=== PATIENT | male | born 1945 | race African-American/Black ===

== ENCOUNTER 2024-01-19 20:53 | Inpatient (IN) | payer MEDICARE, MEDICAID, OTHER, SELFPAY ==
--- OUTSIDE RECORDS SUMMARY | 2024-01-19 20:59 | XMS_ITS | Continuity of Care Document ---
Author Name [facility] Address [address] [place] [address] Organization [facility] Address [address] [place] [address] Support Name Relationship Address Phone No Primary Care, Physician Primary Care Provider Unknown Unavailable Yusef [facility] [place] [phone] Allergies, Adverse Reactions, Alerts No known allergies. Medications Active Medications Medication Dose Units Route Sig Start Date Status Atorvastatin 80 MG Oral Daily October 06, 2019 A ctive Gabapentin 600 MG Oral Daily October 06, 2019 Act dorian Lisinopril 20 MG Oral Daily October 06, 2019 Act dorian Metformin 500 MG Oral Daily October 06, 2019 Acti ve Glipizide 5 MG Oral Daily October 06, 2019 Acti ve Insulin Glargine [Lantus Solostar U-100 Insulin] 8 UNIT Subcutaneous Twice A Day October 06, 2019 Active Problem List Active Problems Medical Problem Onset Date Status URI (upper respiratory infection) Active Procedures Procedure Date Status XR chest pa & lat October 06, 2019 completed Relevant Diagnostic Tests and/or Laboratory Data Laboratory Results Test Date/Time Result Interp. Ref. Range Result Co mment White Blood Count October 06, 2019 8:58am 3.1 10^3/uL Low 4.5-10.5 Red Blood Count October 06, 2019 8:58am 5.12 10^6uL 4.20-5.40 Hemoglobin October 06, 2019 8:58am 13.2 g/dL Low 13.3-16.3 Hematocrit October 06, 2019 8:58am 39.4 % Low 40.0-49.0 Mean Corpuscular Volume October 06, 2019 8:58am 77.0 fL Low 80.0-100.0 Mean Corpuscular Hemoglobin October 06, 2019 8:58am 25.9 pg 23.0-31.0 Mean Corpuscular Hemoglobin Concent October 06, 2019 8:58am 33.6 g/dL 32.0-36.0 Platelet Count October 06, 2019 8:58am 258 10^3/uL 150-400 RDW Coefficient of Variation October 06, 2019 8:58am 13.6 % 12.5-15.5 Mean Platelet Volume October 06, 2019 8:58am 6.7 fL Low 7.0-10.5 Neutrophils (%) (Auto) October 06, 2019 8:58am Not Reportable Lymphocytes (%) (Auto) October 06, 2019 8:58am Not Reportable Monocytes (%) (Auto) October 06, 2019 8:58am Not Reportable Eosinophils (%) (Auto) October 06, 2019 8:58am Not Reportable Basophils (%) (Auto) October 06, 2019 8:58am Not Reportable Absolute Neutrophils (auto) October 06, 2019 8:58am Not Reportable Absolute Lymphocytes (auto) October 06, 2019 8:58am Not Reportable Absolute Monocytes (auto) October 06, 2019 8:58am Not Reportable Absolute Eosinophils (auto) October 06, 2019 8:58am Not Reportable Absolute Basophils (auto) October 06, 2019 8:58am Not Reportable Differential Total Cells Counted October 06, 2019 8:58am 100 Neutrophils % (Manual) October 06, 2019 8:58am 18 % Low 44-74 Lymphocytes % (Manual) October 06, 2019 8:58am 67 % High 16-46 Atypical Lymphocytes % (Manual) October 06, 2019 8:58am 1 % Monocytes % (Manual) October 06, 2019 8:58am 11 % 5-12 Eosinophils % (Manual) October 06, 2019 8:58am 2 % 0-8 Basophils % (Manual) October 06, 2019 8:58am 1 % 0-2 Platelet Estimate October 06, 2019 8:58am Adequate Red Blood Cell Morphology October 06, 2019 8:58am Abnormal High Anisocytosis October 06, 2019 8:58am 1+ High [place]ardo Cells October 06, 2019 8:58am 1+ Sodium Level October 06, 2019 8:58am 135 mmol/L Low 136-145 Potassium Level October 06, 2019 8:58am 4.4 mmol/L 3.5-5.1 Chloride Level October 06, 2019 8:58am 99 mmol/L 98-107 Carbon Dioxide Level October 06, 2019 8:58am 26 mmol/L 22-29 Anion Gap October 06, 2019 8:58am 10 mmol/L 6-18 Blood Urea Nitrogen October 06, 2019 8:58am 5 mg/dL Low 6-20 Creatinine October 06, 2019 8:58am 0.9 mg/dL 0.7-1.2 Glomerular Filtration Rate Calc October 06, 2019 8:58am > 60.00 mL/min 60- Multiply x 1.212 if of descent normal kidney function >60 mL/min results normalized to 1.73 m sq body surface area. Glucose Level October 06, 2019 8:58am 109 mg/dL 74-109 Calcium Level October 06, 2019 8:58am 9.5 mg/dL 8.6-10.0 Influenza Virus Type A (PCR) October 06, 2019 8:44am Negative Influenza Virus Type B (PCR) October 06, 2019 8:44am Negative Respiratory Syncytial Virus (RT-PCR October 06, 2019 8:44am Negative Advance Directives Advance Directive Response Recorded Date/ Time Date Patient Queried 10/06/19September 8:26am Does the patient have a Healthcare Proxy? No October 06, 2019 8:26am Healthcare Proxy Status Informed Patient [facility] 2018 8:26am Chief Complaint and Reason for Visit Encounter Admit Date Chief Complaint Reason for V isit Departed Emergency October 06, 2019 8:11am Flu like s [facility] Discharge Instructions Additional Discharge Instructions Call y our doctor for a follow up appointment. Your flu swab and chest X ray were negative. Return if you feel worse for any reason. Instruction/Education Provided Upper Res piratory Infection (ED) Upper Respiratory Infection (DC) Viral Syndrome (ED) Hospital Discharge Medications Medication Dose Units Route Sig Qty Days Order Date Status Ins tructions Atorvastatin 80 MG Oral Daily Sep Active Gabapentin 600 MG Oral Daily Decem 2018 Active Lisinopril 20 MG Oral Daily Decem 2018 Active Metformin 500 MG Oral Daily [facility] er 2018 Active Glipizide 5 MG Oral Daily [facility] er 2018 Active Insulin Glargine 8 UNIT Subcutaneous Twice A Day October 06, 2019 Active Encounters Encounter Facility Location Admit/Visit Date Discharge/Departure Date Attending Provider Departed Emergency [facility] Emergency Department October 06, 2019 8:11am October 06, 2019 10:55am Functional Status No known functional status. Immunizations No known immunizations. Payers Payer Name Policy Type Covered Republican Covered Republican Id Relationship Subscriber Subscriber Id Medicare Medicare Primary [id number] Self Pay Personal Payment ([place] - No Insurance) [facility] HMO Replacement Medicare Primary [id number] Plan of Care Instructions Upper Respiratory Infection (ED) Upper Respiratory Infection (DC) Viral Syndrome (ED) Social History Query Response Date Recorded Comment Does the patient use drugs? No October 06, 2019 8:38am Is pt a current\former smoke r or user of tobacco products? Yes, former October 06, 2019 8:38am Query Response Start Date Stop Date Is pt a current\former smoke r or user of tobacco products? Yes, former Vital Signs Vital Reading Result Reference Range Collection Date/Time Height 5 ft 9 in October 06 8:29am Weight 69.6 kg October 06 8:29am Temperature 97.7 F 97.5 F-99.3 F October 06 019 10:29am Pulse 47 BPM 60-90 October 06 10:29am Respiration 16 RPM -20 October 06 10:29am Pulse Oximetry 100 % 95-100 October 06, 2019 10:29am Blood Pressure Systolic 116 100-160 Dece mb2018 10:29am Blood Pressure Diastolic 59 60-90 Dec emb2018 10:29am Body Mass Index n/a
--- OUTSIDE RECORDS SUMMARY | 2024-01-19 20:59 | XMS_ITS | Continuity of Care Document ---
Author Organization [facility] Address [address] [place], [place] Phone Support Name Relationship Address Phone MD Kenia Sheehan Primary Care Provider [address] [place] [address] MD Armando Rosenthal Emergency Provider Dept. [place] [address] MD Faustino Friedman Emergency Provider Dept[place] [address] MD Cj Afrin Admit Provider [address] [place] [address] MD Servando Cordon. Other Provider [address] [place] [address] [phone] MD Joyce Monteiro Attending Provider [address] [facility] [place] [address] MD Harjeet Leonardo Emergency Provider Dept. [place] [address] MD Ashutosh Moya Emergency Provider [address] [place] [address] Chief Complaint and Reason for Visit Chief Complaint face feels uncomfort able chest pain CHEST PAIN Left leg laceration SI Allergies, Adverse Reactions, Alerts No known allergies Social History Smoking Status Status Start Date End Date Date of Observa tion Unknown if ever smoked February 072021 10:59am Observation Status Observation Response Date of Response Is pt a current\former smoke r or user of tobacco products? Yes, former February 18, 2022 10:59am Does the patient use drugs? No February 17, 2022 4:31pm On average how many days per week do you drink alcohol? 0 February 18, 2022 10:59am Additional Data Assigned Sex Male Problems Active Problems Medical Problem Onset Date Status Dementia with behavioral disturbance Active Laceration of left thigh Active Inactive/Resolved Problems Medical Problem Onset Date Status Facial tingling sensation Resolv ed URI (upper respiratory infection) Resolved Atopic dermatitis Resolved Eczema Resolved Rash and nonspecific skin eruption Resolved Itching Resolved Restless legs Resolved Chest pain Resolved Medications Medication Status Dose Units Route Directions Qty Days St art Date End Date Instructions Triamcinolon e Acetonide Disconti nued 1 APPLIC TOPICAL Twice A Day 454 November 09, 2020 2:37am Februa ry 2020 1:08am Loratadine Active 10 MG PO Daily 2020 3:58pm Atorvastatin Active 80 MG PO Bedtime Sep 9:31am Gabapentin Active 600 MG PO Three Lucio es A Day r 2018 9:31am Lisinopril Active 20 MG PO Daily e 2018 9:31am Metformin Active 1000 MG PO Twice A Day [facility] [place] 9:31am Glipizide Active 5 MG PO Twice A Day [facility] 2018 9:31am Insulin Glargine (Lantus Solostar U-100 Insulin) 100 unit/mL (3 mL) insulin pen Disconti nued 8 UNIT SUB-Q Twice A Day r 2018 9:34am December 13, 2021 5:01pm Quetiapine (Seroquel) 50 mg tablet Active 50 MG PO Bedtime December 13, 2021 4:56pm Donepezil (Aricept) 5 mg tablet Active 5 MG PO Daily December 13, 2021 4:56pm Thiamine Hcl (Vitamin B1) (Vitamin B-1) 100 mg tablet Active 100 MG PO Daily December 13, 2021 4:58pm Folic Acid Active 1 MG PO Daily December 13, 2021 4:58pm Omeprazole Active 40 MG PO Daily December 13, 2021 4:59pm Aspirin Active 81 MG PO Daily December 13, 2021 5:45pm Procedures Procedure Date Performed Status XR chest 1V portable December 13, 2021 10:44am com pleted CA cardiac stress test January 15, 2022 8:00am co mpleted Relevant Diagnostic Tests and/or Laboratory Data Laboratory Results Test Date/Time Result Interpretation Reference Range Result Comment Performing Site White Blood Count September 10, 2021 2:25pm 3.8 10^3/uL 4.5-10.5 [facility] [address] [facility] [address] White Blood Count December 14, 2021 8:33am 4.3 10^3/uL 4.5-10.5 [facility] [address] [facility] [address] White Blood Count February 17, 2022 2:25pm 3.7 10^3/uL 4.5-10.5 [place] [address] [facility] [address] Red Blood Count September 10, 2021 2:25pm 4.90 10^6uL 4.20-5.40 [place] [address] [facility] [address] Red Blood Count December 14, 2021 8:33am 4.54 10^6uL 4.20-5.40 [place] [address] [facility] [address] Red Blood Count February 17, 2022 2:25pm 4.83 10^6uL 4.20-5.40 [facility] [address] [facility] [address] Hemoglobin September 10, 2021 2:25pm 13.0 g/dL 13.3-16.3 [place] [address] [facility] [address] Hemoglobin December 14, 2021 8:33am 12.0 g/dL 13.3-16.3 [facility] [address] [facility] [address] Hemoglobin February 17, 2022 2:25pm 12.2 g/dL 13.3-16.3 [place] [address] [facility] [address] Hematocrit September 10, 2021 2:25pm 38.9 % 40.0-49.0 [place] [address] [facility] [address] Hematocrit December 14, 2021 8:33am 35.5 % 40.0-49.0 [place] [address] [facility] [address] Hematocrit February 17, 2022 2:25pm 37.6 % 40.0-49.0 [facility] [address] [facility] [address] Mean Corpuscular Volume September 10, 2021 2:25pm 79.4 fL 80.0-100.0 [place] [address] [facility] [address] Mean Corpuscular Volume December 14, 2021 8:33am 78.3 fL 80.0-100.0 [place] [address] [facility] [address] Mean Corpuscular Volume February 17, 2022 2:25pm 77.8 fL 80.0-100.0 [place] [address] [facility] [address] Mean Corpuscular Hemoglobin September 10, 2021 2:25pm 26.5 pg 23.0-31.0 [place] [address] [facility] [address] Mean Corpuscular Hemoglobin December 14, 2021 8:33am 26.4 pg 23.0-31.0 [facility] [address] [facility] [address] Mean Corpuscular Hemoglobin February 17, 2022 2:25pm 25.2 pg 23.0-31.0 [place] [address] [facility] [address] Mean Corpuscular Hemoglobin Concent September 10, 2021 2:25pm 33.4 g/dL 32.0-36.0 [facility] [address] [facility] [address] Mean Corpuscular Hemoglobin Concent December 14, 2021 8:33am 33.7 g/dL 32.0-36.0 [facility] [address] [facility] [address] Mean Corpuscular Hemoglobin Concent February 17, 2022 2:25pm 32.4 g/dL 32.0-36.0 [place] [address] [facility] [address] Platelet Count September 10, 2021 2:25pm 213 10^3/uL 150-[address] [facility] [facility] [address] [facility] [address] Platelet Count December 14, 2021 8:33am 188 10^3/uL 150-[address] [facility] [place] [address] [facility] [address] Platelet Count February 17, 2022 2:25pm 250 10^3/uL 150-400 Delta: 188 on 12/14/21-[address] [facility] [place] [address] [facility] [address] RDW Coefficient of Variation September 10, 2021 2:25pm 13.5 % 12.5-15.[address] [facility] [place] [address] [facility] [address] RDW Coefficient of Variation December 14, 2021 8:33am 14.2 % 12.5-15.5 [facility] [place] [address] [facility] [address] RDW Coefficient of Variation February 17, 2022 2:25pm 13.8 % 12.5-15.5 [facility] [address] [facility] [address] Mean Platelet Volume September 10, 2021 2:25pm 6.9 fL 7.0-10.5 [facility] [address] [facility] [address] Mean Platelet Volume December 14, 2021 8:33am 7.7 fL 7.0-10.5 [facility] [address] [facility] [address] Mean Platelet Volume February 17, 2022 2:25pm 7.0 fL 7.0-10.5 [facility] [address] [facility] [address] Neutrophils (%) (Auto) September 10, 2021 2:25pm 46 % 44-[address] [facility] [address] [facility] [address] Neutrophils (%) (Auto) December 13, 2021 10:44am 54 % 44-74 Delta: 46 on 09/10/21-[address] [facility] [place] [address] [facility] [address] Neutrophils (%) (Auto) February 17, 2022 2:25pm 55 % 44-74 [facility] [place] [address] [place] [address] Lymphocytes (%) (Auto) September 10, 2021 2:25pm 42 % 16-46 [facility] [place] [address] [place] [address] Lymphocytes (%) (Auto) December 13, 2021 10:44am 35 % 16-46 [facility] [place] [address] [place] [address] Lymphocytes (%) (Auto) February 17, 2022 2:25pm 36 % 16-46 [facility] [place] [address] [place] [address] Monocytes (%) (Auto) September 10, 2021 2:25pm 9 % 5-12 [facility] [place] [address] [place] [address] Monocytes (%) (Auto) December 13, 2021 10:44am 9 % 5-12 [facility] [place] [address] [place] [address] Monocytes (%) (Auto) February 17, 2022 2:25pm 7 % 5-12 [facility] [place] [address] [place] [address] Eosinophils (%) (Auto) September 10, 2021 2:25pm 2 % 0-8 [facility] [place] [address] [place] [address] Eosinophils (%) (Auto) December 13, 2021 10:44am 2 % 0-8 [facility] [place] [address] [place] [address] Eosinophils (%) (Auto) February 17, 2022 2:25pm 2 % 0-8 [facility] [place] [address] [place] [address] Basophils (%) (Auto) September 10, 2021 2:25pm 1 % 0-2 [facility] [place] [address] [place] [address] Basophils (%) (Auto) December 13, 2021 10:44am 1 % 0-2 [facility] [address] [place] [address] Basophils (%) (Auto) February 17, 2022 2:25pm 1 % 0-[address] [facility] [address] Absolute Neutrophils (auto) September 10, 2021 2:25pm 1.8 10^3/uL 1.5-7.8 [address] [facility] [address] Absolute Neutrophils (auto) December 13, 2021 10:44am 2.1 10^3/uL 1.5-7.[address] [facility] [address] Absolute Neutrophils (auto) February 17, 2022 2:25pm 2.0 10^3/uL 1.5-7.[address] [facility] [address] Absolute Lymphocytes (auto) September 10, 2021 2:25pm 1.6 10^3/uL 0.85-4.[address] [facility] [address] Absolute Lymphocytes (auto) December 13, 2021 10:44am 1.3 10^3/uL 0.85-4.1 [address] [facility] [address] Absolute Lymphocytes (auto) February 17, 2022 2:25pm 1.3 10^3/uL 0.85-4.[address] [facility] [address] Absolute Monocytes (auto) September 10, 2021 2:25pm 0.3 10^3/uL 0.2-1.1 [address] [facility] [address] Absolute Monocytes (auto) December 13, 2021 10:44am 0.4 10^3/uL 0.2-1.[address] [address] Absolute Monocytes (auto) February 17, 2022 2:25pm 0.3 10^3/uL 0.2-1.1 [address] [facility] [address] Absolute Eosinophils (auto) September 10, 2021 2:25pm 0.1 10^3/uL 0.05-0.[address] [facility] [address] Absolute Eosinophils (auto) December 13, 2021 10:44am 0.1 10^3/uL 0.05-0.[address] [facility] [address] Absolute Eosinophils (auto) February 17, 2022 2:25pm 0.1 10^3/uL 0.05-0.[address] [facility] [address] Absolute Basophils (auto) September 10, 2021 2:25pm 0.0 10^3/uL 0-0.[address] [facility] [address] Absolute Basophils (auto) December 13, 2021 10:44am 0.0 10^3/uL 0-0.2 [address] [facility] [address] Absolute Basophils (auto) February 17, 2022 2:25pm 0.0 10^3/uL 0-0.[address] [facility] [address] Urine Color December 13, 2021 10:44am Yellow Yellow [address] [facility] [address] Urine Color February 17, 2022 4:42pm Yellow Yellow [address] [facility] [address] Urine Clarity December 13, 2021 10:44am Clear Clear [address] [facility] [address] Urine Clarity February 17, 2022 4:42pm Clear Clear [address] [facility] [address] Urine Specific [place] December 13, 2021 10:44am 1.009 1.005-1.03 [address] [facility] [address] Urine Specific [place] February 17, 2022 4:42pm 1.016 1.005-1.[address] [facility] [address] Urine Glucose (UA) December 13, 2021 10:44am Negative Negative Nella[address] [facility] [address] Urine Glucose (UA) February 17, 2022 4:42pm Negative Negative [address] [facility] [address] Urine Bilirubin December 13, 2021 10:44am Negative Negative [address] [facility] [address] Urine Bilirubin February 17, 2022 4:42pm Negative Negative [address] [facility] [address] Urine Ketones December 13, 2021 10:44am Negative Negative [address] [facility] [address] Urine Ketones February 17, 2022 4:42pm Negative Negative [address] [facility] [address] Urine Occult Blood December 13, 2021 10:44am Negative Negative [address] [facility] [address] Urine Occult Blood February 17, 2022 4:42pm Negative Negative [address] [facility] [address] Urine pH December 13, 2021 10:44am 8.5 5.0-7.[address] [facility] [address] Urine pH February 17, 2022 4:42pm 7.5 5.0-7.[address] [facility] [address] Urine Protein December 13, 2021 10:44am Negative mg/dL Negative [address] [facility] [address] Urine Protein February 17, 2022 4:42pm Negative mg/dL Negative [address] [facility] [address] Urine Urobilinogen December 13, 2021 10:44am 1.0 E.U./dL 0.2-1.[address] [facility] [address] Urine Urobilinogen February 17, 2022 4:42pm 1.0 E.U./dL 0.2-1.[address] [facility] [address] Urine Nitrite December 13, 2021 10:44am Negative Negative [facility] [address] [facility] [address] Urine Nitrite February 17, 2022 4:42pm Negative Negative N[facility] [address] [facility] [address] Urine Leukocyte Esterase December 13, 2021 10:44am Negative [facility] [address] [facility] [address] Urine Leukocyte Esterase February 17, 2022 4:42pm Negative Negative Nella [facility] [address] [facility] [address] Urine Amphetamine Screen February 17, 2022 4:42pm Negative Negative [address] [facility] [address] Urine Barbiturates Screen February 17, 2022 4:42pm Negative Negative [address] [facility] [address] Urine Benzodiazepines Screen February 17, 2022 4:42pm Negative Negative Nella[address] [facility] [address] Urine Buprenorphine Screen February 17, 2022 4:42pm Negative Negative [facility] [address] [facility] [address] Urine Cocaine Screen February 17, 2022 4:42pm Negative Negative [address] [facility] [address] Urine Methadone Screen February 17, 2022 4:42pm Negative Negative [address] [facility] [address] Urine Oxycodone Screen February 17, 2022 4:42pm Negative Negative [facility] [address] [facility] [address] Urine Opiates Screen February 17, 2022 4:42pm Negative Negative [facility] [address] [facility] [address] Urine Cannabinoids Screen February 17, 2022 4:42pm Negative Negative [facility] [address] [facility] [address] Urine Fentanyl Screen February 17, 2022 4:42pm Negative Negative [facility] [address] [facility] [address] Sodium Level September 10, 2021 2:25pm 140 mmol/L 136-145 [facility] [address] [facility] [address] Sodium Level December 14, 2021 8:33am 138 mmol/L 136-145 [facility] [address] [facility] [address] Sodium Level February 17, 2022 2:25pm 139 mmol/L 136-145 [facility] [address] [facility] [address] Potassium Level September 10, 2021 2:25pm 4.8 mmol/L 3.5-5.1 [facility] [address] [facility] [address] Potassium Level December 14, 2021 8:33am 4.1 mmol/L 3.5-5.[address] [facility] [address] Potassium Level February 17, 2022 2:25pm 4.5 mmol/L 3.5-5.1 [facility] [address] [facility] [address] Chloride Level September 10, 2021 2:25pm 101 mmol/L 98-107 [facility] [address] [facility] [address] Chloride Level December 14, 2021 8:33am 100.7 mmol/L 98-107 [facility] [address] [facility] [address] Chloride Level February 17, 2022 2:25pm 103 mmol/L 98-107 [facility] [address] [facility] [address] Carbon Dioxide Level September 10, 2021 2:25pm 28 mmol/L 22-29 [facility] [address] [facility] [address] Carbon Dioxide Level December 14, 2021 8:33am 25 mmol/L 22-29 [facility] [address] [facility] [address] Carbon Dioxide Level February 17, 2022 2:25pm 27 mmol/L 22-[address] [facility] [address] Anion Gap September 10, 2021 2:25pm 11 mmol/L 6- [facility] [address] [facility] [address] Anion Gap December 14, 2021 8:33am 12.3 mmol/L - [facility] [address] [facility] [address] Anion Gap February 17, 2022 2:25pm 9 mmol/L 03-27 [facility] [address] [facility] [address] Blood Urea Nitrogen September 10, 2021 2:25pm 5 mg/dL 03-29 [facility] [address] [facility] [address] Blood Urea Nitrogen December 14, 2021 8:33am 8 mg/dL 03-29 Delta: 4 on 12/13/21-943 [facility] [address] [facility] [address] Blood Urea Nitrogen February 17, 2022 2:25pm 11 mg/dL 03-29 [facility] [address] [facility] [address] Creatinine September 10, 2021 2:25pm 0.9 mg/dL 0.7-1.2 [facility] [address] [facility] [address] Creatinine December 14, 2021 8:33am 0.9 mg/dL 0.7-1.2 [facility] [address] [facility] [address] Creatinine February 17, 2022 2:25pm 1.0 mg/dL 0.7-1.2 [facility] [address] [facility] [address] Glomerular Filtration Rate Calc September 10, 2021 2:25pm > 60.00 mL/min >60 Multiply x 1.212 if of descent normal kidney function >60 mL/min results normalized to 1.73 m sq body surface area. [facility] [address] [facility] [address] Glomerular Filtration Rate Calc December 14, 2021 8:33am > 60.00 mL/min >60 Multiply x 1.212 if of descent normal kidney function >60 mL/min results normalized to 1.73 m sq body surface area. [facility] [address] [facility] [address] Glomerular Filtration Rate Calc February 17, 2022 2:25pm > 60.00 mL/min >60 Multiply x 1.212 if of descent normal kidney function >60 mL/min results normalized to 1.73 m sq body surface area. [place] [address] [facility] [address] Glucose Level September 10, 2021 2:25pm 134 mg/dL 74-109 [facility] [address] [facility] [address] Glucose Level December 14, 2021 8:33am 114 mg/dL 74-109 [place] [address] [facility] [address] Glucose Level February 17, 2022 2:25pm 245 mg/dL 74-109 [place] [address] [facility] [address] Calcium Level September 10, 2021 2:25pm 9.5 mg/dL 8.6-10.6 [place] [address] [facility] [address] Calcium Level December 14, 2021 8:33am 8.8 mg/dL 8.6-10.6 [place] [address] [facility] [address] Calcium Level February 17, 2022 2:25pm 9.1 mg/dL 8.6-10.6 [place] [address] [facility] [address] Phosphorus Level February 17, 2022 2:25pm 2.9 mg/dL 2.5-4.5 [facility] [address] [facility] [address] Total Bilirubin December 13, 2021 10:44am 0.4 mg/dL 0.4-1.2 [place] [address] [facility] [address] Total Bilirubin February 17, 2022 2:25pm 0.3 mg/dL 0.4-1.2 [place] [address] [facility] [address] Direct Bilirubin December 13, 2021 10:44am < 0.2 mg/dL 0.0-0.2 [place] [address] [facility] [address] Aspartate Amino Transf (AST/SGOT) December 13, 2021 10:44am 29 IU/L 10-50 [facility] [address] [facility] [address] Aspartate Amino Transf (AST/SGOT) February 17, 2022 2:25pm 26 IU/L 10-[address] [facility] [address] Alanine Aminotransferase (ALT/SGPT) December 13, 2021 10:44am 22 U/L 5-[address] [facility] [address] Alanine Aminotransferase (ALT/SGPT) February 17, 2022 2:25pm 31 U/L 5-[address] [facility] [address] Alkaline Phosphatase December 13, 2021 10:44am 76 IU/L 40-[address] [facility] [address] Alkaline Phosphatase February 17, 2022 2:25pm 88 IU/L 40-129 [address] [facility] [address] Total Protein December 13, 2021 10:44am 6.7 g/dL 6.6-8.7 [address] [facility] [address] Total Protein February 17, 2022 2:25pm 6.7 g/dL 6.6-8.[address] [facility] [address] Albumin December 13, 2021 10:44am 4.4 g/dL 3.5-5.[address] [facility] [address] Albumin February 17, 2022 2:25pm 3.9 g/dL 3.5-5.[address] [facility] [address] Magnesium Level February 17, 2022 2:25pm 1.4 mg/dL 1.6-2.[address] [facility] [address] Troponin T December 13, 2021 11:00pm < 0.01 ng/mL 0.0-0.01 [facility] [place] [address] Triglycerides Level December 14, 2021 8:33am 69 mg/dL Normal = <150 mg/dL [place] [address] [place] [address] Cholesterol Level December 14, 2021 8:33am 99 mg/dL Desirable = <200 mg/dL --- [place] [address] [place] [address] LDL Cholesterol, Calculated December 14, 2021 8:33am 60 mg/dL Optimal = <100 mg/dL Near Optimal = 100-129 mg/dL -------- [place] [address] [place] [address] HDL Cholesterol December 14, 2021 8:33am 25 mg/dL Low = <40 mg/dL Desirable = >59 mg/dL -- [place] [address] [place] [address] Cholesterol/HDL Ratio December 14, 2021 8:33am 4.0 [place] = <3.5 Good = >5.0 [facility] [place] [address] [place] [address] Cholesterol Ratio (LDL/HDL) December 14, 2021 8:33am 2.4 [place] = <2.0 Good = >5.0 Lipid Profile Reference Ranges based on NCEP Guidelines [facility] [address] Amylase Level December 13, 2021 10:44am 281 U/L 28-[address] [facility] [address] Lipase December 13, 2021 10:44am 35 U/L 13-[address] [facility] [address] Hemoglobin A1c December 14, 2021 8:33am 7.3 % 4.0-6.[address] [facility] [address] Estimated Average Glucose (eAG) December 14, 2021 8:33am 163 mg/dL [address] [facility] [address] Salicylates Level December 13, 2021 10:44am < 1.0 mg/dL 3.0-10.[address] [facility] [address] Salicylates Level February 17, 2022 2:25pm < 1.0 mg/dL 3.0-10.[address] [facility] [address] Acetaminophen Level December 13, 2021 10:44am < 5.0 ug/mL 10.0-30.[address] [facility] [address] Acetaminophen Level February 17, 2022 2:25pm < 5.0 ug/mL 10.0-30.[address] [facility] [address] Ethyl Alcohol Level December 13, 2021 10:44am < 10 mg/dL <[address] [facility] [address] Ethyl Alcohol Level February 17, 2022 2:25pm < 10 mg/dL <[address] [facility] [address] Influenza Virus Type A (PCR) December 13, 2021 11:10am Negative Negative [address] [facility] [address] Influenza Virus Type A (PCR) February 17, 2022 4:20pm Negative Negative [address] [facility] [address] Influenza Virus Type B (PCR) December 13, 2021 11:10am Negative Negative [address] [facility] [address] Influenza Virus Type B (PCR) February 17, 2022 4:20pm Negative Negative [address] [facility] [address] Respiratory Syncytial Virus (RT-PCR December 13, 2021 11:10am Negative Negative [address] [facility] [address] Respiratory Syncytial Virus (RT-PCR February 17, 2022 4:20pm Negative Negative [address] [facility] [address] SARS-CoV-2 (PCR) December 13, 2021 11:10am Negative Negative Test performed with [employer] GeneXpert SARS-CoV-2 PCR assay, which has received emergency use authorization (EUA) by the U.S.Food and Drug Administration . Negative results do not preclude SARS-CoV-2 infection and should not be used as the sole basis for treatment or other patient management decisions. [address] [facility] [address] SARS-CoV-2 (PCR) February 17, 2022 4:20pm Negative Negative Test performed with [employer] GeneXpert SARS-CoV-2 PCR assay, which has received emergency use authorization (EUA) by the U.S.Food and Drug Administration . Negative results do not preclude SARS-CoV-2 infection and should not be used as the sole basis for treatment or other patient management decisions. [address] [place] [id number] Bedside Glucose December 14, 2021 1:10pm 263 mg/dL 70-[address] [place] [id number] Diagnostic Imaging Reports Report Dictated Date/Time Dictated By Status Electrocardiogram September 12, 2021 10:00am [place] [address] Electrocardiogram Report Signed Patient: Maryana Rivera MR#: [id number] : 1945 Acct: [id number] Age/Sex: 76 / M ADM Date: 09/10/21 Loc: M.ER Attending Dr: Ordering Physician: Armando Rosenthal MD Pat CELL Date of Service: 09/10/21 Procedure(s): ECG Ekg Er Accession Number(s): [id number] CC: Lily Abernathy MD; Armando Rosenthal MD; Kenia Sheehan MD Date: 09/10/21 Time: 1442 Clinical Diagnosis: Referred By: Rhythm: Sinus bradycardia rate of 46 bpm Rate auricular: ventricular: P-R interval: [place]: Q-R-S interval: Q-T interval: P-Wave: Q-R-S complexes: T-Waves: Other findings: Interpretation: Sinus bradycardia, first degree AV conduction delay. OH interval 240 ms with Right bundle branch block. QRS prolonged at 127 ms. No prior EKG for comparison. Technologist: Dictated By: Lily Abernathy MD Transcribed By: JENNIFER Signed By: <Electronically signed by Lily Abernathy MD> Lily Abernathy MD Signed Date/Time: 09/16/21 1401 DD/ 1000 TD/TT: 09/15/21 1514 CC: Lily Abernathy MD; Armando Rosenthal MD; Kenia Sheehan MD Report Dictated Date/Time Dictated By Status Radiology Report December 13, 2021 11:23am Donald allison MD completed [address] [address] XRay Report Signed Patient: Maryana Rivera MR#: [id number] : 1945 Acct: [id number] Age/Sex: 76 / M ADM Date: 12/13/21 Loc: M.ER Attending Dr: ER Physician: Faustino Friedman MD Ordering Physician: YOGESH Man CELL Date of Service: 12/13/21 Procedure(s): XR chest 1V portable Accession Number(s): [id number] CC: Kenia Sheehan MD; Sanjay Nelson PA-C * XR chest 1V portable [id number] Interpretation Location: [place] [address] Date / Time: 12/13/2021 10:12 AM CLINICAL HISTORY: chest pain COMPARISON: X-ray dated October 06, 2019 TECHNIQUE: Frontal portable chest radiograph FINDINGS: No focal consolidation. No pneumothorax or pleural effusion. The cardiac silhouette is within normal limits. There are no acute osseous abnormalities. IMPRESSION: No radiographic evidence of an acute cardiopulmonary process. Electronically Signed by: Donald Sepulveda MD 12/13/2021 11:23 AM Technologist: Christopher Fontanez Dictated By: Donald Sepulveda MD Transcribed By: [email or web address] Signed By: <Electronically signed by Donald Sepulveda MD in OV> Donald Sepulveda MD Signed Date/Time: 12/13/211122 DD/ 22 TD/TT: 12/13/21 112 CC: Kenia Sheehan MD; Sanjay Nelson PA-C Report Dictated Date/Time Dictated By Status Electrocardiogram December 14, 2021 9:00am [place] [address] Electrocardiogram Report Signed Patient: Maryana Rivera MR#: [id number] : 1945 Acct: [id number] Age/Sex: 76 / M ADM Date: 12/13/21 Loc: M.2E [id number]: Joyce Monteiro MD ER Physician: Faustino Friedman MD Ordering Physician: YOGESH Man CELL Date of Service: 12/13/21 Procedure(s): EKG (ER) Accession Number(s): [id number] CC: Kenia Sheehan MD; Sanjay Nelson PA-C Date: 12/13/21 Time: 09:16 Clinical Diagnosis: Referred By: Rhythm: Sinus rhythm/50 bpm Rate auricular: ventricular: P-R interval: [place]: Q-R-S interval: Q-T interval: P-Wave: Q-R-S complexes: T-Waves: Other findings: Interpretation: Sinus rhythm/50 bpm, Right bundle branch block, QRS prolonged 125 milliseconds with first degree AV conduction delay. OH interval prolonged 227 milliseconds, unchanged compared to prior 09/10/21. Technologist: Dictated By: Lily Abernathy MD Transcribed By: KALLIE Signed By: <Electronically signed by Lily Abernathy MD> Lily Abernathy MD Signed Date/Time: 12/16/21 1400 DD/ 0900 TD/TT: 12/16/21 1211 CC: Kenia Sheehan MD; Sanjay Nelson PA-C Report Dictated Date/Time Dictated By Status Exercise Stress Test January 15, 2022 7:38am Lily engle MD completed [address] [address] Exercise Tolerance Test Signed Patient: Maryana Rivera MR#: [id number] : 1945 Acct: [id number] Age/Sex: 76 / M ADM Date: 01/15/22 Loc: [place] Attending Dr: Kenia Sheehan MD ER Physician: Ordering Physician: Kenia Sheehan MD Pat CELL Date of Service: 01/15/22 Procedure(s): CA cardiac stress test Accession Number(s): [id number] CC: Kenia Sheehan MD * DATE OF EXAM: 01/15/22 Maximum Predicted HR: 117bpm Target HR: 112bpm Referring MD: Kenia Sheehan Medications: Beta robert in last 24 hours: Unspecified Reason for Exercise Test: RESTING BP HR EKG FINDINGS SYMPTOMS SITTING: STANDIN/58 52 EXERCISE STAGE: MPH GR. BP HR EKG FINDINGS SYMPT OMS MOD 1.7 0% 0 1.7 5% 53 1 1.7 10% 99 2 2.5 12% 91 3 3.4 14% 96 4 4.2 16% 5 5.0 18% RECOVERY Immediate 0 115 Minute 1 150/80 84 Minute 3 Minute 6 Minute 9 % Predicted Max. HR Achieved: 81% Exercise Duration: Min: 5 Sec: ETT STOPPED DUE TO: Completion of protocol CONCLUSION: The patient was tested using the Dane protocol for a duration of 05:12 mm:ss and achieved 7.1 MET? s. A maximum heart rate of 117 bpm with a target predicted heart rate of 95% was obtained at 01:30. A maximum systolic blood pressure of 150/80 was obtained at 06:08 and a maximum diastolic blood pressure of 150/80 was obtained at 06:08. A maximum ST depression of -4.2 mm in V3 occurred at 03:50. A maximum ST elevation of +3.0 mm in V3 occurred at 03:00. The patient reached target heart rate with appropriate heart rate and blood p ressure response to exercise. No significant ST changes during exercise or recovery. No evidence of ischemia. Normal exercise stress test. Technologist: Dictated By: Lily Abernathy MD Transcribed By: KEN Signed By: <Electronically signed by Lily Abernathy MD> Lily Abernathy MD Signed Date/Time: 02/18/22818 DD/ 7 TD/TT: 02/16/22 1725 CC: Kenia Sheehan MD Vital Signs Vital Reading Result Reference Range Collection Date/Time Body Temperature 97.5 [degF] 97.5-99.3 September 3:22pm Heart Rate 52 /min 60-90 September 10, 2 021 3:22pm Respiratory rate 16 /min -September 3:22pm Oxygen saturation by Pulse oximetry 100 % 95-100 September 10, 2021 3 :22pm BP Systolic 197 mm[Hg] 100-160 September 10, 2 021 3:22pm BP Diastolic 68 mm[Hg] 60-90 September 10, 2 021 3:22pm Height 68 [in_i] December 13, 2021 2:14pm Weight 71.30 kg December 13, 2021 2:14pm Body Temperature 98.5 [degF] 97.5-99.3 December 14, 2021 8:00am Heart Rate 54 /min 60-December 14, 2021 12:00pm Respiratory rate 17 /min -December 14, 2021 8:00am Oxygen saturation by Pulse oximetry 98 % 95-100 December 14, 2021 8:00 am BP Systolic 125 mm[Hg] 100-160 December 14, 2021 8:18am BP Diastolic 58 mm[Hg] 60-90 December 14, 2021 8:18am Body Temperature 97.4 [degF] 97.5-99.3 January 31, 2022 12:34pm Heart Rate 59 /min 60-90 January 31 2:30pm Respiratory rate 16 /min -January 31, 2022 2:30pm Oxygen saturation by Pulse oximetry 100 % 95-100 January 31, 2022 2:3 0pm BP Systolic 160 mm[Hg] 100-160 January 31 2:30pm BP Diastolic 70 mm[Hg] 60-90 January 31 2:30pm Body Temperature 97.9 [degF] 97.5-99.3 February 18, 022 8:00am Heart Rate 89 /min 60-90 February 18, 2022 5:50pm Respiratory rate 18 /min -February 18, 022 5:50pm Oxygen saturation by Pulse oximetry 100 % 95-100 February 18, 2022 5:50p m BP Systolic 130 mm[Hg] 100-160 February 18, 2022 5:50pm BP Diastolic 66 mm[Hg] 60-90 February 18, 2022 5:50pm Advance Directives Advance Directive Response Recorded Date/ Time Does the patient have a Healthcare Proxy? Yes June 05, 2021 4:54pm Healthcare Proxy Agent Name Radha Mayen st 2020 4:54pm Healthcare Proxy Agent Phone # [phone] [facility] Date Patient Queried 02/17/22 February 17, 2 022 1:55pm Is the Healthcare Proxy on f ile at [facility]? Unknown June 05, 2021 4:54pm Insurance Providers Guarantor Maryana Ortiz Nicole Address [address] [place] [id number] Contact Info. Home Phone: CELL Payer Policy Id Coverage Id Subscriber's Name Subscriber Id Effective Date Expiration Date Medicare [id number] 30 [id number] Maryana Rivera [id number] Self Pay Self N/A [employer] H[employer] Replacement [id number] 01 [id number] [employer] Supplement [id number] 01 [id number] Maryana Ortiz Nicole [id number] Encounters Encounter Location(s) Arrival/Admit Date Discharge/Depart Date Provider(s) Departed Emergency [facility] Emergency Department September 10, 2021 11:10am September 10, 2021 4:23pm null Discharged Inpatient [facility] 2 December 13, 2021 3:02pm December 14, 2021 5:30pm Markos Phelps MD Departed Clinical [facility] Cardiology January 15, 2022 7:57am January 15, 2022 7:58am Kenia Sheehan MD Departed Emergency [facility] Emergency Department January 31, 2022 12:26pm January 31, 2022 2:31pm null Departed Emergency [facility] Emergency Department February 17, 2022 1:50pm February 18, 2022 5:50pm null Mental Status Observation Response Date Recorded Patient Orientation Oriented x3 September 1:43pm Patient Orientation Oriented x3 January 31, 2022 1:07pm Patient Orientation Oriented x3 February 17 4:31pm Patient Orientation Oriented x3 December 14, 2 022 4:05pm Plan of Treatment Future Tests Future scheduled test information is unavailable Pending Tests Pending diagnostic test information is unavailable Future Visits Future appointment information is unavailable Referrals to Other Providers Reason for Referral Referral Start Date Provider Provider Contact Information Provider Address Kenia Sheehan MD Email: [email or web address] Phone: [address] [facility] Kenia Sheehan MD Email: [email or web address] Phone: [address] [facility] [address] Kenia Sheehan MD Email: [email or web address] Phone: [address] [facility] [address] [facility] Referral Work Phone: Kenia Sheehan MD Email: [email or web address] Phone: [address] [facility] Future Procedures Future procedure information is unavailable Future Medications Future medication information is unavailable Patient Instructions Patient instructions are unavailable Hospital Discharge Instructions Additional Instructions Please follow up with your doctors as planned. Come back if anything changes or gets worse, we're open always.
--- OUTSIDE RECORDS SUMMARY | 2024-01-19 20:59 | XMS_ITS | Continuity of Care Document ---
Author Organization [facility] Address [address] [place], [place] Phone Support Name Relationship Address Phone MD Kenia Sheehan Primary Care Provider [address] [place], [place] MD Eric Apple Emergency Provider [address] [place], [place] MD Harjeet Leonardo Emergency Provider 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 Yes, former November 01, 2022 1:46pm Does the patient use drugs? No Jose christina 2022 12:34pm On average how many days per week do you drink alcohol? 0 November 01, 2022 12:34pm Additional Data Assigned Sex Male Problems Active Problems Medical Problem Onset Date Status Dementia with behavioral disturbance Active Inactive/Resolved Problems Medical Problem Onset Date Status Facial tingling sensation Resolv ed Dementia with behavioral disturbance Resolved Social discord Resolved URI (upper respiratory infection) Resolved Dementia Resolved Atopic dermatitis Resolved Eczema Resolved Rash and nonspecific skin eruption Resolved Atypical chest pain Resolved Itching Resolved Restless legs Resolved Chest pain Resolved Laceration of left thigh Resolve d Medications Medication Status Dose Units Route Directions Qty Days St art Date End Date Instructions Triamcinolon e Acetonide Disconti nued 1 APPLIC TOPICAL Twice A Day 454 November 09, 2020 12:00am Februa ry 2020 12:08a m Loratadine Disconti nued 10 MG PO Daily 14 [facility] r 2020 12:00am Januar y 2022 12:29p m Atorvastatin Active 80 MG PO Bedtime Sep [facility]2018 12:00am Gabapentin Active 1200 MG PO Every Morning [facility] 2018 12:00am Lisinopril Active 20 MG PO Every Morning [facility] 2018 12:00am Metformin Active 1000 MG PO Twice A Day [facility] r 2018 12:00am Glipizide Disconti nued 5 MG PO Twice A Day [facility] 2018 12:00am Octuar y 2022 12:29p m Insulin Glargine (Lantus Solostar U-100 Insulin) 100 unit/mL (3 mL) insulin pen Disconti nued 8 UNIT SUB-Q Twice A Day [facility] 2018 12:00am December 13, 2021 4:01pm Quetiapine (Seroquel) 50 mg tablet Disconti nued 50 MG PO Bedtime December 13, 2021 12:00am Januar y 2022 2:10pm Donepezil (Aricept) 5 mg tablet Active 10 MG PO Every Day At Bedtime December 13, 2021 12:00am Thiamine Hcl (Vitamin B1) (Vitamin B-1) 100 mg tablet Active 100 MG PO Daily December 13, 2021 12:00am Folic Acid Active 1 MG PO Daily December 13, 2021 12:00am Omeprazole Active 40 MG PO Daily December 13, 2021 12:00am Aspirin Active 81 MG PO Daily December 13, 2021 12:00am Gabapentin Active 600 MG PO Every Day At Bedtime November 01, 2022 12:00am Escitalopram Oxalate Disconti nued 5 MG PO Daily November 01, 2022 12:00am 2022 2:10pm Multivit-Min -Fa-Lycopen- Lutein (Centrum Silver) 0.4 mg-300 mcg- 250 mcg Tablet Active 1 TAB PO Daily November 01, 2022 12:00am Cholecalcife rol (Vitamin D3) Active 25 MCG PO Daily November 01, 2022 12:00am Carboxymethy lcellulose Sodium Active 1 DROP EYE-BOT H Daily November 01, 2022 12:00am Quetiapine Active 25 MG PO 1500 2022 12:00am Quetiapine Active 25 MG PO Bedtime 2022 12:00am Trazodone Active 25 MG PO Bedtime 2022 12:00am Procedures Procedure Date Performed Status CT head/brain wo con November 02, 2022 7:00am c ompleted Relevant Diagnostic Tests and/or Laboratory Data Laboratory Results Test Date/Time Result Interpretation Reference Range Result Comment Performing Site White Blood Count June 15, 2022 12:46pm 3.8 10^3/uL 3.9-10.8 [facility] [id number] [address] [facility] [address] White Blood Count August 10, 2022 9:20am 3.9 10^3/uL 3.9-10.8 [facility] [id number] 199 [facility] [address] White Blood Count November 01, 2022 12:40am 5.0 10^3/uL 3.9-10.8 [facility] [id number] [address] [facility] [address] Red Blood Count June 15, 2022 12:46pm 4.7 10^6/uL 4.2-5.6 [facility] [id number] 199 [facility]. [facility] [address] Red Blood Count August 10, 2022 9:20am 4.4 10^6/uL 4.2-5.6 [facility] [id number] [address] [facility] [address] Red Blood Count November 01, 2022 12:40am 4.6 10^6/uL 4.2-5.6 [facility] [id number] [address] [place] [address] Hemoglobin June 15, 2022 12:46pm 12.2 g/dL 14.0-17.3 [facility] [id number] [address] [place] [address] Hemoglobin August 10, 2022 9:20am 11.3 g/dL 14.0-17.3 [facility] [id number] [address] [place] [address] Hemoglobin November 01, 2022 12:40am 11.9 g/dL 14.0-17.3 [facility] [id number] [address] [place] [address] Hematocrit June 15, 2022 12:46pm 37.1 % 40.0-49.0 [facility] [id number] [address] [place] [address] Hematocrit August 10, 2022 9:20am 34.1 % 40.0-49.0 [facility] [id number] [address] [place] [address] Hematocrit November 01, 2022 12:40am 36.7 % 40.0-49.0 [facility] [id number] [address] [place] [address] Mean Corpuscular Volume June 15, 2022 12:46pm 78.8 fL 82.0-102.0 [facility] [id number] [address] [place] [address] Mean Corpuscular Volume August 10, 2022 9:20am 77.7 fL 82.0-102.0 [facility] [id number] [address] [place] [address] Mean Corpuscular Volume November 01, 2022 12:40am 80.0 fL 82.0-102.0 [facility] [id number] [address] [place] [address] Mean Corpuscular Hemoglobin June 15, 2022 12:46pm 25.9 pg 25.7-32.2 [facility] [id number] [address] [facility] [address] Mean Corpuscular Hemoglobin August 10, 2022 9:20am 25.7 pg 25.7-32.2 [facility] [id number] [address] [facility] [address] Mean Corpuscular Hemoglobin November 01, 2022 12:40am 25.9 pg 25.7-32.2 [facility] [id number] [address] [facility] [address] Mean Corpuscular Hemoglobin Concent June 15, 2022 12:46pm 32.9 g/dL 32.0-36.0 [facility] [id number] [address] [facility] [address] Mean Corpuscular Hemoglobin Concent August 10, 2022 9:20am 33.1 g/dL 32.0-36.0 [facility] [id number] [address] [facility] [address] Mean Corpuscular Hemoglobin Concent November 01, 2022 12:40am 32.4 g/dL 32.0-36.0 [facility] [id number] [address] [facility] [address] Platelet Count June 15, 2022 12:46pm 238 10^3uL 150-400 [facility] [id number] [address] [facility] [address] Platelet Count August 10, 2022 9:20am 207 10^3uL 150-400 [facility] [id number] [address] [facility] [address] Platelet Count November 01, 2022 12:40am 240 10^3uL 150-400 [facility] [id number] [address] [facility] [address] RDW Standard Deviation June 15, 2022 12:46pm 37.8 fL 32.9-69.6 [facility] [id number] [address] [facility] [address] RDW Standard Deviation August 10, 2022 9:20am 37.5 fL 32.9-69.6 [facility] [id number] [address] [place] [address] RDW Standard Deviation November 01, 2022 12:40am 36.8 fL 32.9-69.6 [facility] [id number] [address] [place] [address] RDW Coefficient of Variation June 15, 2022 12:46pm 13.2 % 12.0-15.0 [facility] [id number] [address] [place] [address] RDW Coefficient of Variation August 10, 2022 9:20am 13.1 % 12.0-15.0 [facility] [id number] [address] [place] [address] RDW Coefficient of Variation November 01, 2022 12:40am 12.9 % 12.0-15.0 [facility] [id number] [address] [place] [address] Mean Platelet Volume June 15, 2022 12:46pm 8.7 fL 7.0-11.0 [facility] [id number] [address] [place] [address] Mean Platelet Volume August 10, 2022 9:20am 9.1 fL 7.0-11.0 [facility] [id number] [address] [place] [address] Mean Platelet Volume November 01, 2022 12:40am 9.3 fL 7.0-11.0 [facility] [id number] [address] [place] [address] Neutrophils (%) (Auto) June 15, 2022 12:46pm 44.6 % 43.0-74.0 [facility] [id number] [address] [place] [address] Neutrophils (%) (Auto) August 10, 2022 9:20am 38.7 % 43.0-74.0 [facility] [id number] [address] [place] [address] Neutrophils (%) (Auto) November 01, 2022 12:40am 55.1 % 43.0-74.0 [facility] [id number] [address] [place] [address] Lymphocytes (%) (Auto) June 15, 2022 12:46pm 43.4 % 17.0-47.0 [facility] [id number] [address] [place] [address] Lymphocytes (%) (Auto) August 10, 2022 9:20am 49.0 % 17.0-47.0 [facility] [id number] [address] [place] [address] Lymphocytes (%) (Auto) November 01, 2022 12:40am 36.9 % 17.0-47.0 [facility] [id number] [address] [place] [address] Monocytes (%) (Auto) June 15, 2022 12:46pm 9.3 % 5.0-12.0 [facility] [id number] [address] [place] [address] Monocytes (%) (Auto) August 10, 2022 9:20am 9.7 % 5.0-12.0 [facility] [id number] [address] [place] [address] Monocytes (%) (Auto) November 01, 2022 12:40am 6.0 % 5.0-12.0 [facility] [id number] [address] [place] [address] Eosinophils (%) (Auto) June 15, 2022 12:46pm 1.9 % 0.1-6.0 [facility] [id number] [address] [place] [address] Eosinophils (%) (Auto) August 10, 2022 9:20am 2.1 % 0.1-6.0 [facility] [id number] [address] [place] [address] Eosinophils (%) (Auto) November 01, 2022 12:40am 1.0 % 0.1-6.0 [facility] [id number] [address] [facility] [address] Basophils (%) (Auto) June 15, 2022 12:46pm 0.8 % 0.0-2.0 [facility] [id number] [address] [place] [address] Basophils (%) (Auto) August 10, 2022 9:20am 0.5 % 0.0-2.0 [facility] [id number] [address] [facility] [address] Basophils (%) (Auto) November 01, 2022 12:40am 0.8 % 0.0-2.0 [facility] [id number] [address] [facility] [address] Immature/Total Granulocytes (auto) June 15, 2022 12:46pm 0 % 0.001-5.0 [facility] [id number] [address] [facility] [address] Immature/Total Granulocytes (auto) August 10, 2022 9:20am 0 % 0.001-5.0 [facility] [id number] [address] [facility] [address] Immature/Total Granulocytes (auto) November 01, 2022 12:40am 0.2 % 0.001-5.0 [facility] [id number] [address] [facility] [address] Nucleated Red Blood Cells % (auto) June 15, 2022 12:46pm 0.0 % 0.0-0.2 [facility] [id number] [address] [facility] [address] Nucleated Red Blood Cells % (auto) August 10, 2022 9:20am 0.0 % 0.0-0.2 [facility] [id number] [address] [facility] [address] Nucleated Red Blood Cells % (auto) November 01, 2022 12:40am 0.0 % 0.0-0.2 [facility] [id number] [address] [facility] [address] Absolute Neutrophils (auto) June 15, 2022 12:46pm 1.7 10^3/uL 1.5-8.1 [facility] [id number] [address] [facility] [address] Absolute Neutrophils (auto) August 10, 2022 9:20am 1.5 10^3/uL 1.5-8.1 [facility] [id number] [address] [facility] [address] Absolute Neutrophils (auto) November 01, 2022 12:40am 2.8 10^3/uL 1.5-8.1 [facility] [id number] [address] [facility] [address] Absolute Lymphocytes (auto) June 15, 2022 12:46pm 1.6 10^3/uL 0.95-4.2 [facility] [id number] [address] [facility] [address] Absolute Lymphocytes (auto) August 10, 2022 9:20am 1.9 10^3/uL 0.95-4.2 [facility] [id number] [address] [facility] [address] Absolute Lymphocytes (auto) November 01, 2022 12:40am 1.9 10^3/uL 0.95-4.2 [facility] [id number] [address] [facility] [address] Absolute Monocytes (auto) June 15, 2022 12:46pm 0.4 10^3/uL 0.2-1.2 [facility] [id number] [address] [facility] [address] Absolute Monocytes (auto) August 10, 2022 9:20am 0.4 10^3/uL 0.2-1.2 [facility] [id number] [address] [facility] [address] Absolute Monocytes (auto) November 01, 2022 12:40am 0.3 10^3/uL 0.2-1.2 [facility] [id number] [address] [facility] [address] Absolute Eosinophils (auto) June 15, 2022 12:46pm 0.1 10^3/uL 0.06-0.6 [facility] [id number] [address] [facility] [address] Absolute Eosinophils (auto) August 10, 2022 9:20am 0.1 10^3/uL 0.06-0.6 [facility] [id number] [address] [facility] [address] Absolute Eosinophils (auto) November 01, 2022 12:40am 0.1 10^3/uL 0.06-0.6 [place] [id number] [address] [facility] [address] Absolute Basophils (auto) June 15, 2022 12:46pm 0.0 10^3/uL 0.01-0.12 [facility] [id number] [address] [facility] [address] Absolute Basophils (auto) August 10, 2022 9:20am 0.0 10^3/uL 0.01-0.12 [facility] [id number] [address] [facility] [address] Absolute Basophils (auto) November 01, 2022 12:40am 0.0 10^3/uL 0.01-0.12 [place] [id number] [address] [facility] [address] Absolute Immature Granulocyte (auto June 15, 2022 12:46pm 0.00 K/uL 0.00-0.66 [facility] [id number] [address] [facility] [address] Absolute Immature Granulocyte (auto August 10, 2022 9:20am 0.00 K/uL 0.00-0.66 [facility] [id number] [address] [facility] [address] Absolute Immature Granulocyte (auto November 01, 2022 12:40am 0.01 K/uL 0.00-0.66 [place] [id number] [address] [facility] [address] Nucleated RBC Absolute Count (auto) June 15, 2022 12:46pm 0.0 K/uL 0.00-0.[id number] [facility] [address] [facility] [address] Nucleated RBC Absolute Count (auto) August 10, 2022 9:20am 0.0 K/uL 0.00-0.2 [facility] [id number] [address] [facility] [address] Nucleated RBC Absolute Count (auto) November 01, 2022 12:40am 0.0 K/uL 0.00-0.2 [facility] [id number] [address] [facility] [address] [facility] [address] Urine Color November 01, 2022 1:26am Yellow Yellow [facility] [id number] [address] [facility] [address] [facility] [address] Urine Clarity November 01, 2022 1:26am Clear Clear [facility] [id number] [address] [facility] [address] [facility] [address] Urine Specific Equality November 01, 2022 1:26am 1.012 1.005-1.03 0 [facility] [id number] [address] [facility] [address] [facility] [address] Urine Glucose (UA) November 01, 2022 1:26am Negative Negative [facility] [id number] [address] [facility] [address] [facility] [address] Urine Bilirubin November 01, 2022 1:26am Negative Negative [facility] [id number] [address] [place] [address]. [facility] [address] Urine Ketones November 01, 2022 1:26am Negative Negative [facility] [id number] [address] [facility] [address] [facility] [address] Urine Occult Blood November 01, 2022 1:26am Negative Negative [facility] [id number] [address] [facility] [address] [facility] [address] Urine pH November 01, 2022 1:26am 7.0 5.0-7.0 [facility] [id number] [address] [facility] [facility] [address] Urine Protein November 01, 2022 1:26am Trace mg/dL Negative [facility] [id number] [address] [facility] [address] Urine Urobilinogen November 01, 2022 1:26am 1.0 E.U./dL 0.2-1.0 [facility] [id number] [address] [facility] [address] Urine Nitrite November 01, 2022 1:26am Negative Negative [facility] [id number] [address] [facility] [address] Urine Leukocyte Esterase November 01, 2022 1:26am Negative Negative [facility] [id number] [address] [facility] [address] Urine Amphetamine Screen November 01, 2022 1:26am Negative Negative [facility] [id number] [address] [facility] [address] Urine Barbiturates Screen November 01, 2022 1:26am Negative Negative [facility] [id number] [address] [facility] [address] Urine Benzodiazepines Screen November 01, 2022 1:26am Negative Negative [facility] [id number] [address] [facility] [address] Urine Buprenorphine Screen November 01, 2022 1:26am Negative Negative [facility] [id number] [address] [facility] [address] Urine Cocaine Screen November 01, 2022 1:26am Negative Negative [facility] [id number] [address] [facility] [address] Urine Methadone Screen November 01, 2022 1:26am Negative Negative [facility] [id number] [address] [facility] [address] Urine Oxycodone Screen November 01, 2022 1:26am Negative Negative [facility] [id number] [address] [facility] [address] Urine Opiates Screen November 01, 2022 1:26am Negative Negative [facility] [id number] [address] [facility] [address] Urine Cannabinoids Screen November 01, 2022 1:26am Negative Negative [facility] [id number] [address] [facility] [address] Urine Fentanyl Screen November 01, 2022 1:26am Negative Negative [facility] [id number] [address] [place] [address] Sodium Level June 15, 2022 12:46pm 135 mmol/L 136-145 [facility] [id number] [address] [facility] [address] Sodium Level August 10, 2022 9:20am 138 mmol/L 136-145 [facility] [id number] [address] [facility] [address] Sodium Level November 03, 2022 6:02am 140 mmol/L 136-145 [facility] [id number] [address] [facility] [address] Potassium Level June 15, 2022 12:46pm 4.3 mmol/L 3.5-5.1 [facility] [id number] [address] [facility] [address] Potassium Level August 10, 2022 9:20am 4.4 mmol/L 3.5-5.1 [facility] [id number] [address] [facility] [address] Potassium Level November 03, 2022 6:02am 3.8 mmol/L 3.5-5.1 [facility] [id number] [address] [facility] [address] Chloride Level June 15, 2022 12:46pm 98 mmol/L 98-107 [facility] [id number] [address] [facility] [address] Chloride Level August 10, 2022 9:20am 102 mmol/L 98-107 [facility] [id number] [address] [facility] [address] Chloride Level November 03, 2022 6:02am 103 mmol/L 98-107 [facility] [id number] [address] [facility] [address] Carbon Dioxide Level June 15, 2022 12:46pm 28 mmol/L 22-29 [facility] [id number] [address] [facility] [facility] [address] Carbon Dioxide Level August 10, 2022 9:20am 26 mmol/L - [facility] [id number] [address] [place] [address] Carbon Dioxide Level November 03, 2022 6:02am 28 mmol/L - [facility] [id number] [address] [place] [address] Anion Gap June 15, 2022 12:46pm 9 mmol/L 6- [facility] [id number] [address] [place] [address] Anion Gap August 10, 2022 9:20am 10 mmol/L - [facility] [id number] [address] [place] [address] Anion Gap November 03, 2022 6:02am 9 mmol/L 6- [facility] [id number] [address] [place] [address] Blood Urea Nitrogen June 15, 2022 12:46pm 8 mg/dL 6- [facility] [id number] [address] [place] [address] Blood Urea Nitrogen August 10, 2022 9:20am 12 mg/dL 6-20 [facility] [id number] [address] [place] [address] Blood Urea Nitrogen November 03, 2022 6:02am 11 mg/dL 6- [facility] [id number] [address] [facility] [address] Creatinine June 15, 2022 12:46pm 1.0 mg/dL 0.7-1.2 [facility] [id number] [address] [facility] [address] Creatinine August 10, 2022 9:20am 0.9 mg/dL 0.7-1.2 [facility] [id number] [address] [facility] [address] Creatinine November 03, 2022 6:02am 1.0 mg/dL 0.7-1.2 [facility] [id number] [address] [facility] [address] Glomerular Filtration Rate Calc June 15, 2022 12:46pm > 60.00 mL/min >60 Multiply x 1.212 if of descentnormal kidney function >60 mL/minresults normalized to 1.73 m sq body surface area. [facility] [id number] [address] [place] [address] Glomerular Filtration Rate Calc August 10, 2022 9:20am > 60.00 mL/min >60 Multiply x 1.212 if of descentnormal kidney function >60 mL/minresults normalized to 1.73 m sq body surface area. [facility] [id number] [address] [place] [address] Glomerular Filtration Rate Calc November 03, 2022 6:02am 77.04 Estimated GFR (CKD-EPI Refit 2020) units: mL/min/1.73m?? [facility] [id number] [address] [place] [address] Glucose Level June 15, 2022 12:46pm 161 mg/dL 74-109 [facility] [id number] [address] [place] [address] Glucose Level August 10, 2022 9:20am 100 mg/dL 74-109 [facility] [id number] [address] [place] [address] Glucose Level November 03, 2022 6:02am 139 mg/dL 74-109 [facility] [id number] [address] [place] [address] Calcium Level June 15, 2022 12:46pm 9.2 mg/dL 8.6-10.6 [facility] [id number] [address] [place] [address] Calcium Level August 10, 2022 9:20am 9.2 mg/dL 8.6-10.6 [facility] [id number] [address] [place] [address] Calcium Level November 03, 2022 6:02am 8.8 mg/dL 8.6-10.6 [facility] [id number] [address] [place] [address] Phosphorus Level November 01, 2022 12:40am 2.7 mg/dL 2.5-4.5 [facility] [id number] [address] [facility] [address] Total Bilirubin June 15, 2022 12:46pm 0.5 mg/dL 0.4-1.2 [facility] [id number] [address] [facility] [address] Total Bilirubin November 01, 2022 12:40am 0.5 mg/dL 0.4-1.2 [facility] [id number] [address] [facility] [address] Aspartate Amino Transf (AST/SGOT) June 15, 2022 12:46pm 30 IU/L 10-50 [facility] [id number] [address] [facility] [address] Aspartate Amino Transf (AST/SGOT) November 01, 2022 12:40am 25 IU/L 10-50 [facility] [id number] [address] [facility] [address] Alanine Aminotransferase (ALT/SGPT) June 15, 2022 12:46pm 30 U/L 5-41 [facility] [id number] [address] [facility] [address] Alanine Aminotransferase (ALT/SGPT) November 01, 2022 12:40am 29 U/L 5-41 [facility] [id number] [address] [facility] [address] Alkaline Phosphatase June 15, 2022 12:46pm 82 IU/L 40-129 [facility] [id number] [address] [facility] [address] Alkaline Phosphatase November 01, 2022 12:40am 93 IU/L 40-129 [facility] [id number] [address] [facility] [address] Total Protein June 15, 2022 12:46pm 6.8 g/dL 6.6-8.7 [facility] [id number] [address] [facility] [address] Total Protein November 01, 2022 12:40am 7.5 g/dL 6.6-8.7 [facility] [id number] [address] [facility] [address] Albumin June 15, 2022 12:46pm 4.1 g/dL 3.5-5.2 [facility] [id number] [address] [facility] [address] Albumin November 01, 2022 12:40am 4.4 g/dL 3.5-5.2 [facility] [id number] [address] [facility] [address] Magnesium Level November 01, 2022 12:40am 1.2 mg/dL 1.6-2.6 [facility] [id number] [address] [facility] [address] Troponin T June 15, 2022 12:46pm < 0.01 ng/mL 0.0-0.01 [facility] [id number] [address] [facility] [address] Troponin T August 10, 2022 9:20am < 0.01 ng/mL 0.0-0.01 [facility] [id number] [address] [facility] [address] Salicylates Level November 01, 2022 12:40am < 1.0 mg/dL 3.0-10.0 [facility] [id number] [address] [facility] [address] Acetaminophen Level November 01, 2022 12:40am < 5.0 ug/mL 10.0-30.0 [facility] [id number] [address] [facility] [address] Ethyl Alcohol Level November 01, 2022 12:40am < 10 mg/dL <10 [facility] [id number] [address] [facility] [address] Influenza Virus Type A (PCR) June 15, 2022 12:46pm Negative Negative [facility] [id number] [address] [facility] [address] Influenza Virus Type A (PCR) November 01, 2022 6:14am Negative Negative [facility] [id number] [address] [facility] [address] Influenza Virus Type B (PCR) June 15, 2022 12:46pm Negative Negative [facility] [id number] 199 [facility] [address] Influenza Virus Type B (PCR) November 01, 2022 6:14am Negative Negative [facility] [id number] [address] [facility] [address] Respiratory Syncytial Virus (RT-PCR June 15, 2022 12:46pm Negative Negative [facility] [id number] [address] [facility] [address] Respiratory Syncytial Virus (RT-PCR November 01, 2022 6:14am Negative Negative [facility] [id number] [place] [address] SARS-CoV-2 (PCR) June 15, 2022 12:46pm Negative Negative Test performed with CepSazze GeneXpert SARS-CoV-2 PCR assay, which has received emergency use authorization (EUA) by the U.S.Food and Drug Administration . Negative results do not preclude SARS-CoV-2 infection and should not be used as the sole basis for treatment or other patient management decisions. [facility] [id number] [facility] [address] SARS-CoV-2 (PCR) November 01, 2022 6:14am Negative Negative Test performed with Cepheid GeneXpert SARS-CoV-2 PCR assay, which has received emergency use authorization (EUA) by the U.S.Food and Drug Administration . Negative results do not preclude SARS-CoV-2 infection and should not be used as the sole basis for treatment or other patient management decisions. [facility] [id number] 199 [facility] [address] Bedside Glucose November 09, 2022 4:17pm 228 mg/dL 70-115 [address] [place] [address] Diagnostic Imaging Reports Report Dictated Date/Time Dictated By Status Electrocardiogram August 11, 2022 9:00am [place] [address] Electrocardiogram Report Signed Patient: Maryana Rivera MR#: [id number] : 1945 Acct: [id number] Age/Sex: 77 / M ADM Date: 08/10/22 Loc: JAD Attending Dr: ER Physician: Harjeet Leonardo MD Ordering Physician: Harjeet Leonardo MD [facility] CELL Date of Service: 08/10/22 Procedure(s): EKG (ER) Accession Number(s): [id number] CC: Harjeet Leonardo MD; Kenia Sheehan MD Date: 08/10/22 Time: 09:57 Clinical Diagnosis: Referred By: Rhythm: Sinus rhythm/ 50 bpm Rate auricular: ventricular: P-R interval: [place]: Q-R-S interval: Q-T interval: P-Wave: Q-R-S complexes: T-Waves: Other findings: Interpretation: Sinus rhythm/50 bpm, normal axis, Right bundle branch block, QRS prolonged 128 milliseconds with normal [place] interval 85 milliseconds, unchanged compared to prior 02/17/22. ___ Technologist: Dictated By: Lily Abernathy MD Transcribed By: KALLIE Signed By: <Electronically signed by Lily Abernathy MD> Lily Abernathy MD Signed Date/Time: 08/13/22 1355 DD/ 09 TD/TT: 08/13/22 0954 CC: Harjeet Leonardo MD; Kenia Sheehan MD Report Dictated Date/Time Dictated By Status Cat Scan Report November 02, 2022 10:47am Darryn Horan MD completed [address] [address] CT Scan Report Signed Patient: Maryana Rivera MR#: [id number] : 1945 Acct: [id number] Age/Sex: 77 / M ADM Date: 11/01/22 Loc: [place] [id number]: Ervin Hicks MD ER Physician: Jordan Palumbo MD Ordering Physician: Darryn Mcbride MD [facility] CELL Date of Service: 11/02/22 Procedure(s): CT head/brain wo con Accession Number(s): [id number] CC: Darryn Mcbride MD; Kenia Sheehan MD * CT head/brain wo con Accession Number(s): [id number] Reason for Study: AMS Interpretation Location: [id number] -- Radiation Dose Report CTDIvol: 46.56 mGy DLP: 903.53 mGy.cm -- Date/Time: 2022-11-02 09:43:53 CT HEAD WITHOUT CONTRAST. TECHNIQUE: Contiguous 5-mm axial images through the head without contrast. Automated exposure control, dose reduction, and iterative reconstruction techniques were used. COMPARISON: CTA head of 10/26/2016. INDICATION: Altered mental status. FINDINGS: Mild hypodensities are present in the periventricular white matter of bilateral cerebral hemispheres. There is mild generalized volume loss. There is no acute intracranial hemorrhage, mass-effect, shift of midline structures, or hydrocephalus. The calvarium is intact, and the included paranasal sinuses and mastoid air cells are clear. IMPRESSION: 1. Mild chronic small vessel ischemic changes. 2. Mild volume loss. Electronically Signed by: Darryn Horan MD 11/02/2022 10:49 AM Technologist: Della Garcia Dictated By: Darryn Horan MD Transcribed By: [email or web address] Signed By: <Electronically signed by Darryn Horan MD in OV> Darryn Horan MD Signed Date/Time: 11/02/22 1049 DD/ 46 TD/TT: 11/02/22 104 CC: Darryn Mcbride MD; Kenia Sheehan MD Report Dictated Date/Time Dictated By Status Electrocardiogram November 01, 2022 8:00am Wing [place] [address] Electrocardiogram Report Signed Patient: Maryana Rivera MR#: [id number] : 1945 Acct: [id number] Age/Sex: 77 / M ADM Date: 11/01/22 Loc: [place] [id number]: Ervin Hicks MD ER Physician: Jordan Palumbo MD Ordering Physician: Jordan Palumbo MD Pat CELL Date of Service: 11/01/22 Procedure(s): EKG (ER) Accession Number(s): [id number] CC: Kenia Sheehan MD; Jordan Palumbo MD Date: 11/01/22 Time: 00:17 Clinical Diagnosis: Referred By: Rhythm: Sinus rhythm/68 bpm Rate auricular: ventricular: P-R interval: [place]: Q-R-S interval: Q-T interval: P-Wave: Q-R-S complexes: T-Waves: Other findings: Interpretation: Premature atrial complex, Right bundle branch block, left anterior fascicular block. ___ Technologist: Dictated By: Wing Jeyson Branch MD Transcribed By: KALLIE Signed By: <Electronically signed by Wing Jeyson Branch MD> Wing Jeyson Branch MD Signed Date/Time: 11/04/22 0910 DD/ 0800 TD/TT: 11/03/22 1011 CC: Kenia Sheehan MD; Jordan Palumbo MD Vital Signs Vital Reading Result Reference Range Collection Date/Time Body Temperature 98 [degF] 97.5-99.3 June 152021 11:55am Heart Rate 50 /min 60-90 June 15, 2022 11:55am Respiratory rate 16 /min 12-20 June 152021 11:55am Oxygen saturation by Pulse oximetry 100 % 95-100 June 15, 2022 11:55am BP Systolic 125 mm[Hg] 100-160 June 15, 2022 11:55am BP Diastolic 60 mm[Hg] 60-90 June 15, 2022 11:55am Body Temperature 97.6 [degF] 97.5-99.3 August 8:58am Heart Rate 52 /min 60-90 August 10, 2 022 10:40am Respiratory rate 16 /min 12-20 August 10:40am Oxygen saturation by Pulse oximetry 100 % 95-100 August 10, 2022 1 0:40am BP Systolic 127 mm[Hg] 100-160 August 10, 2 022 10:40am BP Diastolic 54 mm[Hg] 60-90 August 10, 2 022 10:40am Height 74 [in_i] November 01, 2 023 12:29pm Weight 68.80 kg November 01, 2 023 12:29pm Body Temperature 97.5 [degF] 97.5-99.3 October 8:30am Heart Rate 57 /min 60-90 November 09, 2 023 8:30am Respiratory rate 16 /min -October 8:30am Oxygen saturation by Pulse oximetry 100 % 95-100 November 09, 2022 8 :30am BP Systolic 124 mm[Hg] 100-160 November 09, 2 023 8:30am BP Diastolic 58 mm[Hg] 60-90 November 09, 2 023 8:30am Advance Directives Advance Directive Response Recorded Date/ Time Does the patient have a Healthcare Proxy? Yes June 05, 2021 3:54pm Healthcare Proxy Agent Name Radha Mayen st 2020 3:54pm Healthcare Proxy Agent Phone # [phone] A [facility] 2020 3:54pm Date Patient Queried 10/31/22October 11:58pm Is the Healthcare Proxy on f ile at [facility]? Unknown June 05, 2021 3:54pm Does pt. have a legal guardian? No June 15, 2022 4:11pm Insurance Providers Guarantor Maryana Rivera Address [address] [place] [address] Contact Info. Home Phone: CELL Payer Policy Id Coverage Id Subscriber's Name Subscriber Id Effective Date Expiration Date [employer] Secondary [id number] Maryana Rivera [id number] Medicare [id number] Maryana Rivera [id number] Self Pay Self N/A [facility] HMO Replacement [id number] [facility] Supplement [id number] Maryana Rivera [id number] Encounters Encounter Location(s) Arrival/Admit Date Discharge/Depart Date Provider(s) Departed Emergency [facility] Emergency Department June 15, 2022 11:34am June 15, 2022 3:41pm null Departed Emergency [facility] Emergency Department August 10, 2022 8:45am August 10, 2022 12:11pm null Discharged Inpatient [facility] 2 November 01, 2022 11:28am November 09, 2022 6:10pm Zion Wheatley MD Recent Diagnosis Onset Date Dementia with behavioral disturbance Mental Status Observation Response Date Recorded Patient Orientation Person June 12:46pm Patient Orientation Person August 9:01am Awake August 10 9:01am Alert August 10 9:01am Confused August 10 9:01am Patient at Baseline August 9:01am Patient Orientation Person October 9:00am Awake November 09 9:00am Alert November 09 9:00am Confused November 09 9:00am Forgetful November 09 9:00am Assessments Diagnosis Onset Date Resolution Status Dementia with behavioral disturbance acute Plan of Treatment Future Tests Future scheduled test information is unavailable Pending Tests Pending diagnostic test information is unavailable Future Visits Future appointment information is unavailable Referrals to Other Providers Reason for Referral Referral Start Date Provider Provider Contact Information Provider Address Kenia Sheehan MD Email: [email or web address] Work Phone: [address] [facility] [address] Kenia Sheehan MD Email: [email or web address] Work Phone: [address] [facility] [address] Kenia Sheehan MD Email: [email or web address] Work Phone: [address] [facility] [address] Future Procedures Procedure Name Ordered Date Scheduled Date Consult to Case Management June 15, 2022 1 :56pm June 15, 2022 1:56pm Consult to Social Work June 15, 2022 2:07p m June 15, 2022 2:07pm COVID-19 Leveling (ED/Inpatient) June 15, 2022 12:24pm June 15, 2022 12:24p m Admission Order November 01, 2022 1:22pm Januar y 2022 1:23pm Place in Observation Status (ED) November 01, 2022 5:23am November 01, 2022 5:23am Nutrition Services Special Request November 01, 2022 1:36pm November 01, 2022 1:36pm Consult to Social Work November 02, 2022 12:24p m November 02, 2022 12:24pm Code Status November 01, 2022 5:23am Januar y 2022 5:23am Provider Home Health Certificate November 09, 2022 2:05pm November 09, 2022 12:00am Patient Care Referral Page One November 09 2:05pm November 09, 2022 12:00am Discharge Order November 09, 2022 2:12pm Januar y 2022 2:12pm Bed Request November 01, 2022 10:50am Janua ry 2022 10:51am Discontinue from ED Observation November 01, 2022 10:50am November 01, 2022 10:50am Smoking Status November 01, 2022 1:22pm Januar y 2022 1:23pm Add On LAB Test November 02, 2022 12:34pm Janua ry 2022 12:34pm COVID-19 Leveling (ED/Inpatient) November 01, 2022 5:23am November 01, 2022 5:23am Consult to Physician November 01, 2022 10:54am November 01, 2022 10:54am VTE Prophylaxis/Medical November 01, 2022 1:22p m November 01, 2022 1:23pm Future Medications Future medication information is unavailable Patient Instructions Trazodone (By mouth) Quetiapine (By mouth) Goals Acute Goals Remain Free of Injury (Falls ) Pain Discharge Outcomes Exhibit optimal tissue integ rity * Exhibits granulation/healing at site * Exhibits decreased drainage at site * Exhibits no s/s of infection * Exhibits a decrease in lesion size * Maintains nutritional status * Maintains hydration status * Maintains optimal lab values Hospital Discharge Instructions Additional Instructions Dear Mr Rivera You were admitted at [facility]. You were seen by psychiatry team and your medications were adjusted. Please take medications as prescribed Please follow up with your outpatient psychiatrist in 2 weeks. Please follow up with your PCP in 1 week. [facility] medicine team
--- OUTSIDE RECORDS SUMMARY | 2024-01-19 20:59 | XMS_ITS | Continuity of Care Document ---
Author Organization [facility] Address [address] [place] [address] Phone Support Name Relationship Address Phone MD Kenia Sheehan Primary Care Provider [address] [place], [place] MD Ashutosh Moya Emergency Provider [address] [place], [place] MD Eric Apple Emergency Provider [address] [place], [place] MD Harjeet Leonardo Emergency Provider [facility] [place], [place] Chief Complaint and Reason for Visit Chief Complaint SI FLu like symptoms, abd pain, dementia chest pain Allergies, Adverse Reactions, Alerts No known allergies Social History Smoking Status Status Start Date End Date Date of Observa tion Unknown if ever smoked Novem 2021 10:03am Observation Status Observation Response Date of Response Is pt a current\former smoke r or user of tobacco products? Yes, former August 10, 2022 10:03am Does the patient use drugs? No Nove mila 2021 10:01am On average how many days per week do you drink alcohol? 0 August 10, 2022 10:03am Additional Data Assigned Sex Male Travel History Date of Travel Location Problems Active Problems Medical Problem Onset Date Status Social discord Active Dementia Active Atypical chest pain Active Inactive/Resolved Problems Medical Problem Onset Date Status Facial tingling sensation Resolv ed Dementia with behavioral disturbance Resolved URI (upper respiratory infection) Resolved Atopic dermatitis Resolved Eczema Resolved Rash and nonspecific skin eruption Resolved Itching Resolved Restless legs Resolved Chest pain Resolved Laceration of left thigh Resolve d Medications Medication Status Dose Units Route Directions Qty Days St art Date End Date Instructions Triamcinolon e Acetonide Disconti nued 1 APPLIC TOPICAL Twice A Day 454 November 09, 2020 1:00am Februa ry 2020 1:08am Loratadine Active 10 MG PO Daily e r 2020 1:00am Atorvastatin Active 80 MG PO Bedtime Sep r 2018 1:00am Gabapentin Active 600 MG PO Three Lucio es A Day e r 2018 1:00am Lisinopril Active 20 MG PO Daily e r 2018 1:00am Metformin Active 1000 MG PO Twice A Day De r 2018 1:00am Glipizide Active 5 MG PO Twice A Day [facility] [place] 2018 1:00am Insulin Glargine (Lantus Solostar U-100 Insulin) 100 unit/mL (3 mL) insulin pen Disconti nued 8 UNIT SUB-Q Twice A Day e r 2018 1:00am December 13, 2021 5:01pm Quetiapine (Seroquel) 50 mg tablet Active 50 MG PO Bedtime December 13, 2021 1:00am Donepezil (Aricept) 5 mg tablet Active 5 MG PO Daily December 13, 2021 1:00am Thiamine Hcl (Vitamin B1) (Vitamin B-1) 100 mg tablet Active 100 MG PO Daily December 13, 2021 1:00am Folic Acid Active 1 MG PO Daily December 13, 2021 1:00am Omeprazole Active 40 MG PO Daily December 13, 2021 1:00am Aspirin Active 81 MG PO Daily December 13, 2021 1:00am Relevant Diagnostic Tests and/or Laboratory Data Laboratory Results Test Date/Time Result Interpretation Reference Range Result Comment Performing Site White Blood Count February 17, 2022 2:25pm 3.7 10^3/uL 4.5-10.5 [employer] [address] [facility] [address] White Blood Count June 15, 2022 1:46pm 3.8 10^3/uL 3.9-10.8 [address] [facility] [address] White Blood Count August 10, 2022 10:20am 3.9 10^3/uL 3.9-10.8 [place] [address] [facility] [address] Red Blood Count February 17, 2022 2:25pm 4.83 10^6uL 4.20-5.40 [employer] [address] [facility] [address] Red Blood Count June 15, 2022 1:46pm 4.7 10^6/uL 4.2-5.6 [employer] [address] [facility] [address] Red Blood Count August 10, 2022 10:20am 4.4 10^6/uL 4.2-5.6 [employer] [address] [facility] [address] Hemoglobin February 17, 2022 2:25pm 12.2 g/dL 13.3-16.3 [place] [address] [facility] [address] Hemoglobin June 15, 2022 1:46pm 12.2 g/dL 14.0-17.3 [employer] [address] [facility] [address] Hemoglobin August 10, 2022 10:20am 11.3 g/dL 14.0-17.3 [employer] [address] [facility] [address] Hematocrit February 17, 2022 2:25pm 37.6 % 40.0-49.0 [place] [address] [facility] [address] Hematocrit June 15, 2022 1:46pm 37.1 % 40.0-49.0 [employer] [address] [facility] [address] Hematocrit August 10, 2022 10:20am 34.1 % 40.0-49.0 [employer] [address] [facility] [address] Mean Corpuscular Volume February 17, 2022 2:25pm 77.8 fL 80.0-100.0 [place] [address] [facility] [address] Mean Corpuscular Volume June 15, 2022 1:46pm 78.8 fL 82.0-102.0 [employer] [address] [facility] [address] Mean Corpuscular Volume August 10, 2022 10:20am 77.7 fL 82.0-102.0 [employer] [address] [facility] [address] Mean Corpuscular Hemoglobin February 17, 2022 2:25pm 25.2 pg 23.0-31.0 [place] [address] [facility] [address] Mean Corpuscular Hemoglobin June 15, 2022 1:46pm 25.9 pg 25.7-32.2 [place] [address] [facility] [address] Mean Corpuscular Hemoglobin August 10, 2022 10:20am 25.7 pg 25.7-32.2 [place] [address] [facility] [address] Mean Corpuscular Hemoglobin Concent February 17, 2022 2:25pm 32.4 g/dL 32.0-36.0 [place] [address] [facility] [address] Mean Corpuscular Hemoglobin Concent June 15, 2022 1:46pm 32.9 g/dL 32.0-36.0 [place] [address] [facility] [address] Mean Corpuscular Hemoglobin Concent August 10, 2022 10:20am 33.1 g/dL 32.0-36.0 [place] [address] [facility] [address] Platelet Count February 17, 2022 2:25pm 250 10^3/uL 150-400 Delta: 188 on 12/14/21-07 [place] [address] [facility] [address] Platelet Count June 15, 2022 1:46pm 238 10^3uL 150-400 [place] [address] [facility] [address] Platelet Count August 10, 2022 10:20am 207 10^3uL 150-400 [place] [address] [facility] [address] RDW Standard Deviation June 15, 2022 1:46pm 37.8 fL 32.9-69.6 [place] [address] [place] [address] RDW Standard Deviation August 10, 2022 10:20am 37.5 fL 32.9-69.6 [facility] [address] [place] [address] RDW Coefficient of Variation February 17, 2022 2:25pm 13.8 % 12.5-15.5 [facility] [address] [place] [address] RDW Coefficient of Variation June 15, 2022 1:46pm 13.2 % 12.0-15.0 [facility] [place] [address] [place] [address] RDW Coefficient of Variation August 10, 2022 10:20am 13.1 % 12.0-15.0 [facility] [place] [address] [facility] [address] Mean Platelet Volume February 17, 2022 2:25pm 7.0 fL 7.0-10.5 [employer] [address] [facility] [address] Mean Platelet Volume June 15, 2022 1:46pm 8.7 fL 7.0-11.0 [facility] [place] [address] [facility] [address] Mean Platelet Volume August 10, 2022 10:20am 9.1 fL 7.0-11.0 [employer] [address] [facility] [address] Neutrophils (%) (Auto) February 17, 2022 2:25pm 55 % 44-74 [facility] [address] [facility] [address] Neutrophils (%) (Auto) June 15, 2022 1:46pm 44.6 % 43.0-74.0 [facility] [address] [facility] [address] Neutrophils (%) (Auto) August 10, 2022 10:20am 38.7 % 43.0-74.0 [employer] [address] [facility] [address] Lymphocytes (%) (Auto) February 17, 2022 2:25pm 36 % 16-46 [facility] [address] [facility] [address] Lymphocytes (%) (Auto) June 15, 2022 1:46pm 43.4 % 17.0-47.0 [facility] [address] [place] [address] Lymphocytes (%) (Auto) August 10, 2022 10:20am 49.0 % 17.0-47.0 [facility] [address] [place] [address] Monocytes (%) (Auto) February 17, 2022 2:25pm 7 % 5-12 [facility] [place] [address] [place] [address] Monocytes (%) (Auto) June 15, 2022 1:46pm 9.3 % 5.0-12.0 [facility] - [address] [facility] [address] Monocytes (%) (Auto) August 10, 2022 10:20am 9.7 % 5.0-12.0 [facility] [place] [address] [facility] [address] Eosinophils (%) (Auto) February 17, 2022 2:25pm 2 % 0-8 [facility] [place] [address] [facility] [address] Eosinophils (%) (Auto) June 15, 2022 1:46pm 1.9 % 0.1-6.0 [facility] [place] [address] [facility] [address] Eosinophils (%) (Auto) August 10, 2022 10:20am 2.1 % 0.1-6.0 [facility] [address] [facility] [address] Basophils (%) (Auto) February 17, 2022 2:25pm 1 % 0-2 [facility] [place] [address] [facility] [address] Basophils (%) (Auto) June 15, 2022 1:46pm 0.8 % 0.0-2.0 [facility] [address] [facility] [address] Basophils (%) (Auto) August 10, 2022 10:20am 0.5 % 0.0-2.0 [facility] [address] [facility] [address] Immature/Total Granulocytes (auto) June 15, 2022 1:46pm 0 % 0.001-5.[address] [place] [facility] [address] Immature/Total Granulocytes (auto) August 10, 2022 10:20am 0 % 0.001-5.[address] [facility] [address] Nucleated Red Blood Cells % (auto) June 15, 2022 1:46pm 0.0 % 0.0-0.[address] [facility] [address] Nucleated Red Blood Cells % (auto) August 10, 2022 10:20am 0.0 % 0.0-0.[address] [address] Absolute Neutrophils (auto) February 17, 2022 2:25pm 2.0 10^3/uL 1.5-7.[address] [address] Absolute Neutrophils (auto) June 15, 2022 1:46pm 1.7 10^3/uL 1.5-8.[address] [facility] [address] Absolute Neutrophils (auto) August 10, 2022 10:20am 1.5 10^3/uL 1.5-8.[address] [facility] [address] Absolute Lymphocytes (auto) February 17, 2022 2:25pm 1.3 10^3/uL 0.85-4.[address] [address] Absolute Lymphocytes (auto) June 15, 2022 1:46pm 1.6 10^3/uL 0.95-4.[address] [address] Absolute Lymphocytes (auto) August 10, 2022 10:20am 1.9 10^3/uL 0.95-4.[address] [address] Absolute Monocytes (auto) February 17, 2022 2:25pm 0.3 10^3/uL 0.2-1.[address] [address] Absolute Monocytes (auto) June 15, 2022 1:46pm 0.4 10^3/uL 0.2-1.[address] [address] Absolute Monocytes (auto) August 10, 2022 10:20am 0.4 10^3/uL 0.2-1.[address] [address] Absolute Eosinophils (auto) February 17, 2022 2:25pm 0.1 10^3/uL 0.05-0.[address] [address] Absolute Eosinophils (auto) June 15, 2022 1:46pm 0.1 10^3/uL 0.06-0.[address] [address] Absolute Eosinophils (auto) August 10, 2022 10:20am 0.1 10^3/uL 0.06-0.[address] [address] Absolute Basophils (auto) February 17, 2022 2:25pm 0.0 10^3/uL 0-0.[address] [address] Absolute Basophils (auto) June 15, 2022 1:46pm 0.0 10^3/uL 0.01-0.[address] [address] Absolute Basophils (auto) August 10, 2022 10:20am 0.0 10^3/uL 0.01-0.[address] [address] Absolute Immature Granulocyte (auto June 15, 2022 1:46pm 0.00 K/uL 0.00-0.[address] [address] Absolute Immature Granulocyte (auto August 10, 2022 10:20am 0.00 K/uL 0.00-0.[address] [facility] [address] Nucleated RBC Absolute Count (auto) June 15, 2022 1:46pm 0.0 K/uL 0.00-0.[address] [facility] [address] Nucleated RBC Absolute Count (auto) August 10, 2022 10:20am 0.0 K/uL 0.00-0.[address] [facility] [address] Urine Color February 17, 2022 4:42pm Yellow Yellow [address] [facility] [address] Urine Clarity February 17, 2022 4:42pm Clear Clear [address] [facility] [address] Urine Specific Golden February 17, 2022 4:42pm 1.016 1.005-1.[address] [facility] [address] Urine Glucose (UA) February 17, 2022 4:42pm Negative Negative [address] [facility] [address] Urine Bilirubin February 17, 2022 4:42pm Negative Negative [address] [facility] [address] Urine Ketones February 17, 2022 4:42pm Negative Negative [address] [facility] [address] Urine Occult Blood February 17, 2022 4:42pm Negative Negative [address] [facility] [address] Urine pH February 17, 2022 4:42pm 7.5 5.0-7.[address] [facility] [address] Urine Protein February 17, 2022 4:42pm Negative mg/dL Negative [address] [facility] [address] Urine Urobilinogen February 17, 2022 4:42pm 1.0 E.U./dL 0.2-1.[address] [facility] [address] Urine Nitrite February 17, 2022 4:42pm Negative Negative [employer] [address] [facility] [address] Urine Leukocyte Esterase February 17, 2022 4:42pm Negative Negative [employer] [address] [facility] [address] Urine Amphetamine Screen February 17, 2022 4:42pm Negative Negative [address] [facility] [address] Urine Barbiturates Screen February 17, 2022 4:42pm Negative Negative [employer] [address] [facility] [address] Urine Benzodiazepines Screen February 17, 2022 4:42pm Negative Negative [address] [facility] [address] Urine Buprenorphine Screen February 17, 2022 4:42pm Negative Negative [address] [facility] [address] Urine Cocaine Screen February 17, 2022 4:42pm Negative Negative [address] [facility] [address] Urine Methadone Screen February 17, 2022 4:42pm Negative Negative [employer] [address] [facility] [address] Urine Oxycodone Screen February 17, 2022 4:42pm Negative Negative [employer] [address] [facility] [address] Urine Opiates Screen February 17, 2022 4:42pm Negative Negative [address] [facility] [address] Urine Cannabinoids Screen February 17, 2022 4:42pm Negative Negative [employer] [address] [facility] [address] Urine Fentanyl Screen February 17, 2022 4:42pm Negative Negative [employer] [address] [facility] [address] Sodium Level February 17, 2022 2:25pm 139 mmol/L 136-145 [employer] [address] [facility] [address] Sodium Level June 15, 2022 1:46pm 135 mmol/L 136-145 [employer] [address] [facility] [address] Sodium Level August 10, 2022 10:20am 138 mmol/L 136-145 [employer] [address] [facility] [address] Potassium Level February 17, 2022 2:25pm 4.5 mmol/L 3.5-5.1 [address] [facility] [address] Potassium Level June 15, 2022 1:46pm 4.3 mmol/L 3.5-5.1 [employer] [address] [facility] [address] Potassium Level August 10, 2022 10:20am 4.4 mmol/L 3.5-5.[address] [facility] [address] Chloride Level February 17, 2022 2:25pm 103 mmol/L 98-[address] [facility] [address] Chloride Level June 15, 2022 1:46pm 98 mmol/L 98-[address] [facility] [address] Chloride Level August 10, 2022 10:20am 102 mmol/L 98-[address] [facility] [address] Carbon Dioxide Level February 17, 2022 2:25pm 27 mmol/L 22-[address] [facility] [address] Carbon Dioxide Level June 15, 2022 1:46pm 28 mmol/L 22-29 [address] [facility] [address] Carbon Dioxide Level August 10, 2022 10:20am 26 mmol/L 22-29 [address] [facility] [address] Anion Gap February 17, 2022 2:25pm 9 mmol/L 6-[address] [facility] [address] Anion Gap June 15, 2022 1:46pm 9 mmol/L 6-[address] [facility] [address] Anion Gap August 10, 2022 10:20am 10 mmol/L 6- [employer] [address] [facility] [address] Blood Urea Nitrogen February 17, 2022 2:25pm 11 mg/dL - [employer] [address] [facility] [address] Blood Urea Nitrogen June 15, 2022 1:46pm 8 mg/dL 03-29 [employer] [address] [facility] [address] Blood Urea Nitrogen August 10, 2022 10:20am 12 mg/dL - [employer] [address] [facility] [address] Creatinine February 17, 2022 2:25pm 1.0 mg/dL 0.7-1.2 [employer] [address] [facility] [address] Creatinine June 15, 2022 1:46pm 1.0 mg/dL 0.7-1.2 [employer] [address] [facility] [address] Creatinine August 10, 2022 10:20am 0.9 mg/dL 0.7-1.2 [employer] [address] [facility] [address] Glomerular Filtration Rate Calc February 17, 2022 2:25pm > 60.00 mL/min >60 Multiply x 1.212 if of descentnormal kidney function >60 mL/minresults normalized to 1.73 m sq body surface area. [employer] [address] [facility] [address] Glomerular Filtration Rate Calc June 15, 2022 1:46pm > 60.00 mL/min >60 Multiply x 1.212 if of descentnormal kidney function >60 mL/minresults normalized to 1.73 m sq body surface area. [employer] [address] [facility] [address] Glomerular Filtration Rate Calc August 10, 2022 10:20am > 60.00 mL/min >60 Multiply x 1.212 if of descentnormal kidney function >60 mL/minresults normalized to 1.73 m sq body surface area. [employer] [address] [facility] [address] Glucose Level February 17, 2022 2:25pm 245 mg/dL 74-[address] [facility] [address] Glucose Level June 15, 2022 1:46pm 161 mg/dL 74-[address] [facility] [address] Glucose Level August 10, 2022 10:20am 100 mg/dL 74-[address] [facility] [address] Calcium Level February 17, 2022 2:25pm 9.1 mg/dL 8.6-10.[address] [facility] [address] Calcium Level June 15, 2022 1:46pm 9.2 mg/dL 8.6-10.[address] [facility] [address] Calcium Level August 10, 2022 10:20am 9.2 mg/dL 8.6-10.[address] [facility] [address] Phosphorus Level February 17, 2022 2:25pm 2.9 mg/dL 2.5-4.[address] [facility] [address] Total Bilirubin February 17, 2022 2:25pm 0.3 mg/dL 0.4-1.[address] [facility] [address] Total Bilirubin June 15, 2022 1:46pm 0.5 mg/dL 0.4-1.[address] [facility] [address] Aspartate Amino Transf (AST/SGOT) February 17, 2022 2:25pm 26 IU/L 10-[address] [facility] [address] Aspartate Amino Transf (AST/SGOT) June 15, 2022 1:46pm 30 IU/L 10-[address] [facility] [address] Alanine Aminotransferase (ALT/SGPT) February 17, 2022 2:25pm 31 U/L 5-[address] [facility] [address] [place]ine Aminotransferase (ALT/SGPT) June 15, 2022 1:46pm 30 U/L 5-[address] [facility] [address] Alkaline Phosphatase February 17, 2022 2:25pm 88 IU/L 40-[address] [facility] [address] Alkaline Phosphatase June 15, 2022 1:46pm 82 IU/L 40-[address] [facility] [address] Total Protein February 17, 2022 2:25pm 6.7 g/dL 6.6-8.[address] [facility] [address] Total Protein June 15, 2022 1:46pm 6.8 g/dL 6.6-8.[address] [facility] [address] Albumin February 17, 2022 2:25pm 3.9 g/dL 3.5-5.[address] [facility] [address] Albumin June 15, 2022 1:46pm 4.1 g/dL 3.5-5.[address] [facility] [address] Magnesium Level February 17, 2022 2:25pm 1.4 mg/dL 1.6-2.[address] [facility] [address] Troponin T June 15, 2022 1:46pm < 0.01 ng/mL 0.0-0.[address] [facility] [address] Troponin T August 10, 2022 10:20am < 0.01 ng/mL 0.0-0.[address] [facility] [address] Salicylates Level February 17, 2022 2:25pm < 1.0 mg/dL 3.0-10.[address] [facility] [address] Acetaminophen Level February 17, 2022 2:25pm < 5.0 ug/mL 10.0-30.[address] [facility] [address] Ethyl Alcohol Level February 17, 2022 2:25pm < 10 mg/dL <[address] [place] [address] Influenza Virus Type A (PCR) February 17, 2022 4:20pm Negative Negative [address] [facility] [address] Influenza Virus Type A (PCR) June 15, 2022 1:46pm Negative Negative [address] [facility] [address] Influenza Virus Type B (PCR) February 17, 2022 4:20pm Negative Negative [address] [facility] [address] Influenza Virus Type B (PCR) June 15, 2022 1:46pm Negative Negative [address] [facility] [address] Respiratory Syncytial Virus (RT-PCR February 17, 2022 4:20pm Negative Negative [address] [facility] [address] Respiratory Syncytial Virus (RT-PCR June 15, 2022 1:46pm Negative Negative [address] [facility] [address] SARS-CoV-2 (PCR) February 17, 2022 4:20pm Negative Negative Test performed with [employer] GeneXpert SARS-CoV-2 PCR assay, which has received emergency use authorization (EUA) by the U.S.Food and Drug Administration . Negative results do not preclude SARS-CoV-2 infection and should not be used as the sole basis for treatment or other patient management decisions. [place] [address] [facility] [address] SARS-CoV-2 (PCR) June 15, 2022 1:46pm Negative Negative Test performed with [employer] GeneXpert SARS-CoV-2 PCR assay, which has received emergency use authorization (EUA) by the U.S.Food and Drug Administration . Negative results do not preclude SARS-CoV-2 infection and should not be used as the sole basis for treatment or other patient management decisions. [place] [address] Diagnostic Imaging Reports Report Dictated Date/Time Dictated By Status Electrocardiogram February 18, 2022 7:00am Serv[place] [address] Electrocardiogram Report Signed Patient: Maryana Rivera MR#: [id number] : 1945 Acct: [id number] Age/Sex: 76 / M ADM Date: 02/17/22 Loc: [facility] Attending Dr: ER Physician: Ashutosh Moya MD Ordering Physician: Ashutosh Moya MD Pat CELL Date of Service: 02/17/22 Procedure(s): EKG () Accession Number(s): [id number] CC: Ashutosh Moya MD; Kenia Sheehan MD Date: 02/17/22 Time: 15:06 Clinical Diagnosis: Referred By: Rhythm: Sinus bradycardia/50 Rate auricular: ventricular: P-R interval: .24 Dupree: 15 Q-R-S interval: .13 Q-T interval: P-Wave: Q-R-S complexes: T-Waves: Other findings: Interpretation: Sinus bradycardia, first degree AV block, Right bundle branch block. ___ Technologist: Dictated By: Servando Cordon MD Transcribed By: KALLIE Signed By: <Electronically signed by Servando Cordon MD> Servando Cordon MD Signed Date/Time: 02/20/2239 DD/ 0700 TD/TT: 02/19/22 1138 CC: Ashutosh Moya MD; Kenia Sheehan MD Vital Signs Vital Reading Result Reference Range Collection Date/Time Body Temperature 97.9 [degF] 97.5-99.3 February 18, 2 022 8:00am Heart Rate 89 /min 60-90 February 18, 2022 5:50pm Respiratory rate 18 /min -February 18, 2 022 5:50pm Oxygen saturation by Pulse oximetry 100 % 95-100 February 18, 2022 5:50p m BP Systolic 130 mm[Hg] 100-160 February 18, 2022 5:50pm BP Diastolic 66 mm[Hg] 60-90 February 18, 2022 5:50pm Body Temperature 98 [degF] 97.5-99.3 June 152021 12:55pm Heart Rate 50 /min 60-90 June 15, 2022 12:55pm Respiratory rate 16 /min -June 152021 12:55pm Oxygen saturation by Pulse oximetry 100 % 95-100 June 15, 2022 12:55pm BP Systolic 125 mm[Hg] 100-160 June 15, 2022 12:55pm BP Diastolic 60 mm[Hg] 60-90 June 15, 2022 12:55pm Body Temperature 97.6 [degF] 97.5-99.3 August 9:58am Heart Rate 52 /min 60-90 August 10, 2 022 11:40am Respiratory rate 16 /min -August 11:40am Oxygen saturation by Pulse oximetry 100 % 95-100 August 10, 2022 1 1:40am BP Systolic 127 mm[Hg] 100-160 August 10, 2 022 11:40am BP Diastolic 54 mm[Hg] 60-90 August 10, 2 022 11:40am Advance Directives Advance Directive Response Recorded Date/ Time Does the patient have a Healthcare Proxy? Yes June 05, 2021 4:54pm Healthcare Proxy Agent Name Radha Mayen 2020 4:54pm Healthcare Proxy Agent Phone # [phone] [facility] 2020 4:54pm Date Patient Queried 08/10/22August 9:53am Is the Healthcare Proxy on f ile at [facility]? Unknown June 05, 2021 4:54pm Does pt. have a legal guardian? No June 15, 2022 5:11pm Insurance Providers Guarantor Maryana Rivera Address [address] [facility] [address] Contact Info. Home Phone: CELL Payer Policy Id Coverage Id Subscriber's Name Subscriber Id Effective Date Expiration Date Medicare [id number] 30 [id number] Maryana Rivera [id number] Self Pay Self N/A [facility] HMO Replacement [id number] 01 [id number] [facility] Supplement [id number] Maryana Rivera [id number] Encounters Encounter Location(s) Arrival/Admit Date Discharge/Depart Date Provider(s) Departed Emergency [facility] ED Observation February 17, 2022 1:50pm February 18, 2022 5:50pm null Departed Emergency [facility] Emergency Department June 15, 2022 12:34pm June 15, 2022 4:41pm null Departed Emergency [facility] Emergency Department August 10, 2022 9:45am August 10, 2022 1:11pm null Mental Status Observation Response Date Recorded Patient Orientation Oriented x3 February 17 4:31pm Patient Orientation Person June 1:46pm Patient Orientation Person August 10:01am Awake August 10 10:01am Alert August 10 10:01am Confused August 10 10:01am Patient at Baseline August 10:01am Plan of Treatment Future Tests Future scheduled test information is unavailable Pending Tests Pending diagnostic test information is unavailable Future Visits Future appointment information is unavailable Referrals to Other Providers Reason for Referral Referral Start Date Provider Provider Contact Information Provider Address Kenia Sheehan MD Email: [email or web address] Phone: [address] [facility] [address] Kenia Sheehan MD Email: [email or web address] Phone: [address] [facility] [address] Kenia Sheehan MD Email: [email or web address] Phone: [address] [facility] [address] Future Procedures Procedure Name Ordered Date Scheduled Date Consult to Case Management February 18, 2022 4:21pm May 12th, 2022 4:[address]pm Place in Observation Status (ED) February 17, 2022 3:19pm February 17, 2022 3:19pm COVID-19 Leveling (ED/Inpatient) February 17, 2022 3:19pm February 17, 2022 3:19pm Consult to Case Management June 15, 2022 2 :56pm June 15, 2022 2:56pm Consult to Social Work June 15, 2022 3:07p m June 15, 2022 3:07pm COVID-19 Leveling (ED/Inpatient) June 15, 2022 1:24pm June 15, 2022 1:24pm Future Medications Future medication information is unavailable Patient Instructions Patient instructions are unavailable Hospital Discharge Instructions Additional Instructions You were seen today for chest pain. While here you had a physical examination, and tests to look for problems with your heart. All of these tests were reassuring. Please followup with your regular doctor in the next 2-3 days about this visit. Go to the nearest emergency department if you have any new or worsening symptoms, difficulty breathing, worsening or changing chest pain or for any other concerns.
--- OUTSIDE RECORDS SUMMARY | 2024-01-19 20:59 | XMS_ITS | Continuity of Care Document ---
Author Organization [facility] Address [address] [place], [place] Phone Support Name Relationship Address Phone MD Kenia Sheehan Primary Care Provider [address] [place] [address] MD Armando Rosenthal Emergency Provider Dept. [place] [address] MD Faustino Friedman Emergency Provider Dept. [place] [address] MD Cj Afrin Admit Provider [address] [place] [address] MD Servando oCrdon. Other Provider [address] [place] [address] [phone] MD Joyce Monteiro Attending Provider [address] [facility] [place] [address] MD Harjeet Leonardo Emergency Provider Dept. [place] [address] MD Ashutosh Moya Emergency Provider [address] [place] [address] Chief Complaint and Reason for Visit Chief [...] Active 1000 MG PO Twice A Day [facility] 2018 9:31am Glipizide Active 5 MG PO Twice A Day [facility] 2018 9:31am Insulin Glargine (Lantus Solostar [...] September 10, 2021 2:25pm 3.8 10^3/uL 4.5-10.5 [facility] [address] [facility] [address] White Blood Count December 14, 2021 8:33am 4.3 10^3/uL 4.5-10.5 [facility] [address] [facility] [address] White Blood Count February 17, 2022 2:25pm 3.7 10^3/uL 4.5-10.5 [place] [address] [facility] [address] Red Blood Count September 10, 2021 2:25pm 4.90 10^6uL 4.20-5.40 [place] [address] [facility] [address] Red Blood Count December 14, 2021 8:33am 4.54 10^6uL 4.20-5.40 [place] [address] [facility] [address] Red Blood Count February 17, 2022 2:25pm 4.83 10^6uL 4.20-5.40 [facility] [address] [facility] [address] Hemoglobin September 10, 2021 2:25pm 13.0 g/dL 13.3-16.3 [place] [address] [facility] [address] Hemoglobin December 14, 2021 8:33am 12.0 g/dL 13.3-16.3 [facility] [address] [facility] [address] Hemoglobin February 17, 2022 2:25pm 12.2 g/dL 13.3-16.3 [place] [address] [facility] [address] Hematocrit September 10, 2021 2:25pm 38.9 % 40.0-49.0 [place] [address] [facility] [address] Hematocrit December 14, 2021 8:33am 35.5 % 40.0-49.0 [place] [address] [facility] [address] Hematocrit February 17, 2022 2:25pm 37.6 % 40.0-49.0 [facility] [address] [facility] [address] Mean Corpuscular Volume September 10, 2021 2:25pm 79.4 fL 80.0-100.0 [place] [address] [facility] [address] Mean Corpuscular Volume December 14, 2021 8:33am 78.3 fL 80.0-100.0 [place] [address] [facility] [address] Mean Corpuscular Volume February 17, 2022 2:25pm 77.8 fL 80.0-100.0 [place] [address] [facility] [address] Mean Corpuscular Hemoglobin September 10, 2021 2:25pm 26.5 pg 23.0-31.0 [place] [address] [facility] [address] Mean Corpuscular Hemoglobin December 14, 2021 8:33am 26.4 pg 23.0-31.0 [facility] [address] [facility] [address] Mean Corpuscular Hemoglobin February 17, 2022 2:25pm 25.2 pg 23.0-31.0 [place] [address] [facility] [address] Mean Corpuscular Hemoglobin Concent September 10, 2021 2:25pm 33.4 g/dL 32.0-36.0 [facility] [address] [facility] [address] Mean Corpuscular Hemoglobin Concent December 14, 2021 8:33am 33.7 g/dL 32.0-36.0 [facility] [address] [facility] [address] Mean Corpuscular Hemoglobin Concent February 17, 2022 2:25pm 32.4 g/dL 32.0-36.0 [place] [address] [facility] [address] Platelet Count September 10, 2021 2:25pm 213 10^3/uL 150-400 [facility] [address] [facility] [address] Platelet Count December 14, 2021 8:33am 188 10^3/uL 150-400 [facility] [address] [facility] [address] Platelet Count February 17, 2022 2:25pm 250 10^3/uL 150-400 Delta: 188 on 12/14/21-0733 [facility] [address] [facility] [address] RDW Coefficient of Variation September 10, 2021 2:25pm 13.5 % 12.5-15.5 [facility] [address] [facility] [address] RDW Coefficient of Variation December 14, 2021 8:33am 14.2 % 12.5-15.5 [facility] [place] [address] [facility] [address] RDW Coefficient of Variation February 17, 2022 2:25pm 13.8 % 12.5-15.5 [facility] [address] [facility] [address] Mean Platelet Volume September 10, 2021 2:25pm 6.9 fL 7.0-10.5 [facility] [address] [facility] [address] Mean Platelet Volume December 14, 2021 8:33am 7.7 fL 7.0-10.5 [facility] [address] [facility] [address] Mean Platelet Volume February 17, 2022 2:25pm 7.0 fL 7.0-10.5 [facility] [address] [facility] [address] Neutrophils (%) (Auto) September 10, 2021 2:25pm 46 % 44-74 [facility] [address] [facility] [address] Neutrophils (%) (Auto) December 13, 2021 10:44am 54 % 44-74 Delta: 46 on 09/10/21-1325 [facility] [address] [facility] [address] Neutrophils (%) (Auto) February 17, 2022 2:25pm 55 % 44-74 [facility] [place] [address] [place] [address] Lymphocytes (%) (Auto) September 10, 2021 2:25pm 42 % 16-46 [facility] [place] [address] [place] [address] Lymphocytes (%) (Auto) December 13, 2021 10:44am 35 % 16-46 [facility] [place] [address] [place] [address] Lymphocytes (%) (Auto) February 17, 2022 2:25pm 36 % 16-46 [facility] [place] [address] [place] [address] Monocytes (%) (Auto) September 10, 2021 2:25pm 9 % 5-12 [facility] [place] [address] [place] [address] Monocytes (%) (Auto) December 13, 2021 10:44am 9 % 5-12 [facility] [place] [address] [place] [address] Monocytes (%) (Auto) February 17, 2022 2:25pm 7 % 5-12 [facility] [place] [address] [place] [address] Eosinophils (%) (Auto) September 10, 2021 2:25pm 2 % 0-8 [facility] [place] [address] [place] [address] Eosinophils (%) (Auto) December 13, 2021 10:44am 2 % 0-8 [facility] [place] [address] [place] [address] Eosinophils (%) (Auto) February 17, 2022 2:25pm 2 % 0-8 [facility] [place] [address] [place] [address] Basophils (%) (Auto) September 10, 2021 2:25pm 1 % 0-2 [facility] [place] [address] [place] [address] Basophils (%) (Auto) December 13, 2021 10:44am 1 % 0-2 [facility] [address] [place] [address] Basophils (%) (Auto) February 17, 2022 2:25pm 1 % 0-[address] [facility] [address] Absolute Neutrophils (auto) September 10, 2021 2:25pm 1.8 10^3/uL 1.5-7.[address] [facility] [address] Absolute Neutrophils (auto) December 13, 2021 10:44am 2.1 10^3/uL 1.5-7.[address] [facility] [address] Absolute Neutrophils (auto) February 17, 2022 2:25pm 2.0 10^3/uL 1.5-7.[address] [facility] [address] Absolute Lymphocytes (auto) September 10, 2021 2:25pm 1.6 10^3/uL 0.85-4.[address] [facility] [address] Absolute Lymphocytes (auto) December 13, 2021 10:44am 1.3 10^3/uL 0.85-4.[address] [facility] [address] Absolute Lymphocytes (auto) February 17, 2022 2:25pm 1.3 10^3/uL 0.85-4.[address] [facility] [address] Absolute Monocytes (auto) September 10, 2021 2:25pm 0.3 10^3/uL 0.2-1.[address] [facility] [address] Absolute Monocytes (auto) December 13, 2021 10:44am 0.4 10^3/uL 0.2-1.[address] [address] Absolute Monocytes (auto) February 17, 2022 2:25pm 0.3 10^3/uL 0.2-1.[address] [facility] [address] Absolute Eosinophils (auto) September 10, 2021 2:25pm 0.1 10^3/uL 0.05-0.[address] [facility] [address] Absolute Eosinophils (auto) December 13, 2021 10:44am 0.1 10^3/uL 0.05-0.[address] [facility] [address] Absolute Eosinophils (auto) February 17, 2022 2:25pm 0.1 10^3/uL 0.05-0.[address] [facility] [address] Absolute Basophils (auto) September 10, 2021 2:25pm 0.0 10^3/uL 0-0.[address] [facility] [address] Absolute Basophils (auto) December 13, 2021 10:44am 0.0 10^3/uL 0-0.[address] [facility] [address] Absolute Basophils (auto) February 17, 2022 2:25pm 0.0 10^3/uL 0-0.[address] [facility] [address] Urine Color December 13, 2021 10:44am Yellow Yellow [address] [facility] [address] Urine Color February 17, 2022 4:42pm Yellow Yellow [address] [facility] [address] Urine Clarity December 13, 2021 10:44am Clear Clear [address] [facility] [address] Urine Clarity February 17, 2022 4:42pm Clear Clear [address] [facility] [address] Urine Specific [place] December 13, 2021 10:44am 1.009 1.005-1.03 [address] [facility] [address] Urine Specific [place] February 17, 2022 4:42pm 1.016 1.005-1.[address] [facility] [address] Urine Glucose (UA) December 13, 2021 10:44am Negative Negative [address]ella[address] [facility] [address] Urine Glucose (UA) February 17, 2022 4:42pm Negative Negative [address] [facility] [address] Urine Bilirubin December 13, 2021 10:44am Negative Negative [address] [facility] [address] Urine Bilirubin February 17, 2022 4:42pm Negative Negative [address] [facility] [address] Urine Ketones December 13, 2021 10:44am Negative Negative [address] [facility] [address] Urine Ketones February 17, 2022 4:42pm Negative Negative [address] [facility] [address] Urine Occult Blood December 13, 2021 10:44am Negative Negative [address] [facility] [address] Urine Occult Blood February 17, 2022 4:42pm Negative Negative [address] [facility] [address] Urine pH December 13, 2021 10:44am 8.5 5.0-7.[address] [facility] [address] Urine pH February 17, 2022 4:42pm 7.5 5.0-7.[address] [facility] [address] Urine Protein December 13, 2021 10:44am Negative mg/dL Negative [address] [facility] [address] Urine Protein February 17, 2022 4:42pm Negative mg/dL Negative [address] [facility] [address] Urine Urobilinogen December 13, 2021 10:44am 1.0 E.U./dL 0.2-1.[address] [facility] [address] Urine Urobilinogen February 17, 2022 4:42pm 1.0 E.U./dL 0.2-1.[address] [facility] [address] Urine Nitrite December 13, 2021 10:44am Negative Negative [facility] [address] [facility] [address] Urine Nitrite February 17, 2022 4:42pm Negative Negative N[facility] [address] [facility] [address] [facility] [address] Urine Leukocyte Esterase December 13, 2021 10:44am Negative Negative [facility] [address] [facility] [address] [facility] [address] Urine Leukocyte Esterase February 17, 2022 4:42pm Negative Negative Nella [facility] [address] [facility] [address] [facility] [address] Urine Amphetamine Screen February 17, 2022 4:42pm Negative Negative [address] [facility] [address] Urine Barbiturates Screen February 17, 2022 4:42pm Negative Negative [address] [facility] [address] Urine Benzodiazepines Screen February 17, 2022 4:42pm Negative Negative Nella[address] [facility] [address] Urine Buprenorphine Screen February 17, 2022 4:42pm Negative Negative [facility] [address] [facility] [address] [facility] [address] Urine Cocaine Screen February 17, 2022 4:42pm Negative Negative [address] [facility] [address] Urine Methadone Screen February 17, 2022 4:42pm Negative Negative [address] [facility] [address] Urine Oxycodone Screen February 17, 2022 4:42pm Negative Negative [facility] [address] [facility] [address] [facility] [address] Urine Opiates Screen February 17, 2022 4:42pm Negative Negative [facility] [address] [facility] [facility] [address] Urine Cannabinoids Screen February 17, 2022 4:42pm Negative Negative [facility] [address] [facility] [address] [facility] [address] Urine Fentanyl Screen February 17, 2022 4:42pm Negative Negative [facility] [address] [facility] [address] Sodium Level September 10, 2021 2:25pm 140 mmol/L 136-145 [facility] [address] [facility] [address] Sodium Level December 14, 2021 8:33am 138 mmol/L 136-145 [facility] [address] [facility] [address] Sodium Level February 17, 2022 2:25pm 139 mmol/L 136-145 [facility] [address] [facility] [address] Potassium Level September 10, 2021 2:25pm 4.8 mmol/L 3.5-5.1 [facility] [address] [facility] [address] Potassium Level December 14, 2021 8:33am 4.1 mmol/L 3.5-5.[address] [facility] [address] Potassium Level February 17, 2022 2:25pm 4.5 mmol/L 3.5-5.1 [facility] [address] [facility] [address] Chloride Level September 10, 2021 2:25pm 101 mmol/L 98-107 [facility] [address] [facility] [address] Chloride Level December 14, 2021 8:33am 100.7 mmol/L 98-107 [facility] [address] [facility] [address] Chloride Level February 17, 2022 2:25pm 103 mmol/L 98-107 [facility] [address] [facility] [address] Carbon Dioxide Level September 10, 2021 2:25pm 28 mmol/L 22-29 [facility] [address] [facility] [address] Carbon Dioxide Level December 14, 2021 8:33am 25 mmol/L 22-29 [facility] [address] [facility] [address] Carbon Dioxide Level February 17, 2022 2:25pm 27 mmol/L 22-[address] [facility] [address] Anion Gap September 10, 2021 2:25pm 11 mmol/L 6- [facility] [address] [facility] [address] Anion Gap December 14, 2021 8:33am 12.3 mmol/L - [facility] [address] [facility] [address] Anion Gap February 17, 2022 2:25pm 9 mmol/L 03-27 [facility] [address] [facility] [address] Blood Urea Nitrogen September 10, 2021 2:25pm 5 mg/dL 03-29 [facility] [address] [facility] [address] Blood Urea Nitrogen December 14, 2021 8:33am 8 mg/dL 03-29 Delta: 4 on 12/13/21-943 [facility] [address] [facility] [address] Blood Urea Nitrogen February 17, 2022 2:25pm 11 mg/dL 03-29 [facility] [address] [facility] [address] Creatinine September 10, 2021 2:25pm 0.9 mg/dL 0.7-1.2 [facility] [address] [facility] [address] Creatinine December 14, 2021 8:33am 0.9 mg/dL 0.7-1.2 [facility] [address] [facility] [address] Creatinine February 17, 2022 2:25pm 1.0 mg/dL 0.7-1.2 [facility] [address] [facility] [address] Glomerular Filtration Rate Calc September 10, 2021 2:25pm > 60.00 mL/min >60 Multiply x 1.212 if of descent normal kidney function >60 mL/min results normalized to 1.73 m sq body surface area. [facility] [address] [facility] [address] Glomerular Filtration Rate Calc December 14, 2021 8:33am > 60.00 mL/min >60 Multiply x 1.212 if of descent normal kidney function >60 mL/min results normalized to 1.73 m sq body surface area. [facility] [address] [facility] [address] Glomerular Filtration Rate Calc February 17, 2022 2:25pm > 60.00 mL/min >60 Multiply x 1.212 if of descent normal kidney function >60 mL/min results normalized to 1.73 m sq body surface area. [place] [address] [facility] [address] Glucose Level September 10, 2021 2:25pm 134 mg/dL 74-109 [facility] [address] [facility] [address] Glucose Level December 14, 2021 8:33am 114 mg/dL 74-109 [place] [address] [facility] [address] Glucose Level February 17, 2022 2:25pm 245 mg/dL 74-109 [place] [address] [facility] [address] Calcium Level September 10, 2021 2:25pm 9.5 mg/dL 8.6-10.6 [place] [address] [facility] [address] Calcium Level December 14, 2021 8:33am 8.8 mg/dL 8.6-10.6 [place] [address] [facility] [address] Calcium Level February 17, 2022 2:25pm 9.1 mg/dL 8.6-10.6 [place] [address] [facility] [address] Phosphorus Level February 17, 2022 2:25pm 2.9 mg/dL 2.5-4.5 [facility] [address] [facility] [address] Total Bilirubin December 13, 2021 10:44am 0.4 mg/dL 0.4-1.2 [place] [address] [facility] [address] Total Bilirubin February 17, 2022 2:25pm 0.3 mg/dL 0.4-1.2 [place] [address] [facility] [address] Direct Bilirubin December 13, 2021 10:44am < 0.2 mg/dL 0.0-0.2 [place] [address] [facility] [address] Aspartate Amino Transf (AST/SGOT) December 13, 2021 10:44am 29 IU/L 10-50 [facility] [address] [facility] [address] Aspartate Amino Transf (AST/SGOT) February 17, 2022 2:25pm 26 IU/L 10-[address] [facility] [address] Alanine Aminotransferase (ALT/SGPT) December 13, 2021 10:44am 22 U/L 5-[address] [facility] [address] Alanine Aminotransferase (ALT/SGPT) February 17, 2022 2:25pm 31 U/L 5-[address] [facility] [address] Alkaline Phosphatase December 13, 2021 10:44am 76 IU/L 40-[address] [facility] [address] Alkaline Phosphatase February 17, 2022 2:25pm 88 IU/L 40-[address] [facility] [address] Total Protein December 13, 2021 10:44am 6.7 g/dL 6.6-8.[address] [facility] [address] Total Protein February 17, 2022 2:25pm 6.7 g/dL 6.6-8.[address] [facility] [address] Albumin December 13, 2021 10:44am 4.4 g/dL 3.5-5.[address] [facility] [address] Albumin February 17, 2022 2:25pm 3.9 g/dL 3.5-5.[address] [facility] [address] Magnesium Level February 17, 2022 2:25pm 1.4 mg/dL 1.6-2.[address] [facility] [address] Troponin T December 13, 2021 11:00pm < 0.01 ng/mL 0.0-0.01 [facility] [place] [address] Triglycerides Level December 14, 2021 8:33am 69 mg/dL Normal = <150 mg/dL [place] [address] [address] [place] [address] Cholesterol Level December 14, 2021 8:33am 99 mg/dL Desirable = <200 mg/dL --- [place] [address] [place] [address] LDL Cholesterol, Calculated December 14, 2021 8:33am 60 mg/dL Optimal = <100 mg/dL Near Optimal = 100-129 mg/dL -------- [place] [address] [address] [place] [address] HDL Cholesterol December 14, 2021 8:33am 25 mg/dL Low = <40 mg/dL Desirable = >59 mg/dL -- [place] [address] [address] [place] [address] Cholesterol/HDL Ratio December 14, 2021 8:33am 4.0 [place] = <3.5 Good = >5.0 [facility] [place] [address] [address] [place] [address] Cholesterol Ratio (LDL/HDL) December 14, 2021 8:33am 2.4 [place] = <2.0 Good = >5.0 Lipid Profile Reference Ranges based on NCEP Guidelines [facility] [address] Amylase Level December 13, 2021 10:44am 281 U/L 28-[address] [facility] [address] Lipase December 13, 2021 10:44am 35 U/L 13-[address] [facility] [address] Hemoglobin A1c December 14, 2021 8:33am 7.3 % 4.0-6.[address] [facility] [address] Estimated Average Glucose (eAG) December 14, 2021 8:33am 163 mg/dL [address] [facility] [address] Salicylates Level December 13, 2021 10:44am < 1.0 mg/dL 3.0-10.[address] [facility] [address] Salicylates Level February 17, 2022 2:25pm < 1.0 mg/dL 3.0-10.[address] [facility] [address] Acetaminophen Level December 13, 2021 10:44am < 5.0 ug/mL 10.0-30.[address] [facility] [address] Acetaminophen Level February 17, 2022 2:25pm < 5.0 ug/mL 10.0-30.[address] [facility] [address] Ethyl Alcohol Level December 13, 2021 10:44am < 10 mg/dL <[address] [facility] [address] Ethyl Alcohol Level February 17, 2022 2:25pm < 10 mg/dL <[address] [facility] [address] Influenza Virus Type A (PCR) December 13, 2021 11:10am Negative Negative [address] [facility] [address] Influenza Virus Type A (PCR) February 17, 2022 4:20pm Negative Negative [address] [facility] [address] Influenza Virus Type B (PCR) December 13, 2021 11:10am Negative Negative [address] [facility] [address] Influenza Virus Type B (PCR) February 17, 2022 4:20pm Negative Negative [address] [facility] [address] Respiratory Syncytial Virus (RT-PCR December 13, 2021 11:10am Negative Negative [address] [facility] [address] Respiratory Syncytial Virus (RT-PCR February 17, 2022 4:20pm Negative Negative [address] [facility] [address] SARS-CoV-2 (PCR) December 13, 2021 11:10am Negative Negative Test performed with [employer] GeneXpert SARS-CoV-2 PCR assay, which has received emergency use authorization (EUA) by the U.S.Food and Drug Administration . Negative results do not preclude SARS-CoV-2 infection and should not be used as the sole basis for treatment or other patient management decisions. [address] [facility] [address] SARS-CoV-2 (PCR) February 17, 2022 4:20pm Negative Negative Test performed with [employer] GeneXpert SARS-CoV-2 PCR assay, which has received emergency use authorization (EUA) by the U.S.Food and Drug Administration . Negative results do not preclude SARS-CoV-2 infection and should not be used as the sole basis for treatment or other patient management decisions. [address] [place] [id number] Bedside Glucose December 14, 2021 1:10pm 263 mg/dL 70-[address] [place] [id number] Diagnostic Imaging Reports Report Dictated Date/Time Dictated By Status Electrocardiogram September 12, 2021 10:00am [place] [address] Electrocardiogram Report Signed Patient: Maryana Rivera MR#: [id number] : 1945 Acct: [id number] Age/Sex: 76 / M ADM Date: 09/10/21 Loc: M.ER Attending Dr: Ordering Physician: Armando Rosenthal MD Pat CELL Date of Service: 09/10/21 Procedure(s): ECG Ekg Er Accession Number(s): [id number] CC: Lily Abernathy MD; Armando Rosenthal MD; Kenia Sheehan MD Date: 09/10/21 Time: 1442 Clinical Diagnosis: Referred By: Rhythm: Sinus bradycardia rate of 46 bpm Rate auricular: ventricular: P-R interval: [place]: Q-R-S interval: Q-T interval: P-Wave: Q-R-S complexes: T-Waves: Other findings: Interpretation: Sinus bradycardia, first degree AV conduction delay. AR interval 240 ms with Right bundle branch [...] 13, 2021 11:23am Donald allison MD completed [address] [address] XRay Report Signed Patient: Maryana Rivera MR#: [id number] : 1945 Acct: [id number] Age/Sex: 76 / M ADM Date: 12/13/21 Loc: M.ER Attending Dr: ER Physician: Faustino Friedman MD Ordering Physician: YOGESH Man CELL Date of Service: 12/13/21 Procedure(s): XR chest 1V portable Accession Number(s): [id number] CC: Kenia Sheehan MD; Sanjay Nelson PA-C * XR chest 1V portable [id number] Interpretation Location: [place] [address] Date / Time: 12/13/2021 10:12 AM CLINICAL [...] 14, 2021 9:00am [place] [address] Electrocardiogram Report Signed Patient: Maryana Rivera MR#: [id number] : 1945 Acct: [id number] Age/Sex: 76 / M ADM Date: 12/13/21 Loc: M.2E [id number]: Joyce Monteiro MD ER Physician: Faustino Friedman MD Ordering Physician: YOGESH Man CELL Date of Service: 12/13/21 Procedure(s): EKG (ER) Accession Number(s): [id number] CC: Kenia Sheehan MD; Sanjay Nelson PA-C Date: 12/13/21 Time: 09:16 Clinical Diagnosis: Referred By: Rhythm: Sinus rhythm/50 bpm Rate auricular: ventricular: P-R interval: [place]: Q-R-S interval: Q-T interval: P-Wave: Q-R-S complexes: T-Waves: Other findings: Interpretation: Sinus rhythm/50 bpm, Right bundle branch block, QRS prolonged 125 milliseconds with first degree AV conduction delay. AR interval prolonged 227 milliseconds, unchanged compared to prior 09/10/21. Technologist: Dictated By: Lily Abernathy MD Transcribed By: KALLIE Signed By: <Electronically signed by Lily Abernathy MD> Lily Abernathy MD Signed Date/Time: 12/16/21 1400 DD/ 0900 TD/TT: 12/16/21 1211 CC: Kenia Sheehan MD; Sanjay Nelson PA-C Report Dictated Date/Time Dictated By Status Exercise Stress Test January 15, 2022 7:38am Lily engle MD completed [address] [address] Exercise Tolerance Test Signed Patient: Maryana Rivera MR#: [id number] : 1945 Acct: [id number] Age/Sex: 76 / M ADM Date: 01/15/22 Loc: [place] Attending Dr: Kenia Sheehan MD ER Physician: Ordering Physician: Kenia Sheehan MD Pat CELL Date of Service: 01/15/22 Procedure(s): CA cardiac stress test Accession Number(s): [id number] CC: Kenia Sheehan MD * DATE OF [...] Lily Abernathy MD Signed Date/Time: 02/18/22818 DD/ TD/TT: 02/16/22 1725 CC: Kenia Sheehan MD Report Dictated Date/Time Dictated By Status Electrocardiogram February 18, 2022 7:00am [place] [address] Electrocardiogram Report Signed Patient: Maryana Rivera MR#: [id number] : 1945 Acct: [id number] Age/Sex: 76 / M ADM Date: 02/17/22 Loc: [facility] Attending Dr: SKY Physician: Ashutosh Moya MD Ordering Physician: Ashutosh Moya MD [facility] CELL Date of Service: 02/17/22 Procedure(s): EKG (ER) Accession Number(s): [id number] CC: Ashutosh Moya MD; Kenia Sheehan MD Date: 02/17/22 Time: 15:06 Clinical Diagnosis: Referred By: Rhythm: Sinus bradycardia/50 Rate auricular: ventricular: P-R interval: .24 [place]: 15 Q-R-S interval: .13 Q-T interval: P-Wave: Q-R-S complexes: T-Waves: Other findings: Interpretation: Sinus bradycardia, first degree AV block, Right bundle branch block. ___ Technologist: Dictated By: Servando Cordon MD Transcribed By: KALLIE Signed By: <Electronically signed by Servando Cordon MD> Servando Cordon MD Signed Date/Time: 02/20/22738 DD/ 9 TD/TT: 02/19/22 1138 CC: Ashutosh Moya MD; Kenia Sheehan MD Vital Signs Vital Reading Result Reference Range Collection Date/Time Body Temperature 97.5 [degF] 97.5-99.3 September 3:22pm Heart Rate 52 /min 60-90 September 10 3:22pm Respiratory rate 16 /min 12-20 September 3:22pm Oxygen saturation by Pulse oximetry 100 % 95-100 September 10, 2021 3 :22pm BP Systolic 197 mm[Hg] 100-160 September 10, 2 021 3:22pm BP Diastolic 68 mm[Hg] 60-90 September 10, 2 021 3:22pm Height 68 [in_i] December 13, 2021 2:14pm Weight 71.30 kg December 13, 2021 2:14pm Body Temperature 98.5 [degF] 97.5-99.3 December 14, 2021 8:00am Heart Rate 54 /min 60-90 December 14, 2021 12:00pm Respiratory rate 17 /min [...] 2020 4:54pm Healthcare Proxy Agent Phone # [phone] [facility] 27th, 2021 4:54pm Date Patient Queried 02/17/22 February 17 1:55pm Is the Healthcare Proxy on f ile at [facility]? Unknown June 05, 2021 4:54pm Insurance Providers Guarantor Maryana Rivera Address [address] [facility] [address] Contact Info. Home Phone: CELL Payer Policy Id Coverage Id Subscriber's Name Subscriber Id Effective Date Expiration Date Medicare [id number] MalAngel Rivera [id number] Self Pay Self N/A [facility] HMO Replacement [id number] 01 [id number] [facility] Supplement [id number] MalAngel [employer] [id number] Encounters Encounter Location(s) Arrival/Admit Date Discharge/Depart Date Provider(s) Departed Emergency [facility] Emergency Department September 10, 2021 11:10am September 10, 2021 4:23pm null Discharged Inpatient [facility] 2 December 13, 2021 3:02pm December 14, 2021 5:30pm Markos Phelps MD Departed Clinical [facility] Cardiology January 15, 2022 7:57am January 15, 2022 7:58am Kenia Sheehan MD Departed Emergency [facility] Emergency Department January 31, 2022 12:26pm January 31, 2022 2:31pm null Departed Emergency [facility] ED Observation February 17, 2022 1:50pm February 18, 2022 5:50pm null Mental Status Observation Response Date Recorded Patient Orientation Oriented x3 September 1:43pm Patient Orientation Oriented x3 January 31, 2022 1:07pm Patient Orientation Oriented x3 February 17 4:31pm Patient Orientation Oriented x3 December 14 4:05pm Plan of Treatment Future Tests Future scheduled test information is unavailable Pending Tests Pending diagnostic test information is unavailable Future Visits Future appointment information is unavailable Referrals to Other Providers Reason for Referral Referral Start Date Provider Provider Contact Information Provider Address Kenia Sheehan MD Email: [email or web address] Work Phone: [address] [facility] [address] Kenia Sheehan MD Email: [email or web address] Work Phone: [address] [facility] [address] Kenia Sheehan MD Email: [email or web address] Work Phone: [address] [facility] [address] [facility] Referral Work Phone: Kenia Sheehan MD Email: [email or web address] Work Phone: [address] [facility] [address] Future Procedures Future procedure information is unavailable Future Medications Future medication information is unavailable Patient Instructions Patient instructions are unavailable Hospital Discharge Instructions Additional Instructions Please follow up with your doctors as planned. Come back if anything changes or gets worse, we're open always.
--- OUTSIDE RECORDS SUMMARY | 2024-01-19 20:59 | XMS_ITS | Continuity of Care Document ---
Author Organization [facility] Address [address] [place] [address] Phone Support Name Relationship Address Phone MD Kenia Sheehan Primary Care Provider [address] [place] [address] MD Harjeet Leonardo Emergency Provider [place] [address] MD Ashutosh Moya Emergency Provider [address] [facility] [address] [place], [place] MD Eric Apple Emergency Provider [address] [place] [address] Chief Complaint and Reason for Visit Chief Complaint CHEST PAIN Left leg laceration SI FLu like symptoms, abd pain, dementia Allergies, Adverse Reactions, Alerts No known allergies Social History Smoking Status Status Start Date End Date Date of Observa tion Unknown if ever smoked 2021 3:29pm Observation Status Observation Response Date of Response Is pt a current\former smoke r or user of tobacco products? Yes, former June 15, 2022 3:29pm Does the patient use drugs? No Jun 1:46pm On average how many days per week do you drink alcohol? 0 June 15, 2022 3:29pm Additional Data Assigned Sex Male Problems Active Problems Medical Problem Onset Date Status Social discord Active Inactive/Resolved Problems Medical Problem Onset Date [...] Active 5 MG PO Twice A Day r 2018 1:00am Insulin Glargine (Lantus Solostar U-100 Insulin) 100 unit/mL (3 mL) insulin pen Disconti nued 8 UNIT SUB-Q Twice A Day r 2018 1:00am December 13, 2021 5:01pm [...] MG PO Daily December 13, 2021 1:00am Procedures Procedure Date Performed Status CA cardiac stress test January 15, 2022 8:00am co mpleted Relevant Diagnostic Tests and/or Laboratory Data Laboratory Results Test Date/Time Result Interpretation Reference Range Result Comment Performing Site White Blood Count February 17, 2022 2:25pm 3.7 10^3/uL 4.5-10.5 [address] [place] [address] White Blood Count June 15, 2022 1:46pm 3.8 10^3/uL 3.9-10.[address] [place] [address] Red Blood Count February 17, 2022 2:25pm 4.83 10^6uL 4.20-5.40 [place] [address] [facility] [address] Red Blood Count June 15, 2022 1:46pm 4.7 10^6/uL 4.2-5.6 [facility] [address] [facility] [address] Hemoglobin February 17, 2022 2:25pm 12.2 g/dL 13.3-16.3 [place] [address] [facility] [address] Hemoglobin June 15, 2022 1:46pm 12.2 g/dL 14.0-17.3 [place] [address] [facility] [address] Hematocrit February 17, 2022 2:25pm 37.6 % 40.0-49.0 [place] [address] [facility] [address] Hematocrit June 15, 2022 1:46pm 37.1 % 40.0-49.0 [place] [address] [facility] [address] Mean Corpuscular Volume February 17, 2022 2:25pm 77.8 fL 80.0-100.0 [place] [address] [facility] [address] Mean Corpuscular Volume June 15, 2022 1:46pm 78.8 fL 82.0-102.0 [place] [address] [facility] [address] Mean Corpuscular Hemoglobin February 17, 2022 2:25pm 25.2 pg 23.0-31.0 [place] [address] [facility] [address] Mean Corpuscular Hemoglobin June 15, 2022 1:46pm 25.9 pg 25.7-32.2 [facility] [address] [facility] [address] Mean Corpuscular Hemoglobin Concent February 17, 2022 2:25pm 32.4 g/dL 32.0-36.0 [place] [address] [facility] [address] Mean Corpuscular Hemoglobin Concent June 15, 2022 1:46pm 32.9 g/dL 32.0-36.0 [facility] [address] [facility] [address] Platelet Count February 17, 2022 2:25pm 250 10^3/uL 150-400 Delta: 188 on 12/14/21-0733 [facility] [address] [facility] [address] Platelet Count June 15, 2022 1:46pm 238 10^3uL 150-400 [facility] [address] [facility] [address] RDW Standard Deviation June 15, 2022 1:46pm 37.8 fL 32.9-69.6 [facility] [address] [facility] [address] RDW Coefficient of Variation February 17, 2022 2:25pm 13.8 % 12.5-15.[address] [facility] [address] RDW Coefficient of Variation June 15, 2022 1:46pm 13.2 % 12.0-15.0 [place] [address] [facility] [address] Mean Platelet Volume February 17, 2022 2:25pm 7.0 fL 7.0-10.5 [place] [address] [facility] [address] Mean Platelet Volume June 15, 2022 1:46pm 8.7 fL 7.0-11.0 [place] [address] [facility] [address] Neutrophils (%) (Auto) February 17, 2022 2:25pm 55 % 44-74 [place] [address] [facility] [address] Neutrophils (%) (Auto) June 15, 2022 1:46pm 44.6 % 43.0-74.0 [facility] [address] [facility] [address] Lymphocytes (%) (Auto) February 17, 2022 2:25pm 36 % 16-46 [place] [address] [facility] [address] Lymphocytes (%) (Auto) June 15, 2022 1:46pm 43.4 % 17.0-47.0 [address] [facility] [address] Monocytes (%) (Auto) February 17, 2022 2:25pm 7 % 5-[address] [facility] [address] Monocytes (%) (Auto) June 15, 2022 1:46pm 9.3 % 5.0-12.0 [address] [facility] [address] Eosinophils (%) (Auto) February 17, 2022 2:25pm 2 % 0-8 [address] [facility] [address] Eosinophils (%) (Auto) June 15, 2022 1:46pm 1.9 % 0.1-6.0 [address] [facility] [address] Basophils (%) (Auto) February 17, 2022 2:25pm 1 % 0-[address] [facility] [address] Basophils (%) (Auto) June 15, 2022 1:46pm 0.8 % 0.0-2.[address] [facility] [address] Immature/Total Granulocytes (auto) June 15, 2022 1:46pm 0 % 0.001-5.[address] [facility] [address] Nucleated Red Blood Cells % (auto) June 15, 2022 1:46pm 0.0 % 0.0-0.[address] [facility] [address] Absolute Neutrophils (auto) February 17, 2022 2:25pm 2.0 10^3/uL 1.5-7.[address] [facility] [address] Absolute Neutrophils (auto) June 15, 2022 1:46pm 1.7 10^3/uL 1.5-8.[address] [facility] [address] Absolute Lymphocytes (auto) February 17, 2022 2:25pm 1.3 10^3/uL 0.85-4.[address] [address] Absolute Lymphocytes (auto) June 15, 2022 1:46pm 1.6 10^3/uL 0.95-4.[address] [address] Absolute Monocytes (auto) February 17, 2022 2:25pm 0.3 10^3/uL 0.2-1.[address] [address] Absolute Monocytes (auto) June 15, 2022 1:46pm 0.4 10^3/uL 0.2-1.[address] [address] Absolute Eosinophils (auto) February 17, 2022 2:25pm 0.1 10^3/uL 0.05-0.[address] [address] Absolute Eosinophils (auto) June 15, 2022 1:46pm 0.1 10^3/uL 0.06-0.[address] [address] Absolute Basophils (auto) February 17, 2022 2:25pm 0.0 10^3/uL 0-0.[address] [address] Absolute Basophils (auto) June 15, 2022 1:46pm 0.0 10^3/uL 0.01-0.[address] [address] Absolute Immature Granulocyte (auto June 15, 2022 1:46pm 0.00 K/uL 0.00-0.[address] [address] Nucleated RBC Absolute Count (auto) June 15, 2022 1:46pm 0.0 K/uL 0.00-0.[address] [address] Urine Color February 17, 2022 4:42pm Yellow Yellow [address] [place] [address] Urine Clarity February 17, 2022 4:42pm Clear Clear [address] [facility] [address] Urine Specific [place] February 17, 2022 4:42pm 1.016 1.005-1.[address] [facility] [address] Urine Glucose (UA) February 17, 2022 4:42pm Negative Negative [address] [facility] [address] Urine Bilirubin February 17, 2022 4:42pm Negative Negative [address] [facility] [address] Urine Ketones February 17, 2022 4:42pm Negative Negative [address] [facility] [address] Urine Occult Blood February 17, 2022 4:42pm Negative Negative [address] [facility] [address] Urine pH February 17, 2022 4:42pm 7.5 5.0-7.[address] [facility] [address] Urine Protein February 17, 2022 4:42pm Negative mg/dL Negative [address] [facility] [address] Urine Urobilinogen February 17, 2022 4:42pm 1.0 E.U./dL 0.2-1.[address] [facility] [address] Urine Nitrite February 17, 2022 4:42pm Negative Negative [address] [facility] [address] Urine Leukocyte Esterase February 17, 2022 4:42pm Negative Negative [address] [facility] [address] Urine Amphetamine Screen February 17, 2022 4:42pm Negative Negative [address] [facility] [address] Urine Barbiturates Screen February 17, 2022 4:42pm Negative Negative [address] [facility] [address] Urine Benzodiazepines Screen February 17, 2022 4:42pm Negative Negative [address] [facility] [address] Urine Buprenorphine Screen February 17, 2022 4:42pm Negative Negative [address] [facility] [address] Urine Cocaine Screen February 17, 2022 4:42pm Negative Negative [address] [facility] [address] Urine Methadone Screen February 17, 2022 4:42pm Negative Negative [address] [facility] [address] Urine Oxycodone Screen February 17, 2022 4:42pm Negative Negative [address] [facility] [address] Urine Opiates Screen February 17, 2022 4:42pm Negative Negative [address] [facility] [address] Urine Cannabinoids Screen February 17, 2022 4:42pm Negative Negative [address] [facility] [address] Urine Fentanyl Screen February 17, 2022 4:42pm Negative Negative [address] [facility] [address] Sodium Level February 17, 2022 2:25pm 139 mmol/L 136-[address] [facility] [address] Sodium Level June 15, 2022 1:46pm 135 mmol/L 136-[address] [facility] [address] Potassium Level February 17, 2022 2:25pm 4.5 mmol/L 3.5-5.[address] [facility] [address] Potassium Level June 15, 2022 1:46pm 4.3 mmol/L 3.5-5.[address] [facility] [address] Chloride Level February 17, 2022 2:25pm 103 mmol/L 98-[address] [facility] [address] Chloride Level June 15, 2022 1:46pm 98 mmol/L 98-107 [facility] [address] [facility] [address] Carbon Dioxide Level February 17, 2022 2:25pm 27 mmol/L 22-29 [facility] [address] [facility] [address] Carbon Dioxide Level June 15, 2022 1:46pm 28 mmol/L -29 [facility] [address] [facility] [address] Anion Gap February 17, 2022 2:25pm 9 mmol/L 6-18 [facility] [address] [facility] [address] Anion Gap June 15, 2022 1:46pm 9 mmol/L 6-18 [facility] [address] [facility] [address] Blood Urea Nitrogen February 17, 2022 2:25pm 11 mg/dL - [place] [address] [facility] [address] Blood Urea Nitrogen June 15, 2022 1:46pm 8 mg/dL - [facility] [address] [facility] [address] Creatinine February 17, 2022 2:25pm 1.0 mg/dL 0.7-1.2 [facility] [address] [facility] [address] Creatinine June 15, 2022 1:46pm 1.0 mg/dL 0.7-1.2 [facility] [address] [facility] [address] Glomerular Filtration Rate Calc February 17, 2022 2:25pm > 60.00 mL/min >60 Multiply x 1.212 if of descent normal kidney function >60 mL/min results normalized to 1.73 m sq body surface area. [facility] [address] [facility] [address] Glomerular Filtration Rate Calc June 15, 2022 1:46pm > 60.00 mL/min >60 Multiply x 1.212 if of descent normal kidney function >60 mL/min results normalized to 1.73 m sq body surface area. [facility] [address] [facility] [address] Glucose Level February 17, 2022 2:25pm 245 mg/dL 74-[address] [facility] [address] Glucose Level June 15, 2022 1:46pm 161 mg/dL 74-[address] [facility] [address] Calcium Level February 17, 2022 2:25pm 9.1 mg/dL 8.6-10.[address] [facility] [address] Calcium Level June 15, 2022 1:46pm 9.2 mg/dL 8.6-10.[address] [facility] [address] Phosphorus Level February 17, 2022 2:25pm 2.9 mg/dL 2.5-4.[address] [facility] [address] Total Bilirubin February 17, 2022 2:25pm 0.3 mg/dL 0.4-1.[address] [facility] [address] Total Bilirubin June 15, 2022 1:46pm 0.5 mg/dL 0.4-1.[address] [facility] [address] Aspartate Amino Transf (AST/SGOT) February 17, 2022 2:25pm 26 IU/L 10-[address] [facility] [address] Aspartate Amino Transf (AST/SGOT) June 15, 2022 1:46pm 30 IU/L 10-[address] [facility] [address] Alanine Aminotransferase (ALT/SGPT) February 17, 2022 2:25pm 31 U/L 5-[address] [facility] [address] Alanine Aminotransferase (ALT/SGPT) June 15, 2022 1:46pm 30 U/L 5-[address] [facility] [address] Alkaline Phosphatase February 17, 2022 2:25pm 88 IU/L 40-[address] [facility] [address] Alkaline Phosphatase June 15, 2022 1:46pm 82 IU/L 40-[address] [facility] [address] Total Protein February 17, 2022 2:25pm 6.7 g/dL 6.6-8.[address] [facility] [address] Total Protein June 15, 2022 1:46pm 6.8 g/dL 6.6-8.[address] [facility] [address] Albumin February 17, 2022 2:25pm 3.9 g/dL 3.5-5.[address] [facility] [address] Albumin June 15, 2022 1:46pm 4.1 g/dL 3.5-5.[address] [facility] [address] Magnesium Level February 17, 2022 2:25pm 1.4 mg/dL 1.6-2.[address] [facility] [address] Troponin T June 15, 2022 1:46pm < 0.01 ng/mL 0.0-0.[address] [facility] [address] Salicylates Level February 17, 2022 2:25pm < 1.0 mg/dL 3.0-10.[address] [facility] [address] Acetaminophen Level February 17, 2022 2:25pm < 5.0 ug/mL 10.0-30.[address] [facility] [address] Ethyl Alcohol Level February 17, 2022 2:25pm < 10 mg/dL <[address] [facility] [address] Influenza Virus Type A (PCR) February 17, 2022 4:20pm Negative Negative [address] [facility] [address] Influenza Virus Type A (PCR) June 15, 2022 1:46pm Negative Negative [address] [address] Influenza Virus Type B (PCR) February 17, 2022 4:20pm Negative Negative [address] [facility] [address] Influenza Virus Type B (PCR) June 15, 2022 1:46pm Negative Negative [address] [address] Respiratory Syncytial Virus (RT-PCR February 17, 2022 4:20pm Negative Negative [address] [address] Respiratory Syncytial Virus (RT-PCR June 15, 2022 1:46pm Negative Negative [address] [address] SARS-CoV-2 (PCR) February 17, 2022 4:20pm Negative Negative Test performed with [employer] Gene[employer]pert SARS-CoV-2 PCR assay, which has received emergency use authorization (EUA) by the U.S.Food and Drug Administration . Negative results do not preclude SARS-CoV-2 infection and should not be used as the sole basis for treatment or other patient management decisions. [address] [address] SARS-CoV-2 (PCR) June 15, 2022 1:46pm Negative Negative Test performed with [employer] GeneXpert SARS-CoV-2 PCR assay, which has received emergency use authorization (EUA) by the U.S.Food and Drug Administration . Negative results do not preclude SARS-CoV-2 infection and should not be used as the sole basis for treatment or other patient management decisions. [address] [address] Diagnostic Imaging Reports Report Dictated Date/Time Dictated By Status Exercise Stress Test January 15, 2022 7:38am Lily engle MD completed [address] [address] Exercise Tolerance Test Signed Patient: Maryana Rivera MR#: [id number] : 1945 Acct: [id number] Age/Sex: 76 / M ADM Date: 01/15/22 Loc: [place] Attending Dr: Kenia Sheehan MD ER Physician: Ordering Physician: Kenia Sheehan MD [facility] CELL Date of Service: 01/15/22 Procedure(s): CA cardiac stress test Accession Number(s): [id number] CC: Kenia Sheehan MD * DATE OF [...] Lily Abernathy MD Signed Date/Time: 02/18/22818 DD/ 0738 TD/TT: 02/16/22 1725 CC: Kenia Sheehan MD Report Dictated Date/Time Dictated By Status Electrocardiogram February 18, 2022 7:00am [place] [address] Electrocardiogram Report Signed Patient: Maryana Rivera MR#: [id number] : 1945 Acct: [id number] Age/Sex: 76 / M ADM Date: 02/17/22 Loc: [place] Attending Dr: ER Physician: Ashutosh Moya MD Ordering Physician: Ashutosh Moya MD [facility] CELL Date of Service: 02/17/22 Procedure(s): EKG (ER) Accession Number(s): [id number] CC: Ashutosh Moya MD; Kenia Sheehan MD Date: 02/17/22 Time: 15:06 Clinical Diagnosis: Referred By: Rhythm: Sinus bradycardia/50 Rate auricular: ventricular: P-R interval: .24 [place]: 15 Q-R-S interval: .13 Q-T interval: P-Wave: Q-R-S complexes: T-Waves: Other findings: Interpretation: Sinus bradycardia, first degree AV block, Right bundle branch block. ___ Technologist: Dictated By: Servando Cordon MD Transcribed By: KALLIE Signed By: <Electronically signed by Servanod Cordon MD> Servando Cordon MD Signed Date/Time: 02/20/2239 DD/ 0700 TD/TT: 02/19/22 1138 CC: Ashutosh Moya MD; Kenia Sheehan MD Vital Signs Vital Reading Result Reference Range Collection Date/Time Body Temperature 97.4 [degF] 97.5-99.3 January 31, [...] 60 mm[Hg] 60-90 June 15, 2022 12:55pm Advance Directives Advance Directive Response Recorded Date/ Time Does the patient have a Healthcare Proxy? Yes June 05, 2021 4:54pm Healthcare Proxy Agent Name Radha Mayen 2020 4:54pm Healthcare Proxy Agent Phone # [phone] [facility] 2020 4:54pm Date Patient Queried 06/15/22 June 152021 12:50pm Is the Healthcare Proxy on f ile at Critical access hospital? Unknown June 05, 2021 4:54pm Does pt. have a legal guardian? No June 15, 2022 5:11pm Insurance Providers Guarantor Maryana Rivera Address [address] [facility] [address] Contact Info. Home Phone: CELL Payer Policy Id Coverage Id Subscriber's Name Subscriber Id Effective Date Expiration Date Medicare [id number] 30 [id number] Maryana Rivera [id number] Self Pay Self N/A [employer] HMO Replacement [id number] [employer] Supplement [id number] Maryana Rivera [id number] Encounters Encounter Location(s) Arrival/Admit Date Discharge/Depart Date Provider(s) Departed Clinical [facility] Cardiology January 15, 2022 7:57am January 15, 2022 7:58am Kenia Sheehan MD Departed Emergency [facility] Emergency Department January 31, 2022 12:26pm January 31, 2022 2:31pm null Departed Emergency [facility] ED Observation February 17, 2022 1:50pm February 18, 2022 5:50pm null Departed Emergency [facility] Emergency Department June 15, 2022 12:34pm June 15, 2022 4:41pm null Mental Status Observation Response Date Recorded Patient Orientation Oriented x3 January 31, 2022 1:07pm Patient Orientation Oriented x3 February 17 4:31pm Patient Orientation Person June 1:46pm Plan of Treatment Future Tests Future scheduled test information is unavailable Pending Tests Pending diagnostic test information is unavailable Future Visits Future appointment information is unavailable Referrals to Other Providers Reason for Referral Referral Start Date Provider Provider Contact Information Provider Address Kenia Sheehan MD Email: [email or web address] Phone: [address] [facility] [address] Kenia Sheehan MD Email: [email or web address] Phone: [address] [facility] [address] Kneia Sheehan MD Email: [email or web address] Phone: [address] [facility] [address] Future Procedures Procedure Name Scheduled Date Consult to Case Management February 18 4:21pm Place in Observation Status (ED) February 3:19pm COVID-19 Leveling (ED/Inpatient) February 3:19pm Consult to Case Management June 2:56pm Consult to Social Work June 15 3:07pm COVID-19 Leveling (ED/Inpatient) [facility] 2021 1:24pm Future Medications Future medication information is unavailable Patient Instructions Patient instructions are unavailable
[2024-01-19 21:32] VITALS: BP 186/82; PULSE 69; RESP 18; TEMP 36.5; O2SAT 98
[2024-01-19 21:34] LABS: Glucose, Whole Blood 247 mg/dL (60-115)
[2024-01-19 21:59] VITALS: BP 186/82; PULSE 69; RESP 18; TEMP 36.5; O2SAT 98
--- NOTE | 2024-01-19 22:05 | PC.NURSE ---
Med rec completed by comparing medical record and pharmacy claim history. Medical record faxed to pharmacy and notified to review med rec.
[2024-01-19 22:53] VITALS: BMI 19.1
[2024-01-19] MEDS: Gabapentin 600 MG TABLET PO (22:55)
--- NOTE | 2024-01-20 02:49 | PC.NURSE ---
Admission Note Patient is 78 y/o male admitted at 21:20 on a 12b with diagnosis of F03.918-unspecified dementia, unspecified severity, with other behavioral disturbance. Patient arrived on the unit via stretcher, sedated d/t chemical restrain received at [facility] ED r/t agitation and combative behavior with EMS during transfer from [facility] to [facility]. Vitals stable on admission BP186/82 P69 R18 T97.7 O2 98% RA, POC 247. Patient was unable to participate in any admission assessment d/t sedation. Patient previously lived at home with /hcp Radha Rivera [phone] who currently recovering from recent surgery, was sent [facility] ED on 12/15/23 after found wandering outside. Medical history includes dementia, alcohol use d/o, depression, htn, dm2, and gerd; most recent labs unremarquable, no known allergies. scallop raker provider DR Harper and hospitalist Dr Almeida notified of admission. Patient placed on 1:1 monitoring upon admission safety/ hx of agitation.
[2024-01-20 08:00] VITALS: BP 151/72; PULSE 63; RESP 18; TEMP 36.8; O2SAT 99
[2024-01-20 08:59] LABS: Glucose, Whole Blood 264 mg/dL (60-115)
[2024-01-20 11:27] LABS: Glucose, Whole Blood 240 mg/dL (60-115)
--- NOTE | 2024-01-20 11:32 | PC.NURSE ---
Pt admitted last night, still sedated after chemical restrains prior arriving to our unit. VS: 151/72, P 63, T 98.2, O2sat 99% on RA. Breathing even and unlabored. Dr Li aware. AM meds held. Will continue to monitor.
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
--- NOTE | 2024-01-20 13:01 | PC.NURSE ---
F/u by Isatu Cruz NP, meds held at 12:00, pt asleep. Will continue to monitor.
[2024-01-20 14:23] VITALS: BMI 19.1
[2024-01-20 16:42] LABS: Glucose, Whole Blood 222 mg/dL (60-115)
--- NOTE | 2024-01-20 18:11 | PC.NURSE ---
Pt drowsy, not able to answer questions upon assessment. Provider aware.
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
[2024-01-20 19:30] VITALS: BP 152/68; PULSE 58; RESP 18; TEMP 36.2; O2SAT 99
[2024-01-20] MEDS: traZODone HCL 50 MG TABLET 150 MG PO (21:33)
[2024-01-20] MEDS: Donepezil HCl 10 MG TABLET PO (21:33)
[2024-01-20] MEDS: Gabapentin 600 MG TABLET PO (21:33)
[2024-01-20] MEDS: Magnesium Oxide 400 MG TABLET PO (21:33)
[2024-01-20] MEDS: metFORMIN HCl 1,000 MG TABLET 1000 MG PO (21:33)
[2024-01-20] MEDS: HaloperidoL 5 MG TABLET 15 MG PO (21:34)
[2024-01-20] MEDS: Atorvastatin Calcium 80 MG TABLET PO (21:34)
[2024-01-20] MEDS: Divalproex Sodium Sprinkles 125 MG CAP.DR.SPR 500 MG PO (21:34)
[2024-01-21 00:18] LABS: Glucose, Whole Blood 239 mg/dL (60-115)
[2024-01-21 06:19] LABS: Glucose, Whole Blood 207 mg/dL (60-115)
[2024-01-21 09:54] VITALS: BP 160/75; PULSE 57; RESP 16; TEMP 36.1; O2SAT 95
[2024-01-21] MEDS: Escitalopram Oxalate 10 MG TABLET PO (10:29)
[2024-01-21] MEDS: Gabapentin 600 MG TABLET 1200 MG PO (10:29)
[2024-01-21] MEDS: Thiamine HCL 100 MG TABLET PO (10:29)
[2024-01-21] MEDS: lisinopriL 20 MG TABLET PO (10:31)
[2024-01-21] MEDS: Folic Acid 1 MG TABLET PO (10:31)
[2024-01-21] MEDS: metFORMIN HCl 1,000 MG TABLET 1000 MG PO ×2 (10:31→20:40)
[2024-01-21] MEDS: SITagliptin Phosphate 100 MG TABLET PO (10:31)
[2024-01-21] MEDS: Magnesium Oxide 400 MG TABLET PO ×2 (10:31→20:40)
[2024-01-21 10:48] LABS: Alanine Aminotransferase 39 U/L (0-40); Albumin Level 3.7 g/dL (3.5-5.0); Alkaline Phosphatase 99 U/L (39-117); Anion Gap 17 (12-20); Aspartate Amino Transferase 39 U/L (5-37); Bilirubin Total 0.6 mg/dL (0.0-1.0); Blood Urea Nitrogen 15 mg/dL (9-16); Calcium 9.7 mg/dL (8.4-10.2); Carbon Dioxide 21 mmol/L (22-29); Chloride 98 mmol/L (96-108); Creatinine Clr Calc Pharmacy 63.2; Estimated Glomerular Filt Rate > 60; Glucose Fasting 199 mg/dL (60-99); Magnesium 1.6 mg/dL (1.6-2.6); Potassium 4.5 mmol/L (3.3-5.1); Sodium 131 mmol/L (135-145); Total Protein 7.1 g/dL (6.5-8.0)
[2024-01-21 11:06] LABS: TSH reflex Free T4 1.22 uIU/mL (0.32-4.0)
[2024-01-21 11:19] LABS: Folate 12.4 ng/mL (> or = 4.0); Vitamin B12 801 pg/mL (200-900)
[2024-01-21 11:33] LABS: Glucose, Whole Blood 174 mg/dL (60-115)
[2024-01-21] MEDS: HaloperidoL 5 MG TABLET PO (12:27)
[2024-01-21] MEDS: Divalproex Sodium Sprinkles 125 MG CAP.DR.SPR 500 MG PO ×2 (12:28→20:41)
[2024-01-21 16:25] LABS: Glucose, Whole Blood 140 mg/dL (60-115)
[2024-01-21 18:00] VITALS: BP 123/58; PULSE 57; RESP 17; TEMP 37.1; O2SAT 99
[2024-01-21 19:56] LABS: Cholesterol 130 mg/dL (<200); HDL Cholesterol 39 mg/dL (>40); LDL Cholesterol Calculated 81 mg/dL (<100); Triglycerides 54 mg/dL (<150)
[2024-01-21] MEDS: HaloperidoL 5 MG TABLET 15 MG PO (20:40)
[2024-01-21] MEDS: Gabapentin 600 MG TABLET PO (20:40)
[2024-01-21] MEDS: traZODone HCL 50 MG TABLET 150 MG PO (20:40)
[2024-01-21] MEDS: Atorvastatin Calcium 80 MG TABLET PO (20:41)
[2024-01-21] MEDS: Donepezil HCl 10 MG TABLET PO (20:41)
[2024-01-21 20:55] LABS: Glucose, Whole Blood 133 mg/dL (60-115)
--- NOTE | 2024-01-21 21:32 | P.PNPSI_ITS ---
Subjective Subjective Date of Service: 01/21/24 Reason For Visit: Unspecified dementia Interim History: Met with patient who was lying in bed, appears thin, bearded. Was seen getting POC checked by nurse and appeared cooperative. He continued to hold his finger afterward slightly wincing, once the nurse left. He did not open his eyes when I greeted him or at any point during our encounter. He slowly shook his head negatively when asked if his finger hurt. He did not respond to any further questions concerning his health, safety, mood or slee, although did appear to hear me. He remained lying on his back, legs bent to the side holding his finger, but otherwise comfortable. Mental Status Exam Mental Status Exam Narrative: Patient Appearance: Disheveled and Unkempt Level of Consciousness: Drowsy Patient Behavior: Sedated Affect Description: Flat Patient Cognition Impaired: Yes Ability to Follow Directions: Poor Speech Pattern: No Speech Judgement: Poor Diagnostics Vital Signs (24Hr): Vital Signs - 24 hr 01/21/24 09:54 01/21/24 18:00 Temperature 97.0 F 98.7 F Pulse Rate 57 57 Respiratory Rate 16 17 Blood Pressure 160/75 H 123/58 L Pulse Oximetry 95 99 Oxygen Delivery Method Room Air Room Air BMI result Body Mass Index 19.1 Labs 01/21/24 10:18 Labs: Laboratory Results - last 48 hr 01/19/24 01/20/24 01/20/24 21:30 08:54 11:24 Sodium Potassium Chloride Carbon Dioxide Anion Gap BUN Creatinine Estim Creat Clear Calc Estimated GFR POC Glucose 247 H 264 H 240 H Fasting Glucose Calcium Magnesium Total Bilirubin AST ALT Alkaline Phosphatase Total Protein Albumin Triglycerides Cholesterol LDL Cholesterol, Calc HDL Cholesterol Vitamin B12 Folate [facility] 01/20/24 01/21/24 01/21/24 16:38 00:13 06:05 Sodium Potassium Chloride Carbon Dioxide Anion Gap BUN Creatinine Estim Creat Clear Calc Estimated GFR POC Glucose 222 H 239 H 207 H Fasting Glucose Calcium Magnesium Total Bilirubin AST ALT Alkaline Phosphatase Total Protein Albumin Triglycerides Cholesterol LDL Cholesterol, Calc HDL Cholesterol Vitamin B12 Folate [facility] 01/21/24 01/21/24 01/21/24 10:18 11:30 16:21 Sodium 131 L Potassium 4.5 Chloride 98 Carbon Dioxide 21 L Anion Gap 17 BUN 15 Creatinine 0.80 Estim Creat Clear Calc 63.2 Estimated GFR > 60 POC Glucose 174 H 140 H Fasting Glucose 199 H Calcium 9.7 Magnesium 1.6 Total Bilirubin 0.6 AST 39 H ALT 39 Alkaline Phosphatase 99 Total Protein 7.1 Albumin 3.7 Triglycerides Cholesterol LDL Cholesterol, Calc HDL Cholesterol Vitamin B12 801 Folate 12.4 TSH 1.22 01/21/24 01/21/24 19:30 20:39 Sodium Potassium Chloride Carbon Dioxide Anion Gap BUN Creatinine Estim Creat Clear Calc Estimated GFR POC Glucose 133 H Fasting Glucose Calcium Magnesium Total Bilirubin AST ALT Alkaline Phosphatase Total Protein Albumin Triglycerides 54 Cholesterol 130 LDL Cholesterol, Calc 81 HDL Cholesterol 39 L Vitamin B12 Folate TSH Medications Medications Current Medications Acetaminophen (Acetaminophen 325 Mg Tablet) 650 mg PO Q6H PRN PRN Reason: Headache/Pain Mild Scale (1-3) Al Hydroxide/Mg Hydroxide (Magnesium Hydrox/Alum Hydrox 30 Ml Oral.Susp) 30 ml PO Q6H PRN PRN Reason: Heartburn/Nausea Atorvastatin Calcium (Atorvastatin Calcium 80 Mg Tablet) 80 mg PO BEDTIME [facility] Last Admin: 01/21/24 20:41 Dose: 80 mg Divalproex Sodium (Divalproex Sodium Sprinkles 125 Mg ) 500 mg PO BEDTIME [facility] Last Admin: 01/21/24 20:41 Dose: 500 mg Divalproex Sodium (Divalproex Sodium Sprinkles 125 Mg ) 500 mg PO DAILY@1200 [facility] Last Admin: 01/21/24 12:28 Dose: 500 mg Donepezil HCl (Donepezil Hcl 10 Mg Tablet) 10 mg PO BEDTIME [facility] Last Admin: 01/21/24 20:41 Dose: 10 mg Escitalopram Oxalate (Escitalopram Oxalate 10 Mg Tablet) 10 mg PO DAILY [facility] Last Admin: 01/21/24 10:29 Dose: 10 mg Folic Acid (Folic Acid 1 Mg Tablet) 1 mg PO DAILY [facility] Last Admin: 01/21/24 10:31 Dose: 1 mg Gabapentin (Gabapentin 600 Mg Tablet) 1,200 mg PO DAILY [facility] Last Admin: 01/21/24 10:29 Dose: 1,200 mg Gabapentin (Gabapentin 600 Mg Tablet) 600 mg PO BEDTIME [facility] Last Admin: 01/21/24 20:40 Dose: 600 mg Haloperidol (Haloperidol 5 Mg Tablet) 15 mg PO BEDTIME [facility] Last Admin: 01/21/24 20:40 Dose: 15 mg Haloperidol (Haloperidol 5 Mg Tablet) 5 mg PO DAILY@1200 [facility] Last Admin: 01/21/24 12:27 Dose: 5 mg Hydroxyzine HCl (Hydroxyzine Hcl 25 Mg Tablet) 25 mg PO Q6H PRN PRN Reason: Anxiety Lisinopril (Lisinopril 20 Mg Tablet) 20 mg PO DAILY [facility]; Protocol Last Admin: 01/21/24 10:31 Dose: 20 mg Magnesium Hydroxide (Milk Of Magnesia 30 Ml Oral.Susp) 30 ml PO DAILY PRN PRN Reason: Constipation Magnesium Oxide (Magnesium Oxide 400 Mg Tablet) 400 mg PO BID [facility] Last Admin: 01/21/24 20:40 Dose: 400 mg Metformin HCl (Metformin Hcl 1,000 Mg Tablet) 1,000 mg PO BID [facility] Last Admin: 01/21/24 20:40 Dose: 1,000 mg Omeprazole (Omeprazole 40 Mg Capsule.Dr) 40 mg PO DAILY@0630 [facility] Last Admin: 01/21/24 10:22 Dose: Not Given Sitagliptin Phosphate (Sitagliptin Phosphate 100 Mg Tablet) 100 mg PO DAILY [facility] Last Admin: 01/21/24 10:31 Dose: 100 mg Thiamine HCl (Thiamine Hcl 100 Mg Tablet) 100 mg PO DAILY [facility] Last Admin: 01/21/24 10:29 Dose: 100 mg Trazodone HCl (Trazodone Hcl 50 Mg Tablet) 50 mg PO BEDTIME MRX1 PRN PRN Reason: Insomnia Trazodone HCl (Trazodone Hcl 50 Mg Tablet) 150 mg PO BEDTIME [facility] Last Admin: 01/21/24 20:40 Dose: 150 mg Allergies Allergies Allergy/AdvReac Type Severity Reaction Status Date / Time No Known Allergies Allergy Verified 01/19/24 21:18 Assessment & Plan Assessment & Plan (1) Medical clearance for psychiatric admission: Status: Acute Code(s): Z00.8 - Encounter for other general examination Plan Pt is a 78-year-old male with a PMH significant for?HTN, HLD, [id number]-[id number] type 2 diabetes, unspecified dementia with behavioral disturbances, GERD, and alcohol use disorder who is admitted to [facility] for increased agitation and behavioral disturbances. Pt was apparently found wandering outside. Pt's reports he has been declining fof the past serveral weeks and she is currently recovering from surgery and not able to care for him at home. While at [facility], pt had apparently been aggressive/combative with security and nursing at times, and often refused medications and nursing care/assessment. Medical consult for admission H&P. Mood disorder Plan as per psychiatry Non-insulin dependent diabetes type 2 Continue metformin, Januvia Encourage diabetic diet and snacking HLD Continue statin HTN Patient's BP has been elevated since time of admission, as high as 186/82 However, patient has been known to refused and cheek his medications Continue lisinopril at 20 mg daily Hx of alcohol use disorder Continue folic acid, thiamine, magnesium Thank you for allowing us to participate in the care of this patient. Signing off at this time. Please re-consult if any acute complaints or issues arise. Reason for continued inpatient stay Substantial Risk for: inability to function, rapid decompensation and med/psych decompensation Time Spent With Patient Time: Total time managing care of this patient today ____ minutes.
[2024-01-22] MEDS: Omeprazole 40 MG CAPSULE.DR PO (05:34)
[2024-01-22 06:21] LABS: Glucose, Whole Blood 120 mg/dL (60-115)
[2024-01-22 11:15] VITALS: BP 123/60; PULSE 63; RESP 18; TEMP 35.8; O2SAT 97
[2024-01-22 11:27] LABS: Glucose, Whole Blood 91 mg/dL (60-115)
[2024-01-22 16:25] LABS: Glucose, Whole Blood 139 mg/dL (60-115)
[2024-01-22 18:00] VITALS: BP 142/74; PULSE 62; RESP 18; TEMP 36.2; O2SAT 96
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
[2024-01-22] MEDS: HaloperidoL 5 MG TABLET 15 MG PO (20:04)
[2024-01-22] MEDS: traZODone HCL 50 MG TABLET 150 MG PO (20:05)
[2024-01-22] MEDS: Divalproex Sodium Sprinkles 125 MG CAP.DR.SPR 500 MG PO (20:05)
[2024-01-22 20:06] LABS: Glucose, Whole Blood 177 mg/dL (60-115)
[2024-01-22] MEDS: Donepezil HCl 10 MG TABLET PO (20:06)
[2024-01-22] MEDS: Gabapentin 600 MG TABLET PO (20:06)
[2024-01-22] MEDS: Atorvastatin Calcium 80 MG TABLET PO (20:06)
[2024-01-22] MEDS: metFORMIN HCl 1,000 MG TABLET 1000 MG PO (20:06)
[2024-01-22] MEDS: Magnesium Oxide 400 MG TABLET PO (20:06)
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
[2024-01-23] MEDS: Omeprazole 40 MG CAPSULE.DR PO (05:55)
[2024-01-23 07:30] LABS: Glucose, Whole Blood 148 mg/dL (60-115)
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
[2024-01-23 09:35] VITALS: BP 152/67; PULSE 78; RESP 18; TEMP 36.5; O2SAT 96
[2024-01-23 11:20] LABS: Glucose, Whole Blood 173 mg/dL (60-115)
--- NOTE | 2024-01-23 14:46 | MHC.CLN ---
F/U DIET=REGULAR. INTAKE AT MEALS USUALLY BITES TO 25%. ADDING ENSURE BID TO PROMOTE NUTRITIONAL INTAKE. SUPPLEMENT PROVIDES 700 KCALS, 40 G PROTEIN. CONTINUE TO FOLLOW FOR INTAKE AND WEIGHT. ENCOURAGE PO INTAKE ABLE.
[2024-01-23 16:50] LABS: Glucose, Whole Blood 159 mg/dL (60-115)
[2024-01-23 18:00] VITALS: BP 119/64; PULSE 81; RESP 18; TEMP 36.3; O2SAT 96
[2024-01-23] MEDS: Magnesium Oxide 400 MG TABLET PO (20:49)
[2024-01-23] MEDS: metFORMIN HCl 1,000 MG TABLET 1000 MG PO (20:49)
[2024-01-23] MEDS: Divalproex Sodium Sprinkles 125 MG CAP.DR.SPR 500 MG PO (20:49)
[2024-01-23] MEDS: HaloperidoL 5 MG TABLET 15 MG PO (20:49)
[2024-01-23] MEDS: Atorvastatin Calcium 80 MG TABLET PO (20:50)
[2024-01-23] MEDS: Donepezil HCl 10 MG TABLET PO (20:50)
[2024-01-23] MEDS: traZODone HCL 50 MG TABLET 150 MG PO (20:50)
[2024-01-23] MEDS: Gabapentin 600 MG TABLET PO (20:50)
[2024-01-23 23:32] LABS: Glucose, Whole Blood 176 mg/dL (60-115)
[2024-01-24] MEDS: Omeprazole 40 MG CAPSULE.DR PO (05:57)
[2024-01-24 06:34] LABS: Glucose, Whole Blood 138 mg/dL (60-115)
[2024-01-24 08:58] VITALS: BP 114/55; PULSE 76; RESP 17
[2024-01-24] MEDS: Escitalopram Oxalate 10 MG TABLET PO (09:00)
[2024-01-24] MEDS: lisinopriL 20 MG TABLET PO (09:00)
[2024-01-24] MEDS: SITagliptin Phosphate 100 MG TABLET PO (09:00)
[2024-01-24] MEDS: Folic Acid 1 MG TABLET PO (09:01)
[2024-01-24] MEDS: Gabapentin 600 MG TABLET 1200 MG PO (09:26)
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
[2024-01-24 11:39] LABS: Glucose, Whole Blood 130 mg/dL (60-115)
[2024-01-24 18:00] VITALS: BP 141/76; PULSE 82; RESP 18; TEMP 36.2; O2SAT 92
[2024-01-24 20:08] LABS: Glucose, Whole Blood 196 mg/dL (60-115)
[2024-01-24] MEDS: Atorvastatin Calcium 80 MG TABLET PO (20:15)
[2024-01-24] MEDS: metFORMIN HCl 1,000 MG TABLET 1000 MG PO (20:16)
[2024-01-24] MEDS: Donepezil HCl 10 MG TABLET PO (20:16)
[2024-01-24] MEDS: Gabapentin 600 MG TABLET PO (20:16)
[2024-01-24] MEDS: Divalproex Sodium Sprinkles 125 MG CAP.DR.SPR 500 MG PO (20:16)
[2024-01-24] MEDS: Magnesium Oxide 400 MG TABLET PO (20:17)
[2024-01-24] MEDS: traZODone HCL 50 MG TABLET 150 MG PO (20:17)
[2024-01-24] MEDS: HaloperidoL 5 MG TABLET 15 MG PO (20:17)
[2024-01-25] MEDS: Omeprazole 40 MG CAPSULE.DR PO (06:01)
[2024-01-25 06:11] LABS: Glucose, Whole Blood 162 mg/dL (60-115)
[2024-01-25 08:00] VITALS: BP 153/87; PULSE 80; RESP 18; TEMP 36.3; O2SAT 95
--- NOTE | 2024-01-25 09:46 | PC.NURSE ---
Patient refusing his AM meds, spitting them out, multiple attempts. Pt in a milieu, no signs of distress. Breathing even and unlabored. VS: 153/87, P 80, R 18, T 97.4. Dr Harper notified. Will continue to monitor.
--- NOTE | 2024-01-25 11:37 | HO.PSYCHPN ---
Subjective Subjective Date of Service: 01/25/24 Reason For Visit: Unspecified dementia Subjective Notes: Conditional Voluntary (Healthcare proxy invoked) Healthcare Proxy: Yes Interim History: The nursing staff the patient sometimes takes his medications, today in the morning he took most of them but last night he spit. He has poor p.o. intake. Overnight he took some of the medications and he slept 7 hours. The executive secretary social welfare will try to contact his today. On interview the patient is nearly nonverbal extremely confused, unable to verbalize his needs.. Mental Status Exam Mental Status Exam Patient Appearance: Unkempt Patient Orientation: Person Level of Consciousness: Awake and Disoriented Patient Behavior: Guarded and Passive Mood Description: Withdrawn Affect Description: Blunted Patient Cognition Impaired: Yes Ability to Follow Directions: Poor Speech Pattern: No Speech Hallucinations: None Delusions: Not Present Thought Process: Distracted and Slowed Thinking Thought Content: positive for [place], positive for Poverty of Content and positive for Thought Blocking Judgement: Poor Diagnostics Vital Signs (24Hr): Vital Signs - 24 hr 01/24/24 18:00 01/25/24 08:00 Temperature 97.1 F 97.4 F Pulse Rate 82 80 Respiratory Rate 18 18 Blood Pressure 141/76 H 153/87 H Pulse Oximetry 92 95 Oxygen Delivery Method Room Air Room Air BMI result Body Mass Index 19.1 Labs 01/21/24 10:18 Labs: Laboratory Results - last 48 hr 01/23/24 01/23/24 01/24/24 16:46 19:41 06:02 POC Glucose 159 H 176 H 138 H 01/24/24 01/24/24 01/25/24 11:36 20:04 05:59 POC Glucose 130 H 196 H 162 H Medications Medications Current Medications Acetaminophen (Acetaminophen 325 Mg Tablet) 650 mg PO Q6H PRN PRN Reason: Headache/Pain Mild Scale (1-3) Al Hydroxide/Mg Hydroxide (Magnesium Hydrox/Alum Hydrox 30 Ml Oral.Susp) 30 ml PO Q6H PRN PRN Reason: Heartburn/Nausea Atorvastatin Calcium (Atorvastatin Calcium 80 Mg Tablet) 80 mg PO BEDTIME [facility] Last Admin: 01/24/24 20:15 Dose: 80 mg Divalproex Sodium (Divalproex Sodium Sprinkles 125 Mg ) 500 mg PO BEDTIME [facility] Last Admin: 01/24/24 20:16 Dose: 500 mg Divalproex Sodium (Divalproex Sodium Sprinkles 125 Mg ) 500 mg PO DAILY@1200 [facility] Last Admin: 01/24/24 13:02 Dose: Not Given Donepezil HCl (Donepezil Hcl 10 Mg Tablet) 10 mg PO BEDTIME [facility] Last Admin: 01/24/24 20:16 Dose: 10 mg Escitalopram Oxalate (Escitalopram Oxalate 10 Mg Tablet) 10 mg PO DAILY [facility] Last Admin: 01/25/24 09:40 Dose: Not Given Folic Acid (Folic Acid 1 Mg Tablet) 1 mg PO DAILY [facility] Last Admin: 01/25/24 09:40 Dose: Not Given Gabapentin (Gabapentin 600 Mg Tablet) 1,200 mg PO DAILY [facility] Last Admin: 01/25/24 09:40 Dose: Not Given Gabapentin (Gabapentin 600 Mg Tablet) 600 mg PO BEDTIME [facility] Last Admin: 01/24/24 20:16 Dose: 600 mg Haloperidol (Haloperidol 5 Mg Tablet) 15 mg PO BEDTIME [facility] Last Admin: 01/24/24 20:17 Dose: 15 mg Haloperidol (Haloperidol 5 Mg Tablet) 5 mg PO DAILY@1200 [facility] Last Admin: 01/24/24 13:03 Dose: Not Given Hydroxyzine HCl (Hydroxyzine Hcl 25 Mg Tablet) 25 mg PO Q6H PRN PRN Reason: Anxiety Lisinopril (Lisinopril 20 Mg Tablet) 20 mg PO DAILY [facility]; Protocol Last Admin: 01/25/24 09:41 Dose: Not Given Magnesium Hydroxide (Milk Of Magnesia 30 Ml Oral.Susp) 30 ml PO DAILY PRN PRN Reason: Constipation Magnesium Oxide (Magnesium Oxide 400 Mg Tablet) 400 mg PO BID [facility] Last Admin: 01/25/24 09:41 Dose: Not Given Metformin HCl (Metformin Hcl 1,000 Mg Tablet) 1,000 mg PO BID [facility] Last Admin: 01/25/24 09:42 Dose: Not Given Omeprazole (Omeprazole 40 Mg Capsule.) 40 mg PO DAILY@0630 [facility] Last Admin: 01/25/24 06:01 Dose: 40 mg Sitagliptin Phosphate (Sitagliptin Phosphate 100 Mg Tablet) 100 mg PO DAILY [facility] Last Admin: 01/25/24 09:42 Dose: Not Given Thiamine HCl (Thiamine Hcl 100 Mg Tablet) 100 mg PO DAILY [facility] Last Admin: 01/25/24 09:42 Dose: Not Given Trazodone HCl (Trazodone Hcl 50 Mg Tablet) 50 mg PO BEDTIME [facility]X1 PRN PRN Reason: Insomnia Trazodone HCl (Trazodone Hcl 50 Mg Tablet) 150 mg PO BEDTIME [facility] Last Admin: 01/24/24 20:17 Dose: 150 mg Allergies Allergies Allergy/AdvReac Type Severity Reaction Status Date / Time No Known Allergies Allergy Verified 01/19/24 21:18 Assessment & Plan Assessment & Plan (1) Medical clearance for psychiatric admission: Status: Acute Code(s): Z00.8 - Encounter for other general examination Plan Pt is a 78-year-old male with a PMH significant for?HTN, HLD, [id number] type 2 diabetes, unspecified dementia with behavioral disturbances, GERD, and alcohol use disorder who is admitted to [facility] for increased agitation and behavioral disturbances. Pt was apparently found wandering outside. Pt's reports he has been declining fof the past serveral weeks and she is currently recovering from surgery and not able to care for him at home. While at [facility], pt had apparently been aggressive/combative with security and nursing at times, and often refused medications and nursing care/assessment. Medical consult for admission H&P. Mood disorder Plan as per psychiatry Non-insulin dependent diabetes type 2 Continue metformin, Januvia Encourage diabetic diet and snacking HLD Continue statin HTN Patient's BP has been elevated since time of admission, as high as 186/82 However, patient has been known to refused and cheek his medications Continue lisinopril at 20 mg daily Hx of alcohol use disorder Continue folic acid, thiamine, magnesium Plan 1. Gather more collateral information. 2. We will try to figure it out if he has a healthcare proxy so he can sign him into the hospital. 3. Continue with psychiatric treatment. 4. Continue with medical treatment. Reason for continued inpatient stay Substantial Risk for: inability to function, rapid decompensation and med/psych decompensation Time Spent With Patient Time: Total time managing care of this patient today _20___ minutes.
--- NOTE | 2024-01-25 12:47 | MHC.CLN ---
F/U DIET=REGULAR. PATIENT WITH POOR PO INTAKE X AT LEAST 6 DAYS. INTAKE AT MEALS USUALLY BITES TO 25%. ENSURE BID TO PROMOTE NUTRITIONAL INTAKE. SUPPLEMENT PROVIDES 700 KCALS, 40 G PROTEIN. MAY NEED ALTERNATE NUTRITION/HYDRATION. CONTINUE TO FOLLOW FOR INTAKE AND WEIGHT. ENCOURAGE PO INTAKE ABLE.
[2024-01-25 20:00] VITALS: BP 153/87; PULSE 90; RESP 16; TEMP 36.1; O2SAT 98
[2024-01-25] MEDS: HaloperidoL 5 MG TABLET 15 MG PO (21:50)
[2024-01-25 22:03] LABS: Glucose, Whole Blood 185 mg/dL (60-115)
[2024-01-25] MEDS: Atorvastatin Calcium 80 MG TABLET PO (22:06)
[2024-01-25] MEDS: traZODone HCL 50 MG TABLET 150 MG PO (22:06)
[2024-01-25] MEDS: Donepezil HCl 10 MG TABLET PO (22:07)
[2024-01-25] MEDS: Divalproex Sodium Sprinkles 125 MG CAP.DR.SPR 500 MG PO (22:08)
[2024-01-25] MEDS: Gabapentin 600 MG TABLET PO (22:09)
[2024-01-25] MEDS: metFORMIN HCl 1,000 MG TABLET 1000 MG PO (22:09)
[2024-01-25] MEDS: Magnesium Oxide 400 MG TABLET PO (22:26)
[2024-01-26] MEDS: Omeprazole 40 MG CAPSULE.DR PO (06:07)
[2024-01-26 08:00] VITALS: BP 184/81; PULSE 65; RESP 17; TEMP 37.1; O2SAT 100
[2024-01-26] MEDS: lisinopriL 20 MG TABLET PO (10:05)
[2024-01-26] MEDS: Escitalopram Oxalate 10 MG TABLET PO (10:06)
[2024-01-26] MEDS: Thiamine HCL 100 MG TABLET PO (10:06)
[2024-01-26] MEDS: SITagliptin Phosphate 100 MG TABLET PO (10:11)
[2024-01-26] MEDS: Folic Acid 1 MG TABLET PO (10:11)
[2024-01-26] MEDS: Gabapentin 600 MG TABLET 1200 MG PO (10:15)
[2024-01-26 10:32] LABS: Glucose, Whole Blood 152 mg/dL (60-115)
--- NOTE | 2024-01-26 11:39 | P.PNPSI_ITS ---
Subjective Subjective Date of Service: 01/26/24 Reason For Visit: Unspecified dementia Subjective Notes: Conditional Voluntary (By healthcare proxy) Healthcare Proxy: Yes Interim History: The nursing staff reported the patient had spit his medications in the morning. In the evening he was 1 word response, very confused. The social work program coordinator reported that his reported past visual hallucinations and paranoia. On interview the patient is nearly nonverbal, noncompliant with medications. Mental Status Exam Mental Status Exam Patient Appearance: Unkempt Patient Orientation: Person Level of Consciousness: Disoriented Patient Behavior: Guarded Mood Description: Withdrawn Affect Description: Blunted Patient Cognition Impaired: Yes Ability to Follow Directions: Fair Speech Pattern: No Speech Hallucinations: None Delusions: Ideas of Reference Thought Process: Distracted and Slowed Thinking Thought Content: positive for [place], positive for Poverty of Content and positive for Thought Blocking Judgement: Poor Diagnostics Vital Signs (24Hr): Vital Signs - 24 hr 01/25/24 20:00 01/26/24 08:00 Temperature 97 F 98.7 F Pulse Rate 90 65 Respiratory Rate 16 17 Blood Pressure 153/87 H 184/81 H Pulse Oximetry 98 100 Oxygen Delivery Method Room Air Room Air BMI result Body Mass Index 19.1 Labs 01/21/24 10:18 Labs: Laboratory Results - last 48 hr 01/24/24 01/24/24 01/25/24 11:36 20:04 05:59 POC Glucose 130 H 196 H 162 H 01/25/24 01/26/24 21:58 10:29 POC Glucose 185 H 152 H Medications Medications Current Medications Acetaminophen (Acetaminophen 325 Mg Tablet) 650 mg PO Q6H PRN PRN Reason: Headache/Pain Mild Scale (1-3) Al Hydroxide/Mg Hydroxide (Magnesium Hydrox/Alum Hydrox 30 Ml Oral.Susp) 30 ml PO Q6H PRN PRN Reason: Heartburn/Nausea Atorvastatin Calcium (Atorvastatin Calcium 80 Mg Tablet) 80 mg PO BEDTIME [facility] Last Admin: 01/25/24 22:06 Dose: 80 mg Divalproex Sodium (Divalproex Sodium Sprinkles 125 Mg ) 500 mg PO BEDTIME [facility] Last Admin: 01/25/24 22:08 Dose: 500 mg Divalproex Sodium (Divalproex Sodium Sprinkles 125 Mg ) 500 mg PO DAILY@1200 [facility] Last Admin: 01/25/24 12:55 Dose: Not Given Donepezil HCl (Donepezil Hcl 10 Mg Tablet) 10 mg PO BEDTIME [facility] Last Admin: 01/25/24 22:07 Dose: 10 mg Escitalopram Oxalate (Escitalopram Oxalate 10 Mg Tablet) 10 mg PO DAILY [facility] Last Admin: 01/26/24 10:06 Dose: 10 mg Folic Acid (Folic Acid 1 Mg Tablet) 1 mg PO DAILY [facility] Last Admin: 01/26/24 10:11 Dose: 1 mg Gabapentin (Gabapentin 600 Mg Tablet) 1,200 mg PO DAILY [facility] Last Admin: 01/26/24 10:15 Dose: 1,200 mg Gabapentin (Gabapentin 600 Mg Tablet) 600 mg PO BEDTIME [facility] Last Admin: 01/25/24 22:09 Dose: 600 mg Haloperidol (Haloperidol 5 Mg Tablet) 15 mg PO BEDTIME [facility] Last Admin: 01/25/24 21:50 Dose: 15 mg Haloperidol (Haloperidol 5 Mg Tablet) 5 mg PO DAILY@1200 [facility] Last Admin: 01/25/24 12:55 Dose: Not Given Hydroxyzine HCl (Hydroxyzine Hcl 25 Mg Tablet) 25 mg PO Q6H PRN PRN Reason: Anxiety Lisinopril (Lisinopril 20 Mg Tablet) 20 mg PO DAILY [facility]; Protocol Last Admin: 01/26/24 10:05 Dose: 20 mg Magnesium Hydroxide (Milk Of Magnesia 30 Ml Oral.Susp) 30 ml PO DAILY PRN PRN Reason: Constipation Magnesium Oxide (Magnesium Oxide 400 Mg Tablet) 400 mg PO BID [facility] Last Admin: 01/26/24 10:19 Dose: Not Given Metformin HCl (Metformin Hcl 1,000 Mg Tablet) 1,000 mg PO BID [facility] Last Admin: 01/26/24 10:20 Dose: Not Given Omeprazole (Omeprazole 40 Mg Capsule.Dr) 40 mg PO DAILY@0630 [facility] Last Admin: 01/26/24 06:07 Dose: 40 mg Sitagliptin Phosphate (Sitagliptin Phosphate 100 Mg Tablet) 100 mg PO DAILY [facility] Last Admin: 01/26/24 10:11 Dose: 100 mg Thiamine HCl (Thiamine Hcl 100 Mg Tablet) 100 mg PO DAILY [facility] Last Admin: 01/26/24 10:06 Dose: 100 mg Trazodone HCl (Trazodone Hcl 50 Mg Tablet) 50 mg PO BEDTIME [facility]X1 PRN PRN Reason: Insomnia Trazodone HCl (Trazodone Hcl 50 Mg Tablet) 150 mg PO BEDTIME [facility] Last Admin: 01/25/24 22:06 Dose: 150 mg Allergies Allergies Allergy/AdvReac Type Severity Reaction Status Date / Time No Known Allergies Allergy Verified 01/19/24 21:18 Assessment & Plan Assessment & Plan (1) Medical clearance for psychiatric admission: Status: Acute Code(s): Z00.8 - Encounter for other general examination Plan Pt is a 78-year-old male with a PMH significant for?HTN, HLD, [id number] type 2 diabetes, unspecified dementia with behavioral disturbances, GERD, and alcohol use disorder who is admitted to [facility] for increased agitation and behavioral disturbances. Pt was apparently found wandering outside. Pt's reports he has been declining fof the past serveral weeks and she is currently recovering from surgery and not able to care for him at home. While at [facility], pt had apparently been aggressive/combative with security and nursing at times, and often refused medications and nursing care/assessment. Medical consult for admission H&P. Mood disorder Plan as per psychiatry Non-insulin dependent diabetes type 2 Continue metformin, Januvia Encourage diabetic diet and snacking HLD Continue statin HTN Patient's BP has been elevated since time of admission, as high as 186/82 However, patient has been known to refused and cheek his medications Continue lisinopril at 20 mg daily Hx of alcohol use disorder Continue folic acid, thiamine, magnesium Plan 1. Gather more collateral information. 2. We will try to figure it out if he has a healthcare proxy so he can sign him into the hospital. 3. Continue with psychiatric treatment. 4. Continue with medical treatment. 5. Speech and swallow consult Reason for continued inpatient stay Substantial Risk for: inability to function, rapid decompensation and med/psych decompensation Time Spent With Patient Time: Total time managing care of this patient today __20__ minutes.
--- NOTE | 2024-01-26 17:52 | MHC.SL.SWA ---
Speech Pathologist Impression: Risk of Aspiration Due to: Poor PO Intake Reduced Cognition Dysphasia Diet Status: Liquid Consistency and Strategies for Safe Swallow: Liquid Intake Recommendation: Thin Liquid Intake Strategies: Unrestricted Solid Food Consistency: Dietary Recommendations: Regular Additional Modifications to Solid Foods: Encourage or provide softer, easier to chew foods from the regular menu. Per RN, patient's has stated he prefers both warm foods and warm drinks, particularly tea. Oral Medication Intake: Whole with Liquid Please contact the pharmacy regarding appropriate crushable or liquid drug formulations that are available whenever modified delivery is recommended. Compensatory Strategies and Precautions to be Taken for Safe Swallow: Sitting Upright (90 deg) Small Bites and Sips Alternate Liquids/Solids Rate of Ingestion Change Oral Check Supervision While Eating and Drinking for Safe Swallow: Total Assistance (1:1) Foods to Avoid: Tough, difficult to chew solids, crunchy textures. Swallowing Recommended Treatments: Recommendation for Speech: Comment: Patient presents with behaviorally based swallowing difficulty, with pattern of pocketing or spitting out solid foods and medications. On observation of meal today, on thin liquids, patient presented with a swallow WFL. On regular solid presented today, patient chewed food anteriorly, pocketed it, and eventually spat it out. As swallow function appears to be WFL on thin liquids, behavior is likely sensory/aversive. Recommend patient continue on regular diet, with encouragement to pick softer textures from this diet, as having recognizable food may provide some incentive to eat. Recommend patient continue on thin liquids by straw or cup sip. recommends use of warm liquids with administration of pills, however crushing and putting in a preferred pudding/puree/ice cream could be attempted. As eating issue appears to be behaviorally based, no further TEACHER INSTRUMENTAL service is recommended at this time. Please reconsult if additional concerns arise. Frequency/Duration: Date Range for Service Req: Timeline to reassess: Chemist Water Purification Clinican/Clinical Fellow: No Supervisory Statement: I have reviewed and agree with the student/clinical fellow's documentation: No Speech Language Pathologist: Ngozi Bryant M.A., [facility]-TEACHER INSTRUMENTAL
[2024-01-26 20:00] VITALS: BP 120/65; PULSE 80; RESP 16; TEMP 36.1; O2SAT 100
[2024-01-26] MEDS: Divalproex Sodium Sprinkles 125 MG CAP.DR.SPR 500 MG PO (21:20)
[2024-01-26] MEDS: Atorvastatin Calcium 80 MG TABLET PO (21:21)
[2024-01-26] MEDS: traZODone HCL 50 MG TABLET 150 MG PO (21:21)
[2024-01-26] MEDS: metFORMIN HCl 1,000 MG TABLET 1000 MG PO (21:22)
[2024-01-26] MEDS: HaloperidoL 5 MG TABLET 15 MG PO (21:22)
[2024-01-26] MEDS: Magnesium Oxide 400 MG TABLET PO (21:22)
[2024-01-26] MEDS: Gabapentin 600 MG TABLET PO (21:22)
[2024-01-26] MEDS: Donepezil HCl 10 MG TABLET PO (21:22)
[2024-01-26 22:01] LABS: Glucose, Whole Blood 152 mg/dL (60-115)
[2024-01-27] MEDS: Omeprazole 40 MG CAPSULE.DR PO (05:57)
[2024-01-27 06:46] LABS: Glucose, Whole Blood 136 mg/dL (60-115)
[2024-01-27 07:51] VITALS: BP 141/66; PULSE 74; RESP 16; TEMP 36.3; O2SAT 98
[2024-01-27 08:02] LABS: Estimated Glomerular Filt Rate > 60
--- NOTE | 2024-01-27 11:35 | HO.PSYCHPN ---
Subjective Subjective Date of Service: 01/27/24 Reason For Visit: Unspecified dementia Subjective Notes: Conditional Voluntary Interim History: Nursing staff reported the patient was still spitting her medications. Poor p.o. intake. She was assessed by speech and swallow and apparently it is mostly behavioral. On interview the patient is selectively mute. No changes in his mental status. Mental Status Exam Mental Status Exam Patient Appearance: Unkempt Patient Orientation: Person Level of Consciousness: Drowsy and Inappropriate Patient Behavior: Guarded and Passive Diagnostics Vital Signs (24Hr): Vital Signs - 24 hr 01/26/24 20:00 01/27/24 07:51 Temperature 97 F 97.3 F Pulse Rate 80 74 Respiratory Rate 16 16 Blood Pressure 120/65 141/66 H Pulse Oximetry 100 98 Oxygen Delivery Method Room Air Room Air BMI result Body Mass Index 19.1 Labs 01/27/24 07:31 Labs: Laboratory Results - last 48 hr 01/25/24 01/26/24 01/26/24 21:58 10:29 21:56 Hold Purple Top Creatinine Estim Creat Clear Calc Estimated GFR POC Glucose 185 H 152 H 152 H 01/27/24 01/27/24 06:15 07:31 Hold Purple Top SEE NOTE Creatinine 1.01 Estim Creat Clear Calc 50.0 Estimated GFR > 60 POC Glucose 136 H Medications Medications Current Medications Acetaminophen (Acetaminophen 325 Mg Tablet) 650 mg PO Q6H PRN PRN Reason: Headache/Pain Mild Scale (1-3) Al Hydroxide/Mg Hydroxide (Magnesium Hydrox/Alum Hydrox 30 Ml Oral.Susp) 30 ml PO Q6H PRN PRN Reason: Heartburn/Nausea Atorvastatin Calcium (Atorvastatin Calcium 80 Mg Tablet) 80 mg PO BEDTIME [facility] Last Admin: 01/26/24 21:21 Dose: 80 mg Divalproex Sodium (Divalproex Sodium Sprinkles 125 Mg ) 500 mg PO BEDTIME [facility] Last Admin: 01/26/24 21:20 Dose: 500 mg Divalproex Sodium (Divalproex Sodium Sprinkles 125 Mg ) 500 mg PO DAILY@1200 [facility] Last Admin: 01/26/24 13:05 Dose: Not Given Donepezil HCl (Donepezil Hcl 10 Mg Tablet) 10 mg PO BEDTIME [facility] [place] Last Admin: 01/26/24 21:22 Dose: 10 mg Escitalopram Oxalate (Escitalopram Oxalate 10 Mg Tablet) 10 mg PO DAILY [facility] [place] Last Admin: 01/27/24 11:32 Dose: Not Given Folic Acid (Folic Acid 1 Mg Tablet) 1 mg PO DAILY [facility] Last Admin: 01/27/24 11:32 Dose: Not Given Gabapentin (Gabapentin 600 Mg Tablet) 1,200 mg PO DAILY [facility] Last Admin: 01/27/24 11:32 Dose: Not Given Gabapentin (Gabapentin 600 Mg Tablet) 600 mg PO BEDTIME [facility] Last Admin: 01/26/24 21:22 Dose: 600 mg Haloperidol (Haloperidol 5 Mg Tablet) 15 mg PO BEDTIME [facility] Last Admin: 01/26/24 21:22 Dose: 15 mg Haloperidol (Haloperidol 5 Mg Tablet) 5 mg PO DAILY@1200 [facility] Last Admin: 01/26/24 13:05 Dose: Not Given Hydroxyzine HCl (Hydroxyzine Hcl 25 Mg Tablet) 25 mg PO Q6H PRN PRN Reason: Anxiety Lisinopril (Lisinopril 20 Mg Tablet) 20 mg PO DAILY [facility]; Protocol Last Admin: 01/27/24 11:32 Dose: Not Given Magnesium Hydroxide (Milk Of Magnesia 30 Ml Oral.Susp) 30 ml PO DAILY PRN PRN Reason: Constipation Magnesium Oxide (Magnesium Oxide 400 Mg Tablet) 400 mg PO BID [facility] Last Admin: 01/27/24 11:32 Dose: Not Given Metformin HCl (Metformin Hcl 1,000 Mg Tablet) 1,000 mg PO BID [facility] [place] Last Admin: 01/27/24 11:32 Dose: Not Given Omeprazole (Omeprazole 40 Mg Capsule.Dr) 40 mg PO DAILY@0630 [facility] Last Admin: 01/27/24 05:57 Dose: 40 mg Sitagliptin Phosphate (Sitagliptin Phosphate 100 Mg Tablet) 100 mg PO DAILY [facility] Last Admin: 01/27/24 11:32 Dose: Not Given Thiamine HCl (Thiamine Hcl 100 Mg Tablet) 100 mg PO DAILY [facility] Last Admin: 01/27/24 11:32 Dose: Not Given Trazodone HCl (Trazodone Hcl 50 Mg Tablet) 50 mg PO BEDTIME MRX1 PRN PRN Reason: Insomnia Trazodone HCl (Trazodone Hcl 50 Mg Tablet) 150 mg PO BEDTIME [facility] Last Admin: 01/26/24 21:21 Dose: 150 mg Allergies Allergies Allergy/AdvReac Type Severity Reaction Status Date / Time No Known Allergies Allergy Verified 01/19/24 21:18 Assessment & Plan Assessment & Plan (1) Medical clearance for psychiatric admission: Status: Acute Code(s): Z00.8 - Encounter for other general examination Plan Pt is a 78-year-old male with a PMH significant for?HTN, HLD, bld-icrahsd-xsbvbnsip type 2 diabetes, unspecified dementia with behavioral disturbances, GERD, and alcohol use disorder who is admitted to [facility] for increased agitation and behavioral disturbances. Pt was apparently found wandering outside. Pt's reports he has been declining fof the past serveral weeks and she is currently recovering from surgery and not able to care for him at home. While at [facility], pt had apparently been aggressive/combative with security and nursing at times, and often refused medications and nursing care/assessment. Medical consult for admission H&P. Mood disorder Plan as per psychiatry Non-insulin dependent diabetes type 2 Continue metformin, Januvia Encourage diabetic diet and snacking HLD Continue statin HTN Patient's BP has been elevated since time of admission, as high as 186/82 However, patient has been known to refused and cheek his medications Continue lisinopril at 20 mg daily Hx of alcohol use disorder Continue folic acid, thiamine, magnesium Plan 1. Continue with antipsychotics. 2. Speech and swallow reported that most of the problems are behavioral and not related to physical impairment. 3. We will need to have a family meeting to talk about end of life decisions another legal decisions. 4. Continue with encouragement of p.o. fluids and medications. Reason for continued inpatient stay Substantial Risk for: inability to function, rapid decompensation and med/psych decompensation Time Spent With Patient Time: Total time managing care of this patient today __20__ minutes.
--- NOTE | 2024-01-27 14:16 | MHC.CLN ---
F/U SEEN BY ARTIFICIAL INSEMINATION TECHNICIAN 01/25. NO SWALLOWING ISSUE NOTED. POOR PO AND SPITTING OUT OF FOOD APPEARS TO BE BEHAVIORAL. CONTINUES WITH POOR PO INTAKE. PROVIDED INSIGHT TO NURSING AND ARTIFICIAL INSEMINATION TECHNICIAN TO FOOD PREFERENCES. PREFERS WARM FOOD AND DRINKS. DINING SERVICES AWARE OF PREFERENCES. DELIVERED OATMEAL PACKETS AND APPLESAUCE TO UNIT FOR TRIALS OF DEPARTMENT CLINICIAN. DIET=REGULAR WITH ENSURE BID (700 KCALS, 40 G PROTEIN). FOLLOW FOR INTAKE/DIET ACCEPTANCE. MAY NEED ALTERNATE NUTRITION/HYDRATION DUE TO POOR PO. ENCOURAGE PO INTAKE ABLE.
[2024-01-27 20:00] VITALS: BP 132/75; PULSE 80; RESP 18; TEMP 37.1; O2SAT 97
[2024-01-27 20:01] LABS: Glucose, Whole Blood 191 mg/dL (60-115)
[2024-01-27] MEDS: Atorvastatin Calcium 80 MG TABLET PO (21:25)
[2024-01-27] MEDS: metFORMIN HCl 1,000 MG TABLET 1000 MG PO (21:25)
[2024-01-27] MEDS: Gabapentin 600 MG TABLET PO (21:25)
[2024-01-27] MEDS: Divalproex Sodium Sprinkles 125 MG CAP.DR.SPR 500 MG PO (21:25)
[2024-01-27] MEDS: HaloperidoL 5 MG TABLET 15 MG PO (21:25)
[2024-01-27] MEDS: traZODone HCL 50 MG TABLET 150 MG PO (21:25)
[2024-01-27] MEDS: Donepezil HCl 10 MG TABLET PO (21:26)
[2024-01-27] MEDS: Magnesium Oxide 400 MG TABLET PO (21:26)
[2024-01-28 06:06] VITALS: BMI 16.3
[2024-01-28] MEDS: Omeprazole 40 MG CAPSULE.DR PO (06:07)
[2024-01-28 06:44] LABS: Glucose, Whole Blood 148 mg/dL (60-115)
--- NOTE | 2024-01-28 10:32 | P.PNPSI_ITS ---
Subjective Subjective Date of Service: 01/28/24 Reason For Visit: Unspecified dementia Subjective Notes: Conditional Voluntary Interim History: Patient was seen and discussed in rounds today. Records and plans were reviewed. Continues to refuse anything p.o. and is wasting. Comfort care is being considered. No response upon approach Review of Systems Review of Systems Yes Unobtainable due to mental status Mental Status Exam Mental Status Exam Narrative: No response upon approach Diagnostics Vital Signs (24Hr): Vital Signs - 24 hr 01/27/24 20:00 Temperature 98.7 F Pulse Rate 80 Respiratory Rate 18 Blood Pressure 132/75 Pulse Oximetry 97 Oxygen Delivery Method Room Air BMI result Body Mass Index 16.3 Labs 01/27/24 07:31 Labs: Laboratory Results - last 48 hr 01/26/24 01/26/24 01/27/24 10:29 21:56 06:15 Hold Purple Top Creatinine Estim Creat Clear Calc Estimated GFR POC Glucose 152 H 152 H 136 H 01/27/24 01/27/24 01/28/24 07:31 19:42 06:18 Hold Purple Top SEE NOTE Creatinine 1.01 Estim Creat Clear Calc 50.0 Estimated GFR > 60 POC Glucose 191 H 148 H Medications Medications Current Medications Acetaminophen (Acetaminophen 325 Mg Tablet) 650 mg PO Q6H PRN PRN Reason: Headache/Pain Mild Scale (1-3) Al Hydroxide/Mg Hydroxide (Magnesium Hydrox/Alum Hydrox 30 Ml Oral.Susp) 30 ml PO Q6H PRN PRN Reason: Heartburn/Nausea Atorvastatin Calcium (Atorvastatin Calcium 80 Mg Tablet) 80 mg PO BEDTIME ON LICENSE OF [facility] Last Admin: 01/27/24 21:25 Dose: 80 mg Divalproex Sodium (Divalproex Sodium Sprinkles 125 Mg ) 500 mg PO BEDTIME ON LICENSE OF [facility] Last Admin: 01/27/24 21:25 Dose: 500 mg Divalproex Sodium (Divalproex Sodium Sprinkles 125 Mg ) 500 mg PO DAILY@1200 ON [facility] OF [facility] Last Admin: 01/27/24 12:28 Dose: Not Given Donepezil HCl (Donepezil Hcl 10 Mg Tablet) 10 mg PO BEDTIME ON [facility] OF [facility] Last Admin: 01/27/24 21:26 Dose: 10 mg Escitalopram Oxalate (Escitalopram Oxalate 10 Mg Tablet) 10 mg PO DAILY ON [facility] OF [facility] Last Admin: 01/27/24 11:32 Dose: Not Given Folic Acid (Folic Acid 1 Mg Tablet) 1 mg PO DAILY ON [facility] OF [facility] Last Admin: 01/27/24 11:32 Dose: Not Given Gabapentin (Gabapentin 600 Mg Tablet) 1,200 mg PO DAILY ON [facility] Last Admin: 01/27/24 11:32 Dose: Not Given Gabapentin (Gabapentin 600 Mg Tablet) 600 mg PO BEDTIME ON [facility] Last Admin: 01/27/24 21:25 Dose: 600 mg Haloperidol (Haloperidol 5 Mg Tablet) 15 mg PO BEDTIME ON [facility] OF [facility] Last Admin: 01/27/24 21:25 Dose: 15 mg Haloperidol (Haloperidol 5 Mg Tablet) 5 mg PO DAILY@1200 [facility] Last Admin: 01/27/24 12:28 Dose: Not Given Hydroxyzine HCl (Hydroxyzine Hcl 25 Mg Tablet) 25 mg PO Q6H PRN PRN Reason: Anxiety Lisinopril (Lisinopril 20 Mg Tablet) 20 mg PO DAILY ON LICENSE OF [facility]; Protocol Last Admin: 01/27/24 11:32 Dose: Not Given Magnesium Hydroxide (Milk Of Magnesia 30 Ml Oral.Susp) 30 ml PO DAILY PRN PRN Reason: Constipation Magnesium Oxide (Magnesium Oxide 400 Mg Tablet) 400 mg PO BID ON [facility] OF [facility] Last Admin: 01/27/24 21:26 Dose: 400 mg Metformin HCl (Metformin Hcl 1,000 Mg Tablet) 1,000 mg PO BID ON [facility] OF [facility] Last Admin: 01/27/24 21:25 Dose: 1,000 mg Omeprazole (Omeprazole 40 Mg Capsule.Dr) 40 mg PO DAILY@0630 ON [facility] Last Admin: 01/28/24 06:07 Dose: 40 mg Sitagliptin Phosphate (Sitagliptin Phosphate 100 Mg Tablet) 100 mg PO DAILY ON [facility] Last Admin: 01/27/24 11:32 Dose: Not Given Thiamine HCl (Thiamine Hcl 100 Mg Tablet) 100 mg PO DAILY ON [facility] Last Admin: 01/27/24 11:32 Dose: Not Given Trazodone HCl (Trazodone Hcl 50 Mg Tablet) 50 mg PO BEDTIME MRX1 PRN PRN Reason: Insomnia Trazodone HCl (Trazodone Hcl 50 Mg Tablet) 150 mg PO BEDTIME ON [facility] OF [facility] Last Admin: 01/27/24 21:25 Dose: 150 mg Allergies Allergies Allergy/AdvReac Type Severity Reaction Status Date / Time No Known Allergies Allergy Verified 01/19/24 21:18 Assessment & Plan Assessment & Plan (1) Medical clearance for psychiatric admission: Status: Acute Code(s): Z00.8 - Encounter for other general examination Plan Pt is a 78-year-old male with a PMH significant for?HTN, HLD, [id number] type 2 diabetes, unspecified dementia with behavioral disturbances, GERD, and alcohol use disorder who is admitted to [facility] for increased agitation and behavioral disturbances. Pt was apparently found wandering outside. Pt's reports he has been declining fof the past serveral weeks and she is currently recovering from surgery and not able to care for him at home. While at [facility], pt had apparently been aggressive/combative with security and nursing at times, and often refused medications and nursing care/assessment. Medical consult for admission H&P. Mood disorder Plan as per psychiatry Non-insulin dependent diabetes type 2 Continue metformin, Januvia Encourage diabetic diet and snacking HLD Continue statin HTN Patient's BP has been elevated since time of admission, as high as 186/82 However, patient has been known to refused and cheek his medications Continue lisinopril at 20 mg daily Hx of alcohol use disorder Continue folic acid, thiamine, magnesium Plan 1. Continue with antipsychotics. 2. Speech and swallow reported that most of the problems are behavioral and not related to physical impairment. 3. We will need to have a family meeting to talk about end of life decisions another legal decisions. 4. Continue with encouragement of p.o. fluids and medications. 01/28/2024: Continue current regimen and plans Reason for continued inpatient stay Substantial Risk for: inability to function Time Spent With Patient Time: Total time managing care of this patient today ____ minutes.
[2024-01-28 11:39] VITALS: BP 136/63; PULSE 76; RESP 14; TEMP 36.6; O2SAT 97
[2024-01-28 20:00] VITALS: BP 110/58; PULSE 80; RESP 18; TEMP 36.5; O2SAT 97
[2024-01-28 20:04] LABS: Glucose, Whole Blood 201 mg/dL (60-115)
[2024-01-28] MEDS: traZODone HCL 50 MG TABLET 150 MG PO (20:48)
[2024-01-28] MEDS: Divalproex Sodium Sprinkles 125 MG CAP.DR.SPR 500 MG PO (20:49)
[2024-01-28] MEDS: Donepezil HCl 10 MG TABLET PO (20:49)
[2024-01-28] MEDS: HaloperidoL 5 MG TABLET 15 MG PO (20:49)
[2024-01-28] MEDS: Atorvastatin Calcium 80 MG TABLET PO (20:49)
[2024-01-28] MEDS: Magnesium Oxide 400 MG TABLET PO (20:49)
[2024-01-28] MEDS: metFORMIN HCl 1,000 MG TABLET 1000 MG PO (20:49)
[2024-01-28] MEDS: Gabapentin 600 MG TABLET PO (20:49)
--- NOTE | 2024-01-29 00:10 | PC.NURSE ---
Dime size open area found on patient's sacral eara during evening care, foam dressing applied, public relations coordinator provider Shirley Sinclair notified.
[2024-01-29] MEDS: hydrOXYzine HCL 25 MG TABLET PO (03:17)
[2024-01-29] MEDS: Acetaminophen 325 MG TABLET 650 MG PO (03:22)
[2024-01-29 06:03] LABS: Glucose, Whole Blood 150 mg/dL (60-115)
[2024-01-29] MEDS: Omeprazole 40 MG CAPSULE.DR PO (06:16)
--- NOTE | 2024-01-29 09:49 | HO.PSYCHPN ---
Subjective Subjective Date of Service: 01/29/24 Reason For Visit: Unspecified dementia Subjective Notes: Conditional Voluntary Interim History: Patient was seen and discussed in rounds today. Records and plans were reviewed. He had a better day yesterday and came around and was finally aroused. He continues to eat minimally if any and this week considerations will be given to comfort care and following advanced directives. Slept poorly. He also has developed a small sacral wound and a wound consult was ordered. He took his meds last night without spitting them out. No changes were made today Review of Systems Review of Systems A wound at the coccyx Yes all other systems are reviewed and are negative Mental Status Exam Mental Status Exam Narrative: In today's visit he is aroused with his eyes open. He has not able to respond. He is saying some words but it is hard to understand. No formal exam could be done. Diagnostics Vital Signs (24Hr): Vital Signs - 24 hr 01/28/24 11:39 01/28/24 20:00 Temperature 97.9 F 97.7 F Pulse Rate 76 80 Respiratory Rate 14 18 Blood Pressure 136/63 110/58 L Pulse Oximetry 97 97 Oxygen Delivery Method Room Air Room Air BMI result Body Mass Index 16.3 Labs 01/27/24 07:31 Labs: Laboratory Results - last 48 hr 01/27/24 01/28/24 01/28/24 19:42 06:18 19:57 POC Glucose 191 H 148 H 201 H 01/29/24 05:52 POC Glucose 150 H Medications Medications Current Medications Acetaminophen (Acetaminophen 325 Mg Tablet) 650 mg PO Q6H PRN PRN Reason: Headache/Pain Mild Scale (1-3) Last Admin: 01/29/24 03:22 Dose: 650 mg Al Hydroxide/Mg Hydroxide (Magnesium Hydrox/Alum Hydrox 30 Ml Oral.Susp) 30 ml PO Q6H PRN PRN Reason: Heartburn/Nausea Atorvastatin Calcium (Atorvastatin Calcium 80 Mg Tablet) 80 mg PO BEDTIME [facility] Last Admin: 01/28/24 20:49 Dose: 80 mg Divalproex Sodium (Divalproex Sodium Sprinkles 125 Mg ) 500 mg PO BEDTIME [facility] Last Admin: 01/28/24 20:49 Dose: 500 mg Divalproex Sodium (Divalproex Sodium Sprinkles 125 Mg ) 500 mg PO DAILY@1200 [facility] Last Admin: 01/28/24 12:29 Dose: Not Given Donepezil HCl (Donepezil Hcl 10 Mg Tablet) 10 mg PO BEDTIME [facility] Last Admin: 01/28/24 20:49 Dose: 10 mg Escitalopram Oxalate (Escitalopram Oxalate 10 Mg Tablet) 10 mg PO DAILY [facility] Last Admin: 01/28/24 12:33 Dose: Not Given Folic Acid (Folic Acid 1 Mg Tablet) 1 mg PO DAILY [facility] Last Admin: 01/28/24 12:34 Dose: Not Given Gabapentin (Gabapentin 600 Mg Tablet) 1,200 mg PO DAILY [facility] Last Admin: 01/28/24 12:34 Dose: Not Given Gabapentin (Gabapentin 600 Mg Tablet) 600 mg PO BEDTIME [facility] Last Admin: 01/28/24 20:49 Dose: 600 mg Haloperidol (Haloperidol 5 Mg Tablet) 15 mg PO BEDTIME [facility] Last Admin: 01/28/24 20:49 Dose: 15 mg Haloperidol (Haloperidol 5 Mg Tablet) 5 mg PO DAILY@1200 [facility] Last Admin: 01/28/24 12:29 Dose: Not Given Hydroxyzine HCl (Hydroxyzine Hcl 25 Mg Tablet) 25 mg PO Q6H PRN PRN Reason: Anxiety Last Admin: 01/29/24 03:17 Dose: 25 mg Lisinopril (Lisinopril 20 Mg Tablet) 20 mg PO DAILY [facility]; Protocol Last Admin: 01/28/24 12:34 Dose: Not Given Magnesium Hydroxide (Milk Of Magnesia 30 Ml Oral.Susp) 30 ml PO DAILY PRN PRN Reason: Constipation Magnesium Oxide (Magnesium Oxide 400 Mg Tablet) 400 mg PO BID [facility] Last Admin: 01/28/24 20:49 Dose: 400 mg Metformin HCl (Metformin Hcl 1,000 Mg Tablet) 1,000 mg PO BID [facility] Last Admin: 01/28/24 20:49 Dose: 1,000 mg Omeprazole (Omeprazole 40 Mg Capsule.Dr) 40 mg PO DAILY@0630 [facility] Last Admin: 01/29/24 06:16 Dose: 40 mg Sitagliptin Phosphate (Sitagliptin Phosphate 100 Mg Tablet) 100 mg PO DAILY [facility] Last Admin: 01/28/24 12:38 Dose: Not Given Thiamine HCl (Thiamine Hcl 100 Mg Tablet) 100 mg PO DAILY [facility] Last Admin: 01/28/24 12:38 Dose: Not Given Trazodone HCl (Trazodone Hcl 50 Mg Tablet) 50 mg PO BEDTIME MRX1 PRN PRN Reason: Insomnia Trazodone HCl (Trazodone Hcl 50 Mg Tablet) 150 mg PO BEDTIME [facility] Last Admin: 01/28/24 20:48 Dose: 150 mg Allergies Allergies Allergy/AdvReac Type Severity Reaction Status Date / Time No Known Allergies Allergy Verified 01/19/24 21:18 Assessment & Plan Assessment & Plan (1) Medical clearance for psychiatric admission: Status: Acute Code(s): Z00.8 - Encounter for other general examination Plan Pt is a 78-year-old male with a PMH significant for?HTN, HLD, [id number] type 2 diabetes, unspecified dementia with behavioral disturbances, GERD, and alcohol use disorder who is admitted to [facility] for increased agitation and behavioral disturbances. Pt was apparently found wandering outside. Pt's reports he has been declining fof the past serveral weeks and she is currently recovering from surgery and not able to care for him at home. While at [facility], pt had apparently been aggressive/combative with security and nursing at times, and often refused medications and nursing care/assessment. Medical consult for admission H&P. Mood disorder Plan as per psychiatry Non-insulin dependent diabetes type 2 Continue metformin, Januvia Encourage diabetic diet and snacking HLD Continue statin HTN Patient's BP has been elevated since time of admission, as high as 186/82 However, patient has been known to refused and cheek his medications Continue lisinopril at 20 mg daily Hx of alcohol use disorder Continue folic acid, thiamine, magnesium Plan 1. Continue with antipsychotics. 2. Speech and swallow reported that most of the problems are behavioral and not related to physical impairment. 3. We will need to have a family meeting to talk about end of life decisions another legal decisions. 4. Continue with encouragement of p.o. fluids and medications. 01/28/2024: Continue current regimen and plans 01/29/2024: Continue current regimen and plans. Wound Care consult placed Reason for continued inpatient stay Substantial Risk for: inability to function Time Spent With Patient Time: Total time managing care of this patient today ____ minutes.
[2024-01-29 11:20] VITALS: BP 168/73; PULSE 71; RESP 12; TEMP 36.2; O2SAT 99
[2024-01-29] MEDS: metFORMIN HCl 1,000 MG TABLET 1000 MG PO (19:54)
[2024-01-29] MEDS: Gabapentin 600 MG TABLET PO (19:56)
[2024-01-29] MEDS: Divalproex Sodium Sprinkles 125 MG CAP.DR.SPR 500 MG PO (19:56)
[2024-01-29] MEDS: Donepezil HCl 10 MG TABLET PO (19:57)
[2024-01-29] MEDS: HaloperidoL 5 MG TABLET 15 MG PO (19:57)
[2024-01-29] MEDS: Atorvastatin Calcium 80 MG TABLET PO (19:57)
[2024-01-29] MEDS: traZODone HCL 50 MG TABLET 150 MG PO (19:57)
[2024-01-29] MEDS: Magnesium Oxide 400 MG TABLET PO (19:57)
[2024-01-29 20:00] VITALS: BP 154/65; PULSE 73; RESP 18; TEMP 36.6; O2SAT 97
[2024-01-29 22:31] LABS: Glucose, Whole Blood 142 mg/dL (60-115)
[2024-01-30] MEDS: Omeprazole 40 MG CAPSULE.DR PO (06:01)
[2024-01-30 06:56] LABS: Glucose, Whole Blood 138 mg/dL (60-115)
[2024-01-30 08:00] VITALS: BP 158/77; PULSE 74; RESP 16; TEMP 36.2; O2SAT 98
--- NOTE | 2024-01-30 11:49 | MHC.CLN ---
Addendum entered by Juliet Godfrey RD 01/30/24 14:18: STATUS CHANGED TO DNR/DNI TODAY AFTER FAMILY MEETING. PER MD NOTE, END OF LIFE PAPERWORK COMPLETED. CONTINUE TO PROVIDE FOOD/BEVERAGE PREFERENCES ABLE. NO ALTERNATIVE NUTRITION DUE TO REVISED STATUS. Addendum entered by Juliet Godfrey RD 01/30/24 11:56: SKIN WITH NEW OPEN AREA TO SACRUM. MONITOR SKIN INTEGRITY. Original Note: F/U CONTINUES WITH VERY POOR PO INTAKE. UNABLE TO MEET NUTRITION/HYDRATION NEEDS VIA PO. PATIENT IS FULL CODE. CONSIDER ALTERNATE NUTRITION VIA PPN OR TUBE FEEDING. PLEASE CONSULT RD FOR ALTERNATE NUTRITION. FOLLOW FOR PLAN OF CARE.
--- NOTE | 2024-01-30 13:37 | P.PNPSI_ITS ---
Subjective Subjective Date of Service: 01/30/24 Reason For Visit: Unspecified dementia Subjective Notes: Conditional Voluntary (By healthcare proxy) Healthcare Proxy: Yes Interim History: The nursing staff reported the patient had been mostly isolative mumbling a few words. The staff reported poor p.o. intake. He has spit his medications. Today we had a family meeting with her daughter and over the phone her son. We explained that the patient most likely is on terminal dementia and they signed the end of life paperwork, [place]. On interview the patient remains isolative disconnected. Severely confused. Mental Status Exam Mental Status Exam Patient Appearance: Appropriate Patient Orientation: Person and Situation Level of Consciousness: Lethargic Patient Behavior: Passive Mood Description: Withdrawn Affect Description: Blunted Patient Cognition Impaired: Yes Ability to Follow Directions: Fair Speech Pattern: Clear Hallucinations: None Delusions: Paranoid Ideation and Ideas of Reference Thought Process: Distracted and Slowed Thinking Thought Content: positive for Poverty of Content and positive for Thought Blocking Judgement: Poor Diagnostics Vital Signs (24Hr): Vital Signs - 24 hr 01/29/24 20:00 01/30/24 08:00 01/30/24 08:00 Temperature 97.9 F 97.2 F Pulse Rate 73 74 Respiratory Rate 18 16 Blood Pressure 154/65 H 158/77 H 158/77 H Pulse Oximetry 97 98 Oxygen Delivery Method Room Air Room Air BMI result Body Mass Index 16.3 Labs 01/27/24 07:31 Labs: Laboratory Results - last 48 hr 01/28/24 01/29/24 01/29/24 19:57 05:52 22:27 POC Glucose 201 H 150 H 142 H 01/30/24 06:50 POC Glucose 138 H Medications Medications Current Medications Acetaminophen (Acetaminophen 325 Mg Tablet) 650 mg PO Q6H PRN PRN Reason: Headache/Pain Mild Scale (1-3) Last Admin: 01/29/24 03:22 Dose: 650 mg Al Hydroxide/Mg Hydroxide (Magnesium Hydrox/Alum Hydrox 30 Ml Oral.Susp) 30 ml PO Q6H PRN PRN Reason: Heartburn/Nausea Atorvastatin Calcium (Atorvastatin Calcium 80 Mg Tablet) 80 mg PO BEDTIME [facility] Last Admin: 01/29/24 19:57 Dose: 80 mg Divalproex Sodium (Divalproex Sodium Sprinkles 125 Mg ) 500 mg PO BEDTIME [facility] Last Admin: 01/29/24 19:56 Dose: 500 mg Divalproex Sodium (Divalproex Sodium Sprinkles 125 Mg Cap) 500 mg PO DAILY@1200 [facility] Last Admin: 01/30/24 11:47 Dose: Not Given Donepezil HCl (Donepezil Hcl 10 Mg Tablet) 10 mg PO BEDTIME [facility] Last Admin: 01/29/24 19:57 Dose: 10 mg Escitalopram Oxalate (Escitalopram Oxalate 10 Mg Tablet) 10 mg PO DAILY [facility] Last Admin: 01/30/24 08:42 Dose: Not Given Folic Acid (Folic Acid 1 Mg Tablet) 1 mg PO DAILY [facility] Last Admin: 01/30/24 08:43 Dose: Not Given Gabapentin (Gabapentin 600 Mg Tablet) 1,200 mg PO DAILY [facility] Last Admin: 01/30/24 08:43 Dose: Not Given Gabapentin (Gabapentin 600 Mg Tablet) 600 mg PO BEDTIME [facility] Last Admin: 01/29/24 19:56 Dose: 600 mg Haloperidol (Haloperidol 5 Mg Tablet) 15 mg PO BEDTIME [facility] Last Admin: 01/29/24 19:57 Dose: 15 mg Haloperidol (Haloperidol 5 Mg Tablet) 5 mg PO DAILY@1200 [facility] Last Admin: 01/30/24 11:47 Dose: Not Given Hydroxyzine HCl (Hydroxyzine Hcl 25 Mg Tablet) 25 mg PO Q6H PRN PRN Reason: Anxiety Last Admin: 01/29/24 03:17 Dose: 25 mg Lisinopril (Lisinopril 20 Mg Tablet) 20 mg PO DAILY [facility]; Protocol Last Admin: 01/30/24 08:00 Dose: Not Given Magnesium Hydroxide (Milk Of Magnesia 30 Ml Oral.Susp) 30 ml PO DAILY PRN PRN Reason: Constipation Magnesium Oxide (Magnesium Oxide 400 Mg Tablet) 400 mg PO BID [facility] Last Admin: 01/30/24 08:45 Dose: Not Given Metformin HCl (Metformin Hcl 1,000 Mg Tablet) 1,000 mg PO BID [facility] Last Admin: 01/30/24 08:46 Dose: Not Given Omeprazole (Omeprazole 40 Mg Capsule.) 40 mg PO DAILY@0630 [facility] Last Admin: 01/30/24 06:01 Dose: 40 mg Sitagliptin Phosphate (Sitagliptin Phosphate 100 Mg Tablet) 100 mg PO DAILY [facility] Last Admin: 01/30/24 08:46 Dose: Not Given Thiamine HCl (Thiamine Hcl 100 Mg Tablet) 100 mg PO DAILY [facility] Last Admin: 01/30/24 08:47 Dose: Not Given Trazodone HCl (Trazodone Hcl 50 Mg Tablet) 50 mg PO BEDTIME MRX1 PRN PRN Reason: Insomnia Trazodone HCl (Trazodone Hcl 50 Mg Tablet) 150 mg PO BEDTIME [facility] Last Admin: 01/29/24 19:57 Dose: 150 mg Allergies Allergies Allergy/AdvReac Type Severity Reaction Status Date / Time No Known Allergies Allergy Verified 01/19/24 21:18 Assessment & Plan Assessment & Plan (1) Medical clearance for psychiatric admission: Status: Acute Code(s): Z00.8 - Encounter for other general examination Plan Pt is a 78-year-old male with a PMH significant for?HTN, HLD, [id number] type 2 diabetes, unspecified dementia with behavioral disturbances, GERD, and alcohol use disorder who is admitted to [facility] for increased agitation and behavioral disturbances. Pt was apparently found wandering outside. Pt's reports he has been declining fof the past serveral weeks and she is currently recovering from surgery and not able to care for him at home. While at [facility], pt had apparently been aggressive/combative with security and nursing at times, and often refused medications and nursing care/assessment. Medical consult for admission H&P. Mood disorder Plan as per psychiatry Non-insulin dependent diabetes type 2 Continue metformin, Januvia Encourage diabetic diet and snacking HLD Continue statin HTN Patient's BP has been elevated since time of admission, as high as 186/82 However, patient has been known to refused and cheek his medications Continue lisinopril at 20 mg daily Hx of alcohol use disorder Continue folic acid, thiamine, magnesium Plan 1. Continue with antipsychotics. 2. Speech and swallow reported that most of the problems are behavioral and not related to physical impairment. 3. We will need to have a family meeting to talk about end of life decisions another legal decisions. 4. Continue with encouragement of p.o. fluids and medications. 5. After family meeting the patient is DNR DNI. Reason for continued inpatient stay Substantial Risk for: inability to function, rapid decompensation and med/psych decompensation Time Spent With Patient Time: Total time managing care of this patient today __20__ minutes.
[2024-01-30 20:00] VITALS: BP 167/84; PULSE 84; RESP 16; TEMP 36.3; O2SAT 100
[2024-01-30] MEDS: Atorvastatin Calcium 80 MG TABLET PO (20:30)
[2024-01-30] MEDS: Donepezil HCl 10 MG TABLET PO (20:30)
[2024-01-30] MEDS: metFORMIN HCl 1,000 MG TABLET 1000 MG PO (20:30)
[2024-01-30] MEDS: Divalproex Sodium Sprinkles 125 MG CAP.DR.SPR 500 MG PO (20:31)
[2024-01-30] MEDS: HaloperidoL 5 MG TABLET 15 MG PO (20:31)
[2024-01-30] MEDS: Gabapentin 600 MG TABLET PO (20:31)
[2024-01-30] MEDS: Magnesium Oxide 400 MG TABLET PO (20:31)
[2024-01-30] MEDS: traZODone HCL 50 MG TABLET 150 MG PO (20:31)
[2024-01-30 23:58] LABS: Glucose, Whole Blood 161 mg/dL (60-115)
[2024-01-31] MEDS: Omeprazole 40 MG CAPSULE.DR PO (06:08)
[2024-01-31] MEDS: Acetaminophen 325 MG TABLET 650 MG PO (06:08)
[2024-01-31 07:54] LABS: Glucose, Whole Blood 146 mg/dL (60-115)
[2024-01-31 08:19] VITALS: BP 140/72; PULSE 72; RESP 14; TEMP 36.2; O2SAT 96
[2024-01-31] MEDS: metFORMIN HCl 1,000 MG TABLET 1000 MG PO (08:22)
[2024-01-31] MEDS: SITagliptin Phosphate 100 MG TABLET PO (08:22)
[2024-01-31] MEDS: Gabapentin 600 MG TABLET 1200 MG PO (08:22)
[2024-01-31] MEDS: Thiamine HCL 100 MG TABLET PO (08:22)
[2024-01-31] MEDS: Escitalopram Oxalate 10 MG TABLET PO (08:22)
[2024-01-31] MEDS: Magnesium Oxide 400 MG TABLET PO (08:22)
[2024-01-31] MEDS: Folic Acid 1 MG TABLET PO (08:23)
[2024-01-31] MEDS: lisinopriL 20 MG TABLET PO (08:23)
--- NOTE | 2024-01-31 08:38 | HO.PSYCHPN ---
Subjective Subjective Date of Service: 01/31/24 Reason For Visit: Unspecified dementia Subjective Notes: Conditional Voluntary Interim History: Slept most of the night. Pt in bed in no distress. He was mostly mute. His oral intake is limited. He is now DNR/DNI. No behavioral concerns. Review of Systems Review of Systems A wound at the coccyx Yes all other systems are reviewed and are negative, Unobtainable due to mental condition and Unobtainable due to mental status Constitutional: Reports poor appetite, Reports weakness and Reports weight loss Reports weakness Mental Status Exam Mental Status Exam Patient Appearance: Appropriate Patient Orientation: Person and Situation Level of Consciousness: Lethargic Patient Behavior: Passive Mood Description: Withdrawn Affect Description: Blunted Patient Cognition Impaired: Yes Ability to Follow Directions: Fair Speech Pattern: Clear Diagnostics Vital Signs (24Hr): Vital Signs - 24 hr 01/30/24 20:00 01/31/24 08:19 Temperature 97.4 F 97.2 F Pulse Rate 84 72 Respiratory Rate 16 14 Blood Pressure 167/84 H 140/72 H Pulse Oximetry 100 96 Oxygen Delivery Method Room Air Room Air BMI result Body Mass Index 16.3 Labs 01/27/24 07:31 Labs: Laboratory Results - last 48 hr 01/29/24 01/30/24 01/30/24 22:27 06:50 23:49 POC Glucose 142 H 138 H 161 H 01/31/24 07:50 POC Glucose 146 H Medications Medications Current Medications Acetaminophen (Acetaminophen 325 Mg Tablet) 650 mg PO Q6H PRN PRN Reason: Headache/Pain Mild Scale (1-3) Last Admin: 01/31/24 06:08 Dose: 650 mg Al Hydroxide/Mg Hydroxide (Magnesium Hydrox/Alum Hydrox 30 Ml Oral.Susp) 30 ml PO Q6H PRN PRN Reason: Heartburn/Nausea Atorvastatin Calcium (Atorvastatin Calcium 80 Mg Tablet) 80 mg PO BEDTIME REPLACED BY [facility] Last Admin: 01/30/24 20:30 Dose: 80 mg Divalproex Sodium (Divalproex Sodium Sprinkles 125 Mg ) 500 mg PO BEDTIME REPLACED BY [facility] Last Admin: 01/30/24 20:31 Dose: 500 mg Divalproex Sodium (Divalproex Sodium Sprinkles 125 Mg ) 500 mg PO DAILY@1200 REPLACED BY [facility] Last Admin: 01/30/24 11:47 Dose: Not Given Donepezil HCl (Donepezil Hcl 10 Mg Tablet) 10 mg PO BEDTIME REPLACED BY [facility] Last Admin: 01/30/24 20:30 Dose: 10 mg Escitalopram Oxalate (Escitalopram Oxalate 10 Mg Tablet) 10 mg PO DAILY REPLACED BY [facility] Last Admin: 01/30/24 08:42 Dose: Not Given Folic Acid (Folic Acid 1 Mg Tablet) 1 mg PO DAILY REPLACED BY [facility] Last Admin: 01/30/24 08:43 Dose: Not Given Gabapentin (Gabapentin 600 Mg Tablet) 1,200 mg PO DAILY REPLACED BY [facility] Last Admin: 01/30/24 08:43 Dose: Not Given Gabapentin (Gabapentin 600 Mg Tablet) 600 mg PO BEDTIME REPLACED BY [facility] Last Admin: 01/30/24 20:31 Dose: 600 mg Haloperidol (Haloperidol 5 Mg Tablet) 15 mg PO BEDTIME REPLACED BY [facility] Last Admin: 01/30/24 20:31 Dose: 15 mg Haloperidol (Haloperidol 5 Mg Tablet) 5 mg PO DAILY@1200 REPLACED BY [facility] Last Admin: 01/30/24 11:47 Dose: Not Given Hydroxyzine HCl (Hydroxyzine Hcl 25 Mg Tablet) 25 mg PO Q6H PRN PRN Reason: Anxiety Last Admin: 01/29/24 03:17 Dose: 25 mg Lisinopril (Lisinopril 20 Mg Tablet) 20 mg PO DAILY REPLACED BY [facility]; Protocol Last Admin: 01/30/24 08:00 Dose: Not Given Magnesium Hydroxide (Milk Of Magnesia 30 Ml Oral.Susp) 30 ml PO DAILY PRN PRN Reason: Constipation Magnesium Oxide (Magnesium Oxide 400 Mg Tablet) 400 mg PO BID REPLACED BY [facility] Last Admin: 01/30/24 20:31 Dose: 400 mg Metformin HCl (Metformin Hcl 1,000 Mg Tablet) 1,000 mg PO BID REPLACED BY [facility] Last Admin: 01/30/24 20:30 Dose: 1,000 mg Omeprazole (Omeprazole 40 Mg Capsule.Dr) 40 mg PO DAILY@0630 REPLACED BY [facility] Last Admin: 01/31/24 06:08 Dose: 40 mg Sitagliptin Phosphate (Sitagliptin Phosphate 100 Mg Tablet) 100 mg PO DAILY REPLACED BY [facility] Last Admin: 01/30/24 08:46 Dose: Not Given Thiamine HCl (Thiamine Hcl 100 Mg Tablet) 100 mg PO DAILY REPLACED BY [facility] Last Admin: 01/30/24 08:47 Dose: Not Given Trazodone HCl (Trazodone Hcl 50 Mg Tablet) 50 mg PO BEDTIME MRX1 PRN PRN Reason: Insomnia Trazodone HCl (Trazodone Hcl 50 Mg Tablet) 150 mg PO BEDTIME [facility] Last Admin: 01/30/24 20:31 Dose: 150 mg Allergies Allergies Allergy/AdvReac Type Severity Reaction Status Date / Time No Known Allergies Allergy Verified 01/19/24 21:18 Assessment & Plan Assessment & Plan (1) Dementia, unspecified, with behavioral disturbance: Status: Acute Code(s): F03.918 - Unspecified dementia, unspecified severity, with other behavioral disturbance Plan Pt is a 78-year-old male with a PMH significant for?HTN, HLD, exh-[id number] type 2 diabetes, unspecified dementia with behavioral disturbances, GERD, and alcohol use disorder who is admitted to [facility] for increased agitation and behavioral disturbances. Pt was apparently found wandering outside. Pt's reports he has been declining fof the past serveral weeks and she is currently recovering from surgery and not able to care for him at home. While at [facility], pt had apparently been aggressive/combative with security and nursing at times, and often refused medications and nursing care/assessment. Medical consult for admission H&P. Mood disorder Plan as per psychiatry Non-insulin dependent diabetes type 2 Continue metformin, Januvia Encourage diabetic diet and snacking HLD Continue statin HTN Patient's BP has been elevated since time of admission, as high as 186/82 However, patient has been known to refused and cheek his medications Continue lisinopril at 20 mg daily Hx of alcohol use disorder Continue folic acid, thiamine, magnesium Plan 01/30 continue tx. discussed goals of care as oral intake is very limited. Reason for continued inpatient stay Substantial Risk for: inability to function Time Spent With Patient Time: Total time managing care of this patient today ____ minutes.
--- NOTE | 2024-01-31 15:56 | HO.WOUND ---
Wound Consult: Initial 78yr old?[place] [facility] [place] to the inpatient behavioral health unit - See progress notes and H&P for detailed history.? Wound consult placed for coccyx wound.? Patient was nonresponsiveto his environment while at bedside - staff report this is his baseline at this time. Overall appears malnourished and cachectic. ? Sacrum / Coccyx Etiology: ?Coccyx - Stage 2 pressure Injury Wound Bed: pink partial thickness tissue loss Drainage / Odor: kingston drainage noted on dressing when removed Edges: ? macerated Edie wound: Macerated - intact - darker pigmentation noted - ? No Induration, Fluctuance or Warmth noted Pain: Pt did not respond during my assessment Goals of Treatment: ? Triad to aid in moist wound healing and foam dressing to protect from moisture and friction and aid in off loading pressure. Recommendations: 1. Turn and Reposition every 2 hours and as needed for patient comfort.? Use pillows or wedges to support off loading positions. 2. Off Load all bony prominences with use of pillows and heel boots if needed.? Apply Preventative foams where needed. ? 3. Monitor for incontinence and moisture control, use barrier creams when needed for prevention and treatment. 4. Provide adequate and supplemental nutrition.? 5. Order or Continue low air loss mattress. 6. When applicable maintain blood glucose levels per Providers order. 7. Coccyx - Off Load Pressure - Discontinue Brief Use - this traps moisture and heat putting patient at increased risk of injury development. Cleanse with PH balance spray or wipes, pat dry. ?Apply thin layer of Triad ([facility] # [id number]) to wound bed. Do not remove all of paste between applications as this may cause further skin damage.? Cover with foam dressing to aid in off loading and protection from friction. Use waffle cushion if up to recliner chair. Re-consult wound care Nurse for wound deterioration or wound changes.
[2024-01-31 20:00] VITALS: BP 140/70; PULSE 71; RESP 16; TEMP 36; O2SAT 99
[2024-01-31 22:18] LABS: Glucose, Whole Blood 120 mg/dL (60-115)
[2024-02-01] MEDS: Omeprazole 40 MG CAPSULE.DR PO (05:46)
[2024-02-01 06:00] LABS: Glucose, Whole Blood 137 mg/dL (60-115)
--- NOTE | 2024-02-01 08:36 | P.PNPSI_ITS ---
Subjective Subjective Date of Service: 02/01/24 Reason For Visit: Unspecified dementia Subjective Notes: Conditional Voluntary Healthcare Proxy: Yes Interim History: Pt slept most of the night. mostly mute, not eating, not moving increase in BUN. discussed with his that as he has stopped eating, his renal function will worsen, eventually without artifical nutrition or fluids he may . We also discussed process of advance dementia when person stops eating, moving, talking. Family to discuss with attending and hospitalist- comfort measures, what it entails and whether family agrees or not. No decision made by family at this time. continue DNR/DNI Review of Systems Review of Systems A wound at the coccyx Yes all other systems are reviewed and are negative, Unobtainable due to mental condition and Unobtainable due to mental status Constitutional: Reports poor appetite, Reports weakness and Reports weight loss Reports weakness Mental Status Exam Mental Status Exam Patient Appearance: Appropriate Patient Orientation: Person and Situation Level of Consciousness: Lethargic Patient Behavior: Passive Mood Description: Withdrawn Affect Description: Blunted Patient Cognition Impaired: Yes Ability to Follow Directions: Fair Speech Pattern: Clear Diagnostics Vital Signs (24Hr): Vital Signs - 24 hr 01/31/24 20:00 Temperature 96.8 F Pulse Rate 71 Respiratory Rate 16 Blood Pressure 140/70 H Pulse Oximetry 99 Oxygen Delivery Method Room Air BMI result Body Mass Index 16.3 Labs 02/01/24 09:53 02/01/24 09:53 Labs: Laboratory Results - last 48 hr 01/30/24 01/31/24 01/31/24 23:49 07:50 22:01 POC Glucose 161 H 146 H 120 H 02/01/24 05:45 POC Glucose 137 H Medications Medications Current Medications Acetaminophen (Acetaminophen 325 Mg Tablet) 650 mg PO Q6H PRN PRN Reason: Headache/Pain Mild Scale (1-3) Last Admin: 01/31/24 06:08 Dose: 650 mg Al Hydroxide/Mg Hydroxide (Magnesium Hydrox/Alum Hydrox 30 Ml Oral.Susp) 30 ml PO Q6H PRN PRN Reason: Heartburn/Nausea Atorvastatin Calcium (Atorvastatin Calcium 80 Mg Tablet) 80 mg PO BEDTIME [facility] Last Admin: 01/31/24 22:15 Dose: Not Given Divalproex Sodium (Divalproex Sodium Sprinkles 125 Mg ) 500 mg PO BEDTIME [facility] Last Admin: 01/31/24 22:15 Dose: Not Given Divalproex Sodium (Divalproex Sodium Sprinkles 125 Mg Cap.) 500 mg PO DAILY@1200 [facility] Last Admin: 01/31/24 12:59 Dose: Not Given Donepezil HCl (Donepezil Hcl 10 Mg Tablet) 10 mg PO BEDTIME [facility] Last Admin: 01/31/24 22:15 Dose: Not Given Escitalopram Oxalate (Escitalopram Oxalate 10 Mg Tablet) 10 mg PO DAILY [facility] Last Admin: 01/31/24 08:22 Dose: 10 mg Folic Acid (Folic Acid 1 Mg Tablet) 1 mg PO DAILY [facility] Last Admin: 01/31/24 08:23 Dose: 1 mg Gabapentin (Gabapentin 600 Mg Tablet) 1,200 mg PO DAILY [facility] Last Admin: 01/31/24 08:22 Dose: 1,200 mg Gabapentin (Gabapentin 600 Mg Tablet) 600 mg PO BEDTIME [facility] Last Admin: 01/31/24 22:15 Dose: Not Given Haloperidol (Haloperidol 5 Mg Tablet) 15 mg PO BEDTIME [facility] Last Admin: 01/31/24 22:15 Dose: Not Given Haloperidol (Haloperidol 5 Mg Tablet) 5 mg PO DAILY@1200 [facility] Last Admin: 01/31/24 12:59 Dose: Not Given Hydroxyzine HCl (Hydroxyzine Hcl 25 Mg Tablet) 25 mg PO Q6H PRN PRN Reason: Anxiety Last Admin: 01/29/24 03:17 Dose: 25 mg Lisinopril (Lisinopril 20 Mg Tablet) 20 mg PO DAILY [facility]; Protocol Last Admin: 01/31/24 08:23 Dose: 20 mg Magnesium Hydroxide (Milk Of Magnesia 30 Ml Oral.Susp) 30 ml PO DAILY PRN PRN Reason: Constipation Magnesium Oxide (Magnesium Oxide 400 Mg Tablet) 400 mg PO BID [facility] Last Admin: 01/31/24 22:15 Dose: Not Given Metformin HCl (Metformin Hcl 1,000 Mg Tablet) 1,000 mg PO BID [facility] Last Admin: 01/31/24 22:15 Dose: Not Given Omeprazole (Omeprazole 40 Mg Capsule.) 40 mg PO DAILY@0630 [facility] Last Admin: 02/01/24 05:46 Dose: 40 mg Sitagliptin Phosphate (Sitagliptin Phosphate 100 Mg Tablet) 100 mg PO DAILY [facility] Last Admin: 01/31/24 08:22 Dose: 100 mg Thiamine HCl (Thiamine Hcl 100 Mg Tablet) 100 mg PO DAILY [facility] Last Admin: 01/31/24 08:22 Dose: 100 mg Trazodone HCl (Trazodone Hcl 50 Mg Tablet) 50 mg PO BEDTIME MRX1 PRN PRN Reason: Insomnia Trazodone HCl (Trazodone Hcl 50 Mg Tablet) 150 mg PO BEDTIME [facility] Last Admin: 01/31/24 22:16 Dose: Not Given Allergies Allergies Allergy/AdvReac Type Severity Reaction Status Date / Time No Known Allergies Allergy Verified 01/19/24 21:18 Assessment & Plan Assessment & Plan (1) Dementia, unspecified, with behavioral disturbance: Status: Acute Code(s): F03.918 - Unspecified dementia, unspecified severity, with other behavioral disturbance Plan Pt is a 78-year-old male with a PMH significant for?HTN, HLD, cmv-ipicfjz-ultnfodwg type 2 diabetes, unspecified dementia with behavioral disturbances, GERD, and alcohol use disorder who is admitted to [facility] for increased agitation and behavioral disturbances. Pt was apparently found wandering outside. Pt's reports he has been declining fof the past serveral weeks and she is currently recovering from surgery and not able to care for him at home. While at [facility], pt had apparently been aggressive/combative with security and nursing at times, and often refused medications and nursing care/assessment. Medical consult for admission H&P. Mood disorder Plan as per psychiatry Non-insulin dependent diabetes type 2 Continue metformin, Januvia Encourage diabetic diet and snacking HLD Continue statin HTN Patient's BP has been elevated since time of admission, as high as 186/82 However, patient has been known to refused and cheek his medications Continue lisinopril at 20 mg daily Hx of alcohol use disorder Continue folic acid, thiamine, magnesium Plan 01/30 continue tx. discuss goals of care as oral intake is very limited. 01/31 continue tx. pending clarification from family as to their wish for fluids, artificial nutrition. Reason for continued inpatient stay Substantial Risk for: inability to function Time Spent With Patient Time: Total time managing care of this patient today ____ minutes.
[2024-02-01 09:47] VITALS: BP 141/75; PULSE 82; RESP 15; TEMP 36.9; O2SAT 94
[2024-02-01 10:04] LABS: MANUAL DIFF FLAG NO
--- NOTE | 2024-02-01 10:05 | PC.NURSE ---
tHIS GILL BOX FIXER ATTEMPTED TO GIVE PATIENT MEDICATIONS THIS MORNING. tHEY WERE CRUSHED AND PUT INTO WARM APPLESAUCE. pT SPIT MEDICATIONS OUT AND WOULDN'T OPEN HIS MOUTH FOR A 2ND TRY.
[2024-02-01 10:14] LABS: Basophils Percent Auto 0.3 % (0-2); Hematocrit 38.5 % (42.0-52.0); Hemoglobin 13.1 g/dl (14.0-18.0); Imm Gran Abs Auto 0.01 X10*3/uL (0.00-0.03); Imm Gran Pct Auto 0.2 % (0.0-0.4); Lymphocytes Absolute Auto 1.1 X10*3/uL (1.2-4.9); Lymphocytes Percent Auto 18.4 % (20-40); Mean Corpuscular Volume 76.5 fL (80.0-98.0); Mean Platelet Volume 9.2 fL (9.4-12.4); Monocytes Absolute Auto 0.5 X10*3/uL (0.1-1.2); Monocytes Percent Auto 8.7 % (2-11); Neutrophils Absolute Auto 4.3 x10*3/uL (2.0-8.3); Neutrophils Percent Auto 72.4 % (45-73); Platelet Count 252 X10*3/uL (160-400); Red Blood Count 5.03 X10*6/uL (4.60-5.80); Red Cell Distribution Width 12.8 % (11.0-16.0)
[2024-02-01 10:31] LABS: Alanine Aminotransferase 53 U/L (0-40); Albumin Level 3.9 g/dL (3.5-5.0); Alkaline Phosphatase 97 U/L (39-117); Anion Gap 14 (12-20); Aspartate Amino Transferase 66 U/L (5-37); Bilirubin Total 0.3 mg/dL (0.0-1.0); Blood Urea Nitrogen 29 mg/dL (9-16); Calcium 9.9 mg/dL (8.4-10.2); Carbon Dioxide 30 mmol/L (22-29); Chloride 95 mmol/L (96-108); Creatinine Clr Calc Pharmacy 39.8; Estimated Glomerular Filt Rate > 60; Glucose Random 181 mg/dL (60-115); Potassium 4.4 mmol/L (3.3-5.1); Sodium 135 mmol/L (135-145); Total Protein 7.4 g/dL (6.5-8.0)
--- NOTE | 2024-02-01 10:58 | MHC.CLN ---
F/U STATUS CHANGED TO DNR/DNI 01/29 AFTER FAMILY MEETING. PER [facility], NOT DECIDED FOR ARTIFICIAL NUTRITION AND HYDRATION. DISCUSSED WITH PROVIDER AND NURSE. CONTINUES WITH VERY POOR PO INTAKE. SKIN WITH NEW STAGE II OPEN AREA TO SACRUM. CONSIDER ALTERNATE NUTRITION/HYDRATION VIA PPN. PATIENT AT RISK OF REFEEDING. SUGGEST START PPN AT 30 ML PER HOUR. PROVIDES 31 G PROTEIN, 72 G DEXTROSE, 367 KCALS. REPLETE LYTES NEEDED. MONITOR LABS. ADVANCE PPN ABLE. FOLLOW FOR PLAN OF CARE.
[2024-02-01] MEDS: Morphine Sulfate Oral Sol 10 MG/5 ML SOLUTION 2 MG SUBLINGUAL (14:05)
[2024-02-01 20:15] LABS: Glucose, Whole Blood 143 mg/dL (60-115)
[2024-02-01] MEDS: Divalproex Sodium Sprinkles 125 MG CAP.DR.SPR 500 MG PO (23:21)
[2024-02-02] MEDS: Omeprazole 40 MG CAPSULE.DR PO (05:58)
--- NOTE | 2024-02-02 06:27 | PC.NURSE ---
Patient continues to have poor PO intake, fluids encouraged throughout shift, spit out meds when administration attempted crushed in vehicle. Repositioned frequently to promote comfort and skin integrity, tolerated well morning hygiene care, incontinent of urine. Stage II on coccyx, dressing clean and intact.
[2024-02-02 06:29] LABS: Glucose, Whole Blood 206 mg/dL (60-115)
[2024-02-02 08:00] VITALS: BP 129/70; PULSE 78; RESP 16; TEMP 36; O2SAT 97
--- NOTE | 2024-02-02 12:23 | HO.PSYCHPN ---
Subjective Subjective Date of Service: 02/02/24 Reason For Visit: Unspecified dementia Subjective Notes: Conditional Voluntary Interim History: The nursing staff reported the patient remains most of the time isolative, not eating. He is most of the time sleeping. Yesterday he received 1 dose of morphine. Today we had a family meeting with all his family, his the healthcare proxy, his son who is the other healthcare proxy and other collateral family. We explained that it is most likely the patient is on a terminal dementia. We discussed at length risks, benefits side-effects and alternatives and they decided to put the patient on comfort care measures only since his dementia is terminal. They are fully aware of the end of life decisions. We discussed the case with the [facility] back of [address] Dr. Almeida, he review the case and we discuss it and he agreed on comfort care measures only. Mental Status Exam Mental Status Exam Patient Appearance: Appropriate (On hospital gowns) Patient Orientation: Person Level of Consciousness: Drowsy and Lethargic Patient Behavior: Guarded Mood Description: Withdrawn Affect Description: Blunted Patient Cognition Impaired: Yes Ability to Follow Directions: Poor Speech Pattern: No Speech Hallucinations: None Delusions: Not Present Thought Process: Slowed Thinking Thought Content: positive for Poverty of Content and positive for Thought Blocking Judgement: Poor Diagnostics Vital Signs (24Hr): Vital Signs - 24 hr 02/02/24 08:00 Temperature 96.8 F Pulse Rate 78 Respiratory Rate 16 Blood Pressure 129/70 Pulse Oximetry 97 Oxygen Delivery Method Room Air BMI result Body Mass Index 16.3 Labs 02/01/24 09:53 02/01/24 09:53 Labs: Laboratory Results - last 48 hr 01/31/24 02/01/24 02/01/24 22:01 05:45 09:53 WBC 6.0 RBC 5.03 Hgb 13.1 L Hct 38.5 L MCV 76.5 L MCH 26.0 L MCHC 34.0 RDW 12.8 Plt Count 252 MPV 9.2 L Immature Gran % (Auto) 0.2 Neut % (Auto) 72.4 Lymph % (Auto) 18.4 L Robertson % (Auto) 8.7 Eos % (Auto) 0.0 Baso % (Auto) 0.3 Lymph # (Auto) 1.1 L Robertson # (Auto) 0.5 Eos # (Auto) 0.0 Baso # (Auto) 0.0 Abs Immat Gran (auto) 0.01 Absolute Neuts (auto) 4.3 Absolute Nucleated RBC 0.000 Nucleated RBC % (auto) 0.0 Sodium 135 Potassium 4.4 Chloride 95 L Carbon Dioxide 30 H Anion Gap 14 BUN 29 H Creatinine 1.08 Estim Creat Clear Calc 39.8 Estimated GFR > 60 POC Glucose 120 H 137 H Random Glucose 181 H Calcium 9.9 Total Bilirubin 0.3 AST 66 H ALT 53 H Alkaline Phosphatase 97 Total Protein 7.4 Albumin 3.9 02/01/24 02/02/24 20:03 05:59 WBC RBC Hgb Hct MCV MCH MCHC RDW Plt Count MPV Immature Gran % (Auto) Neut % (Auto) Lymph % (Auto) Robertson % (Auto) Eos % (Auto) Baso % (Auto) Lymph # (Auto) Robertson # (Auto) Eos # (Auto) Baso # (Auto) Abs Immat Gran (auto) Absolute Neuts (auto) Absolute Nucleated RBC Nucleated RBC % (auto) Sodium Potassium Chloride Carbon Dioxide Anion Gap BUN Creatinine Estim Creat Clear Calc Estimated GFR POC Glucose 143 H 206 H Random Glucose Calcium Total Bilirubin AST ALT Alkaline Phosphatase Total Protein Albumin Medications Medications Current Medications Acetaminophen (Acetaminophen 325 Mg Tablet) 650 mg PO Q6H PRN PRN Reason: Headache/Pain Mild Scale (1-3) Last Admin: 01/31/24 06:08 Dose: 650 mg Al Hydroxide/Mg Hydroxide (Magnesium Hydrox/Alum Hydrox 30 Ml Oral.Susp) 30 ml PO Q6H PRN PRN Reason: Heartburn/Nausea Atorvastatin Calcium (Atorvastatin Calcium 80 Mg Tablet) 80 mg PO BEDTIME [facility] Last Admin: 02/02/24 00:15 Dose: Not Given Divalproex Sodium (Divalproex Sodium Sprinkles 125 Mg ) 500 mg PO BEDTIME [facility] Last Admin: 02/01/24 23:21 Dose: 500 mg Divalproex Sodium (Divalproex Sodium Sprinkles 125 Mg ) 500 mg PO DAILY@1200 [facility] Last Admin: 02/02/24 12:06 Dose: Not Given Escitalopram Oxalate (Escitalopram Oxalate 10 Mg Tablet) 10 mg PO DAILY [facility] Last Admin: 02/02/24 09:26 Dose: Not Given Gabapentin (Gabapentin 600 Mg Tablet) 1,200 mg PO DAILY [facility] Last Admin: 02/02/24 09:26 Dose: Not Given Gabapentin (Gabapentin 600 Mg Tablet) 600 mg PO BEDTIME [facility] Last Admin: 02/02/24 00:15 Dose: Not Given Haloperidol (Haloperidol 5 Mg Tablet) 15 mg PO BEDTIME [facility] Last Admin: 02/02/24 00:17 Dose: Not Given Haloperidol (Haloperidol 5 Mg Tablet) 5 mg PO DAILY@1200 [facility] Last Admin: 02/02/24 12:06 Dose: Not Given Hydroxyzine HCl (Hydroxyzine Hcl 25 Mg Tablet) 25 mg PO Q6H PRN PRN Reason: Anxiety Last Admin: 01/29/24 03:17 Dose: 25 mg Lisinopril (Lisinopril 20 Mg Tablet) 20 mg PO DAILY [facility]; Protocol Last Admin: 02/02/24 09:26 Dose: Not Given Magnesium Hydroxide (Milk Of Magnesia 30 Ml Oral.Susp) 30 ml PO DAILY PRN PRN Reason: Constipation Magnesium Oxide (Magnesium Oxide 400 Mg Tablet) 400 mg PO BID [facility] Last Admin: 02/02/24 09:26 Dose: Not Given Metformin HCl (Metformin Hcl 1,000 Mg Tablet) 1,000 mg PO BID [facility] Last Admin: 02/02/24 09:26 Dose: Not Given Omeprazole (Omeprazole 40 Mg Capsule.Dr) 40 mg PO DAILY@0630 [facility] Last Admin: 02/02/24 05:58 Dose: 40 mg Sitagliptin Phosphate (Sitagliptin Phosphate 100 Mg Tablet) 100 mg PO DAILY [facility] Last Admin: 02/02/24 09:26 Dose: Not Given Thiamine HCl (Thiamine Hcl 100 Mg Tablet) 100 mg PO DAILY [facility] Last Admin: 02/02/24 09:26 Dose: Not Given Trazodone HCl (Trazodone Hcl 50 Mg Tablet) 50 mg PO BEDTIME MRX1 PRN PRN Reason: Insomnia Trazodone HCl (Trazodone Hcl 50 Mg Tablet) 150 mg PO BEDTIME [facility] Last Admin: 02/02/24 00:18 Dose: Not Given Allergies Allergies Allergy/AdvReac Type Severity Reaction Status Date / Time No Known Allergies Allergy Verified 01/19/24 21:18 Assessment & Plan Assessment & Plan (1) Dementia, unspecified, with behavioral disturbance: Status: Acute Code(s): F03.918 - Unspecified dementia, unspecified severity, with other behavioral disturbance Plan Pt is a 78-year-old male with a PMH significant for?HTN, HLD, dim-grihbhd-jawzgnnvv type 2 diabetes, unspecified dementia with behavioral disturbances, GERD, and alcohol use disorder who is admitted to [facility] for increased agitation and behavioral disturbances. Pt was apparently found wandering outside. Pt's reports he has been declining fof the past serveral weeks and she is currently recovering from surgery and not able to care for him at home. While at [facility], pt had apparently been aggressive/combative with security and nursing at times, and often refused medications and nursing care/assessment. Medical consult for admission H&P. Mood disorder Plan as per psychiatry Non-insulin dependent diabetes type 2 Continue metformin, Januvia Encourage diabetic diet and snacking HLD Continue statin HTN Patient's BP has been elevated since time of admission, as high as 186/82 However, patient has been known to refused and cheek his medications Continue lisinopril at 20 mg daily Hx of alcohol use disorder Continue folic acid, thiamine, magnesium Plan 1. At this moment the patient is DNR DNI. 2. Discontinue regular medications and keep only on comfort care. 3. We will talk with licensed master social worker to referral for hospice care. Reason for continued inpatient stay Substantial Risk for: inability to function, rapid decompensation and med/psych decompensation Time Spent With Patient Time: Total time managing care of this patient today __20__ minutes.
[2024-02-02 20:00] VITALS: BP 166/74; PULSE 84; RESP 16; TEMP 36.4
[2024-02-02 20:14] LABS: Glucose, Whole Blood 165 mg/dL (60-115)
[2024-02-03] MEDS: Omeprazole 40 MG CAPSULE.DR PO (05:51)
[2024-02-03 06:39] LABS: Glucose, Whole Blood 147 mg/dL (60-115)
[2024-02-03] MEDS: HaloperidoL 1 MG TABLET PO (08:53)
--- NOTE | 2024-02-03 10:39 | P.DS_ITS ---
DS: Providers Provider Date of Service: 02/03/24 Date of admission: 01/19/24 20:53 Date of discharge: 02/03/24 Primary care physician: Unknown Physician Consults: 01/19/24 21:53 Consult to Hospitalist Routine Comment: Consulting Provider: Hospitalist Reason For Exam: Direct admission 01/21/24 11:54 Consult to Hospitalist Routine Comment: Consulting Provider: Hospitalist Reason For Exam: Please review POCs (200s) in this NIDDM pt. TY 01/29/24 06:52 Consult to Wound Care Routine Reason for consultation: wound in the sacrum 02/02/24 14:18 Consult to Hospice Routine Comment: Attending physician on discharge: Goldy Harper DS: Diagnosis Discharge Diagnosis (1) Dementia, unspecified, with behavioral disturbance: Status: Acute DS: Medications Discharge Medications Home Medications: Home Medications ?Medication ?Instructions ?Recorded ?Confirmed atorvastatin 80 mg tablet 80 mg PO BEDTIME 01/19/24 01/19/24 divalproex 125 mg capsule,delayed 500 mg PO BEDTIME 01/19/24 01/19/24 release sprinkle (Depakote Sprinkles) divalproex 125 mg capsule,delayed 500 mg PO QNOON 01/19/24 01/19/24 release sprinkle (Depakote Sprinkles) donepezil 10 mg tablet 10 mg PO BEDTIME 01/19/24 01/19/24 escitalopram oxalate 10 mg tablet 10 mg PO DAILY 01/19/24 01/19/24 folic acid 1 mg tablet 1 mg PO DAILY 01/19/24 01/19/24 gabapentin 600 mg tablet 1,200 mg PO QAM 01/19/24 01/19/24 gabapentin 600 mg tablet 600 mg PO BEDTIME 01/19/24 01/19/24 haloperidol 5 mg tablet 5 mg PO DAILY@1200 01/19/24 01/19/24 haloperidol 5 mg tablet 15 mg PO BEDTIME 01/19/24 01/19/24 lisinopril 20 mg tablet 20 mg PO QAM 01/19/24 01/19/24 magnesium oxide 400 mg (241.3 mg 400 mg PO BID 01/19/24 01/19/24 magnesium) tablet metformin 1,000 mg tablet 1,000 mg PO BID 01/19/24 01/19/24 omeprazole 40 mg capsule,delayed 40 mg PO DAILY 01/19/24 01/19/24 release sitagliptin phosphate 100 mg 100 mg PO DAILY 01/19/24 01/19/24 tablet (Januvia) thiamine HCl (vitamin B1) 100 mg 100 mg PO DAILY 01/19/24 01/19/24 tablet trazodone 150 mg tablet 150 mg PO BEDTIME 01/19/24 01/19/24 Mental Status Exam Mental Status Exam Patient Appearance: Appropriate Level of Consciousness: Disoriented and Lethargic Patient Behavior: Restless and Resistive to Care Mood Description: Withdrawn Affect Description: Blunted Patient Cognition Impaired: Yes Ability to Follow Directions: Poor Speech Pattern: No Speech Hallucinations: None Delusions: Ideas of Reference Thought Process: Distracted and Slowed Thinking Thought Content: positive for Poverty of Content and positive for Thought Blocking Judgement: Poor Data Data Completed and Pending Completed studies during hospitalization [Text1]: 01/27/24 01/28/24 01/28/24 19:42 06:18 19:57 WBC RBC Hgb Hct MCV MCH MCHC RDW Plt Count MPV Immature Gran % (Auto) Neut % (Auto) Lymph % (Auto) [place] % (Auto) Eos % (Auto) Baso % (Auto) Lymph # (Auto) [place] # (Auto) Eos # (Auto) Baso # (Auto) Abs Immat Gran (auto) Absolute Neuts (auto) Absolute Nucleated RBC Nucleated RBC % (auto) Sodium Potassium Chloride Carbon Dioxide Anion Gap BUN Creatinine Estim Creat Clear Calc Estimated GFR POC Glucose 191 H 148 H 201 H Random Glucose Calcium Total Bilirubin AST ALT Alkaline Phosphatase Total Protein Albumin 01/29/24 01/29/24 01/30/24 05:52 22:27 06:50 WBC RBC Hgb Hct MCV MCH MCHC RDW Plt Count MPV Immature Gran % (Auto) Neut % (Auto) Lymph % (Auto) [place] % (Auto) Eos % (Auto) Baso % (Auto) Lymph # (Auto) [place] # (Auto) Eos # (Auto) Baso # (Auto) Abs Immat Gran (auto) Absolute Neuts (auto) Absolute Nucleated RBC Nucleated RBC % (auto) Sodium Potassium Chloride Carbon Dioxide Anion Gap BUN Creatinine Estim Creat Clear Calc Estimated GFR POC Glucose 150 H 142 H 138 H Random Glucose Calcium Total Bilirubin AST ALT Alkaline Phosphatase Total Protein Albumin 01/30/24 01/31/24 01/31/24 23:49 07:50 22:01 WBC RBC Hgb Hct MCV MCH MCHC RDW Plt Count MPV Immature Gran % (Auto) Neut % (Auto) Lymph % (Auto) [place] % (Auto) Eos % (Auto) Baso % (Auto) Lymph # (Auto) [place] # (Auto) Eos # (Auto) Baso # (Auto) Abs Immat Gran (auto) Absolute Neuts (auto) Absolute Nucleated RBC Nucleated RBC % (auto) Sodium Potassium Chloride Carbon Dioxide Anion Gap BUN Creatinine Estim Creat Clear Calc Estimated GFR POC Glucose 161 H 146 H 120 H Random Glucose Calcium Total Bilirubin AST ALT Alkaline Phosphatase Total Protein Albumin 02/01/24 02/01/24 02/01/24 05:45 09:53 20:03 WBC 6.0 RBC 5.03 Hgb 13.1 L Hct 38.5 L MCV 76.5 L MCH 26.0 L MCHC 34.0 RDW 12.8 Plt Count 252 MPV 9.2 L Immature Gran % (Auto) 0.2 Neut % (Auto) 72.4 Lymph % (Auto) 18.4 L [place] % (Auto) 8.7 Eos % (Auto) 0.0 Baso % (Auto) 0.3 Lymph # (Auto) 1.1 L [place] # (Auto) 0.5 Eos # (Auto) 0.0 Baso # (Auto) 0.0 Abs Immat Gran (auto) 0.01 Absolute Neuts (auto) 4.3 Absolute Nucleated RBC 0.000 Nucleated RBC % (auto) 0.0 Sodium 135 Potassium 4.4 Chloride 95 L Carbon Dioxide 30 H Anion Gap 14 BUN 29 H Creatinine 1.08 Estim Creat Clear Calc 39.8 Estimated GFR > 60 POC Glucose 137 H 143 H Random Glucose 181 H Calcium 9.9 Total Bilirubin 0.3 AST 66 H ALT 53 H Alkaline Phosphatase 97 Total Protein 7.4 Albumin 3.9 02/02/24 02/02/24 02/03/24 05:59 19:57 05:55 WBC RBC Hgb Hct MCV MCH MCHC RDW Plt Count MPV Immature Gran % (Auto) Neut % (Auto) Lymph % (Auto) [place] % (Auto) Eos % (Auto) Baso % (Auto) Lymph # (Auto) [place] # (Auto) Eos # (Auto) Baso # (Auto) Abs Immat Gran (auto) Absolute Neuts (auto) Absolute Nucleated RBC Nucleated RBC % (auto) Sodium Potassium Chloride Carbon Dioxide Anion Gap BUN Creatinine Estim Creat Clear Calc Estimated GFR POC Glucose 206 H 165 H 147 H Random Glucose Calcium Total Bilirubin AST ALT Alkaline Phosphatase Total Protein Albumin DS: Summary Hospital Course Hospital Course: The patient is a 78-year-old male with a past history of dementia who was brought to the facility from another hospital for exacerbation of agitation and disorganized behavior. He was medically stabilized and transferring to this facility for continuation of care. Please see the HPI of the admission note for further details. On admission, the patient had being nearly nonverbal, agitated at times. In the other facility he was taking a high dose of Haldol 5 mg in the morning and 10 at night but the patient was spitting all his medications. The patient had a healthcare proxy who is his and secondary her older son who are very involved in his care. Apparently the patient had been suffering from dementia for several years and has worsen it to the point that he can not feed himself. The patient stopped eating and drinking, we had 2 family meetings the 1st 1 we discussed with the family about end of life decisions and they signed a MOLST and they decided DNR DNI. Also we had a family meeting yesterday and the family does not want artificial hydration or feeding. It is clear that the patient is in the terminal dementia. Since the patient was not taking his medications, spitting his meds and he had been restless the case was discussed with Medicine and they agreed to take him for IV medications and aftercare to hospice. Time spent discussing smoking cessation with patient: 3 to 10 minutes Status at Discharge Cognitive/behavioral status at discharge: Severely impaired Functional status at discharge: bed bound Overall status at discharge: patient is not back to baseline Time Spent with Patient Time attestation: Total time managing care of this patient today __30__ minutes. Time spent: Less than 30 minutes Discharge Plan Discharge Anticipated Discharge Date/Time: 02/03/24 10:38 Patient Disposition: Xfer Acute Care Hospital Discharge Diagnosis: Dementia terminal Referrals: Physician,Unknown J [Primary Care Provider] - 1 Week Discharge Medications: Discontinued atorvastatin 80 mg tablet 80 mg PO BEDTIME donepezil 10 mg tablet 10 mg PO BEDTIME escitalopram oxalate 10 mg tablet 10 mg PO DAILY magnesium oxide 400 mg (241.3 mg magnesium) Tablet 400 mg PO BID haloperidol [Haldol] 5 mg Tablet 15 mg PO BEDTIME haloperidol [Haldol] 5 mg Tablet 5 mg PO DAILY@1200 trazodone 150 mg Tablet 150 mg PO BEDTIME divalproex [Depakote Sprinkles] 125 mg Capsule, Delayed Rel Sprinkle 500 mg PO BEDTIME metformin 1,000 mg Tablet 1,000 mg PO BID gabapentin 600 mg tablet 600 mg PO BEDTIME gabapentin 600 mg tablet 1,200 mg PO QAM thiamine HCl (vitamin B1) 100 mg tablet 100 mg PO DAILY folic acid 1 mg tablet 1 mg PO DAILY Januvia 100 mg tablet 100 mg PO DAILY divalproex [Depakote Sprinkles] 125 mg Capsule, Delayed Rel Sprinkle 500 mg PO QNOON omeprazole 40 mg capsule,delayed release(DR/EC) 40 mg PO DAILY lisinopril 20 mg tablet 20 mg PO QAM Discharge Orders: Discharge Order (Routine); Ordered 02/03/24 Ordered By: Goldy Harper Diet: Advance to usual diet Activity on Discharge: As tolerated Stand Alone Forms: Patient Portal Discharge page Print Language: Turkmen Care Plan Goals: Patient transferred to Medicine for continuation of care, referred for hospice Health Concerns: Patient transferred to Medicine for continuation of care, referred for hospic Plan of Treatment: Patient transferred to Medicine for continuation of care, referred for hospic Assessment: The patient is an elderly male with a past history of dementia that worsened to the point that he is on terminal phase unable to feed himself. The family does not want artificial hydration, artificial nutrition or any other excessive treatment. Transferred to Medicine for continuation of care and management.
--- NOTE | 2024-02-03 10:48 | MHC.CLN ---
F/U PATIENT IS COMFORT MEASURES ONLY. RD AVAILABLE NEEDED.
== END 2024-02-03 14:10 | disposition short-term general hospital (02) | DRG 884 ==
PROVIDERS: Clinical Nurse Specialist Psychiatric/Mental Health; Social Worker; Admitting Provider Psychiatry & Neurology Psychiatry; Visit Provider Psychiatry & Neurology Psychiatry
DX: F03.918 Unspecified dementia, unspecified severity, with other behavioral disturbance (principal); F33.2 Major depressive disorder, recurrent severe without psychotic features; Z91.83 Wandering in diseases classified elsewhere; Z66 Do not resuscitate; F10.90 Alcohol use, unspecified, uncomplicated; I10 Essential (primary) hypertension; E11.40 Type 2 diabetes mellitus with diabetic neuropathy, unspecified; E78.5 Hyperlipidemia, unspecified; K21.9 Gastro-esophageal reflux disease without esophagitis; Z79.899 Other long term (current) drug therapy
CPT/HCPCS: 36415; 80053; 80061; 82565; 82607; 82746; 82947; 83735; 84443; 85025; 92610

== ENCOUNTER → 2024-01-19 20:53 | Outpatient (BNV) | payer MEDICARE, MEDICAID, OTHER, SELFPAY | PROVIDERS: Admitting Provider Psychiatry & Neurology Psychiatry; Visit Provider Student in an Organized Health Care Education/Training Program | DX: Z02.2 Encounter for examination for admission to residential institution (principal) | CPT/HCPCS: 99429 ==

== ENCOUNTER → 2024-01-19 20:53 | Outpatient (BNV) | payer MEDICARE, OTHER, MEDICAID, SELFPAY | PROVIDERS: Admitting Provider Psychiatry & Neurology Psychiatry; Visit Provider Clinical Nurse Specialist Psychiatric/Mental Health | DX: F03.918 Unspecified dementia, unspecified severity, with other behavioral disturbance (principal) | CPT/HCPCS: 90792; 99231; 99232; 99238 ==

== ENCOUNTER 2024-02-03 15:00 | Inpatient (IN) | payer MEDICARE, OTHER, SELFPAY ==
--- NOTE | 2024-02-03 10:49 | P.HPHOSP_ITS ---
History of Present Illness Date of Service: 02/03/24 Chief Complaint: agitation, inability to take po 78M PMH alchol dementia admitted to [facility] for increased agitation, after discussions with family patient was transitioned to end of life care, disease directed interventions were discontinued and focus on comfort exclusively pursued. however, patient has been unable to tolerate po meds, spitting them up. he is at times restless and danger to self harm and pain. therefore, will be admitted to medical service for iv interventions as needed, and to avoid self infilcted trauma due to agitation. Review of Systems Review of Systems: Yes Unobtainable due to mental condition [facility] Medical History Alcohol use disorder Diabetic neuropathy Hyponatremia Hypomagnesemia Diabetes HTN (hypertension) Social History Household Members: Spouse and Children Household Members Other:: Radha Rivera [phone] Son Zechariah Rivera [phone] Comment: New adm last night, still sedated, Dr Li aware. Will continue to monitor. Patient Tobacco Use Status: Tobacco use Unknown Sexual orientation: Straight/Heterosexual Meds Allergies Allergy/AdvReac Type Severity Reaction Status Date / Time No Known Allergies Allergy Verified 01/19/24 21:18 Active Medications: Current Medications Sodium Chloride (0.9 % Sodium Chloride Flush 3 Ml Syringe) 3 ml IVFLUSH QSHIFT KORI Physical Exam Vital Signs and Narrative: lethargic, sitting up in recliner, eyes closed, unaware of surrounding, not coversive Assessment and Plan (1) Dementia, unspecified, with behavioral disturbance: Status: Acute Plan 78M PMH alcoholic dementia presented from [facility] for increased needs to provide end of life care advanced alcoholic dementia with agitation continue haldol, ativan po as able to take iv prn hospice eval DNR/DNI patient requiring iv meds and close supervision to obtain ideal end of life care, therefore expected to require atleast 2 midnights inpatient Quality Stroke Does the patient have a stroke diagnosis?: No VTE Prior VTE?: No VTE Risk Level:: Medical - moderate - high VTE Device Contraindication: Treatment Not Indicated VTE Drug Contraindication: Treatment Not Indicated
--- OUTSIDE RECORDS SUMMARY | 2024-02-03 15:03 | XMS_ITS | Continuity of Care Document ---
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 Name Role Phone MD Kenia Sheehan Primary Care Provider MD Nelson Pedraza Attending Provide r MD Carrol Castelan Admit Provider Care Teams Patient Care Team Team Status: Active Member Role Status Dates Kenia Sheehan MD Primary Care Provider Active Visit Care Team Team Status: Inactive Member Role Status Dates Kenia Sheehan MD Primary Care Provider Active Start: December 15, 2023 End: January 19, 2024 Eric Apple MD Emergency Provider Active Start: December 15, 2023 End: January 19, 2024 Sandip Cerrato MD Other Provider Active Start: December 15, 2023 End: January 19, 2024 Nelson Pedraza MD Attending Provider Act dorian Start: December 15, 2023 End: January 19, 2024 Carrol Castelan MD Admit Provider Active Start: 2023 End: January 19, 2024 Chief Complaint and Reason for Visit Chief Complaint hypomagnesemia, conf usion Reason for Visit Dementia Dementia with behavioral disturbance Hypomagnesemia Allergies, Adverse Reactions, Alerts No known allergies Social History Smoking Status Status Start Date End Date Date of Observa tion Unknown if ever smoked December 15, 2023 1:34pm Observation Status Observation Response Date of Response Is pt a current\former smoke r or user of tobacco products? Yes, former December 15, 2023 2:34pm Does the patient use drugs? Rogerio berman 2023 9:55am On average how many days per week do you drink alcohol? December 15, 2023 9:55am Additional Data Assigned Sex Male Problems Active Problems Medical Problem Onset Date Status Dementia with behavioral disturbance Active Dementia Active Hypomagnesemia Active Inactive/Resolved Problems Medical Problem Onset Date [...] Day 454 November 09, 2020 1:00am Februa 2020 1:08am Loratadine Disconti nued 10 MG PO Daily 14 [facility] 2020 1:00am Januar y 2022 1:29pm Atorvastatin Disconti nued 80 MG PO Bedtime [facility] 2018 1:00am December 15, 2023 1:38pm Gabapentin Disconti nued 1200 MG PO Every Morning [facility] 2018 1:00am December 15, 2023 1:38pm Lisinopril Disconti nued 20 MG PO Every Morning [facility] 2018 1:00am December 15, 2023 1:38pm Metformin Disconti nued 1000 MG PO Twice A Day [facility] 2018 1:00am December 15, 2023 1:38pm Glipizide Disconti nued 5 MG PO Twice A Day [facility] 2018 1:00am Januar y 2022 1:29pm Insulin Glargine (Lantus Solostar U-100 Insulin) 100 unit/mL (3 mL) insulin pen Disconti nued 8 UNIT SUB-Q Twice A Day [facility] 2018 1:00am December 13, 2021 5:01pm Quetiapine (Seroquel) 50 mg tablet Disconti nued 50 MG PO Bedtime December 13, 2021 1:00am Januar 2022 3:10pm Donepezil (Aricept) 5 mg tablet Disconti nued 10 MG PO Every Day At Bedtime December 13, 2021 1:00am December 15, 2023 1:38pm Thiamine Hcl (Vitamin B1) (Vitamin B-1) 100 mg tablet Disconti nued 100 MG PO Daily December 13, 2021 1:00am December 15, 2023 1:38pm Folic Acid Disconti nued 1 MG PO Daily December 13, 2021 1:00am December 15, 2023 1:38pm Omeprazole Disconti nued 40 MG PO Daily December 13, 2021 1:00am December 15, 2023 1:38pm Aspirin Disconti nued 81 MG PO Daily December 13, 2021 1:00am December 15, 2023 1:38pm Gabapentin Disconti nued 600 MG PO Every Day At Bedtime November 01, 2022 1:00am December 15, 2023 1:38pm Escitalopram Oxalate Disconti nued 5 MG PO Daily November 01, 2022 1:00am Octuar y 2022 3:10pm Multivit-Min -Fa-Lycopen- Lutein (Centrum Silver) 0.4 mg-300 mcg- 250 mcg Tablet Disconti nued 1 TAB PO Daily November 01, 2022 1:00am December 15, 2023 1:38pm Cholecalcife rol (Vitamin D3) Disconti nued 25 MCG PO Daily November 01, 2022 1:00am December 15, 2023 1:38pm Carboxymethy lcellulose Sodium Disconti nued 1 DROP EYE-BOT H Daily November 01, 2022 1:00am December 15, 2023 1:38pm Quetiapine Disconti nued 25 MG PO 1500 November 09, 2022 1:00am December 15, 2023 1:38pm Quetiapine Disconti nued 25 MG PO Bedtime November 09, 2022 1:00am December 15, 2023 1:38pm Trazodone Disconti nued 25 MG PO Bedtime November 09, 2022 1:00am December 15, 2023 1:38pm Quetiapine Disconti nued 50 MG PO Every Day At Bedtime December 15, 2023 1:00am January 19, 2024 11:11a m Atorvastatin Active 80 MG PO Every D ay At Bedtime December 15, 2023 1:00am Gabapentin Active 1200 MG PO Every Morning December 15, 2023 1:00am Gabapentin Active 600 MG PO Every Day At Bedtime December 15, 2023 1:00am Trazodone Disconti nued 25 MG PO Every Day At Bedtime December 15, 2023 1:00am January 19, 2024 11:11a m Donepezil Active 10 MG PO Every Day At Bedtime December 15, 2023 1:00am Lisinopril Active 20 MG PO Daily December 15, 2023 1:00am Thiamine Hcl (Vitamin B1) Active 100 MG PO Daily December 15, 2023 1:00am Omeprazole Active 40 MG PO Daily December 15, 2023 1:00am Folic Acid Active 1 MG PO Daily December 15, 2023 1:00am Metformin Disconti nued 1000 MG PO Every Morning December 15, 2023 1:00am January 19, 2024 11:18a m Metformin Disconti nued 500 MG PO Every Evening December 15, 2023 1:00am January 19, 2024 11:18a m Escitalopram Oxalate Active 10 MG PO Daily December 15, 2023 1:00am Sitagliptin Phosphate (Januvia) 100 mg tablet Active 100 MG PO Daily December 15, 2023 1:00am Magnesium Oxide Active 400 MG PO Twice A Day December 29, 2023 12:00am Haloperidol Active 15 MG PO Every Da y At Bedtime January 19, 2024 12:00am Haloperidol Active 5 MG PO DAILY@1200 7 A pril 2023 12:00am Trazodone Active 150 MG PO 20 January 19, 2024 12:00am Divalproex Active 500 MG PO Every Day At Bedtime January 19, 2024 12:00am Divalproex Active 500 MG PO 12 January 19, 2024 12:00am Metformin Active 1000 MG PO 2 times pe r day with meals January 19, 2024 12:00am Procedures Procedure Date Performed Status CT head/brain wo con December 15, 2023 9:40am comp leted XR chest 1V portable December 15, 2023 9:40am comp leted US renal w bladder December 26, 2023 12:00am comp leted Relevant Diagnostic Tests and/or Laboratory Data Laboratory Results Test Date/Time Result Interpretation Reference Range Result Comment Performing Site White Blood Count January 14, 2024 7:00am 3.6 10^3/uL 3.9-10.8 [facility] [id number] [address] [place] [address] Red Blood Count January 14, 2024 7:00am 4.3 10^6/uL 4.2-5.6 [facility] [id number] [address] [place] [address] Hemoglobin January 14, 2024 7:00am 11.4 g/dL 14.0-17.3 [facility] [id number] [address] [place] [address] Hematocrit January 14, 2024 7:00am 33.9 % 40.0-49.0 [facility] [id number] [address] [place] [address] Mean Corpuscular Volume January 14, 2024 7:00am 78.7 fL 82.0-102.0 [facility] [id number] [address] [place] [address] Mean Corpuscular Hemoglobin January 14, 2024 7:00am 26.5 pg 25.7-33.2 [facility] [id number] [address] [place] [address] Mean Corpuscular Hemoglobin Concent January 14, 2024 7:00am 33.6 g/dL 32.0-36.0 [facility] [id number] [address] [place] [address] Platelet Count January 14, 2024 7:00am 244 10^3uL 150-400 [facility] [id number] [address] [place] [address] RDW Standard Deviation January 14, 2024 7:00am 37.2 fL 32.9-69.6 [facility] [id number] [address] [place] [address] RDW Coefficient of Variation January 14, 2024 7:00am 13.0 % 12.0-15.0 [facility] [id number] [address] [facility] [address] [facility] [address] Mean Platelet Volume January 14, 2024 7:00am 9.8 fL 8.5-13.0 [facility] [id number] [address] [facility] [address] Neutrophils (%) (Auto) December 22, 2023 7:52am 47.1 % 43.0-74.0 Delta: 71.6 on 12/15/23-0850 [facility] [id number] [address] [facility] [address] [facility] [address] Lymphocytes (%) (Auto) December 22, 2023 7:52am 43.9 % 17.0-47.0 [facility] [id number] [address] [facility] [address] Monocytes (%) (Auto) December 22, 2023 7:52am 7.6 % 5.0-12.0 [facility] [id number] [address] [facility] [facility] [address] Eosinophils (%) (Auto) December 22, 2023 7:52am 0.4 % 0.1-6.0 [place] [id number] [address] [facility] [address] [facility] [address] Basophils (%) (Auto) December 22, 2023 7:52am 0.6 % 0.0-2.0 [place] [id number] [address] [facility] [address] [facility] [address] Immature/Total Granulocytes (auto) December 22, 2023 7:52am 0.4 % 0-5.0 [place] [id number] [address] [facility] [address] [facility] [address] Nucleated Red Blood Cells % (auto) December 22, 2023 7:52am 0.0 % 0.0-0.2 [facility] [id number] [address] [facility] [address] [facility] [address] Absolute Neutrophils (auto) December 22, 2023 7:52am 2.3 10^3/uL 1.5-8.1 [facility] [id number] [address] [facility] [address] Absolute Lymphocytes (auto) December 22, 2023 7:52am 2.2 10^3/uL 0.95-4.2 [facility] [id number] [address] [facility] [address] Absolute Monocytes (auto) December 22, 2023 7:52am 0.4 10^3/uL 0.2-1.2 [facility] [id number] [address] [facility] [facility] [address] Absolute Eosinophils (auto) December 22, 2023 7:52am 0.0 10^3/uL 0.06-0.6 [id number] [facility] [address] Absolute Basophils (auto) December 22, 2023 7:52am 0.0 10^3/uL 0.0-0.12 [place] [id number] [address] [facility] [address] Absolute Immature Granulocyte (auto December 22, 2023 7:52am 0.02 K/uL 0.00-0.66 [id number] [facility] [address] Nucleated RBC Absolute Count (auto) December 22, 2023 7:52am 0.0 K/uL 0.00-0.2 [facility] [id number] [address] [facility] [address] [facility] [address] Urine Color December 15, 2023 11:25am Yellow Yellow [facility] [id number] [address] [facility] [address] Urine Clarity December 15, 2023 11:25am Clear Clear [facility] [id number] [address] [facility] [address] Urine Specific [place] December 15, 2023 11:25am 1.009 1.005-1.03 0 [place] [id number] [address] [facility] [address] Urine Glucose (UA) December 15, 2023 11:25am 100 Negative [facility] [id number] [address] [facility] [address] Urine Bilirubin December 15, 2023 11:25am Negative Negative [facility] [id number] [address] [facility] [address] Urine Ketones December 15, 2023 11:25am Negative Negative [facility] [id number] [address] [facility] [address] Urine Occult Blood December 15, 2023 11:25am Trace Negative [facility] [id number] [address] [facility] [address] Urine pH December 15, 2023 11:25am 7.5 5.0-7.0 [facility] [id number] [address] [facility] [address] Urine Protein December 15, 2023 11:25am Negative mg/dL Negative [facility] [id number] [address] [facility] [address] Urine Urobilinogen December 15, 2023 11:25am 0.2 E.U./dL 0.2-1.0 [facility] [id number] [address] [facility] [address] Urine Nitrite December 15, 2023 11:25am Negative Negative [facility] [id number] [address] [facility] [address] Urine Leukocyte Esterase December 15, 2023 11:25am Negative Negative [facility] [id number] [address] [facility] [address] Urine WBC December 15, 2023 11:25am None seen /hpf 0-5 [facility] [id number] [address] [facility] [address] Urine RBC December 15, 2023 11:25am None seen /hpf 0-2 [facility] [id number] [address] [facility] [address] Urine Squamous Epithelial Cells December 15, 2023 11:25am Trace /hpf Trace [facility] [id number] [address] [facility] [address] Urine Bacteria December 15, 2023 11:25am Negative /hpf Negative [facility] [id number] [address] [facility] [address] Urine Hyaline Casts December 15, 2023 11:25am None seen /hpf None Seen [facility] [id number] [address] [place] [address] Sodium Level January 14, 2024 7:00am 139 mmol/L 136-145 [facility] [id number] [address] [place] [address] Potassium Level January 14, 2024 7:00am 4.2 mmol/L 3.5-5.1 [facility] [id number] [address] [place] [address] Chloride Level January 14, 2024 7:00am 97 mmol/L 98-107 Delta: 104 on 01/04/24-1028 [facility] [id number] [address] [facility] [address] Carbon Dioxide Level January 14, 2024 7:00am 29 mmol/L 22-29 [facility] [id number] [address] [facility] [address] Anion Gap January 14, 2024 7:00am 13 mmol/L 6-18 [facility] [id number] [address] [facility] [address] Blood Urea Nitrogen January 14, 2024 7:00am 19 mg/dL 6-20 [facility] [id number] [address] [facility] [address] Creatinine January 14, 2024 7:00am 1.1 mg/dL 0.7-1.2 [facility] [id number] [address] [facility] [address] Glomerular Filtration Rate Calc January 14, 2024 7:00am 68.29 Estimated GFR (CKD-EPI Refit 2020) units: mL/min/1.73m?? [facility] [id number] [address] [facility] [address] Glucose Level January 14, 2024 7:00am 178 mg/dL 74-109 [facility] [id number] [address] [facility] [address] Calcium Level January 14, 2024 7:00am 9.6 mg/dL 8.6-10.6 [facility] [id number] [address] [facility] [address] Total Bilirubin January 02, 2024 9:49am 0.5 mg/dL 0.4-1.2 Delta: 0.2 on 12/15/23 [facility] [id number] [address] [facility] [address] Aspartate Amino Transf (AST/SGOT) January 02, 2024 9:49am 39 IU/L 10-50 [facility] [id number] [address] [facility] [address] Alanine Aminotransferase (ALT/SGPT) January 02, 2024 9:49am 57 U/L 5-41 Delta: 36 on 12/15/23 [facility] [id number] [address] [facility] [address] Alkaline Phosphatase January 02, 2024 9:49am 103 IU/L 40-129 [facility] [id number] [address] [facility] [address] Total Protein January 02, 2024 9:49am 7.5 g/dL 6.6-8.7 [facility] [id number] [address] [facility] [address] Albumin January 02, 2024 9:49am 4.2 g/dL 3.5-5.2 [facility] [id number] [address] [facility] [address] Magnesium Level December 26, 2023 11:46am 1.5 mg/dL 1.6-2.6 [facility] [id number] [address] [facility] [address] Troponin T High Sensitivity December 15, 2023 12:11pm 33 ng/L 0-19 Delta: 24 on 12/15/23R EFER TO [facility]S ALGORITHM FOR CLINICAL DECISION MAKING (located on the external links).hs-cTnT 30, 52, 100 and 1000 ng/L correspond to approximately 0.01, 0.03, 0.1, and 1 ng/L respectively in the previous cTropnT assay. hs-cTnT <= 19 ng/L in 99% of healthy individuals. [facility] [id number] [address] [facility] [address] Salicylates Level December 15, 2023 9:50am < 1.0 mg/dL 3.0-10.0 [facility] [id number] [address] [facility] [address] Acetaminophen Level December 15, 2023 9:50am < 5.0 ug/mL 10.0-30.0 [facility] [id number] [address] [facility] [address] Ethyl Alcohol Level December 15, 2023 9:50am < 10 mg/dL <10 [facility] [id number] [address] [facility] [address] Influenza Virus Type A (PCR) December 15, 2023 12:25pm Negative Negative [facility] [id number] [address] [facility] [address] Influenza Virus Type B (PCR) December 15, 2023 12:25pm Negative Negative [facility] [id number] [address] [facility] [address] Respiratory Syncytial Virus (RT-PCR December 15, 2023 12:25pm Negative Negative [facility] [id number] [address] [facility] [address] SARS-CoV-2 (PCR) January 19, 2024 11:02am Negative Negative Test performed with [employer] GeneXpert SARS-CoV-2 PCR assay, which has received emergency use authorization (EUA) by the U.S.Food and Drug Administration . Negative results do not preclude SARS-CoV-2 infection and should not be used as the sole basis for treatment or other patient management decisions. [facility] [id number] [address] [facility] [address] Bedside Glucose January 18, 2024 9:49pm 282 mg/dL 70-115 [place] [id number] [address] [facility] [address] Diagnostic Imaging Reports Author Brodie Thomas [facility] December 15, 2023 9:11am Report Date/Time December 15, 2023 9:[address] [address] XRay Report Signed Patient: Maryana Rivera MR#: [id number] : 1945 Acct: [id number] Age/Sex: 78 / M ADM Date: 12/15/23 Loc: M.ER Attending Dr: ER Physician: Eric Apple MD Ordering Physician: Colby Velazco PA-C Pat CELL Date of Service: 12/15/23 Procedure(s): XR chest 1V portable Accession Number(s): [id number] CC: Kenia Sheehan MD; Colby Velazco PA-C * XR chest 1V portable Accession Number(s): [id number] Reason for Study: AMS, r/o pneumonia Interpretation Location: [place] [address] -- Date/Time: 12/15/2023 at 9:10 AM Comparison to 12/13/2021. Normal heart size and pulmonary vasculature. Lungs are clear. No pleural effusions. Mediastinal contour is stable. IMPRESSION: No acute disease. Electronically Signed by: Brodie Thomas M.D. 12/15/2023 9:11 AM _ __ Technologist: Dinora Gil Dictated By: Brodie Thomas MD Transcribed By: OV.PSCRIBE Signed By: <Electronically signed by Brodie Thomas MD in OV> Brodie Thomas MD Signed Date/Time: 12/15/23910 DD/ 8 TD/TT: 12/15/23910 CC: Kenia Sheehan MD; Colby Velazco PA-C Author Donald Sepulveda [facility] December 15, 2023 9:35am Report Date/Time December 15, 2023 9:[address] [address] CT Scan Report Signed Patient: Maryana Rivera MR#: [id number] : 1945 Acct: [id number] Age/Sex: 78 / M ADM Date: 12/15/23 Loc: M.ER Attending Dr: ER Physician: Eric Apple MD Ordering Physician: Colby Velazco PA-C Pat CELL Date of Service: 12/15/23 Procedure(s): CT head/brain wo con Accession Number(s): [id number] CC: Kenia Sheehan MD; Colby Velazco PA-C * CT head/brain wo con Interpretation Location: [id number] Accession Number: [id number] Date / Time: 12/15/2023 9:00 AM INDICATION: AMS TECHNIQUE: CT images of the head were obtained without the administration of contrast. All CT exams at this facility use one or more dose reduction techniques such as automated exposure control, mA/kV adjustment per patient size of (including targeted exams where dose is matched to indication, i.e., head) or iterative reconstruction technique. DOSE: DLP: 857 mGy-cm. COMPARISON: CT dated November 02, 2022 FINDINGS: MYSQL DEVELOPER: No additional findings. There is generalized cerebral volume loss. There is no hydrocephalus. There is no intracranial mass lesion or focal mass effect. There are chronic microvascular ischemic changes. There is no demarcated territorial infarct. No acute intraparenchymal or subarachnoid hemorrhage is present. There is no extraaxial collection. The visualized paranasal sinuses are well aerated. The mastoid air cells are well aerated. The visualized orbits are unremarkable. There is no calvarial fracture. IMPRESSION: 1. No acute intracranial abnormality. Electronically Signed by: Donald Sepulveda MD 12/15/2023 9:35 AM _ __ Technologist: Melia Duggan Dictated By: Donald Sepulveda MD Transcribed By: OV.PSCRIBE Signed By: <Electronically signed by Donald Sepulveda MD in OV> MD Curry Signed Date/Time: 12/15/23934 DD/ 2 TD/TT: 12/15/23934 CC: Kenia Sheehan MD; Colby Velazco PA-C Author Elbert Harper [facility] December 18, 2023 7:51am Report Date/Time December 17, 2023 1:[address] [address] Electrocardiogram Report Signed Patient: Maryana Rivera MR#: [id number] : 1945 Acct: [id number] Age/Sex: 78 / M ADM Date: 12/15/23 Loc: M.3N [id number]: Roma Hoffman MD ER Physician: Eric Apple MD Ordering Physician: Colby Velazco PA-C [facility] CELL Date of Service: 12/15/23 Procedure(s): EKG (ER) Accession Number(s): [id number] CC: Kenia Sheehan MD; Colby Velazco PA-C Date: 12/15/23 Time: 0847 Clinical Diagnosis: Referred By: Rhythm: Normal sinus rhythm rate of 73 bpm Rate auricular: ventricular: P-R interval: 245 msec [place]: Q-R-S interval: Q-T interval: P-Wave: Q-R-S complexes: T-Waves: Other findings: Interpretation: Normal sinus rhythm. First degree AV delay. Right bundle branch block. Nonspecific ST-T wave abnormality. No prior EKG for comparison. ___ Technologist: Dictated By: Elbert Harper MD Transcribed By: JENNIFER Signed By: <Electronically signed by Elbert Harper MD> Elbert Harper MD Signed Date/Time: 12/18/23 0751 DD/ 0900 TD/TT: 12/17/23 1313 CC: Kenia Sheehan MD; Colby Velazco PA-C Author Jean Pierre García [facility] December 27, 2023 7:54am Report Date/Time December 27, 2023 7:5 7am [place] [id number] Ultrasound Report Signed Patient: Maryana Rivera MR#: [id number] : 1945 Acct: [id number] Age/Sex: 78 / M ADM Date: 12/15/23 Loc: M.3N [id number]: Carrol Castelan MD ER Physician: Eric Apple MD Ordering Physician: Carrol Castelan MD Pat CELL Date of Service: 12/26/23 Procedure(s): US renal w bladder Accession Number(s): [id number] CC: Carrol Castelan MD; Inpatient Provider,[place]; Kenia Sheehan MD * US renal w bladder Interpretation Location: [facility] Accession Number: [id number] Date / Time: 12/26/2023 8:00 PM -- INDICATION: KELLEE TECHNIQUE: Juan scale and color Doppler ultrasound images of the kidneys and bladder were obtained. COMPARISON: None. FINDINGS: The right kidney measures 10.9 x 5.1 x 5.8 cm. The left kidney measures 9.9 x 5.9 x 5.1 cm. Normal cortical echogenicity and corticomedullary differentiation are seen bilaterally. There is no hydronephrosis, stones, or masses bilaterally. The prostate measures 6.5 x 5.8 x 5.3 cm. Bladder is grossly normal. Atherosclerotic disease of the aorta is noted. IMPRESSION: No ureteral calculus or hydronephrosis. Prostatomegaly. Electronically Signed by: Jean Pierre García 12/27/2023 7:54 AM _ __ Technologist: Yuliana Dee Cadet Dictated By: Jean Pierre García MD Transcribed By: OV.PSCRIBE Signed By: <Electronically signed by Jean Pierre García MD in OV> Jean Pierre García MD Signed Date/Time: 12/27/23753 DD/ 1 TD/TT: 12/27/23753 CC: Carrol Castelan MD; Inpatient Provider,[place]; Kenia Sheehan MD Author [facility] January 13, 2024 3:07pm Report Date/Time January 13, 2024 12:0 8pm [place] [address] Electrocardiogram Report Signed Patient: Maryana Rviera MR#: [id number] : 1945 Acct: [id number] Age/Sex: 78 / M ADM Date: 12/15/23 Loc: [place] [id number]: Kei Echavarria MD ER Physician: Eric Apple MD Ordering Physician: Sandip Cerrato MD Pat CELL Date of Service: 01/10/24 Procedure(s): EKG (Inpatient/outpatient) Accession Number(s): [id number] CC: Sandip Cerrato MD; Kenia Sheehan MD Date: 01/10/24 Time: 06:43 Clinical Diagnosis: Referred By: Rhythm: Sinus bradycardia/47 bpm Rate auricular: ventricular: P-R interval: [place]: Q-R-S interval: Q-T interval: P-Wave: Q-R-S complexes: T-Waves: Other findings: Interpretation: Right bundle branch block, left anterior fascicular block, low voltage. ___ Technologist: Dictated By: Wing Jeyson Branch MD Transcribed By: KALLIE Signed By: <Electronically signed by Wing Jeyson Branch MD> Wing Jeyson Branch MD Signed Date/Time: 01/13/24 1507 DD/ 1100 TD/TT: 01/13/24 1206 CC: Sandip Cerrato MD; Kenia Sheehan MD Vital Signs Vital Reading Result Reference Range Collection Date/Time Height 69.6 [in_i] December 15, 2023 2:36pm Weight 60.80 kg January 17 6:00am Body Temperature 97.4 [degF] 97.5-99.3 January 18, 2024 8:32am Heart Rate 58 /min 60-90 January 17 8:32am Respiratory rate 16 /min 12-20 January 18, 2024 8:32am Oxygen saturation by Pulse oximetry 94 % 95-100 January 18, 2024 8:3 2am BP Systolic 153 mm[Hg] 100-160 January 17 8:32am BP Diastolic 72 mm[Hg] 60-90 January 17 8:32am Advance Directives Advance Directive Response Recorded Date/ Time Date Patient Queried 12/15/23 December 15, 2023 9:12am Does the patient have a Healthcare Proxy? Yes June 05, 2021 4:54pm Healthcare Proxy Agent Name Radha Mayen st 2020 4:54pm Healthcare Proxy Agent Phone # [phone] Nidia [facility] 2020 4:54pm Is the Healthcare Proxy on f ile at [facility]? Unknown June 05, 2021 4:54pm Does pt. have a legal guardian? No June 15, 2022 5:11pm Insurance Providers Guarantor Maryana Rivera Address [address] [facility] [address] Contact Info. Home Phone: CELL Payer Policy Id Coverage Id Subscriber's Name Subscriber Id Effective Date Expiration Date Health Safety Net Secondary [id number] Maryana Rivera [id number] Health Safety Net Partial 2nd [id number] Maryana Rivera [id number] Medicare [id number] Maryana Rivera [id number] Self Pay Self N/A [facility] HMO Replacement [id number] [facility] Supplement [id number] Maryana Rivera [id number] Encounters Encounter Location(s) Arrival/Admit Date Discharge/Depart Date Provider(s) Discharged Inpatient [place] [address] December 15, 2023 12:17pm January 19, 2024 12:59pm Nelson Pedraza MD Recent Diagnosis Onset Date Dementia Dementia with behavioral disturbance Hypomagnesemia Mental Status Observation Response Date Recorded Patient Orientation Person January 19, 2024 11:15am Confused January 19, 2024 11:15am Uncooperative January 19, 2024 11:15am Assessments Diagnosis Onset Date Resolution Status Dementia acute Dementia with behavioral disturbance acute Hypomagnesemia acute Plan of Treatment Future Tests Future scheduled test information is unavailable Pending Tests Pending diagnostic test information is unavailable Future Visits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 BEDS [facility] ??? MABHA NO BEDS [facility] ??? MABHA 6 BEDS [facility] ??? MABHA NO BEDS [facility] ??? MABHA NO BEDS [facility] ??? Reviewing for admissions Felix Saenz (JOSE) ??? [place] ??? [place] ??? MABHA NO BEDS [facility] ??? SEND REFERRALS Juan ??? MABHA NO BEDS Documented By: Sushma Meza BA 01/13/24 1248 Signed By: <Electronically signed by ANGIE Meza> 01/13/24 1249 Copies to: History & Physical Note Author Ping Godfrey [facility] January 14, 2024 9:17am Note Date/Time January 14, 2024 9:17 am [facility] [address] [place] [address] Crisis Consult - Contact Patient: Maryana Rivera Attending MD: Kei Echavarria MD : 1945 Dictating Provider: Ping Godfrey BA Age/Sex: 78 / M Admit Date: 12/15/23 Discharge Date: MedRec #: [id number] Location: [facility] [id number] cc: * BH Crisis Consult - Contact Narrative: Name:Maryana Rivera : 1945 Date: 01/14/24 Patient was e-faxed to [facility], [facility], [facility], and [facility] for review. Bed Search 01.14.24 [facility] ??? [facility] ??? MABHA 5 BEDS [facility], [place], [facility]) ??? MABHA NO BEDS [facility] ??? MABHA 4 BEDS [facility] (has DD unit) ??? MABHA 4 BED [facility] ??? MABHA 1 BEDS [place] ??? MABHA NO BEDS [facility] ??? Reviewing for admissions [place] ??? MABHA 5 BEDS [facility] ??? MABHA 4 BEDS [facility] ??? MABHA NO BEDS [facility] ([facility] & [facility] ??? MABHA 1 BED [facility] ??? MABHA NO BEDS [facility] ([facility] ?[facility] MABHA NO BEDS [facility] ([facility] ?[facility] MABHA NO BEDS [facility] ([facility] ??? MABHA NO BEDS [facility] ([facility] ??? MABHA NO BEDS [facility] ??? MABHA 1 BED [facility] ??? MABHA 3 BEDS [facility] ??? MABHA 2 BEDS [facility] ??? Reviewing for admissions [facility] ??? MABHA NO BEDS [facility] ??? MABHA 1 BEDS [facility] ??? MABHA 8 BEDS [facility] ??? EATING DISORDERS ONLY [facility] ([facility]) ??? MABHA NO BEDS [facility] ??? MABHA 1 BEDS [facility] ??? MABHA 1 BEDS [facility] ??? MABHA NO BEDS [facility] ??? MABHA 2 BED [facility] ??? MABHA NO BEDS [facility] ??? MABHA NO BEDS [facility] ??? M[facility]HA 7 BEDS [facility] ??? MABHA NO BEDS [facility] ??? MABHA NO BEDS [facility] ??? MABHA NO BEDS [facility] ??? MABHA 6 BEDS [facility] ??? MABHA NO BEDS [facility] ??? MABHA NO BEDS [facility] ??? Reviewing for admissions Wardeduardo Saenz (JOSE) ??? [place] ??? [place] ??? MABHA NO BEDS [facility] ??? SEND REFERRALS Juan ??? MABHA NO BEDS Documented By: Ping Godfrey BA 01/14/24915 Signed By: <Electronically signed by ANGIE Godfrey> 01/14/24916 Copies to: History & Physical Note Author Sofia Sotelo [facility] January 14, 2024 3:52pm Note Date/Time January 14, 2024 3:[address] [address] Crisis Consult - Contact Patient: Maryana Rivera Attending MD: Kei Echavarria MD : 1945 Dictating Provider: Sofia Sotelo MS Age/Sex: 78 / M Admit Date: 12/15/23 Discharge Date: MedRec #: [id number] Location: [facility] [id number] cc: * Crisis Consult - Contact Narrative: Name:Maryana Rivera : 1945 Date: 01/14/24 Patients referral e-faxed to [facility] for review. Bed Search 01.14.24 [facility] ??? [facility] ??? MABHA 5 BEDS [facility] ([facility], [facility], [facility]) ??? MABHA NO BEDS [facility] ??? MABHA 4 BEDS [facility] (has DD unit) ??? MABHA 4 BED [facility] ??? MABHA 1 BEDS [place] ??? MABHA NO BEDS [facility] ??? Reviewing for admissions [place] ??? MABHA 5 BEDS [facility] ??? MABHA 4 BEDS [facility] ??? MABHA NO BEDS [facility] ([facility] & [facility] ??? MABHA 1 BED [facility] ??? MABHA NO BEDS [facility] ([facility] ?[facility] MABHA NO BEDS [facility] ([facility] ?[facility] MABHA NO BEDS [facility] ([facility] ??? MABHA NO BEDS [facility] ([facility] ??? MABHA NO BEDS [facility] ??? MABHA 1 BED [facility] ??? MABHA 3 BEDS [facility] ??? MABHA 2 BEDS [facility] ??? Reviewing for admissions [facility] ??? MABHA NO BEDS [facility] ??? MABHA 1 BEDS [facility] ??? MABHA 8 BEDS [facility] ??? EATING DISORDERS ONLY [facility] ([facility]) ??? MABHA NO BEDS [facility] ??? MABHA 1 BEDS [facility] ??? MABHA 1 BEDS [facility] ??? MABHA NO BEDS [facility] ??? MABHA 2 BED [facility] ??? MABHA NO BEDS [facility] ??? MABHA NO BEDS [facility] ??? M[facility]HA 7 BEDS [facility] ??? MABHA NO BEDS [facility] ??? MABHA NO BEDS [facility] ??? MABHA NO BEDS [facility] ??? MABHA 6 BEDS [facility] ??? MABHA NO BEDS [facility] ??? MABHA NO BEDS [facility] ??? Reviewing for admissions Felix Liangaj (JOSE) ??? [place] ??? [place] ??? MABHA NO BEDS [facility] ??? SEND REFERRALS [place] ??? MABHA NO BEDS Documented By: Sofia Sotelo MS 01/14/24 1551 Signed By: <Electronically signed by Sofia Sotelo MS> 01/14/24 1552 Copies to: History & Physical Note Author Ping Hwang [facility] January 15, 2024 10:25am Note Date/Time January 15, 2024 10:2 5am [place] [id number] Crisis Consult - Contact Patient: Maryana Rivera Attending MD: Kei Echavarria MD : 1945 Dictating Provider: Ping maxwell BA Age/Sex: 78 / M Admit Date: 12/15/23 Discharge Date: MedRec #: [id number] Location: [facility] [id number] cc: * Crisis Consult - Contact Narrative: Name:Maryana Rivera : 1945 Date: 01/15/24 E-faxed to [facility] [place], [facility], [facility] and [facility] for review. Bed Search 01.15.24 [facility] ??? [facility] ??? MABHA 5 BEDS [facility] ([facility] ??? MABHA NO BEDS [facility] ??? MABHA 2 BEDS [facility] (has DD unit) ??? MABHA NO BEDS [facility] [place] ??? MABHA 2 BEDS [facility] ??? MABHA 2 BEDS [facility] ??? Reviewing for admissions [facility] ??? MABHA 5 BEDS [facility] ??? MABHA 2 BEDS [facility] ??? MABHA NO BEDS [facility] ([facility] & [facility] ??? MABHA NO BEDS [facility] ??? MABHA NO BEDS [facility] ([facility] ??? MABHA NO BEDS [facility] ([facility] ??? MABHA NO BEDS [facility] ([facility] ??? MABHA NO BEDS [facility] ([facility]) ??? [facility]EDS [facility] ??? M[facility] NO BEDS [facility] ??? MABHA NO BEDS [facility] ??? MABHA 2 BEDS [facility] ??? Reviewing for admissions [facility] ??? MABHA NO BEDS [facility] ??? MABHA 1 BEDS [facility] ??? MABHA 5 BEDS [facility] ??? EATING DISORDERS ONLY [facility] ([facility]) ??? MABHA NO BEDS [facility] ??? MABHA NO BEDS [facility] ??? M[facility] NO BEDS [facility] ??? MABHA NO BEDS [facility] ??? M[facility] NO BEDS [facility] ??? MABHA NO BEDS [facility] ??? MABHA NO BEDS [facility] ??? [facility]HA 7 BEDS [facility] ??? M[facility]HA NO BEDS [facility] ??? MABHA NO BEDS [facility] ??? MABHA NO BEDS [facility] ??? MABHA 4 BEDS [facility] ??? MABHA NO BEDS [facility] ??? MABHA NO BEDS [facility] ??? VM, NO ANSWER Felix Saenz (JOSE) ??? ELIZ Sánchez ??? Levi ??? MABHA 1 BED [facility] ??? SEND REFERRALS Juan ??? MABHA NO BEDS Documented By: Ping Hwang BA 01/15/24 1024 Signed By: <Electronically signed by ANGIE Hwang> 01/15/24 1025 Copies to: History & Physical Note Author Ping Hwang [facility] January 16, 2024 10:12am Note Date/Time January 16, 2024 10:[address] [address] Crisis Consult - Contact Patient: Maryana Rivera Attending MD: Kei Echavarria MD : 1945 Dictating Provider: Ping maxwell BA Age/Sex: 78 / M Admit Date: 12/15/23 Discharge Date: MedRec #: [id number] Location: [facility] [id number] cc: * Crisis Consult - Contact Narrative: Name:Maryana Rivera : 1945 Date: 01/16/24 E-faxed to YOSHI Barreto, Jose Martin, Eliz Sánchez, , JONAS Sims and [facility] for review. Bed Search 01.16.24 [facility] ??? [facility] ??? [facility]- no beds [facility] ([facility] [place]) ??? MABHA NO BEDS [facility] ??? MABHA 1 BEDS [facility] (has DD unit) ??? [facility]EDS [facility] ??? MABHA 2 BEDS [facility] ??? MABHA 2 BEDS [facility] ??? Reviewing for admissions [facility] ??? MABHA NO BEDS [facility] ??? MABHA NO BEDS [facility] ??? MABHA NO BEDS [facility] (C[facility] & [facility] ??? MABHA NO BEDS [facility] ??? MABHA NO BEDS [facility] ([facility] ??? MABHA NO BEDS [facility] ([facility] ??? MABHA NO BEDS [facility] ([facility] ??? MABHA NO BEDS [facility] ([facility]) ??? M[facility]HA NO BEDS [facility] ??? MABHA NO BEDS [facility] ??? MABHA NO BEDS [facility] ??? MABHA 2 BEDS [facility] ??? Reviewing for admissions [facility] ??? MABHA NO BEDS [facility] ??? MABHA NO BEDS [facility] ??? MABHA 5 BEDS [facility] ??? EATING DISORDERS ONLY [facility] ([facility]) ??? MABHA NO BEDS [facility] ??? MABHA NO BEDS [facility] ??? MABHA NO BEDS [facility] ??? MABHA NO BEDS [facility] ??? M[facility]HA NO BEDS [facility] ??? MABHA NO BEDS [facility] ??? MABHA NO BEDS [facility] ??? MABHA 7 BEDS [facility] ??? MABHA NO BEDS [facility] ??? MABHA NO BEDS [facility] ??? MABHA NO BEDS [facility] ??? MABHA 1 BEDS [facility] ??? MABHA NO BEDS [facility] ??? MABHA NO BEDS [facility] ??? VM, NO ANSWER Felix Saenz (JOSE) ??? [place] [facility] ??? [facility] ??? MABHA NO BEDS [facility] ??? SEND REFERRALS Juan ??? MABHA NO BEDS Documented By: Ping Hwang BA 01/16/24 1011 Signed By: <Electronically signed by ANGIE Hwang> 01/16/24 1012 Copies to: History & Physical Note Author Vickie Washington [facility] January 16, 2024 1:24pm Note Date/Time January 16, 2024 1:[address] [address] Crisis Consult - Contact Patient: Maryana Rivera Attending MD: Kei Echavarria MD : 1945 Dictating Provider: Vickie Washington MA Age/Sex: 78 / M Admit Date: 12/15/23 Discharge Date: MedRec #: [id number] Location: [place] [id number] cc: * Crisis Consult - Contact Narrative: Name:Maryana Rivera : 1945 Date: 01/16/24 Clinician submitted pt. to [facility]. Documented By: Vickie Washington MA 01/16/24 1323 Signed By: <Electronically signed by VICK Washington> 01/16/24 1324 Copies to: History & Physical Note Author Karen Ramsey [facility] January 17, 2024 7:29am Note Date/Time January 17, 2024 7:[address] [address] Crisis Consult - Contact Patient: Maryana Rivera Attending MD: Kei Echavarria MD : 1945 Dictating Provider: TIM Blood Age/Sex: 78 / M Admit Date: 12/15/23 Discharge Date: MedRec #: [id number] Location: [place] [id number] cc: * BH Crisis Consult - Contact Narrative: Name:Maryana Rivera : 1945 Date: 01/17/24 Chart reviewed and referral packet updated: Referral sent to [facility], [facility], [facility], [place] for review and consideration for IP LOC Documented By: TIM Blood 01/17/24 0728 Signed By: <Electronically signed by [facility] Karen Ramsey> 01/17/24 0729 Copies to: History & Physical Note Author Ping Godfrey [facility] January 18, 2024 9:03am Note Date/Time January 18, 2024 9:0 3am [place] [id number] [id number] Crisis Consult - Contact Patient: Maryana Rivera Attending MD: Nelson Pedraza MD : 1945 Dictating Provider: Ping Godfrey BA Age/Sex: 78 / M Admit Date: 12/15/23 Discharge Date: MedRec #: [id number] Location: [place] [address] cc: * Crisis Consult - Contact Narrative: Name:Maryana Rivera : 1945 Date: 01/18/24 Patient has been e-faxed to [facility], [facility], [place], [facility],and [facility] for review. Bed Search 01.18.24 [facility] ??? [facility] ??? [facility] ([facility] ??? MABHA NO BEDS [facility] ??? MABHA NO BEDS [facility] (has DD unit) ??? MABHA NO BEDS [facility] ??? MABHA NO BEDS [facility] ??? MABHA 2 BEDS [facility] ??? Reviewing for admissions [facility] ??? MABHA 2 BEDS [facility] ??? MABHA NO BEDS [facility] ??? MABHA NO BEDS [facility] ([facility] & [facility] ??? MABHA NO BEDS [facility] ??? MABHA NO BEDS [facility] ([facility] ??? MABHA NO BEDS [facility] ([facility]) ??? MABHA NO BEDS [facility] ([facility]) ??? MABHA NO BEDS [facility] ([facility]) ??? M[facility] NO BEDS [facility] ??? MABHA NO BEDS [facility] ??? MABHA 3 BEDS [facility] ??? MABHA 2 BEDS [facility] ??? MABHA 1 BEDS [facility] ??? MABHA NO BEDS [facility] ??? MABHA 1 BED [facility] ??? MABHA 1 BED [facility] ??? EATING DISORDERS ONLY [facility] ([facility]) ??? MABHA NO BEDS [facility] ??? MABHA NO BEDS [facility] ??? MABHA NO BEDS [facility] ??? MABHA NO BEDS [facility] ??? MABHA NO BEDS [facility] ??? MABHA NO BEDS [facility] ??? MABHA NO BEDS [facility] ??? MABHA 7 BEDS [facility] ??? MABHA NO BEDS [facility] ??? MABHA NO BEDS [facility] ??? MABHA NO BEDS [facility] ??? MABHA 3 BEDS [facility] ??? MABHA NO BEDS [facility] ??? MABHA NO BEDS [facility] ??? MABHA NO BEDS Felix Saenz (JOSE) ??? SEND REFERRALS [facility] ??? MABHA NO BEDS [facility] ??? MABHA 1 BED [facility] ??? SEND REFERRALS Juan ??? MABHA NO BEDS Documented By: Ping Godfrey BA 01/18/24901 Signed By: <Electronically signed by ANGIE Godfrey> 01/18/24902 Copies to: History & Physical Note Author Ping Godfrey [facility] January 19, 2024 10:05am Note Date/Time January 19, 2024 10: 04am [address] [address] Crisis Consult - Contact Patient: Maryana Rivera Attending MD: Nelson Pedraza MD : 1945 Dictating Provider: Ping Godfrey BA Age/Sex: 78 / M Admit Date: 12/15/23 Discharge Date: MedRec #: [id number] Location: [facility] [id number] cc: * ADDENDUM PT GOING TO UNIT S1 Addendum Documented By: ANGIE Godfrey 01/19/241004 Addendum Signed By: <Electronically signed by ANGIE Godfrey> 01/19/241004 cc: Copy To: __ Crisis Consult - Contact Narrative: Name:Maryana Rivera : 1945 Date: 01/19/24 Mami is reaching out to the med floor to relay this information Patient has been accepted to [facility] for today. Requesting a 3:00 PM ARRIVAL at [facility]. Accepting Dr Meredith Oleary is requesting a Doc to Doc number as well as RN to RN number Since the patient is on a med floor they need both of these things. Patient needs to transfer on a section 12. BERGER: [address] [place] [address] Documented By: Ping Godfrey BA 01/19/24 1001 Signed By: <Electronically signed by ANGIE Godfrey> 01/19/24 1004 Copies to: Progress Note Author Ashlee Mcgrath [facility] December 15, 2023 11:41am Note Date/Time December 15, 2023 11:[address] [address] CM LACE Tool Patient: Maryana Rivera Attending MD: Inpatient Provider,[place] : 1945 Dictating Provider: Ashlee Mcgrath RN Age/Sex: 78 / M Admit Date: 12/15/23 Discharge Date: MedRec #: [id number] Location: [place] [address] cc: * LACE Tool - LACE Index Scoring Tool Length of Stay (Anticipated): 2 Days Acute Admission: Yes Comorbidity: Cerebrovascular disease, Dementia Emergency Dept. Visits (In past 6 Months): 0 visits - LACE Score LACE Index Score: 10 Probability of a Problem: 20 Risk of Readmission: High Risk Documented By: Ashlee Mcgrath RN 12/15/23 1141 Signed By: <Electronically signed by Ashlee Mcgrath RN> 12/15/23 1141 Copies to: Progress Note Author Celine Aldana [facility] December 15, 2023 4:04pm Note Date/Time December 15, 2023 3:02 pm [facility] [address] [place] [address] Progress Note Patient: Maryana Rivera Attending MD: Candice Mcghee MD : 1945 Dictating Provider: Celine Aldana LCSW Age/Sex: 78 / M Admit Date: 12/15/23 Discharge Date: MedRec #: [id number] Location: [facility] [id number] cc: * Social Work Progress Note Date: 12/15/23 Service Type: consultation, other Patient identified at-risk for alcohol use: No Interventions provided to patient related to alcohol use: Offered resources and referral to treatment Referral to treatment: patient declines referral to treatment Summary: SW team informed by staff in the ED that report of concern for elder at risk wasfiled on pt's behalf upon his admission (pt brought into the emergency department via EMS after he was found wandering outside by family in the early hours of the morning). Report being screened by [facility]. SW team to provide updates as needed to [facility] and will remain available to offer support and help with safe DC planning, throughout pt's admission. Documented By: Celine Aldana LCSW 12/15/23 1500 Signed By: <Electronically signed by Celine Aldana LCSW> 12/15/23 1604 Copies to: Progress Note Author Tanvi Trevino [facility] December 16, 2023 4:21pm Note Date/Time December 16, 2023 1:37 pm [facility] [address] [place] [address] CM Progress Note Patient: Maryana Rivera David Attending MD: Scot Matt M.D. : 1945 Dictating Provider: Tanvi Trevino Age/Sex: 78 / M Admit Date: 12/15/23 Discharge Date: MedRec #: [id number] Location: [facility] [id number] cc: * ADDENDUM ANDRZEJ spoke with MRS Rivera/Spouse at approx 15:20 PM to update her that CM unable to secure ST respite care due to insurance coverage. MRS Rivera, shared that she received a call from Jeannette at [facility] and requested that i call her at #[phone] who was seeking information re Pt capacity. Psychiatry consulted for capacity evaluation. Addendum Documented By: Tanvi Trevino 12/16/23 1621 Addendum Signed By: <Electronically signed by Tanvi Trevino> 12/16/23 1621 cc: Copy To: __ Case Management Progress Note - Progress Note Is this a re-evaluation?: Yes CM Progress Note: Pt care reviewed with MD during IDR's with Pt medical ready for DC. Barrier to DC is that of Pt /HCP being unable to provide care/supervision Pt needs to /HCP recently post TKR. Pt has some home care services thru [facility] and HCP shared that she was she had spoken with [facility] today 12/16/23 for enrollment in an Adult Day program. HCP opened to Respite care whilst she recovers from surgery but not exterminator termite placement at this time. Referrals placedto SNF of choice. Estimated Discharge Assessment - Anticipated Discharge Referrals/Community Services: Kenia Sheehan MD [Primary Care Provider] - Documented By: Tanvi Trevino 12/16/23 1323 Signed By: <Electronically signed by Tanvi Trevino> 12/16/23 1348 Copies to: Progress Note Author Celine Aldana [facility] December 16, 2023 3:55pm Note Date/Time December 16, 2023 3:55 pm [place] [id number] FABIANO Progress Note Patient: Maryana Rivera Attending MD: Scot Matt M.D. : 1945 Dictating Provider: Celine Aldana LCSW Age/Sex: 78 / M Admit Date: 12/15/23 Discharge Date: MedRec #: [id number] Location: [facility] [id number] cc: * Social Work Progress Note Date: 12/16/23 Service Type: collateral contact, consultation Patient identified at-risk for alcohol use: Yes Interventions provided to patient related to alcohol use: Offered resources and referral to treatment Referral to treatment: patient declines referral to treatment Summary: FABIANO reached out to pt's protective service family caseworker Jeannette at [facility] ([phone]); discussed that at this time, psych consult is pending to help with capacity evaluation and to help with safe DC planning. Anticipate pt will remain in-house throughout the weekend with plan for treatment team to discuss safe DC planning Tuesday. Documented By: Celine Aldana LCSW 12/16/23 1559 Signed By: <Electronically signed by Celine Aldana LCSW> 12/16/23 8531 Copies to: Progress Note Author John Matt [facility] December 16, 2023 4:45pm Note Date/Time December 16, 2023 4:[address] [address] Hospitalist Progress Note Patient: Maryana Rivera Attending MD: Scot Matt M.D. : 1945 Dictating Provider: Scot Matt M.D. Age/Sex: 78 / M Admit Date: 12/15/23 Discharge Date: MedRec #: [id number] Location: [facility] [id number] cc: * Subjective Subjective Date: 12/16/23 Interval Events: No acute issues overnight but patient during morning and all day today has been wandering and needs re-direction. Later in afternoon, patient not redirectable despite multiple attempts by staff so required haldol. Case management has been speaking with patient's about discharge planning but I was unable to reach his to discuss care when I called. He does not have any concerns/complaints when asked ROS. Review of Systems Review of Systems All systems: As per HPI, 10 point ROS completed & negative except where noted below Exam Physical Exam Vital signs: Vital Signs - Last Response Temperature Pulse Rate Respiratory Rate Blood Pressure Blood Pressure Source O2 Sat by Pulse Oximetry 97.5 F 60 18 155/70 Automatic Cuff 98 12/16/23 09:00 12/16/23 09:00 12/16/23 09:00 12/16/23 09:00 12/16/23 09:00 12/16/23 09:00 Physical Exam Narrative: GEN: alert and oriented to self only, follows some commands but otherwise does answer some questions with short answers HEENT: nontraumatic, dry MM CV: RRR Pulmonary: CATB Abdomen: soft, NT, ND, +BS EXT: WWP, no edema Neuro: AOx1 (self), fluent speech but paucity of it, walking unassisted without issue with grossly normal gait, neck is supple, strength intact bilaterally in arm/legs; can't say days of week backwards and does not know who current president is; no asterixis, no tongue fasciculations Medications Active Medications Acetaminophen (Acetaminophen 325 Mg Tablet) 650 mg PO Q6H PRN PRN Reason: Temp>101.5 &/or Pain Score:1-3 Atorvastatin Calcium (Atorvastatin 40 Mg Tablet) 80 mg PO QHS [facility] Last Admin: 12/15/23 21:04 Dose: 80 mg Donepezil HCl (Donepezil 5 Mg Tablet) 10 mg PO QHS [facility] Last Admin: 12/15/23 21:03 Dose: 10 mg Escitalopram Oxalate (Escitalopram 10 Mg Tablet) 10 mg PO DAILY [facility] Last Admin: 12/16/23 08:11 Dose: 10 mg Folic Acid (Folic Acid 1 Mg Tablet) 1 mg PO DAILY [facility] Last Admin: 12/16/23 09:02 Dose: Not Given Gabapentin (Gabapentin 300 Mg Capsule) 600 mg PO QHS [facility] Last Admin: 12/15/23 21:03 Dose: 600 mg Gabapentin (Gabapentin 400 Mg Capsule) 1,[facility] Last Admin: 12/16/23 08:44 Dose: 1,200 mg Glucagon (Glucagon 1 Mg/Ml Vial (Kit)) 1 mg IM PRN PRN; Protocol PRN Reason: Hypoglycemia Protocol Glucose (Dextrose Gel 40 % 15 Gm Dextrose/37.5 Gm Tube) 15 gm PO PRN PRN; Protocol PRN Reason: Hypoglycemia Protocol Haloperidol (Haloperidol 5 Mg/Ml Vial) 2.5 mg IM ONCE PRN PRN Reason: Agitation Last Admin: 12/16/23 13:46 Dose: 2.5 mg Dextrose (Dextrose 10 % In Water) 125 mls @ 1,500 mls/hr IV PRN PRN; Protocol PRN Reason: for Hypoglycemia Protocol Dextrose (Dextrose 10 % In Water) 250 mls @ 3,000 mls/hr IV ONCE PRN; Protocol PRN Reason: Hypoglycemia Protocol Insulin Human Lispro (Insulin Lispro 300 Unit/3 Ml Vial) 0 unit SUB-Q ACHS [facility];Protocol Last Admin: 12/16/23 12:51 Dose: Not Given Lisinopril (Lisinopril 20 Mg Tablet) 20 mg PO DAILY [facility]; Protocol Last Admin: 12/16/23 08:44 Dose: 20 mg Magnesium Hydroxide (Magnesium Hydroxide 30 Ml Udc) 30 ml PO DAILY PRN PRN Reason: Constipation Step 2 Melatonin (Melatonin 5 Mg Tablet) 5 mg PO HS PRN PRN Reason: Insomnia Last Admin: 12/15/23 21:04 Dose: 5 mg Metformin HCl (Metformin 500 Mg Tablet) 750 mg PO BID [facility] Last Admin: 12/16/23 08:44 Dose: 750 mg Omeprazole (Omeprazole Dr 20 Mg Capsule) 40 mg PO DAILY [facility] Last Admin: 12/16/23 08:44 Dose: 40 mg Polyethylene Glycol (Polyethylene Glycol 3350 17 Gm Packet) 17 gm PO DAILY PRN PRN Reason: Constipation Step 1 Quetiapine Fumarate (Quetiapine 25 Mg Tablet) 50 mg PO BID [facility] Last Admin: 12/16/23 13:04 Dose: 50 mg Sitagliptin Phosphate (Sitagliptin 100 Mg Tablet) 100 mg PO DAILY [facility] Last Admin: 12/16/23 08:45 Dose: 100 mg Thiamine Mononitrate (Thiamine 100 Mg Tablet) 100 mg PO DAILY [facility] Last Admin: 12/16/23 08:44 Dose: 100 mg Trazodone HCl (Trazodone 50 Mg Tablet) 25 mg PO QHS PRN PRN Reason: Sleep Last Admin: 12/15/23 21:03 Dose: 25 mg Results Laboratory Laboratory Results: 12/15/23 08:50 12/15/23 08:50 Laboratory Results - Last 12 hours 12/16/23 07:14: POC Glucose 130 12/16/23 11:17: POC Glucose 100 Progress Note - A&P Assessment and Plan Assessment and Plan: Angel Rivera is a 78 y/o M with dementia, alcohol use disorder who was brought into the ED via ambulance after he was found wandering outside. #Dementia with behavioral disturbances Per review of [facility] chart including his numerous visits with Psychiatry, Neurology and Congitive Neurology spanning >decade, he has had chronic funtionaland cognitive decline over the past ~20yrs. Per Cognitive Neurology note from 03/06/24, On initial interview 04/16/22, MOCA had decreased to 14/30 with prominent deficits in executive function (only completing a paimiut for clock draw), disorientation, naming with circumlocution and decreased fluency (F words> animals), and difficulty with serial 7s but intact vigilance testing. With otherwise normal basic blood work, save for hypomagnesemia, and unremarkable CT head, urinalysis, CXR and unremarkable neuro exam except for hiscognition/attention, suspect this is progression of his underlying known neurocognitive dementia (with history of depression as well). - SW/CM consulted -- appreciate recs - ongoing attempts to formulate a safe discharge plan as his just had knee replacement surgery but he is actively wandering and does not have insight into his condition - continue home regimen of donepezil, seroquel - AMA hold/ HCP invoked - Neuropsychiatry consulted - PENDING - INCREASED home seroquel to BID (from qHS) - haldol IM prn x 1 given 12/16/23 due to not being directable and frequent wandering - on 1:1 monitoring #Hypomagnesemia: possibly 2/2 omeprazole -2 g of magnesium administered in the ED -repeat mg #Chronic anemia: stable. #Mild hyponatremia: sodium 134 -encourage PO intake #DM2 with hyperglycemia: -resume home regimen of januvia, metfomrin -glucose achs, humalog ss #HTN: c/w home regimen of Lisinopril #GERD: c/w home regimen of omeprazole #Alcohol use d/o: unclear if he is in remission. no signs or sx of acute withdrawal. EtOH level on presentation is very low. -c/w thiamine and folate #Diabetic neuropathy: c/w home regimen of gabapentin #Mood d/o: c/ w home regimen of escitalopram #HL: c/w home regimen of statin #FEN: diabetic diet #DVT PPX: remy score 1, SCDs #CODE: FULL, presumed NOK -unable to reach his to discuss care, left voicemail Dispo: complicated disposition as patient's just had knee replacement and he is a wandering risk so no safe disposition plan formulated yet, case management investigating but likely patient will remain inpatient over the weekend Time Spent I spent the following number of minutes in this patient encounter seeing and examining the patient, reviewing the relevant data, formulating a treatment plan, and documenting in the medical record: 60 Also discussed with: Patient, Nursing and Case Management team Anticipated Discharge Anticipated Discharge Date: 12/19/23 Specify Other:: TBD - unclear safe discharge plan Quality Measures Was the pt treated for stroke/TIA? (Y/N): No Documented By: Scot Matt M.D. 12/16/23 1632 Signed By: <Electronically signed by Scot Matt M.D.> 12/16/23 1645 Copies to: Progress Note Author Roma Hoffman [facility] December 18, 2023 5:06am Note Date/Time December 17, 2023 1:38 pm [place] [id number] Hospitalist Progress Note Patient: Maryana Rivera Attending MD: Roma Hoffman MD : 1945 Dictating Provider: Roma Hoffman MD Age/Sex: 78 / M Admit Date: 12/15/23 Discharge Date: MedRec #: [id number] Location: [facility] [id number] cc: * Subjective Subjective Date: 12/17/23 Interval Events: Patient seen and examined Oriented to self only Tells me he does not want to eat, does not like the food in the hospital No other acute events reported Review of Systems Review of Systems ROS unobtainable: due to mental status Exam Physical Exam Vital signs: Vital Signs - Last Response Temperature Pulse Rate Respiratory Rate Blood Pressure Blood Pressure Source O2 Sat by Pulse Oximetry 97.9 F 62 18 162/78 H Automatic Cuff 100 12/17/23 08:51 12/17/23 08:51 12/17/23 08:51 12/17/23 08:51 12/17/23 08:51 12/17/23 08:51 Physical Exam Narrative: GEN: alert and oriented to self only, follows some commands but otherwise does answer some questions with short answers HEENT: No scleral icterus or conjunctival injection CV: S1-S2 present Pulmonary: CATB Abdomen: soft, NT, ND, +BS EXT: WWP, no edema Neuro: AOx1 (self), fluent speech but paucity of it, strength intact bilaterallyin arm/legs; does know his name, does not remember where he is, what month basisor who the current president is Medications Active Medications Acetaminophen (Acetaminophen 325 Mg Tablet) 650 mg PO Q6H PRN PRN Reason: Temp>101.5 &/or Pain Score:1-3 Atorvastatin Calcium (Atorvastatin 40 Mg Tablet) 80 mg PO QHS [facility] Last Admin: 12/16/23 21:47 Dose: 80 mg Donepezil HCl (Donepezil 5 Mg Tablet) 10 mg PO QHS [facility] Last Admin: 12/16/23 21:48 Dose: 10 mg Escitalopram Oxalate (Escitalopram 10 Mg Tablet) 10 mg PO DAILY [facility] Last Admin: 12/17/23 09:36 Dose: 10 mg Folic Acid (Folic Acid 1 Mg Tablet) 1 mg PO DAILY [facility] Last Admin: 12/17/23 09:36 Dose: 1 mg Gabapentin (Gabapentin 300 Mg Capsule) 600 mg PO QHS [facility] Last Admin: 12/16/23 21:48 Dose: 600 mg Gabapentin (Gabapentin 400 Mg Capsule) 1,200 mg PO QAM [facility] Last Admin: 12/17/23 09:35 Dose: 1,200 mg Glucagon (Glucagon 1 Mg/Ml Vial (Kit)) 1 mg IM PRN PRN; Protocol PRN Reason: Hypoglycemia Protocol Glucose (Dextrose Gel 40 % 15 Gm Dextrose/37.5 Gm Tube) 15 gm PO PRN PRN; Protocol PRN Reason: Hypoglycemia Protocol Haloperidol (Haloperidol 5 Mg/Ml Vial) 2.5 mg IM ONCE PRN PRN Reason: Agitation Last Admin: 12/16/23 13:46 Dose: 2.5 mg Dextrose (Dextrose 10 % In Water) 125 mls @ 1,500 mls/hr IV PRN PRN; Protocol PRN Reason: for Hypoglycemia Protocol Dextrose (Dextrose 10 % In Water) 250 mls @ 3,000 mls/hr IV ONCE PRN; Protocol PRN Reason: Hypoglycemia Protocol Insulin Human Lispro (Insulin Lispro 300 Unit/3 Ml Vial) 0 unit SUB-Q ACHS [facility];Protocol Last Admin: 12/17/23 08:49 Dose: Not Given Lisinopril (Lisinopril 20 Mg Tablet) 20 mg PO DAILY [facility]; Protocol Last Admin: 12/17/23 09:36 Dose: 20 mg Magnesium Hydroxide (Magnesium Hydroxide 30 Ml Udc) 30 ml PO DAILY PRN PRN Reason: Constipation Step 2 Melatonin (Melatonin 5 Mg Tablet) 5 mg PO HS PRN PRN Reason: Insomnia Last Admin: 12/16/23 21:48 Dose: 5 mg Metformin HCl (Metformin 500 Mg Tablet) 750 mg PO BID [facility] Last Admin: 12/17/23 09:36 Dose: 750 mg Omeprazole (Omeprazole Dr 20 Mg Capsule) 40 mg PO DAILY [facility] Last Admin: 12/17/23 09:36 Dose: 40 mg Polyethylene Glycol (Polyethylene Glycol 3350 17 Gm Packet) 17 gm PO DAILY PRN PRN Reason: Constipation Step 1 Quetiapine Fumarate (Quetiapine 25 Mg Tablet) 50 mg PO BID [facility] Last Admin: 12/17/23 09:36 Dose: 50 mg Sitagliptin Phosphate (Sitagliptin 100 Mg Tablet) 100 mg PO DAILY [facility] Last Admin: 12/17/23 09:36 Dose: 100 mg Thiamine Mononitrate (Thiamine 100 Mg Tablet) 100 mg PO DAILY [facility] Last Admin: 12/17/23 09:36 Dose: 100 mg Trazodone HCl (Trazodone 50 Mg Tablet) 25 mg PO QHS PRN PRN Reason: Sleep Last Admin: 12/16/23 21:47 Dose: 25 mg Results Laboratory Laboratory Results: 12/15/23 08:50 12/15/23 08:50 Laboratory Results - Last 12 hours 12/17/23 11:22: POC Glucose 74 Progress Note - A&P Assessment and Plan Assessment and Plan: Angel Rivera is a 78 y/o M with dementia, alcohol use disorder who was brought into the ED via ambulance after he was found wandering outside. #Dementia with behavioral disturbances Per review of [facility] chart including his numerous visits with Psychiatry, Neurology and Congitive Neurology spanning >decade, he has had chronic funtionaland cognitive decline over the past ~20yrs. Per Cognitive Neurology note from 12/14/23, On initial interview 04/16/22, MOCA had decreased to 14/30 with prominent deficits in executive function (only completing a paimiut for clock draw), disorientation, naming with circumlocution and decreased fluency (F words> animals), and difficulty with serial 7s but intact vigilance testing. With otherwise normal basic blood work, save for hypomagnesemia, and unremarkable CT head, urinalysis, CXR and unremarkable neuro exam except for hiscognition/attention, suspect this is progression of his underlying known neurocognitive dementia (with history of depression as well). - SW/CM consulted -- appreciate recs - ongoing attempts to formulate a safe discharge plan as his just had knee replacement surgery but he is actively wandering and does not have insight into his condition - continue home regimen of donepezil, seroquel - AMA hold/ HCP invoked - Neuropsychiatry consulted - PENDING - INCREASED home seroquel to [facility] (from [facility]) - haldol IM prn x 1 given 12/16/23 due to not being directable and frequent wandering - on 1:1 monitoring #Hypomagnesemia: possibly 2/2 omeprazole -2 g of magnesium administered in the ED Monitor #Chronic anemia: stable. #Mild hyponatremia: sodium 134 -encourage PO intake #DM2 with hyperglycemia: -resume home regimen of januvia, metfomrin -glucose achs, humalog ss #HTN: c/w home regimen of Lisinopril #GERD: c/w home regimen of omeprazole #Alcohol use d/o: unclear if he is in remission. no signs or sx of acute withdrawal. EtOH level on presentation is very low. -c/w thiamine and folate #Diabetic neuropathy: c/w home regimen of gabapentin #Mood d/o: c/ w home regimen of escitalopram #HL: c/w home regimen of statin #FEN: diabetic diet #DVT PPX: remy score 1, SCDs #CODE: FULL, as per admitting hospitalist Dispo: complicated disposition as patient's just had knee replacement and he is a wandering risk so no safe disposition plan formulated yet, case management investigating but likely patient will remain inpatient over the weekend Anticipated Discharge Anticipated Discharge Date: 12/19/23 Specify Other:: TBD - unclear safe discharge plan Quality Measures Was the pt treated for stroke/TIA? (Y/N): No Documented By: Roma Hoffman MD 12/17/23 1336 Signed By: <Electronically signed by Roma Hoffman MD> 12/18/23 0506 Copies to: Progress Note Author Roma Hoffman [facility] December 18, 2023 7:33pm Note Date/Time December 18, 2023 2:5 5pm [facility] [address] [place] [address] Hospitalist Progress Note Patient: Maryana Rivera Attending MD: Roma Hoffman MD : 1945 Dictating Provider: Roma Hoffman MD Age/Sex: 78 / M Admit Date: 12/15/23 Discharge Date: MedRec #: [id number] Location: [facility] [id number] cc: * Subjective Subjective Date: 12/18/23 Interval Events: Patient seen and examined One-to-one sitter at bedside Pleasantly confused No acute events reported Review of Systems Review of Systems ROS unobtainable: due to mental status Exam Physical Exam Vital signs: Vital Signs - Last Response Temperature Pulse Rate Respiratory Rate Blood Pressure Blood Pressure Source O2 Sat by Pulse Oximetry 97.5 F 62 18 135/66 Automatic Cuff 98 12/18/23 08:54 12/18/23 08:54 12/18/23 08:54 12/18/23 08:54 12/18/23 08:54 12/18/23 08:54 Physical Exam Narrative: GEN: alert and oriented to self only, follows some commands but otherwise does answer some questions with short answers HEENT: No scleral icterus or conjunctival injection CV: S1-S2 present Pulmonary: CATB Abdomen: soft, NT, ND, +BS EXT: WWP, no edema Neuro: AOx1 (self), fluent speech but paucity of it, strength intact bilaterallyin arm/legs; does know his name, does not remember where he is, what month basisor who the current president is Medications Active Medications Acetaminophen (Acetaminophen 325 Mg Tablet) 650 mg PO Q6H PRN PRN Reason: Temp>101.5 &/or Pain Score:1-3 Atorvastatin Calcium (Atorvastatin 40 Mg Tablet) 80 mg PO QHS [facility] Last Admin: 12/17/23 23:50 Dose: Not Given Donepezil HCl (Donepezil 5 Mg Tablet) 10 mg PO QHS [facility] Last Admin: 12/17/23 23:51 Dose: Not Given Escitalopram Oxalate (Escitalopram 10 Mg Tablet) 10 mg PO DAILY [facility] Last Admin: 12/18/23 08:45 Dose: 10 mg Folic Acid (Folic Acid 1 Mg Tablet) 1 mg PO DAILY [facility] Last Admin: 12/18/23 08:45 Dose: 1 mg Gabapentin (Gabapentin 300 Mg Capsule) 600 mg PO QHS [facility] Last Admin: 12/17/23 23:51 Dose: Not Given Gabapentin (Gabapentin 400 Mg Capsule) [facility] Last Admin: 12/18/23 08:45 Dose: 1,200 mg Glucagon (Glucagon 1 Mg/Ml Vial (Kit)) 1 mg IM PRN PRN; Protocol PRN Reason: Hypoglycemia Protocol Glucose (Dextrose Gel 40 % 15 Gm Dextrose/37.5 Gm Tube) 15 gm PO PRN PRN; Protocol PRN Reason: Hypoglycemia Protocol Haloperidol (Haloperidol 5 Mg/Ml Vial) 2.5 mg IM ONCE PRN PRN Reason: Agitation Last Admin: 12/16/23 13:46 Dose: 2.5 mg Dextrose (Dextrose 10 % In Water) 125 mls @ 1,500 mls/hr IV PRN PRN; Protocol PRN Reason: for Hypoglycemia Protocol Dextrose (Dextrose 10 % In Water) 250 mls @ 3,000 mls/hr IV ONCE PRN; Protocol PRN Reason: Hypoglycemia Protocol Insulin Human Lispro (Insulin Lispro 300 Unit/3 Ml Vial) 0 unit SUB-Q ACHS [facility];Protocol Last Admin: 12/18/23 12:03 Dose: Not Given Lisinopril (Lisinopril 20 Mg Tablet) 20 mg PO DAILY [facility]; Protocol Last Admin: 12/18/23 08:45 Dose: 20 mg Magnesium Hydroxide (Magnesium Hydroxide 30 Ml Udc) 30 ml PO DAILY PRN PRN Reason: Constipation Step 2 Melatonin (Melatonin 5 Mg Tablet) 5 mg PO HS PRN PRN Reason: Insomnia Last Admin: 12/16/23 21:48 Dose: 5 mg Metformin HCl (Metformin 500 Mg Tablet) 750 mg PO BID [facility] Last Admin: 12/18/23 08:45 Dose: 750 mg Omeprazole (Omeprazole Dr 20 Mg Capsule) 40 mg PO DAILY [facility] Last Admin: 12/18/23 08:44 Dose: 40 mg Polyethylene Glycol (Polyethylene Glycol 3350 17 Gm Packet) 17 gm PO DAILY PRN PRN Reason: Constipation Step 1 Quetiapine Fumarate (Quetiapine 25 Mg Tablet) 50 mg PO BID [facility] Last Admin: 12/18/23 08:44 Dose: 50 mg Sitagliptin Phosphate (Sitagliptin 100 Mg Tablet) 100 mg PO DAILY [facility] Last Admin: 12/18/23 08:44 Dose: 100 mg Thiamine Mononitrate (Thiamine 100 Mg Tablet) 100 mg PO DAILY [facility] Last Admin: 12/18/23 08:44 Dose: 100 mg Trazodone HCl (Trazodone 50 Mg Tablet) 25 mg PO QHS PRN PRN Reason: Sleep Last Admin: 12/16/23 21:47 Dose: 25 mg Results Laboratory Laboratory Results: 12/15/23 08:50 12/15/23 08:50 Laboratory Results - Last 12 hours 12/18/23 11:32: POC Glucose 217 Progress Note - A&P Assessment and Plan Assessment and Plan: Angel Rivera is a 78 y/o M with dementia, alcohol use disorder who was brought into the ED via ambulance after he was found wandering outside. #Dementia with behavioral disturbances Per review of [facility] chart including his numerous visits with Psychiatry, Neurology and Congitive Neurology spanning >decade, he has had chronic funtionaland cognitive decline over the past ~20yrs. Per Cognitive Neurology note from 12/14/23, On initial interview 04/16/22, MOCA had decreased to 14/30 with prominent deficits in executive function (only completing a paimiut for clock draw), disorientation, naming with circumlocution and decreased fluency (F words> animals), and difficulty with serial 7s but intact vigilance testing. With otherwise normal basic blood work, save for hypomagnesemia, and unremarkable CT head, urinalysis, CXR and unremarkable neuro exam except for hiscognition/attention, suspect this is progression of his underlying known neurocognitive dementia (with history of depression as well). - SW/CM consulted -- appreciate recs - ongoing attempts to formulate a safe discharge plan as his just had knee replacement surgery but he is actively wandering and does not have insight into his condition - continue home regimen of donepezil, seroquel - AMA hold/ HCP invoked - Neuropsychiatry consulted - PENDING - INCREASED home seroquel to [facility] (from [facility]) - haldol IM prn x 1 given 12/16/23 due to not being directable and frequent wandering - on 1:1 monitoring #Hypomagnesemia: possibly 2/2 omeprazole -2 g of magnesium administered in the ED Monitor #Chronic anemia: stable. #Mild hyponatremia: sodium 134 -encourage PO intake #DM2 with hyperglycemia: -resume home regimen of januvia, metfomrin -glucose achs, humalog ss #HTN: c/w home regimen of Lisinopril #GERD: c/w home regimen of omeprazole #Alcohol use d/o: unclear if he is in remission. no signs or sx of acute withdrawal. EtOH level on presentation is very low. -c/w thiamine and folate #Diabetic neuropathy: c/w home regimen of gabapentin #Mood d/o: c/ w home regimen of escitalopram #HL: c/w home regimen of statin #FEN: diabetic diet #DVT PPX: remy score 1, SCDs #CODE: FULL, as per admitting hospitalist Dispo: complicated disposition as patient's just had knee replacement and he is a wandering risk so no safe disposition plan formulated yet, case management investigating but likely patient will remain inpatient over the weekend Anticipated Discharge Anticipated Discharge Date: 12/19/23 Specify Other:: TBD - unclear safe discharge plan Quality Measures Was the pt treated for stroke/TIA? (Y/N): No Documented By: Roma Hoffman MD 12/18/231453 Signed By: <Electronically signed by Roma Hoffman MD> 12/18/231932 Copies to: Progress Note Author Tanvi Trevino [facility] December 19, 2023 12:53pm Note Date/Time December 19, 2023 12: 51pm [facility] [address] [place] [address] Progress Note Patient: Maryana Rivera Attending MD: Roma Hoffman MD : 1945 Dictating Provider: Tanvi Trevino Age/Sex: 78 / M Admit Date: 12/15/23 Discharge Date: MedRec #: [id number] Location: [place] [id number] cc: * Case Management Progress Note - Progress Note Is this a re-evaluation?: Yes CM Progress Note: CM spoke with Pt Khurram Rivera/HCP who shared that she would like to pursue [facility] Care Placement as unable to care for Pt at home. Mrs. Rivera aware that Pt will need a MH upgrade as currently only has MH Safety Net. CM reached out to [facility]ER who has referred Pt to Financial Services. CM will follow forDC planning. Estimated Discharge Assessment - Anticipated Discharge Referrals/Community Services: Kenia Sheehan MD [Primary Care Provider] - Documented By: Tanvi Trevino 12/19/23 1246 Signed By: <Electronically signed by Tanvi Trevino> 12/19/23 1253 Copies to: Progress Note Author Celine Aldana [facility] December 19, 2023 3:49pm Note Date/Time December 19, 2023 12: 58pm [facility] [address] [place] [address] Progress Note Patient: Maryana Rivera Attending MD: Roma Hoffman MD : 1945 Dictating Provider: Celine Aldana LCSW Age/Sex: 78 / M Admit Date: 12/15/23 Discharge Date: MedRec #: [id number] Location: [place] [id number] cc: * Social Work Progress Note Date: 12/19/23 Service Type: collateral contact, consultation Patient identified at-risk for alcohol use: No Summary: SW consulted and following the pt regarding home safety and to help with safe DCplanning. Psychiatry consulted and following this admission- Per psychiatry, pt does not have capacity and medical decision maker deferred to HCP- Spouse Becky. Case discussed with RN ANDRZEJ- At this time, is interested in seeing if pt qualifies for [facility] care coverage to be placed in a skilled nursing. SW reached out to hospital financial counselor and [facility] healthcare worker to request that be contacted to complete the application. Documented By: Celine Aldana LCSW 12/19/23 125 Signed By: <Electronically signed by Celine Aldana LCSW> 12/19/23 0195 Copies to: Progress Note Author Roma Hoffman [facility] December 30, 2023 11:04pm Note Date/Time December 19, 2023 3:[address] [id number] Hospitalist Progress Note Patient: Maryana Rivera Attending MD: Carrol Castelan MD : 1945 Dictating Provider: Roma Hoffman MD Age/Sex: 78 / M Admit Date: 12/15/23 Discharge Date: MedRec #: [id number] Location: [facility] [id number] cc: * Subjective Subjective Date: 12/19/23 Interval Events: Patient seen and examined He was sleeping when I saw him however as per nursing staff he was awake most ofthe night No other acute events reported Review of Systems Review of Systems All systems: As per HPI, 10 point ROS completed & negative except where noted below Exam Physical Exam Vital signs: Vital Signs - Last Response Temperature Pulse Rate Respiratory Rate Blood Pressure Blood Pressure Source O2 Sat by Pulse Oximetry 98.2 F 54 L 18 176/59 H Automatic Cuff 96 12/19/23 09:00 12/19/23 09:00 12/19/23 09:00 12/19/23 09:00 12/19/23 09:00 12/19/23 09:00 Physical Exam Narrative: GEN: Sleeping but does wake up HEENT: No scleral icterus or conjunctival injection CV: S1-S2 present Pulmonary: CATB Abdomen: soft, NT, ND, +BS EXT: WWP, no edema Neuro: Sleeping but does wake up Medications Active Medications Acetaminophen (Acetaminophen 325 Mg Tablet) 650 mg PO Q6H PRN PRN Reason: Temp>101.5 &/or Pain Score:1-3 Atorvastatin Calcium (Atorvastatin 40 Mg Tablet) 80 mg PO QHS [facility] Last Admin: 12/18/23 23:10 Dose: Not Given Donepezil HCl (Donepezil 5 Mg Tablet) 10 mg PO QHS [facility] Last Admin: 12/18/23 23:13 Dose: Not Given Escitalopram Oxalate (Escitalopram 10 Mg Tablet) 10 mg PO DAILY [facility] Last Admin: 12/19/23 08:01 Dose: 10 mg Folic Acid (Folic Acid 1 Mg Tablet) 1 mg PO DAILY [facility] Last Admin: 12/19/23 08:01 Dose: 1 mg Gabapentin (Gabapentin 300 Mg Capsule) 600 mg PO QHS [facility] Last Admin: 12/18/23 23:13 Dose: Not Given Gabapentin (Gabapentin 400 Mg Capsule) 1,200 mg PO QAM [facility] Last Admin: 12/19/23 08:01 Dose: 1,200 mg Glucagon (Glucagon 1 Mg/Ml Vial (Kit)) 1 mg IM PRN PRN; Protocol PRN Reason: Hypoglycemia Protocol Glucose (Dextrose Gel 40 % 15 Gm Dextrose/37.5 Gm Tube) 15 gm PO PRN PRN; Protocol PRN Reason: Hypoglycemia Protocol Haloperidol (Haloperidol 5 Mg/Ml Vial) 2.5 mg IM ONCE PRN PRN Reason: Agitation Last Admin: 12/16/23 13:46 Dose: 2.5 mg Dextrose (Dextrose 10 % In Water) 125 mls @ 1,500 mls/hr IV PRN PRN; Protocol PRN Reason: for Hypoglycemia Protocol Dextrose (Dextrose 10 % In Water) 250 mls @ 3,000 mls/hr IV ONCE PRN; Protocol PRN Reason: Hypoglycemia Protocol Insulin Human Lispro (Insulin Lispro 300 Unit/3 Ml Vial) 0 unit SUB-Q ACHS [facility];Protocol Last Admin: 12/19/23 11:55 Dose: Not Given Lisinopril (Lisinopril 20 Mg Tablet) 20 mg PO DAILY [facility]; Protocol Last Admin: 12/19/23 08:01 Dose: 20 mg Magnesium Hydroxide (Magnesium Hydroxide 30 Ml Udc) 30 ml PO DAILY PRN PRN Reason: Constipation Step 2 Melatonin (Melatonin 5 Mg Tablet) 5 mg PO HS PRN PRN Reason: Insomnia Last Admin: 12/16/23 21:48 Dose: 5 mg Metformin HCl (Metformin 500 Mg Tablet) 750 mg PO BID [facility] Last Admin: 12/19/23 11:49 Dose: Not Given Omeprazole (Omeprazole Dr 20 Mg Capsule) 40 mg PO DAILY [facility] Last Admin: 12/19/23 08:01 Dose: 40 mg Polyethylene Glycol (Polyethylene Glycol 3350 17 Gm Packet) 17 gm PO DAILY PRN PRN Reason: Constipation Step 1 Quetiapine Fumarate (Quetiapine 25 Mg Tablet) 50 mg PO 12,20 [facility] Sitagliptin Phosphate (Sitagliptin 100 Mg Tablet) 100 mg PO DAILY [facility] Last Admin: 12/19/23 08:03 Dose: 100 mg Thiamine Mononitrate (Thiamine 100 Mg Tablet) 100 mg PO DAILY [facility] Last Admin: 12/19/23 08:01 Dose: 100 mg Trazodone HCl (Trazodone 50 Mg Tablet) 50 mg PO 20 [facility] Results Laboratory Laboratory Results: 12/15/23 08:50 12/15/23 08:50 Laboratory Results - Last 12 hours 12/19/23 07:01: POC Glucose 112 12/19/23 11:41: POC Glucose 157 Progress Note - A&P Assessment and Plan Assessment and Plan: Angel Rivera is a 78 y/o M with dementia, alcohol use disorder who was brought into the ED via ambulance after he was found wandering outside. #Dementia with behavioral disturbances Per review of [facility] chart including his numerous visits with Psychiatry, Neurology and Congitive Neurology spanning >decade, he has had chronic funtionaland cognitive decline over the past ~20yrs. Per Cognitive Neurology note from 12/14/23, On initial interview 04/16/22, MOCA had decreased to 14/30 with prominent deficits in executive function (only completing a paimiut for clock draw), disorientation, naming with circumlocution and decreased fluency (F words> animals), and difficulty with serial 7s but intact vigilance testing. With otherwise normal basic blood work, save for hypomagnesemia, and unremarkable CT head, urinalysis, CXR and unremarkable neuro exam except for hiscognition/attention, suspect this is progression of his underlying known neurocognitive dementia (with history of depression as well). SW/CM consulted -- appreciate recs ongoing attempts to formulate a safe discharge plan as his just had knee replacement surgery but he is actively wandering and does not have insight into his condition continue home regimen of donepezil, AMA hold/ HCP invoked Neuropsychiatry consulted appreciate their help Recommend starting trazodone 50 mg at 8 PM for agitation, adjust Seroquel to 50 mg at noon and nightly for agitation. Use Seroquel 25 mg p.o. every 6 hours as needed for agitation. As per case management, patient's would like to pursue long-term care placement as unable to care for patient at home #Hypomagnesemia: possibly 2/2 omeprazole -2 g of magnesium administered in the ED Monitor #Chronic anemia: stable. #Mild hyponatremia: sodium 134 -encourage PO intake #DM2 with hyperglycemia: -resume home regimen of januvia, metfomrin -glucose achs, humalog ss #HTN: c/w home regimen of Lisinopril #GERD: c/w home regimen of omeprazole #Alcohol use d/o: unclear if he is in remission. no signs or sx of acute withdrawal. EtOH level on presentation is very low. -c/w thiamine and folate #Diabetic neuropathy: c/w home regimen of gabapentin #Mood d/o: c/ w home regimen of escitalopram #HL: c/w home regimen of statin #FEN: diabetic diet #DVT PPX: remy score 1, SCDs #CODE: FULL, as per admitting hospitalist Dispo: complicated disposition as patient's just had knee replacement and he is a wandering risk so no safe disposition plan formulated yet, case management investigating but likely patient will remain inpatient over the weekend Anticipated Discharge Anticipated Discharge Date: 12/19/23 Specify Other:: TBD - unclear safe discharge plan Quality Measures Was the pt treated for stroke/TIA? (Y/N): No Documented By: Roma Hoffman MD 12/19/23 1534 Signed By: <Electronically signed by Roma Hoffman MD> 12/30/23 2304 Copies to: Progress Note Author Roma Hoffman [facility] December 21, 2023 6:17am Note Date/Time December 20, 2023 4:[address] [address] Hospitalist Progress Note Patient: Maryana Rivera Attending MD: Roma Hoffman MD : 1945 Dictating Provider: Roma Hoffman MD Age/Sex: 78 / M Admit Date: 12/15/23 Discharge Date: MedRec #: [id number] Location: [facility] [id number] cc: * Subjective Subjective Date: 12/20/23 Interval Events: Patient seen and examined Currently sleeping Patient agitated this morning refused all meds and all meals No other acute events reported Review of Systems Review of Systems ROS unobtainable: due to mental status Exam Physical Exam Vital signs: Vital Signs - Last Response Temperature Pulse Rate Respiratory Rate Blood Pressure Blood Pressure Source O2 Sat by Pulse Oximetry 97.4 F L 55 L 18 148/56 L Automatic Cuff 98 12/19/23 21:00 12/20/23 09:00 12/19/23 21:00 12/20/23 09:00 12/20/23 09:00 12/20/23 09:00 Physical Exam Narrative: GEN: Sleeping but does wake up HEENT: No scleral icterus or conjunctival injection CV: S1-S2 present Pulmonary: CATB Abdomen: soft, NT, ND, +BS EXT: WWP, no edema Neuro: Sleeping but does wake up Medications Active Medications Acetaminophen (Acetaminophen 325 Mg Tablet) 650 mg PO Q6H PRN PRN Reason: Temp>101.5 &/or Pain Score:1-3 Last Admin: 12/19/23 21:28 Dose: 650 mg Atorvastatin Calcium (Atorvastatin 40 Mg Tablet) 80 mg PO QHS [facility] Last Admin: 12/19/23 21:21 Dose: 80 mg Donepezil HCl (Donepezil 5 Mg Tablet) 10 mg PO QHS [facility] Last Admin: 12/19/23 21:21 Dose: 10 mg Enoxaparin Sodium (Enoxaparin 40 Mg/0.4 Ml Syringe) 40 mg SUB-Q Q24H [facility] Escitalopram Oxalate (Escitalopram 10 Mg Tablet) 10 mg PO DAILY [facility] Last Admin: 12/20/23 10:30 Dose: Not Given Folic Acid (Folic Acid 1 Mg Tablet) 1 mg PO DAILY [facility] Last Admin: 12/20/23 10:30 Dose: Not Given Gabapentin (Gabapentin 300 Mg Capsule) 600 mg PO QHS [facility] Last Admin: 12/19/23 21:22 Dose: 600 mg Gabapentin (Gabapentin 400 Mg Capsule) 1,200 mg PO QAM [facility] Last Admin: 12/20/23 10:31 Dose: Not Given Glucagon (Glucagon 1 Mg/Ml Vial (Kit)) 1 mg IM PRN PRN; Protocol PRN Reason: Hypoglycemia Protocol Glucose (Dextrose Gel 40 % 15 Gm Dextrose/37.5 Gm Tube) 15 gm PO PRN PRN; Protocol PRN Reason: Hypoglycemia Protocol Haloperidol (Haloperidol 5 Mg/Ml Vial) 2.5 mg IM ONCE PRN PRN Reason: Agitation Last Admin: 12/16/23 13:46 Dose: 2.5 mg Dextrose (Dextrose 10 % In Water) 125 mls @ 1,500 mls/hr IV PRN PRN; Protocol PRN Reason: for Hypoglycemia Protocol Dextrose (Dextrose 10 % In Water) 250 mls @ 3,000 mls/hr IV ONCE PRN; Protocol PRN Reason: Hypoglycemia Protocol Insulin Human Lispro (Insulin Lispro 300 Unit/3 Ml Vial) 0 unit SUB-Q ACHS [facility];Protocol Last Admin: 12/20/23 12:04 Dose: Not Given Lisinopril (Lisinopril 20 Mg Tablet) 20 mg PO DAILY [facility]; Protocol Last Admin: 12/20/23 10:31 Dose: Not Given Magnesium Hydroxide (Magnesium Hydroxide 30 Ml Udc) 30 ml PO DAILY PRN PRN Reason: Constipation Step 2 Melatonin (Melatonin 5 Mg Tablet) 5 mg PO HS PRN PRN Reason: Insomnia Last Admin: 12/16/23 21:48 Dose: 5 mg Omeprazole (Omeprazole Dr 20 Mg Capsule) 40 mg PO DAILY [facility] Last Admin: 12/20/23 10:31 Dose: Not Given Polyethylene Glycol (Polyethylene Glycol 3350 17 Gm Packet) 17 gm PO DAILY PRN PRN Reason: Constipation Step 1 Quetiapine Fumarate (Quetiapine 25 Mg Tablet) 50 mg PO 12,20 [facility] Last Admin: 12/20/23 12:54 Dose: 50 mg Senna (Sennosides 8.8 Mg/5 Ml Syrup 120 Ml Bottle) 8.8 mg PO BID [facility] Thiamine Mononitrate (Thiamine 100 Mg Tablet) 100 mg PO DAILY [facility] Last Admin: 12/20/23 10:31 Dose: Not Given Trazodone HCl (Trazodone 50 Mg Tablet) 50 mg PO 20 [facility] Last Admin: 12/19/23 21:21 Dose: 50 mg Results Laboratory Laboratory Results: 12/15/23 08:50 12/15/23 08:50 Laboratory Results - Last 12 hours 12/20/23 11:44: POC Glucose 121 Progress Note - A&P Assessment and Plan Assessment and Plan: Angel Rivera is a 78 y/o M with dementia, alcohol use disorder who was brought into the ED via ambulance after he was found wandering outside. #Dementia with behavioral disturbances Per review of [facility] chart including his numerous visits with Psychiatry, Neurology and Congitive Neurology spanning >decade, he has had chronic funtionaland cognitive decline over the past ~20yrs. Per Cognitive Neurology note from 12/14/23, On initial interview 04/16/22, MOCA had decreased to 14/30 with prominent deficits in executive function (only completing a paimiut for clock draw), disorientation, naming with circumlocution and decreased fluency (F words> animals), and difficulty with serial 7s but intact vigilance testing. With otherwise normal basic blood work, save for hypomagnesemia, and unremarkable CT head, urinalysis, CXR and unremarkable neuro exam except for hiscognition/attention, suspect this is progression of his underlying known neurocognitive dementia (with history of depression as well). SW/CM consulted -- appreciate recs ongoing attempts to formulate a safe discharge plan as his just had knee replacement surgery but he is actively wandering and does not have insight into his condition continue home regimen of donepezil, AMA hold/ HCP invoked Neuropsychiatry consulted appreciate their help Recommend starting trazodone 50 mg at 8 PM for agitation, adjust Seroquel to 50 mg at noon and nightly for agitation. Use Seroquel 25 mg p.o. every 6 hours as needed for agitation. As per case management, patient's would like to pursue long-term care placement as unable to care for patient at home #Hypomagnesemia: possibly 2/2 omeprazole -2 g of magnesium administered in the ED Monitor #Chronic anemia: stable. #Mild hyponatremia: sodium 134 -encourage PO intake #DM2 with hyperglycemia: -Hold home regimen of januvia, metformin, since patient has poor oral intake -glucose achs, humalog ss #HTN: c/w home regimen of Lisinopril #GERD: c/w home regimen of omeprazole #Alcohol use d/o: unclear if he is in remission. no signs or sx of acute withdrawal. EtOH level on presentation is very low. -c/w thiamine and folate #Diabetic neuropathy: c/w home regimen of gabapentin #Mood d/o: c/ w home regimen of escitalopram #HL: c/w home regimen of statin #FEN: diabetic diet #DVT PPX: Lovenox #CODE: FULL, as per admitting hospitalist Dispo: complicated disposition needs long-term care placement Anticipated Discharge Anticipated Discharge Date: 12/19/23 Specify Other:: TBD - unclear safe discharge plan Quality Measures Was the pt treated for stroke/TIA? (Y/N): No Documented By: Roma Hoffman MD 12/20/23 1556 Signed By: <Electronically signed by Roma Hoffman MD> 12/21/23 0679 Copies to: Progress Note Author Celine Aldana [facility] December 21, 2023 11:54am Note Date/Time December 21, 2023 11: 54am [address] [address] Progress Note Patient: Maryana Rivera Attending MD: Roma Hoffman MD : 1945 Dictating Provider: Celine Aldana LCSW Age/Sex: 78 / M Admit Date: 12/15/23 Discharge Date: MedRec #: [id number] Location: [place] [address] cc: * Social Work Progress Note Date: 12/21/23 Service Type: consultation Patient identified at-risk for alcohol use: No Summary: SW consulted and following the pt regarding home safety and to help with safe DCplanning. SW previously placed referral to [facility] healthcare worker for family caseworker to reach out to pt's regarding [facility] LTC application. Per [facility] family caseworker, pt's reported they completed the MH application back in 10/14/23 and since their income hasn't changed, they do not meet the criteria for LTC.They are over income by $397. FABIANO updated RN CM. If pt's family is interested in LTC placement, LTC placement will be private pay. Documented By: Celine Aldana LCSW 12/21/23 1149 Signed By: <Electronically signed by Celine Aldana LCSW> 12/21/23 1154 Copies to: Progress Note Author Sandip Cerrato [facility] December 21, 2023 12:38pm Note Date/Time December 21, 2023 12: 20pm [address] [address] Progress Note Patient: Maryana Rivera Attending MD: Roma Hoffman MD : 1945 Dictating Provider: Sandip Cerrato MD Age/Sex: 78 / M Admit Date: 12/15/23 Discharge Date: MedRec #: [id number] Location: [place] [id number] cc: * ADDENDUM Discussed with the primary team, concern about poor appetite, will start mirtazapine 7.5 mg and taper trazodone to 25 mg nightly and BMP monitor. Addendum Documented By: Sandip Cerrato MD 12/21/23 1238 Addendum Signed By: <Electronically signed by Sandip Cerrato MD> 12/21/23 1238 cc: Copy To: __ Assessment/Plan Assessment/Plan: 78-year-old male retired with a history of diabetes, hypertension, depression, vascular dementia, on donepezil and quetiapine, alcohol use disorder, seen by psych and October 2022 for agitation (MOCA, scored 6/25 after excluding executive function. was started on quetiapine and trazodone) who was admitted with wandering episodes. Quetiapine was increased and psych was consulted for evaluation. Patient was calm, forgetful, oriented x 1, limited insight, head CTwith generalized volume loss and microvascular changes. Impression vascular dementia with behavioral dysregulation's history of alcohol use, will increase trazodone, quetiapine and monitor. No suicidal. Today, calm, limited insight, no agitation, will continue previous recs CSSRS- low risk of suicide. Highly complex, multisystem disease DSM 5 DIAGNOSES: Primary Psychiatric Diagnosis: vascular dementia with behavioral dysregulation'shistory of alcohol use. Secondary Psychiatric Diagnosis: none Other Medical Conditions: as above Psychosocial and Contextual Factors: medical and mental Plan: --Continue previous recs: --Trazodone 50 mg at 8 PM for agitation at night and sleep. --quetiapine to 50 mg at noon and nightly for agitation. --EKG for QTc --For agitation will use quetiapine 25 mg p.o. every 6 hours as needed. --Collateral discussed with the /healthcare proxy agreed with above plan andwould like patient to be transferred to long-term memory care unit. Discussed CODE STATUS with the family. --please page/call if any questions. Thank you for consulting the Psychosomatic Medicine Service Sandip Cerrato MD Psychosomatic Medicine Total time 35 minutes Greater than 50% of consultation visit spends in counseling, obtaining collateral, treatment plan, coordination of care with primary team and patient Note was dictated using an electronic dictation system, which can unfortunately lead to occasional typographical errors. Please do not hesitate to contact for clarification or questions. Acutely suicidal or violent?: No If yes, need 1:1 sitter?: Yes - Visit Visit: Traditional [id number] Subjective Date: 12/21/23 Time: 12:14 Reason for Consult: Altered mental status and dementia Subjective: Patient was seen, calm, sleepy, limited insight, had breakfast, walked to the bathroom per staff, no agitation this morning, able to tolerate increase dose oftrazodone/quetiapine. Chart was reviewed. , was contacted, and agreed with the plan. Stated that she is unable to thecare of the patient at home and would like him to go to memory care unit, statedthat elder services involved. Discussed current medication and agreed with increase. Discussed also the CODE STATUS and would like to discuss with the family and update the primary team. Review of Systems All systems: As per HPI, 10 point ROS completed & negative except where noted below Exam Vital signs: Vital Signs - Last Response Temperature Pulse Rate Respiratory Rate Blood Pressure Blood Pressure Source O2 Sat by Pulse Oximetry 97.4 F L 56 L 17 136/60 Automatic Cuff 100 12/21/23 09:00 12/21/23 09:00 12/21/23 09:00 12/21/23 09:00 12/20/23 20:20 12/21/23 09:00 Mental Status Assessment - Daily Functioning Patient Appearance: Appropriate Comprehension Ability: Severe Impairment Oral Expression Ability: Severe Impairment - Mental Status Exam Sensorium: Awake, Drowsy Attention: Fluctuating Orientation: Person Patient Behavior: Appropriate Eye Contact: Poor Thought Process: Easily Derailed Thought Content: Appropriate Suicidal Ideation Description: None Delusions: Not Present Hallucinations: None Impulse Control Description: Poor Speech Pattern: Delayed Memory Description: Recent Intact Mood Description: Calm Response to Stimuli: None Motor: None Affect Description: Constricted Energy Level: No complaints Signs of Anxiety: None Insight/Judgment: Poor Results - Laboratory CBC & Chem 7: 12/15/23 08:50 12/15/23 08:50 Laboratory Results: All Laboratory Results - Last 24 hours 12/20/23 12/21/23 12/21/23 20:36 07:24 11:11 POC Glucose 249 190 95 - RN Note RN Note: 12/21/23 03:27 Nurse Note by Yuliana Browning Assumed care of pt at 2300. Pt is alert and to be orientated to self, remains on1:1 sitter with security, AMA Hold in place. No s/sx of pain or any discomfort noted. No behavioral noted this shift. Purposeful rounding made for comfort and safety.Bed locked in lowest position, bed alarm on. All needs met at this time. Care ongoing. Initialized on 12/21/23 03:27 - END OF NOTE 12/20/23 22:18 Nurse Note by Olvin Iqbal Patient is alert and oriented to self, confused , cooperative with care. Pt ate 75% of his meals ,FS 245, insulin given per sliding scale. Meds adm whole with water. 1:[address] Patient safety maintained this shift. Initialized on 12/20/23 22:18 - END OF NOTE 12/20/23 15:24 Nurse Note by Tyler Hunt Assumed care of patient from [id number]. Patient alert and oriented to self only this shift. Pt confused and combative with AM care - refused, FSBS, all meds, and vitals. Dr. Hoffman aware. Patient agreeable to VS, lunchtime FSBS and lunch time ordered meds. Pt tolerated pills whole with water. Minimal appetite today -refused breakfast and ate banana with lunch. Pt made 1:1 nursing feed to help encourage PO intake. Pt inc of bladder this shift. Skin care provided when patient allowed. 1:[address], AMA hold in place. Bed alarm on. Patient safety maintained this shift. Initialized on 12/20/23 15:24 - END OF NOTE - Medications Medications: Active Medications Generic Name Dose Route Start Last Admin Trade Name Freq PRN Reason Stop Dose Admin Acetaminophen 650 mg 12/15/23 13:33 12/21/23 07:31 Acetaminophen 325 Mg Tablet PO 650 mg Q6H PRN Administration Temp>101.5 &/or Pain Score:1-3 Atorvastatin Calcium 80 mg 12/15/23 19:45 12/20/23 21:43 Atorvastatin 40 Mg Tablet PO 80 mg QHS [facility] Administration Donepezil HCl 10 mg 12/15/23 22:00 12/20/23 21:43 Donepezil 5 Mg Tablet PO 10 mg QHS [facility] Administration Enoxaparin Sodium 40 mg 12/20/23 17:30 12/20/23 18:23 Enoxaparin 40 Mg/0.4 Ml Syringe SUB-Q 40 mg Q24H [facility] Administration Escitalopram Oxalate 10 mg 12/16/23 09:00 12/21/23 09:08 Escitalopram 10 Mg Tablet PO 10 mg DAILY [facility] Administration Folic Acid 1 mg 12/16/23 09:00 12/21/23 09:08 Folic Acid 1 Mg Tablet PO 1 mg DAILY [facility] Administration Gabapentin 600 mg 12/15/23 22:00 12/20/23 21:43 Gabapentin 300 Mg Capsule PO 600 mg QHS [facility] Administration Gabapentin 1,200 mg 12/16/23 09:00 12/21/23 09:07 Gabapentin 400 Mg Capsule PO 1,200 mg QAM [facility] Administration Glucagon 1 mg 12/15/23 13:33 Glucagon 1 Mg/Ml Vial (Kit) IM PRN PRN Hypoglycemia Protocol Protocol Glucose 15 gm 12/15/23 13:33 Dextrose Gel 40 % 15 Gm Dextrose/37.5 Gm Tube PO PRN PRN Hypoglycemia Protocol Protocol Haloperidol 2.5 mg 12/16/23 12:57 12/16/23 13:46 Haloperidol 5 Mg/Ml Vial IM 2.5 mg ONCE PRN Administration Agitation Dextrose 125 mls @ 1,500 mls/hr 12/15/23 13:33 Dextrose 10 % In Water IV PRN PRN for Hypoglycemia Protocol Protocol Dextrose 250 mls @ 3,000 mls/hr 12/15/23 13:33 Dextrose 10 % In Water IV ONCE PRN Hypoglycemia Protocol Protocol Insulin Human Lispro 0 unit 12/15/23 16:30 12/21/23 11:48 Insulin Lispro 300 Unit/3 Ml Vial SUB-Q Not Given ACHS [facility] Protocol Lisinopril 20 mg 12/16/23 09:00 12/21/23 09:08 Lisinopril 20 Mg Tablet PO 20 mg DAILY [facility] Administration Protocol Magnesium Hydroxide 30 ml 12/15/23 13:33 Magnesium Hydroxide 30 Ml Udc PO DAILY PRN Constipation Step 2 Melatonin 5 mg 12/15/23 13:33 12/16/23 21:48 Melatonin 5 Mg Tablet PO 5 mg HS PRN Administration Insomnia Omeprazole 40 mg 12/16/23 09:00 12/21/23 09:[address] 20 Mg Capsule PO 40 mg DAILY [facility] Administration Polyethylene Glycol 17 gm 12/15/23 13:33 12/20/23 18:24 Polyethylene Glycol 3350 17 Gm Packet PO 17 gm DAILY PRN Administration Constipation Step 1 Quetiapine Fumarate 50 mg 12/19/23 20:00 12/21/23 11:52 Quetiapine 25 Mg Tablet PO 50 mg 12,20 [facility] Administration Senna 8.6 mg 12/20/23 21:00 12/21/23 09:07 Sennosides 8.6 Mg Tablet PO 8.6 mg BID [facility] Administration Thiamine Mononitrate 100 mg 12/16/23 09:00 12/21/23 09:07 Thiamine 100 Mg Tablet PO 100 mg DAILY [facility] Administration Trazodone HCl 50 mg 12/19/23 20:00 12/20/23 20:29 Trazodone 50 Mg Tablet PO 50 mg 20 [facility] Administration Documented By: Sandip Cerrato MD 12/21/23 1214 Signed By: <Electronically signed by Sandip Cerrato MD> 12/21/23 1228 Copies to: Progress Note Author Roma Hoffman [facility] December 22, 2023 6:29am Note Date/Time December 21, 2023 4:[address] [address] Hospitalist Progress Note Patient: Maryana Rivera Attending MD: Roma Hoffman MD : 1945 Dictating Provider: Roma Hoffman MD Age/Sex: 78 / M Admit Date: 12/15/23 Discharge Date: MedRec #: [id number] Location: [facility] [id number] cc: * Subjective Subjective Date: 12/21/23 Interval Events: Patient seen and examined As per nursing staff, poor oral intake Continues to have one-to-one sitter No other acute events reported Review of Systems Review of Systems All systems: As per HPI, 10 point ROS completed & negative except where noted below Exam Physical Exam Vital signs: Vital Signs - Last Response Temperature Pulse Rate Respiratory Rate Blood Pressure Blood Pressure Source O2 Sat by Pulse Oximetry 97.4 F L 56 L 17 136/60 Automatic Cuff 100 12/21/23 09:00 12/21/23 09:00 12/21/23 09:00 12/21/23 09:00 12/20/23 20:20 12/21/23 09:00 Physical Exam Narrative: GEN: Sleeping but does wake up HEENT: No scleral icterus or conjunctival injection CV: S1-S2 present Pulmonary: CATB Abdomen: soft, NT, ND, +BS EXT: WWP, no edema Neuro: Sleeping but does wake up Medications Active Medications Acetaminophen (Acetaminophen 325 Mg Tablet) 650 mg PO Q6H PRN PRN Reason: Temp>101.5 &/or Pain Score:1-3 Last Admin: 12/21/23 07:31 Dose: 650 mg Atorvastatin Calcium (Atorvastatin 40 Mg Tablet) 80 mg PO QHS [facility] Last Admin: 12/20/23 21:43 Dose: 80 mg Donepezil HCl (Donepezil 5 Mg Tablet) 10 mg PO QHS [facility] Last Admin: 12/20/23 21:43 Dose: 10 mg Enoxaparin Sodium (Enoxaparin 40 Mg/0.4 Ml Syringe) 40 mg SUB-Q Q24H [facility] Last Admin: 12/20/23 18:23 Dose: 40 mg Escitalopram Oxalate (Escitalopram 10 Mg Tablet) 10 mg PO DAILY [facility] Last Admin: 12/21/23 09:08 Dose: 10 mg Folic Acid (Folic Acid 1 Mg Tablet) 1 mg PO DAILY [facility] Last Admin: 12/21/23 09:08 Dose: 1 mg Gabapentin (Gabapentin 300 Mg Capsule) 600 mg PO QHS [facility] Last Admin: 12/20/23 21:43 Dose: 600 mg Gabapentin (Gabapentin 400 Mg Capsule) 1,200 mg PO QAM [facility] Last Admin: 12/21/23 09:07 Dose: 1,200 mg Glucagon (Glucagon 1 Mg/Ml Vial (Kit)) 1 mg IM PRN PRN; Protocol PRN Reason: Hypoglycemia Protocol Glucose (Dextrose Gel 40 % 15 Gm Dextrose/37.5 Gm Tube) 15 gm PO PRN PRN; Protocol PRN Reason: Hypoglycemia Protocol Haloperidol (Haloperidol 5 Mg/Ml Vial) 2.5 mg IM ONCE PRN PRN Reason: Agitation Last Admin: 12/16/23 13:46 Dose: 2.5 mg Dextrose (Dextrose 10 % In Water) 125 mls @ 1,500 mls/hr IV PRN PRN; Protocol PRN Reason: for Hypoglycemia Protocol Dextrose (Dextrose 10 % In Water) 250 mls @ 3,000 mls/hr IV ONCE PRN; Protocol PRN Reason: Hypoglycemia Protocol Insulin Human Lispro (Insulin Lispro 300 Unit/3 Ml Vial) 0 unit SUB-Q ACHS [facility];Protocol Last Admin: 12/21/23 11:48 Dose: Not Given Lisinopril (Lisinopril 20 Mg Tablet) 20 mg PO DAILY [facility]; Protocol Last Admin: 12/21/23 09:08 Dose: 20 mg Magnesium Hydroxide (Magnesium Hydroxide 30 Ml Udc) 30 ml PO DAILY PRN PRN Reason: Constipation Step 2 Melatonin (Melatonin 5 Mg Tablet) 5 mg PO HS PRN PRN Reason: Insomnia Last Admin: 12/16/23 21:48 Dose: 5 mg Mirtazapine (Mirtazapine 7.5 Mg Tablet) 7.5 mg PO 20 [facility] Omeprazole (Omeprazole Dr 20 Mg Capsule) 40 mg PO DAILY [facility] Last Admin: 12/21/23 09:07 Dose: 40 mg Polyethylene Glycol (Polyethylene Glycol 3350 17 Gm Packet) 17 gm PO DAILY PRN PRN Reason: Constipation Step 1 Last Admin: 12/20/23 18:24 Dose: 17 gm Quetiapine Fumarate (Quetiapine 25 Mg Tablet) 50 mg PO 12,20 [facility] Last Admin: 12/21/23 11:52 Dose: 50 mg Senna (Sennosides 8.6 Mg Tablet) 8.6 mg PO BID [facility] Last Admin: 12/21/23 09:07 Dose: 8.6 mg Thiamine Mononitrate (Thiamine 100 Mg Tablet) 100 mg PO DAILY [facility] Last Admin: 12/21/23 09:07 Dose: 100 mg Trazodone HCl (Trazodone 50 Mg Tablet) 25 mg PO 20 [facility] Results Laboratory Laboratory Results: 12/15/23 08:50 12/15/23 08:50 Laboratory Results - Last 12 hours 12/21/23 07:24: POC Glucose 190 12/21/23 11:11: POC Glucose 95 Progress Note - A&P Assessment and Plan Assessment and Plan: Angel Rivera is a 78 y/o M with dementia, alcohol use disorder who was brought into the ED via ambulance after he was found wandering outside. #Dementia with behavioral disturbances Per review of [facility] chart including his numerous visits with Psychiatry, Neurology and Congitive Neurology spanning >decade, he has had chronic funtionaland cognitive decline over the past ~20yrs. Per Cognitive Neurology note from 12/14/23, On initial interview 04/16/22, MOCA had decreased to 14/30 with prominent deficits in executive function (only completing a paimiut for clock draw), disorientation, naming with circumlocution and decreased fluency (F words> animals), and difficulty with serial 7s but intact vigilance testing. With otherwise normal basic blood work, save for hypomagnesemia, and unremarkable CT head, urinalysis, CXR and unremarkable neuro exam except for hiscognition/attention, suspect this is progression of his underlying known neurocognitive dementia (with history of depression as well). SW/CM consulted -- appreciate recs continue home regimen of donepezil, AMA hold/ HCP invoked Neuropsychiatry consulted appreciate their help d/w Psychiatrist re poor oral intake Recommend tapering trazodone to 25 mg and starting mirtazapine 7.5 mg to help with appetite , adjust Seroquel to 50 mg at noon and nightly for agitation. UseSeroquel 25 mg p.o. every 6 hours as needed for agitation. As per case management, patient's would like to pursue long-term care placement as unable to care for patient at home #Hypomagnesemia: possibly 2/2 omeprazole -2 g of magnesium administered in the ED Monitor #Chronic anemia: stable. #Mild hyponatremia: sodium 134 -encourage PO intake -Recheck labs in a.m. #DM2 with hyperglycemia: -Hold home regimen of januvia, metformin, since patient has poor oral intake -glucose achs, humalog ss #HTN: c/w home regimen of Lisinopril #GERD: c/w home regimen of omeprazole #Alcohol use d/o: unclear if he is in remission. no signs or sx of acute withdrawal. EtOH level onpresentation is very low. -c/w thiamine and folate #Diabetic neuropathy: c/w home regimen of gabapentin #Mood d/o: c/ w home regimen of escitalopram #HL: c/w home regimen of statin #FEN: diabetic diet #DVT PPX: Lovenox #CODE: FULL, as per admitting hospitalist Dispo: complicated disposition needs long-term care placement Anticipated Discharge Anticipated Discharge Date: 12/19/23 Specify Other:: TBD - unclear safe discharge plan Quality Measures Was the pt treated for stroke/TIA? (Y/N): No Documented By: Roma Hoffman MD 12/21/23 1558 Signed By: <Electronically signed by Roma Hoffman MD> 12/22/23 0629 Copies to: Progress Note Author Sandip Cerrato [facility] December 22, 2023 10:49am Note Date/Time December 22, 2023 10: 47am [address] [address] Progress Note Patient: Maryana Rivera Attending MD: Roma Hoffman MD : 1945 Dictating Provider: Sandip Cerrato MD Age/Sex: 78 / M Admit Date: 12/15/23 Discharge Date: MedRec #: [id number] Location: [facility] [id number] cc: * Assessment/Plan Assessment/Plan: 78-year-old male retired with a history of diabetes, hypertension, depression, vascular dementia, on donepezil and quetiapine, alcohol use disorder, seen by psych and October 2022 for agitation (MOCA, scored 6/25 after excluding executive function. was started on quetiapine and trazodone) who was admitted with wandering episodes. Quetiapine was increased and psych was consulted for evaluation. Patient was calm, forgetful, oriented x 1, limited insight, head CTwith generalized volume loss and microvascular changes. Impression vascular dementia with behavioral dysregulation's history of alcohol use, and increased trazodone, increased quetiapine and monitor. No suicidal. Today, intermittent irritability, confused, limited insight, will increase quetiapine and monitor. CSSRS- low risk of suicide. Highly complex, multisystem disease DSM 5 DIAGNOSES: Primary Psychiatric Diagnosis: vascular dementia with behavioral dysregulation'shistory of alcohol use. Secondary Psychiatric Diagnosis: none Other Medical Conditions: as above Psychosocial and Contextual Factors: medical and mental Plan: --Increase quetiapine to 50 mg 3 times daily at noon, 4 PM and nightly. --Continue nightly trazodone 50 mg for insomnia/agitation. --EKG for QTc received as needed. --Collateral discussed with the /healthcare proxy 12/20 agreed with above plan and would like patient to be transferred to long-term memory care unit. Discussed CODE STATUS with the family. --please page/call if any questions. Thank you for consulting the Psychosomatic Medicine Service Sandip Cerrato MD Psychosomatic Medicine Total time 35 minutes Greater than 50% of consultation visit spends in counseling, obtaining collateral, treatment plan, coordination of care with primary team and patient Note was dictated using an electronic dictation system, which can unfortunately lead to occasional typographical errors. Please do not hesitate to contact for clarification or questions. Acutely suicidal or violent?: No If yes, need 1:1 sitter?: Yes - Visit Visit: Traditional [id number] Subjective Date: 12/22/23 Time: 10:45 Reason for Consult: Altered mental status and dementia Subjective: Patient was seen with staff nurse icu resource team at the hallway, grabbing things but able to redirect, forgetful, confused, per staff/chart intermittent irritability but didnot receive IM. Chart was reviewed. Review of Systems All systems: As per HPI, 10 point ROS completed & negative except where noted below Exam Vital signs: Vital Signs - Last Response Temperature Pulse Rate Respiratory Rate Blood Pressure Blood Pressure Source O2 Sat by Pulse Oximetry 98.1 F 67 18 144/67 Automatic Cuff 95 12/22/23 07:39 12/22/23 07:39 12/22/23 07:39 12/22/23 07:39 12/22/23 07:39 12/22/23 07:39 Mental Status Assessment - Daily Functioning Patient Appearance: Appropriate Comprehension Ability: Severe Impairment Oral Expression Ability: Severe Impairment - Mental Status Exam Sensorium: Awake Attention: Fluctuating Orientation: Person Patient Behavior: Cooperative Eye Contact: Maintained Thought Process: Easily Derailed Thought Content: Vague Suicidal Ideation Description: None Delusions: Not Present Hallucinations: None Impulse Control Description: Poor Speech Pattern: Delayed Language: Word Finding Difficulties Memory Description: Recent Impaired Mood Description: Calm Response to Stimuli: None Motor: None Affect Description: Constricted Energy Level: No complaints Signs of Anxiety: None Insight/Judgment: Poor Results - Laboratory CBC & Chem 7: 12/22/23 07:52 12/22/23 07:52 Laboratory Results: All Laboratory Results - Last 24 hours 12/21/23 12/21/23 12/22/23 11:11 21:46 07:13 WBC RBC Hgb Hct MCV MCH MCHC RDW Std Deviation RDW Coeff of Myriam Plt Count MPV Neut % (Auto) Lymph % (Auto) [place] % (Auto) Eos % (Auto) Baso % (Auto) Abs Immat Gran (auto) Absolute Neuts (auto) Absolute Lymphs (auto) Absolute Monos (auto) Absolute Eos (auto) Absolute Basos (auto) Absolute Nucleated RBC Nucleated RBC % (auto) Imm/Tot Granulo (auto) Sodium Potassium Chloride Carbon Dioxide Anion Gap BUN Creatinine GFR Calculation Glucose POC Glucose 95 265 119 Calcium Magnesium 12/22/23 07:52 WBC 5.0 D RBC 4.8 Hgb 12.4 L Hct 38.8 L MCV 80.5 L MCH 25.7 MCHC 32.0 RDW Std Deviation 38.9 RDW Coeff of Myriam 13.3 Plt Count 297 D MPV 8.9 Neut % (Auto) 47.1 D Lymph % (Auto) 43.9 [place] % (Auto) 7.6 Eos % (Auto) 0.4 Baso % (Auto) 0.6 Abs Immat Gran (auto) 0.02 Absolute Neuts (auto) 2.3 Absolute Lymphs (auto) 2.2 Absolute Monos (auto) 0.4 Absolute Eos (auto) 0.0 L Absolute Basos (auto) 0.0 Absolute Nucleated RBC 0.0 Nucleated RBC % (auto) 0.0 Imm/Tot Granulo (auto) 0.4 Sodium 136 Potassium 4.1 Chloride 97 L Carbon Dioxide 28 Anion Gap 11 BUN 12 Creatinine 1.0 GFR Calculation 76.56 Glucose 189 H POC Glucose Calcium 9.1 Magnesium 1.2 L - RN Note RN Note: 12/22/23 10:32 Nurse Note by Laura Moreno pt alert, confused. ama hold. remains on 1:1. takes meds whole w water. freq checks made. care ongoing. Initialized on 12/22/23 10:32 - END OF NOTE 12/22/23 08:42 Nurse Note by Sade Ramirez pt awake and alert , ambulating hallway , redirected to his chair outside room. pt refused to sit there, multiple nurses trying to address pt to his room. pt went to bed. pt came out of room and was ambulating into other rooms. Pt was asknursing stating picking up stapler , when asked pt not to touch items, pt would start cussing . notified Md for zyprexi or haldol. [facility] Initialized on 12/22/23 08:42 - END OF NOTE 12/21/23 19:42 Nurse Note by Denise Sierra assumed care at 1500. pt is alert to self, otherwise confused. VSS, no tele. No signs of distress or pain observed. as of 1500, pt is off 1-1 watch. Pt sitting at nurses station coloring, eating his meals. Will interact with staff appropriately. Pt is standby assist when walking for safety. Frequent checks for comfort and safety,care ongoing. Initialized on 12/21/23 19:42 - END OF NOTE 12/21/23 13:47 Nurse Note by Nam Landrum to person, calm, cooperative. 1:[address] for patient safety and elopment risk. patient c/o pain to foot. tylenol given to + effect. resting comfortably, ambulating to bathroom with assist of 1. Initialized on 12/21/23 13:47 - END OF NOTE - Medications Medications: Active Medications Generic Name Dose Route Start Last Admin Trade Name Freq PRN Reason Stop Dose Admin Acetaminophen 650 mg 12/15/23 13:33 12/21/23 07:31 Acetaminophen 325 Mg Tablet PO 650 mg Q6H PRN Administration Temp>101.5 &/or Pain Score:1-3 Atorvastatin Calcium 80 mg 12/15/23 19:45 12/21/23 21:18 Atorvastatin 40 Mg Tablet PO 80 mg QHS KORI Administration Donepezil HCl 10 mg 12/15/23 22:00 12/21/23 21:18 Donepezil 5 Mg Tablet PO 10 mg QHS KORI Administration Enoxaparin Sodium 40 mg 12/20/23 17:30 12/21/23 17:17 Enoxaparin 40 Mg/0.4 Ml Syringe SUB-Q 40 mg Q24H KORI Administration Escitalopram Oxalate 10 mg 12/16/23 09:00 12/22/23 08:01 Escitalopram 10 Mg Tablet PO 10 mg DAILY KORI Administration Folic Acid 1 mg 12/16/23 09:00 12/22/23 08:01 Folic Acid 1 Mg Tablet PO 1 mg DAILY KORI Administration Gabapentin 600 mg 12/15/23 22:00 12/21/23 21:17 Gabapentin 300 Mg Capsule PO 600 mg QHS KORI Administration Gabapentin 1,200 mg 12/16/23 09:00 12/22/23 08:01 Gabapentin 400 Mg Capsule PO 1,200 mg QAM KORI Administration Glucagon 1 mg 12/15/23 13:33 Glucagon 1 Mg/Ml Vial (Kit) IM PRN PRN Hypoglycemia Protocol Protocol Glucose 15 gm 12/15/23 13:33 Dextrose Gel 40 % 15 Gm Dextrose/37.5 Gm Tube PO PRN PRN Hypoglycemia Protocol Protocol Haloperidol 2.5 mg 12/16/23 12:57 12/16/23 13:46 Haloperidol 5 Mg/Ml Vial IM 2.5 mg ONCE PRN Administration Agitation Dextrose 125 mls @ 1,500 mls/hr 12/15/23 13:33 Dextrose 10 % In Water IV PRN PRN for Hypoglycemia Protocol Protocol Dextrose 250 mls @ 3,000 mls/hr 12/15/23 13:33 Dextrose 10 % In Water IV ONCE PRN Hypoglycemia Protocol Protocol Insulin Human Lispro 0 unit 12/15/23 16:30 12/22/23 08:00 Insulin Lispro 300 Unit/3 Ml Vial SUB-Q 2 units ACHS KORI Administration Protocol Lisinopril 20 mg 12/16/23 09:00 12/22/23 08:01 Lisinopril 20 Mg Tablet PO 20 mg DAILY KORI Administration Protocol Magnesium Hydroxide 30 ml 12/15/23 13:33 Magnesium Hydroxide 30 Ml Udc PO DAILY PRN Constipation Step 2 Melatonin 5 mg 12/15/23 13:33 12/22/23 01:10 Melatonin 5 Mg Tablet PO 5 mg HS PRN Administration Insomnia Mirtazapine 7.5 mg 12/21/23 20:00 12/21/23 21:19 Mirtazapine 7.5 Mg Tablet PO 7.5 mg 20 KORI Administration Omeprazole 40 mg 12/16/23 09:00 12/22/23 08:[address] 20 Mg Capsule PO 40 mg DAILY KORI Administration Polyethylene Glycol 17 gm 12/15/23 13:33 12/20/23 18:24 Polyethylene Glycol 3350 17 Gm Packet PO 17 gm DAILY PRN Administration Constipation Step 1 Quetiapine Fumarate 50 mg 12/22/23 12:00 Quetiapine 25 Mg Tablet PO 12,16,20 KORI Senna 8.6 mg 12/20/23 21:00 12/22/23 08:01 Sennosides 8.6 Mg Tablet PO 8.6 mg BID KORI Administration Thiamine Mononitrate 100 mg 12/16/23 09:00 12/22/23 08:01 Thiamine 100 Mg Tablet PO 100 mg DAILY KORI Administration Trazodone HCl 25 mg 12/21/23 20:00 12/21/23 21:18 Trazodone 50 Mg Tablet PO 25 mg 20 KORI Administration Documented By: Sandip Cerrato MD 12/22/23 1045 Signed By: <Electronically signed by Sandip Cerrato MD> 12/22/23 1049 Copies to: Progress Note Author Ata Barton [facility] December 22, 2023 1:10pm Note Date/Time December 22, 2023 12: 49pm [facility] [address] [facility], [place] [id number] Nutrition Assessment Patient: Maryana Rivera David Attending MD: Roma Hoffman MD : 1945 Dictating Provider: Ata Barton RD, LDN Age/Sex: 78 / M Admit Date: 12/15/23 Discharge Date: MedRec #: [id number] Location: [facility] [id number] cc: Ata Barton RD, LDN * Nutrition Assessment - Assessment Date: 12/22/23 Trigger: RD Screen Pertinent Food & Nutrition History: Per hospitalist H&P: Past Medical History: HTN DM2 Depression Dementia Alcohol use d/o Cerebellar CVA Chronic anemia. Diet Order: 12/16/23 16:16 Safe Tray Diet [DIET] Therapeutic Diets: Regular Does Pt Require Thickened Liquids?: No No Known Allergies Allergy (Verified 11/01/22 12:43) Assessment: 78 yo M admit for hypomagnesemia and confusion. Pt w/ dementia w/ behavior disturbances, DM w/ hyper glycemia, mild hypernatremia. Poor PO per hospitalist progress note. Pt is on regular diet w/ safe tray. Variable PO intake documented, w/ estimated average intake since admit 38% meals. Pt likely not meeting EEN w/ meals alone, recommend ensure plus HP to supplement intake. Pt not present in room on attempts for nutrition assessment, chart reviewed. Minimal appetite per RN notes. No N/V/D/abd pain reported. No LBM documented. No overt s/s aspiration reported on dysphagia sip/swallow screen. Pt w/ confusion likely unable to provide accurate diet/wt hx. Recommend NFPE on f/u if appropriate. Nutrition following per standards of care. Labs and meds reviewed. - Patient Data Height: 5 ft 9.6 in Weight: 66.7 kg - Weight Calculations Body Mass Index: 21.3 Body Mass Index (BMI) Classification: Normal [place] Body Weight: 74 Adjusted Body Weight: 71 % [place] Body Weight (%IBW): 90 - Dave Score Total Score: 20 - Estimated Calorie Needs Estimated Calorie Needs and Recommendations: 6339-1081 kcal (25-30 kcal/kg actual wt) - Estimated Protein Needs Grams of Protein Needed and Recommendations: 67-80 g (1.0-1.2 g/kg actual wt) - Daily Protein/Calorie Needs Daily Protein Needs: Actual Weight Daily KCAL Needs: Actual Weight - Estimated Fluid Needs Estimated Fluid Needs and Recommendations: 1 mL/kcal - Patient Evaluation Nutritionally Significant Medications and Tests: Laboratory Tests 12/21/23 12/21/23 12/21/23 07:24 11:11 21:46 POC Glucose 190 95 265 12/22/23 12/22/23 12/22/23 07:13 07:52 07:52 Hgb 12.4 L Hct 38.8 L MCV 80.5 L Chloride 97 L Glucose 189 H POC Glucose 119 Magnesium 1.2 L 12/22/23 12/22/23 11:17 12:44 POC Glucose 204 188 Labs: Medications Mirtazapine (Mirtazapine 7.5 Mg Tablet) 7.5 mg PO 20 [facility] Last Admin: 12/21/23 21:19 Dose: 7.5 mg Gabapentin (Gabapentin 300 Mg Capsule) 600 mg PO QHS [facility] Last Admin: 12/21/23 21:17 Dose: 600 mg Enoxaparin Sodium (Enoxaparin 40 Mg/0.4 Ml Syringe) 40 mg SUB-Q Q24H [facility] Last Admin: 12/21/23 17:17 Dose: 40 mg Polyethylene Glycol (Polyethylene Glycol 3350 17 Gm Packet) 17 gm PO DAILY PRN PRN Reason: Constipation Step 1 Last Admin: 12/20/23 18:24 Dose: 17 gm Haloperidol (Haloperidol 5 Mg/Ml Vial) 2.5 mg IM ONCE PRN PRN Reason: Agitation Last Admin: 12/16/23 13:46 Dose: 2.5 mg Magnesium Hydroxide (Magnesium Hydroxide 30 Ml Udc) 30 ml PO DAILY PRN PRN Reason: Constipation Step 2 Quetiapine Fumarate (Quetiapine 25 Mg Tablet) 50 mg PO 12,16,20 [facility] Last Admin: 12/22/23 11:44 Dose: 50 mg Insulin Human Lispro (Insulin Lispro 300 Unit/3 Ml Vial) 0 unit SUB-Q ACHS [facility]; Protocol Last Admin: 12/22/23 11:38 Dose: 6 units Thiamine Mononitrate (Thiamine 100 Mg Tablet) 100 mg PO DAILY [facility] Last Admin: 12/22/23 08:01 Dose: 100 mg Senna (Sennosides 8.6 Mg Tablet) 8.6 mg PO BID [facility] Last Admin: 12/22/23 08:01 Dose: 8.6 mg Omeprazole (Omeprazole Dr 20 Mg Capsule) 40 mg PO DAILY [facility] Last Admin: 12/22/23 08:01 Dose: 40 mg Lisinopril (Lisinopril 20 Mg Tablet) 20 mg PO DAILY [facility]; Protocol Last Admin: 12/22/23 08:01 Dose: 20 mg Gabapentin (Gabapentin 400 Mg Capsule) 1,200 mg PO QAM [facility] Last Admin: 12/22/23 08:01 Dose: 1,200 mg Folic Acid (Folic Acid 1 Mg Tablet) 1 mg PO DAILY [facility] Last Admin: 12/22/23 08:01 Dose: 1 mg Escitalopram Oxalate (Escitalopram 10 Mg Tablet) 10 mg PO DAILY [facility] Last Admin: 12/22/23 08:01 Dose: 10 mg Trazodone HCl (Trazodone 50 Mg Tablet) 25 mg PO 20 [facility] Last Admin: 12/21/23 21:18 Dose: 25 mg Donepezil HCl (Donepezil 5 Mg Tablet) 10 mg PO QHS [facility] Last Admin: 12/21/23 21:18 Dose: 10 mg Atorvastatin Calcium (Atorvastatin 40 Mg Tablet) 80 mg PO QHS [facility] Last Admin: 12/21/23 21:18 Dose: 80 mg - Nutritional Diagnosis Inadequate Energy Intake NI-1.4 Related To: poor appetite As Evidenced By: Poor appetite per RN notes, po intake since admit documented below. Selected Entries 12/15/23 17:00 12/16/23 09:00 12/16/23 12:10 Percent Meal Consumed Refused 100% 75% 12/17/23 09:00 12/17/23 13:00 12/17/23 17:00 Percent Meal Consumed Refused Refused Refused 12/18/23 09:00 12/18/23 13:00 12/18/23 17:00 Percent Meal Consumed 50% Refused Refused 12/19/23 09:00 12/19/23 17:00 12/20/23 09:00 Percent Meal Consumed 10% 50% Refused 12/20/23 13:00 12/20/23 17:00 12/21/23 09:00 Percent Meal Consumed 25% 75% 100% 12/21/23 12:40 12/21/23 17:00 12/22/23 09:00 Percent Meal Consumed 75% 25% 100% Altered Nutition-Related Laboratory Values NC-2.2 Related To: T2DM As Evidenced By: POC glu [id number] during admit - Nutritional Interventions Nutrition Intervention: Coordinate Other Care, Medical Food Supplement, Meals & Snacks, Nutrition Related Med Mgt, Vitamin Mineral Supplemen Nutrition Intervention Comments: 1. Consider consistent CHO diet to assist BG control and continue safe tray as appropriate. 2. Ensure plus HP daily (350 kcal, 20 g pro). 3. Continue folic acid and thiamine supplementation. 4. Consider checking pt iron studies and vit D. 5. Consider MVI w/ mineral supplementation for pt w/ poor PO intake. 6. Monitor lytes, replete prn. 7. Encourage meal completion and documented in EMR. 8. Weekly scaled wt Nutrition Monitoring/Evaluation: Bowel Regimen, Monitor Labs, Monitor Weight - Nutrition Risk Nutrition Risk: High - Nutritional Goals Goal 1: Consumes 75% all meals and supplements Goal Date: 12/26/23 Goal 2: BG 80-180 Goal Date: 12/26/23 Goal 3: lytes WNL Goal Date: 12/26/23 Goal 4: stable wt +/- 1 kg Goal Date: 12/26/23 Documented By: Ata Barton RD, LDN 12/22/23 1240 Signed By: <Electronically signed by SUHAIL Barton> 12/22/23 1310 Copies to: Progress Note Author tAa Barton [facility] December 22, 2023 1:10pm Note Date/Time December 22, 2023 1:[address] [address] Nutrition Leveling Patient: Maryana Rivera Attending MD: Roma Hoffman MD : 1945 Dictating Provider: Ata Barton RD, LDN Age/Sex: 78 / M Admit Date: 12/15/23 Discharge Date: MedRec #: [id number] Location: [facility] [id number] cc: * Leveling Assessment - Leveling Level: 1 Inital Date: 12/22/23 Follow Up Date: 12/26/23 Comments: inadequate PO intake, needs NFPE Documented By: Ata Barton RD, LDN 12/22/23 1310 Signed By: <Electronically signed by SUHAIL Barton> 12/22/23 1310 Copies to: Progress Note Author Roma Hoffman [facility] December 22, 2023 9:52pm Note Date/Time December 22, 2023 2:[address] [address] Hospitalist Progress Note Patient: Maryana Rivera Attending MD: Roma Hoffman MD : 1945 Dictating Provider: Roma Hoffman MD Age/Sex: 78 / M Admit Date: 12/15/23 Discharge Date: MedRec #: [id number] Location: [facility] [id number] cc: * Subjective Subjective Date: 12/22/23 Interval Events: Patient seen and examined Patient very alert today, Continues to be confused No other acute events Review of Systems Review of Systems All systems: As per HPI, 10 point ROS completed & negative except where noted below Exam Physical Exam Vital signs: Vital Signs - Last Response Temperature Pulse Rate Respiratory Rate Blood Pressure Blood Pressure Source O2 Sat by Pulse Oximetry 98.1 F 67 18 144/67 Automatic Cuff 95 12/22/23 07:39 12/22/23 07:39 12/22/23 07:39 12/22/23 07:39 12/22/23 07:39 12/22/23 07:39 Physical Exam Narrative: GEN: alert , sitting comfortably HEENT: No scleral icterus or conjunctival injection CV: S1-S2 present Pulmonary: CATB Abdomen: soft, NT, ND, +BS EXT: WWP, no edema Medications Active Medications Acetaminophen (Acetaminophen 325 Mg Tablet) 650 mg PO Q6H PRN PRN Reason: Temp>101.5 &/or Pain Score:1-3 Last Admin: 12/21/23 07:31 Dose: 650 mg Atorvastatin Calcium (Atorvastatin 40 Mg Tablet) 80 mg PO QHS [facility] Last Admin: 12/21/23 21:18 Dose: 80 mg Donepezil HCl (Donepezil 5 Mg Tablet) 10 mg PO QHS [facility] Last Admin: 12/21/23 21:18 Dose: 10 mg Enoxaparin Sodium (Enoxaparin 40 Mg/0.4 Ml Syringe) 40 mg SUB-Q Q24H [facility] Last Admin: 12/21/23 17:17 Dose: 40 mg Escitalopram Oxalate (Escitalopram 10 Mg Tablet) 10 mg PO DAILY [facility] Last Admin: 12/22/23 08:01 Dose: 10 mg Folic Acid (Folic Acid 1 Mg Tablet) 1 mg PO DAILY [facility] Last Admin: 12/22/23 08:01 Dose: 1 mg Gabapentin (Gabapentin 300 Mg Capsule) 600 mg PO QHS [facility] Last Admin: 12/21/23 21:17 Dose: 600 mg Gabapentin (Gabapentin 400 Mg Capsule) 1,200 mg PO QAM [facility] Last Admin: 12/22/23 08:01 Dose: 1,200 mg Glucagon (Glucagon 1 Mg/Ml Vial (Kit)) 1 mg IM PRN PRN; Protocol PRN Reason: Hypoglycemia Protocol Glucose (Dextrose Gel 40 % 15 Gm Dextrose/37.5 Gm Tube) 15 gm PO PRN PRN; Protocol PRN Reason: Hypoglycemia Protocol Haloperidol (Haloperidol 5 Mg/Ml Vial) 2.5 mg IM ONCE PRN PRN Reason: Agitation Last Admin: 12/16/23 13:46 Dose: 2.5 mg Dextrose (Dextrose 10 % In Water) 125 mls @ 1,500 mls/hr IV PRN PRN; Protocol PRN Reason: for Hypoglycemia Protocol Dextrose (Dextrose 10 % In Water) 250 mls @ 3,000 mls/hr IV ONCE PRN; Protocol PRN Reason: Hypoglycemia Protocol Insulin Human Lispro (Insulin Lispro 300 Unit/3 Ml Vial) 0 unit SUB-Q ACHS [facility];Protocol Last Admin: 12/22/23 11:38 Dose: 6 units Lisinopril (Lisinopril 20 Mg Tablet) 20 mg PO DAILY [facility]; Protocol Last Admin: 12/22/23 08:01 Dose: 20 mg Magnesium Hydroxide (Magnesium Hydroxide 30 Ml Udc) 30 ml PO DAILY PRN PRN Reason: Constipation Step 2 Magnesium Oxide (Magnesium Oxide 400 Mg Tablet) 400 mg PO BID [facility] Melatonin (Melatonin 5 Mg Tablet) 5 mg PO HS PRN PRN Reason: Insomnia Last Admin: 12/22/23 01:10 Dose: 5 mg Mirtazapine (Mirtazapine 7.5 Mg Tablet) 7.5 mg PO 20 [facility] Last Admin: 12/21/23 21:19 Dose: 7.5 mg Omeprazole (Omeprazole Dr 20 Mg Capsule) 40 mg PO DAILY [facility] Last Admin: 12/22/23 08:01 Dose: 40 mg Polyethylene Glycol (Polyethylene Glycol 3350 17 Gm Packet) 17 gm PO DAILY PRN PRN Reason: Constipation Step 1 Last Admin: 12/20/23 18:24 Dose: 17 gm Quetiapine Fumarate (Quetiapine 25 Mg Tablet) 50 mg PO 12,16,20 [facility] Last Admin: 12/22/23 11:44 Dose: 50 mg Senna (Sennosides 8.6 Mg Tablet) 8.6 mg PO BID [facility] Last Admin: 12/22/23 08:01 Dose: 8.6 mg Thiamine Mononitrate (Thiamine 100 Mg Tablet) 100 mg PO DAILY [facility] Last Admin: 12/22/23 08:01 Dose: 100 mg Trazodone HCl (Trazodone 50 Mg Tablet) 25 mg PO 20 [facility] Last Admin: 12/21/23 21:18 Dose: 25 mg Results Laboratory Laboratory Results: 12/22/23 07:52 12/22/23 07:52 Laboratory Results - Last 12 hours 12/22/23 07:13: POC Glucose 119 12/22/23 07:52: RBC 4.8, MCV 80.5 L, MCH 25.7, MCHC 32.0, RDW Std Deviation 38.9, RDW Coeff of Myriam 13.3, MPV 8.9, Neut % (Auto) 47.1 D, Lymph % (Auto) 43.9, [place] % (Auto) 7.6, Eos % (Auto) 0.4, Baso % (Auto) 0.6, Abs Immat Gran (auto) 0.02, Absolute Neuts (auto) 2.3, Absolute Lymphs (auto) 2.2, Absolute Monos (auto) 0.4, Absolute Eos (auto) 0.0 L, Absolute Basos (auto) 0.0, AbsoluteNucleated RBC 0.0, Nucleated RBC % (auto) 0.0, Imm/Tot Granulo (auto) 0.4, AnionGap 11, GFR Calculation 76.56, Calcium 9.1, Magnesium 1.2 L 12/22/23 11:17: POC Glucose 204 12/22/23 12:44: POC Glucose 188 Progress Note - A&P Assessment and Plan Assessment and Plan: Angel Rivera is a 78 y/o M with dementia, alcohol use disorder who was brought into the ED via ambulance after he was found wandering outside. #Dementia with behavioral disturbances Per review of [facility] chart including his numerous visits with Psychiatry, Neurology and Congitive Neurology spanning >decade, he has had chronic funtionaland cognitive decline over the past ~20yrs. Per Cognitive Neurology note from 12/14/23, On initial interview 04/16/22, MOCA had decreased to 14/30 with prominent deficits in executive function (only completing a paimiut for clock draw), disorientation, naming with circumlocution and decreased fluency (F words> animals), and difficulty with serial 7s but intact vigilance testing. With otherwise normal basic blood work, save for hypomagnesemia, and unremarkable CT head, urinalysis, CXR and unremarkable neuro exam except for hiscognition/attention, suspect this is progression of his underlying known neurocognitive dementia (with history of depression as well). SW/CM consulted -- appreciate recs continue home regimen of donepezil, AMA hold/ HCP invoked Neuropsychiatry consulted appreciate their help d/w Psychiatrist re poor oral intake Recommend tapering trazodone to 25 mg and starting mirtazapine 7.5 mg to help with appetite , Increase quetiapine to 50 mg 3 times daily at noon, 4 PM and nightly. As per case management, patient's would like to pursue long-term care placement as unable to care for patient at home #Hypomagnesemia: Magnesium still low today Will start him on standing dose of magnesium #Chronic anemia: stable. #Mild hyponatremia: sodium 134 Encourage p.o. intake Sodium improved #DM2 with hyperglycemia: Hold home regimen of januvia, metformin, since patient has poor oral intake glucose achs, humalog ss #HTN: c/w home regimen of Lisinopril #GERD: c/w home regimen of omeprazole #Alcohol use d/o: unclear if he is in remission. no signs or sx of acute withdrawal. EtOH level onpresentation is less than 10 c/w thiamine and folate #Diabetic neuropathy: c/w home regimen of gabapentin #Mood d/o: c/ w home regimen of escitalopram #HL: c/w home regimen of statin #FEN: diabetic diet #DVT PPX: Lovenox #CODE: FULL, as per admitting hospitalist Dispo: Pending safe discharge plan Anticipated Discharge Anticipated Discharge Date: 12/23/23 Priority for D/C: Additional Options: Placement/Insurance Specify Other:: TBD - unclear safe discharge plan Quality Measures Was the pt treated for stroke/TIA? (Y/N): No Documented By: Roma Hoffman MD 12/22/23 1434 Signed By: <Electronically signed by Roma Hoffman MD> 12/22/232151 Copies to: Progress Note Author Celine Aldana [facility] December 22, 2023 2:53pm Note Date/Time December 22, 2023 2:[address] [address] Progress Note Patient: Maryana Rivera Attending MD: Roma Hoffman MD : 1945 Dictating Provider: Celine Aldana LCSW Age/Sex: 78 / M Admit Date: 12/15/23 Discharge Date: MedRec #: [id number] Location: [facility] [id number] cc: * Social Work Progress Note Date: 12/22/23 Service Type: consultation Patient identified at-risk for alcohol use: No Summary: FABIANO attempted to reach out to pt's protective service family caseworker Jeannette at [facility] ([phone]); contacted main number at [phone] and was directed to Jeannette's VM- SW left a VM for the family caseworker requesting a return call to discuss pt's plan of care. Documented By: Celine Aldana LCSW 12/22/23 1451 Signed By: <Electronically signed by Celine Aldana LCSW> 12/22/23 1453 Copies to: Progress Note Author Sandip Cerrato [facility] December 23, 2023 11:23am Note Date/Time December 23, 2023 11: 23am [place] [id number] Progress Note Patient: Maryana Rivera Attending MD: Roma Hoffman MD : 1945 Dictating Provider: Sandip Cerrato MD Age/Sex: 78 / M Admit Date: 12/15/23 Discharge Date: [facility] #: [id number] Location: [facility] [id number] cc: * Assessment/Plan Assessment/Plan: 78-year-old male retired with a history of diabetes, hypertension, depression, vascular dementia, on donepezil and quetiapine, alcohol use disorder, seen by psych and October 2022 for agitation (MOCA, scored 6/25 after excluding executive function. was started on quetiapine and trazodone) who was admitted with wandering episodes. Quetiapine was increased and psych was consulted for evaluation. Patient was calm, forgetful, oriented x 1, limited insight, head CTwith generalized volume loss and microvascular changes. Impression vascular dementia with behavioral dysregulation's history of alcohol use, and increased trazodone, increased quetiapine and monitor. No suicidal. Today, awake, intermittent irritability but able to redirect, able to tolerate increase quetiapine, will continue previous recs and monitor. CSSRS- low risk of suicide. Highly complex, multisystem disease DSM 5 DIAGNOSES: Primary Psychiatric Diagnosis: vascular dementia with behavioral dysregulation'shistory of alcohol use. Secondary Psychiatric Diagnosis: none Other Medical Conditions: as above Psychosocial and Contextual Factors: medical and mental Plan: --Continue previous recs and monitor. --please page/call if any questions. Thank you for consulting the Psychosomatic Medicine Service Sandip Cerrato MD Psychosomatic Medicine Total time 35 minutes Greater than 50% of consultation visit spends in counseling, obtaining collateral, treatment plan, coordination of care with primary team and patient Note was dictated using an electronic dictation system, which can unfortunately lead to occasional typographical errors. Please do not hesitate to contact for clarification or questions. Acutely suicidal or violent?: No If yes, need 1:1 sitter?: No - Visit Visit: Traditional [id number] Subjective Date: 12/23/23 Time: 11:20 Reason for Consult: Altered mental status and dementia Subjective: Patient was seen, was awake, irritable and disorganized, able to redirect, declined p.o. meds this morning.Per chart, was calm and able to tolerate increase quetiapine. Slept last night. Chart was reviewed. Review of Systems All systems: As per HPI, 10 point ROS completed & negative except where noted below Exam Vital signs: Vital Signs - Last Response Temperature Pulse Rate Respiratory Rate Blood Pressure Blood Pressure Source O2 Sat by Pulse Oximetry 97.5 F 66 18 126/71 Automatic Cuff 97 12/22/23 20:07 12/22/23 20:07 12/22/23 20:07 12/22/23 20:07 12/22/23 20:07 12/22/23 20:07 Mental Status Assessment - Daily Functioning Patient Appearance: Appropriate Comprehension Ability: Severe Impairment Oral Expression Ability: Severe Impairment - Mental Status Exam Sensorium: Awake Attention: Fluctuating Orientation: Person Patient Behavior: Restless, Irritable Eye Contact: Maintained Thought Process: Tangential, Disorganized, Easily Derailed Thought Content: Appropriate Suicidal Ideation Description: None Delusions: Not Present Hallucinations: None Impulse Control Description: Fair Speech Pattern: Delayed Language: Word Finding Difficulties Memory Description: Recent Impaired Mood Description: Irritable Response to Stimuli: None Motor: None Signs of Anxiety: None Insight/Judgment: Poor Results - Laboratory CBC & Chem 7: 12/22/23 07:52 12/22/23 07:52 Laboratory Results: All Laboratory Results - Last 24 hours 12/22/23 12/22/23 12/22/23 11:17 12:44 16:38 POC Glucose 204 188 84 12/22/23 12/23/23 21:02 07:22 POC Glucose 278 113 - RN Note RN Note: 12/23/23 01:24 Nurse Note by Priya White Assumed care 2300. Pt asleep and in no distress, 1:[address] for safety. Purposeful rounding conducted. Initialized on 12/23/23 01:24 - END OF NOTE 12/22/23 12:46 Nurse Note by Denise Sierra assumed care at 1500. pt is alert to self, otherwise confused. VSS, no tele. No signs of distress or pain observed. pt is o 1-1 watch for safety. Pt is standby assist when walking for safety. Frequent checks for comfort and safety,care ongoing. Initialized on 12/22/23 12:46 - END OF NOTE - Medications Medications: Active Medications Generic Name Dose Route Start Last Admin Trade Name Freq PRN Reason Stop Dose Admin Acetaminophen 650 mg 12/15/23 13:33 12/21/23 07:31 Acetaminophen 325 Mg Tablet PO 650 mg Q6H PRN Administration Temp>101.5 &/or Pain Score:1-3 Atorvastatin Calcium 80 mg 12/15/23 19:45 12/22/23 21:24 Atorvastatin 40 Mg Tablet PO 80 mg QHS KORI Administration Donepezil HCl 10 mg 12/15/23 22:00 12/22/23 21:24 Donepezil 5 Mg Tablet PO 10 mg QHS KORI Administration Enoxaparin Sodium 40 mg 12/20/23 17:30 12/22/23 17:13 Enoxaparin 40 Mg/0.4 Ml Syringe SUB-Q Not Given Q24H KORI Escitalopram Oxalate 10 mg 12/16/23 09:00 12/23/23 09:45 Escitalopram 10 Mg Tablet PO Not Given DAILY KORI Folic Acid 1 mg 12/16/23 09:00 12/23/23 09:45 Folic Acid 1 Mg Tablet PO Not Given DAILY KORI Gabapentin 600 mg 12/15/23 22:00 12/22/23 21:23 Gabapentin 300 Mg Capsule PO 600 mg QHS KORI Administration Gabapentin 1,200 mg 12/16/23 09:00 12/23/23 09:46 Gabapentin 400 Mg Capsule PO Not Given QAM KORI Glucagon 1 mg 12/15/23 13:33 Glucagon 1 Mg/Ml Vial (Kit) IM PRN PRN Hypoglycemia Protocol Protocol Glucose 15 gm 12/15/23 13:33 Dextrose Gel 40 % 15 Gm Dextrose/37.5 Gm Tube PO PRN PRN Hypoglycemia Protocol Protocol Haloperidol 2.5 mg 12/16/23 12:57 12/16/23 13:46 Haloperidol 5 Mg/Ml Vial IM 2.5 mg ONCE PRN Administration Agitation Dextrose 125 mls @ 1,500 mls/hr 12/15/23 13:33 Dextrose 10 % In Water IV PRN PRN for Hypoglycemia Protocol Protocol Dextrose 250 mls @ 3,000 mls/hr 12/15/23 13:33 Dextrose 10 % In Water IV ONCE PRN Hypoglycemia Protocol Protocol Insulin Human Lispro 0 unit 12/15/23 16:30 12/23/23 08:37 Insulin Lispro 300 Unit/3 Ml Vial SUB-Q Not Given ACHS [facility] Protocol Lisinopril 20 mg 12/16/23 09:00 12/23/23 09:46 Lisinopril 20 Mg Tablet PO Not Given DAILY KORI Protocol Magnesium Hydroxide 30 ml 12/15/23 13:33 Magnesium Hydroxide 30 Ml Udc PO DAILY PRN Constipation Step 2 Magnesium Oxide 400 mg 12/22/23 21:00 12/23/23 09:46 Magnesium Oxide 400 Mg Tablet PO Not Given BID KORI Melatonin 5 mg 12/15/23 13:33 12/22/23 01:10 Melatonin 5 Mg Tablet PO 5 mg HS PRN Administration Insomnia Mirtazapine 7.5 mg 12/21/23 20:00 12/22/23 21:39 Mirtazapine 7.5 Mg Tablet PO 7.5 mg 20 KORI Administration Omeprazole 40 mg 12/16/23 09:00 12/23/23 09:[address] 20 Mg Capsule PO Not Given DAILY KORI Polyethylene Glycol 17 gm 12/15/23 13:33 12/20/23 18:24 Polyethylene Glycol 3350 17 Gm Packet PO 17 gm DAILY PRN Administration Constipation Step 1 Quetiapine Fumarate 50 mg 12/22/23 12:00 12/22/23 21:23 Quetiapine 25 Mg Tablet PO 50 mg 12,16,20 KORI Administration Senna 8.6 mg 12/20/23 21:00 12/23/23 09:46 Sennosides 8.6 Mg Tablet PO Not Given BID KORI Thiamine Mononitrate 100 mg 12/16/23 09:00 12/23/23 09:46 Thiamine 100 Mg Tablet PO Not Given DAILY KORI Trazodone HCl 25 mg 12/21/23 20:00 12/22/23 21:25 Trazodone 50 Mg Tablet PO 25 mg 20 KORI Administration Documented By: Sandip Cerrato MD 12/23/23 1120 Signed By: <Electronically signed by Sandip Cerrato MD> 12/23/23 1123 Copies to: Progress Note Author Celine Aldana [facility] December 23, 2023 12:23pm Note Date/Time December 23, 2023 12: 22pm [place] [id number] Progress Note Patient: Maryana Rivera Attending MD: Roma Hoffman MD : 1945 Dictating Provider: Celine Aldana LCSW Age/Sex: 78 / M Admit Date: 12/15/23 Discharge Date: [facility] #: [id number] Location: [facility] [id number] cc: * Social Work Progress Note Date: 12/23/23 Service Type: brief intervention, consultation Patient identified at-risk for alcohol use: No Summary: SW consulted and following regarding home safety and to help with safe DC planning. Psychiatry also consulted and following this admission to help with pt's plan ofcare. SW contacted pt's via phone call and re-introduced self and role. Supportive counseling and emotional support offered. Pt's reports she is currently doing well, but reports that while hospitalized for her knee surgery, she was diagnosed with underlying heart issues and those complications have prolonged her recovery. SW and pt's discussed pt's plan of care and potential placement at [facility] for 2 weeks of respite placement. very appreciative of the support and confirmed she would be interested and in agreement with that plan. SW discussed current barrier is 1:1 and that team willcontinue to wean, as able. reports that her daughter is currently working on obtaining/ installing additional in-home safety equipment for the pt when he does return home. reports daughter is working on alarm for the home and a personal tracking devicefor the pt, in additional to the cameras the family already has. SW informed pt's this SW can remain in contact with elder services and informed them of pt's discharge plan, for elder service to remain involved for ongoing home safety and resources. Documented By: Celine Aldana LCSW 12/23/23 1214 Signed By: <Electronically signed by Celine Aldana LCSW> 12/23/23 1223 Copies to: Progress Note Author Tanvi Trevino [facility] December 23, 2023 1:40pm Note Date/Time December 23, 2023 1:[address] [address] Progress Note Patient: Maryana Rivera Attending MD: Roma Hoffman MD : 1945 Dictating Provider: Tanvi Trevino Age/Sex: 78 / M Admit Date: 12/15/23 Discharge Date: [facility] #: [id number] Location: [facility] [id number] cc: * Case Management Progress Note - Progress Note Is this a re-evaluation?: Yes CM Progress Note: Pt care discussed with CM leadership during LOS meeting on 12/21/23 with consideration for referral to [facility] under [facility] lease bed program for 2 weeks of respite care. Pt recovering from recent knee surgery. CM spoke with Mrs Rivera on 12/21/23, who verbalized that she would be interestedbut asked this ticket writer to speak to Jeannette at [facility])before placing referal. Multiple call's with left on 12/21/23, 12/21 and this am with no return call. Case discussed with [facility] who in turn left with [facility]. [facility] spoke with Mrs. Rivera today, following their conversation,referral placed to [facility]. Barrier TO DC: Pt remains on 1:1 due to wandering from Pt room to room when he was off sitters. Estimated Discharge Assessment - Anticipated Discharge Referrals/Community Services: Kenia Sheehan MD [Primary Care Provider] - Documented By: Tanvi Trevino 12/23/23 1328 Signed By: <Electronically signed by Tanvi Trevino> 12/23/23 1340 Copies to: Progress Note Author Roma Hoffman [facility] December 24, 2023 7:09am Note Date/Time December 23, 2023 3:[address] [address] Hospitalist Progress Note Patient: Maryana Rivera Attending MD: Roma Hoffman MD : 1945 Dictating Provider: Roma Hoffman MD Age/Sex: 78 / M Admit Date: 12/15/23 Discharge Date: [facility] #: [id number] Location: [facility] [id number] cc: * Subjective Subjective Date: 12/23/23 Interval Events: Patient seen and examined Denies any pain, fever, chills Does not want me to examine him today Review of Systems Review of Systems ROS unobtainable: due to mental status Exam Physical Exam Vital signs: Vital Signs - Last Response Temperature Pulse Rate Respiratory Rate Blood Pressure Blood Pressure Source O2 Sat by Pulse Oximetry 97.5 F 66 18 126/71 Automatic Cuff 97 12/22/23 20:07 12/22/23 20:07 12/22/23 20:07 12/22/23 20:07 12/22/23 20:07 12/22/23 20:07 Physical Exam Narrative: GEN: alert , sitting comfortably HEENT: No scleral icterus or conjunctival injection Pulmonary: No visible respiratory distress Abdomen: Not distended Medications Active Medications Acetaminophen (Acetaminophen 325 Mg Tablet) 650 mg PO Q6H PRN PRN Reason: Temp>101.5 &/or Pain Score:1-3 Last Admin: 12/21/23 07:31 Dose: 650 mg Atorvastatin Calcium (Atorvastatin 40 Mg Tablet) 80 mg PO QHS [facility] Last Admin: 12/22/23 21:24 Dose: 80 mg Donepezil HCl (Donepezil 5 Mg Tablet) 10 mg PO QHS [facility] Last Admin: 12/22/23 21:24 Dose: 10 mg Enoxaparin Sodium (Enoxaparin 40 Mg/0.4 Ml Syringe) 40 mg SUB-Q Q24H [facility] Last Admin: 12/22/23 17:13 Dose: Not Given Escitalopram Oxalate (Escitalopram 10 Mg Tablet) 10 mg PO DAILY [facility] Last Admin: 12/23/23 09:45 Dose: Not Given Folic Acid (Folic Acid 1 Mg Tablet) 1 mg PO DAILY [facility] Last Admin: 12/23/23 09:45 Dose: Not Given Gabapentin (Gabapentin 300 Mg Capsule) 600 mg PO QHS [facility] Last Admin: 12/22/23 21:23 Dose: 600 mg Gabapentin (Gabapentin 400 Mg Capsule) 1,200 mg PO QAM [facility] Last Admin: 12/23/23 09:46 Dose: Not Given Glucagon (Glucagon 1 Mg/Ml Vial (Kit)) 1 mg IM PRN PRN; Protocol PRN Reason: Hypoglycemia Protocol Glucose (Dextrose Gel 40 % 15 Gm Dextrose/37.5 Gm Tube) 15 gm PO PRN PRN; Protocol PRN Reason: Hypoglycemia Protocol Haloperidol (Haloperidol 5 Mg/Ml Vial) 2.5 mg IM ONCE PRN PRN Reason: Agitation Last Admin: 12/16/23 13:46 Dose: 2.5 mg Dextrose (Dextrose 10 % In Water) 125 mls @ 1,500 mls/hr IV PRN PRN; Protocol PRN Reason: for Hypoglycemia Protocol Dextrose (Dextrose 10 % In Water) 250 mls @ 3,000 mls/hr IV ONCE PRN; Protocol PRN Reason: Hypoglycemia Protocol Insulin Human Lispro (Insulin Lispro 300 Unit/3 Ml Vial) 0 unit SUB-Q ACHS [facility];Protocol Last Admin: 12/23/23 12:41 Dose: Not Given Lisinopril (Lisinopril 20 Mg Tablet) 20 mg PO DAILY [facility]; Protocol Last Admin: 12/23/23 09:46 Dose: Not Given Magnesium Hydroxide (Magnesium Hydroxide 30 Ml Udc) 30 ml PO DAILY PRN PRN Reason: Constipation Step 2 Magnesium Oxide (Magnesium Oxide 400 Mg Tablet) 400 mg PO BID [facility] Last Admin: 12/23/23 09:46 Dose: Not Given Melatonin (Melatonin 5 Mg Tablet) 5 mg PO HS PRN PRN Reason: Insomnia Last Admin: 12/22/23 01:10 Dose: 5 mg Mirtazapine (Mirtazapine 7.5 Mg Tablet) 7.5 mg PO 20 [facility] Last Admin: 12/22/23 21:39 Dose: 7.5 mg Omeprazole (Omeprazole Dr 20 Mg Capsule) 40 mg PO DAILY [facility] Last Admin: 12/23/23 09:46 Dose: Not Given Polyethylene Glycol (Polyethylene Glycol 3350 17 Gm Packet) 17 gm PO DAILY PRN PRN Reason: Constipation Step 1 Last Admin: 12/20/23 18:24 Dose: 17 gm Quetiapine Fumarate (Quetiapine 25 Mg Tablet) 50 mg PO 12,16,20 [facility] Last Admin: 12/23/23 12:41 Dose: Not Given Senna (Sennosides 8.6 Mg Tablet) 8.6 mg PO BID [facility] Last Admin: 12/23/23 09:46 Dose: Not Given Thiamine Mononitrate (Thiamine 100 Mg Tablet) 100 mg PO DAILY [facility] Last Admin: 12/23/23 09:46 Dose: Not Given Trazodone HCl (Trazodone 50 Mg Tablet) 25 mg PO 20 [facility] Last Admin: 12/22/23 21:25 Dose: 25 mg Results Laboratory Laboratory Results: 12/22/23 07:52 12/22/23 07:52 Laboratory Results - Last 12 hours 12/23/23 07:22: POC Glucose 113 12/23/23 12:00: POC Glucose 217 Progress Note - A&P Assessment and Plan Assessment and Plan: Angel Rivera is a 78 y/o M with dementia, alcohol use disorder who was brought into the ED via ambulance after he was found wandering outside. #Dementia with behavioral disturbances Per review of [facility] chart including his numerous visits with Psychiatry, Neurology and Congitive Neurology spanning >decade, he has had chronic funtionaland cognitive decline over the past ~20yrs. Per Cognitive Neurology note from 12/14/23, On initial interview 04/16/22, MOCA had decreased to 14/30 with prominent deficits in executive function (only completing a paimiut for clock draw), disorientation, naming with circumlocution and decreased fluency (F words> animals), and difficulty with serial 7s but intact vigilance testing. With otherwise normal basic blood work, save for hypomagnesemia, and unremarkable CT head, urinalysis, CXR and unremarkable neuro exam except for hiscognition/attention, suspect this is progression of his underlying known neurocognitive dementia (with history of depression as well). SW/CM consulted -- appreciate recs continue home regimen of donepezil, AMA hold/ HCP invoked Neuropsychiatry consulted appreciate their help d/w Psychiatrist re poor oral intake Recommend tapering trazodone to 25 mg and starting mirtazapine 7.5 mg to help with appetite , Increase quetiapine to 50 mg 3 times daily at noon, 4 PM and nightly. As per case management, patient's would like to pursue long-term care placement as unable to care for patient at home #Hypomagnesemia: Magnesium still low Started him on standing dose of magnesium #Chronic anemia: stable. #Mild hyponatremia: Encourage p.o. intake Sodium improved #DM2 with hyperglycemia: Hold home regimen of januvia, metformin, since patient has poor oral intake glucose achs, humalog ss #HTN: c/w home regimen of Lisinopril #GERD: c/w home regimen of omeprazole #Alcohol use d/o: unclear if he is in remission. no signs or sx of acute withdrawal. EtOH level onpresentation less than 10 c/w thiamine and folate #Diabetic neuropathy: c/w home regimen of gabapentin #Mood d/o: c/ w home regimen of escitalopram #HL: c/w home regimen of statin #FEN: diabetic diet #DVT PPX: Lovenox #CODE: FULL, as per admitting hospitalist Dispo: Pending safe discharge plan Anticipated Discharge Anticipated Discharge Date: 12/23/23 Priority for D/C: Additional Options: Placement/Insurance Specify Other:: TBD - unclear safe discharge plan Quality Measures Was the pt treated for stroke/TIA? (Y/N): No Documented By: Roma Hoffman MD 12/23/23 1546 Signed By: <Electronically signed by Roma Hoffman MD> 12/24/23 0709 Copies to: Progress Note Author Carrol Castelan [facility] December 24, 2023 1:44pm Note Date/Time December 24, 2023 1:[address] [address] Hospitalist Progress Note Patient: Maryana Rivera Attending MD: Carrol Castelan MD : 1945 Dictating Provider: Carrol Castelan MD Age/Sex: 78 / M Admit Date: 12/15/23 Discharge Date: MedRec #: [id number] Location: [facility] [id number] cc: * Subjective Subjective Date: 12/24/23 Interval Events: Remains restless and a wander risk. Unable to provide reliable history. Exam Physical Exam Vital signs: Vital Signs - Last Response Temperature Pulse Rate Respiratory Rate Blood Pressure Blood Pressure Source O2 Sat by Pulse Oximetry 98.2 F 82 18 114/55 L Automatic Cuff 95 12/24/23 09:00 12/24/23 09:00 12/24/23 09:00 12/24/23 09:00 12/24/23 09:00 12/24/23 09:00 Physical Exam Narrative: GEN: NAD, resting in bed comfortably HEENT: No scleral icterus or conjunctival injection Pulmonary: CTAB, No visible respiratory distress Abdomen: Soft, NT, Not distended Neuro: Alert, disoriented, intermittently follows commands, moves all exts Medications Active Medications Acetaminophen (Acetaminophen 325 Mg Tablet) 650 mg PO Q6H PRN PRN Reason: Temp>101.5 &/or Pain Score:1-3 Last Admin: 12/21/23 07:31 Dose: 650 mg Atorvastatin Calcium (Atorvastatin 40 Mg Tablet) 80 mg PO QHS [facility] Last Admin: 12/23/23 22:12 Dose: Not Given Donepezil HCl (Donepezil 5 Mg Tablet) 10 mg PO QHS [facility] Last Admin: 12/23/23 22:13 Dose: Not Given Enoxaparin Sodium (Enoxaparin 40 Mg/0.4 Ml Syringe) 40 mg SUB-Q Q24H [facility] Last Admin: 12/23/23 19:46 Dose: Not Given Escitalopram Oxalate (Escitalopram 10 Mg Tablet) 10 mg PO DAILY [facility] Last Admin: 12/24/23 09:10 Dose: Not Given Folic Acid (Folic Acid 1 Mg Tablet) 1 mg PO DAILY [facility] Last Admin: 12/24/23 09:39 Dose: Not Given Gabapentin (Gabapentin 300 Mg Capsule) 600 mg PO QHS [facility] Last Admin: 12/23/23 22:13 Dose: Not Given Gabapentin (Gabapentin 400 Mg Capsule) 1,200 mg PO QAM [facility] Last Admin: 12/24/23 09:40 Dose: Not Given Glucagon (Glucagon 1 Mg/Ml Vial (Kit)) 1 mg IM PRN PRN; Protocol PRN Reason: Hypoglycemia Protocol Glucose (Dextrose Gel 40 % 15 Gm Dextrose/37.5 Gm Tube) 15 gm PO PRN PRN; Protocol PRN Reason: Hypoglycemia Protocol Dextrose (Dextrose 10 % In Water) 125 mls @ 1,500 mls/hr IV PRN PRN; Protocol PRN Reason: for Hypoglycemia Protocol Dextrose (Dextrose 10 % In Water) 250 mls @ 3,000 mls/hr IV ONCE PRN; Protocol PRN Reason: Hypoglycemia Protocol Insulin Human Lispro (Insulin Lispro 300 Unit/3 Ml Vial) 0 unit SUB-Q ACHS [facility];Protocol Last Admin: 12/24/23 11:30 Dose: Not Given Lisinopril (Lisinopril 20 Mg Tablet) 20 mg PO DAILY [facility]; Protocol Last Admin: 12/24/23 09:41 Dose: Not Given Magnesium Hydroxide (Magnesium Hydroxide 30 Ml Udc) 30 ml PO DAILY PRN PRN Reason: Constipation Step 2 Magnesium Oxide (Magnesium Oxide 400 Mg Tablet) 400 mg PO BID [facility] Last Admin: 12/24/23 09:39 Dose: Not Given Melatonin (Melatonin 5 Mg Tablet) 5 mg PO HS PRN PRN Reason: Insomnia Last Admin: 12/23/23 20:16 Dose: 5 mg Mirtazapine (Mirtazapine 7.5 Mg Tablet) 7.5 mg PO 20 [facility] Last Admin: 12/23/23 20:15 Dose: 7.5 mg Olanzapine (Olanzapine 10 Mg Vial) 2.5 mg IM Q8H PRN PRN Reason: Agitation Omeprazole (Omeprazole Dr 20 Mg Capsule) 40 mg PO DAILY [facility] Last Admin: 12/24/23 09:33 Dose: 40 mg Polyethylene Glycol (Polyethylene Glycol 3350 17 Gm Packet) 17 gm PO DAILY PRN PRN Reason: Constipation Step 1 Last Admin: 12/20/23 18:24 Dose: 17 gm Quetiapine Fumarate (Quetiapine 25 Mg Tablet) 50 mg PO 12,16,20 [facility] Last Admin: 12/24/23 11:30 Dose: 50 mg Senna (Sennosides 8.6 Mg Tablet) 8.6 mg PO BID [facility] Last Admin: 12/24/23 09:39 Dose: Not Given Thiamine Mononitrate (Thiamine 100 Mg Tablet) 100 mg PO DAILY [facility] Last Admin: 12/24/23 09:34 Dose: 100 mg Trazodone HCl (Trazodone 50 Mg Tablet) 25 mg PO 20 [facility] Last Admin: 12/23/23 20:15 Dose: 25 mg Results Data Reviewed Patient Data Reviewed: Image(s) Reviewed by Vt Laboratory Laboratory Results: 12/22/23 07:52 12/22/23 07:52 Progress Note - A&P Assessment and Plan Assessment and Plan: Angel Rivera is a 78 year old man with PMHx of dementia, alcohol use disorder whowas brought in to the ED via ambulance after he was found wandering outside. #Dementia with behavioral disturbances Per review of [facility] chart including his numerous visits with Psychiatry, Neurology and Congitive Neurology spanning >decade, he has had chronic functional and cognitive decline over the past ~20yrs. Per Cognitive Neurology note from 12/14/23, On initial interview 04/16/22, MOCA had decreased to 14/30 with prominent deficits in executive function (only completing a paimiut for clock draw), disorientation, naming with circumlocution and decreased fluency (F words> animals), and difficulty with serial 7s but intact vigilance testing. With otherwise normal basic blood work, save for hypomagnesemia, and unremarkable CT head, urinalysis, CXR and unremarkable neuro exam except for hiscognition/attention, suspect this is progression of his underlying known neurocognitive dementia (with history of depression as well). SW/CM consulted -- appreciate recs continue home regimen of donepezil, AMA hold/ HCP invoked Neuropsychiatry consulted appreciate their help d/w Psychiatrist re poor oral intake Recommend tapering trazodone to 25 mg and starting mirtazapine 7.5 mg to help with appetite , Increase quetiapine to 50 mg 3 times daily at noon, 4 PM and nightly. As per case management, patient's would like to pursue long-term care placement as unable to care for patient at home #Hypomagnesemia: Magnesium still low Started him on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 sleepy, calm, forgetful, used the bathroom earlier this morning per staff. Per chart patient was agitated, attempting to get out of thebed, insomnia and given 2 doses of olanzapine over the night. Review of Systems All systems: As per HPI, 10 point ROS completed & negative except where noted below Exam Vital signs: Vital Signs - Last Response Temperature Pulse Rate Respiratory Rate Blood Pressure Blood Pressure Source O2 Sat by Pulse Oximetry 98.2 F 75 18 125/53 L Automatic Cuff 100 12/28/23 08:05 12/28/23 08:09 12/28/23 08:05 12/28/23 08:09 12/28/23 08:05 12/28/23 08:05 Mental Status Assessment - Daily Functioning Patient Appearance: Appropriate Comprehension Ability: Severe Impairment - Mental Status Exam Sensorium: Awake, Drowsy Attention: Fluctuating Orientation: Person Patient Behavior: Passive Eye Contact: Fair, Poor Thought Process: Easily Derailed Thought Content: Vague Suicidal Ideation Description: None Hallucinations: None Impulse Control Description: Poor Speech Pattern: Delayed Language: Word Finding Difficulties Memory Description: Recent Impaired Mood Description: Calm Response to Stimuli: None Motor: None Affect Description: Constricted Energy Level: No complaints Signs of Anxiety: None Insight/Judgment: Poor Results - Laboratory CBC & Chem 7: 12/22/23 07:52 12/27/23 06:32 Laboratory Results: All Laboratory Results - Last 24 hours 12/27/23 12/27/23 12/27/23 11:23 17:33 20:58 POC Glucose 383 86 93 - RN Note RN Note: 12/28/23 04:36 Nurse Note by Winnie Benz 11p-7a Shift Note Alert to self only, unable to state his name. Frequently attempting to get out of room, agitated when not allowed to leave. Attempted to give 2.5mg SL, but pt spit some of the tablet out. Agitation increased when sitter kept him from going into roommates area. 2.5mg IM injection given at 0430to help pt relax. As of 444, pt has not slept. 1:1 sitter at entrance or room to keep pt within room. Frequent checks for safety. Initialized on 12/28/23 04:36 - END OF NOTE 12/27/23 20:13 Nurse Note by Uri Rosenthal Addendum entered by Uri Rosenthal RN 12/27/23 23:34: Pt took half of his night meds, spit out the rest. Upcoming RN updated. Original Note: Pt alert to self, confused, can be agitated. Security called on Pt for agitation, wandering around, and spiting around 12pm. IM Zyprexa also given. Pt in bed, continues on 1:1. Care ongoing. Initialized on 12/27/23 20:13 - END OF NOTE 12/27/23 12:24 Nurse Note by Sharifa Valadez 7-11A PT ALERT TO PERSON CONFUSED,AGGITATED,REFUSED A.M. MD SANDRINE AWARE.CONSULTEDTO DR CERRATO.NO IV ACCESS.TOOK 100% OF BREAKFAST.INC LG AMT URINE,LINENS CHANGED,SKIN CARE GIVEN BY LOOM OVERHAULER.PT NOT COMPLIANT,TRYING TO WALK DOWN DANIEL,ON AMA HOLD,WOULDN'T GO BACK TO ROOM,HAD TO BE PUT ON 1:1 MD AWARE. Initialized on 12/27/23 12:24 - END OF NOTE - Medications Medications: Active Medications Generic Name Dose Route Start Last Admin Trade Name Freq PRN Reason Stop Dose Admin Acetaminophen 650 mg 12/15/23 13:33 12/27/23 21:17 Acetaminophen 325 Mg Tablet PO 650 mg Q6H PRN Administration Temp>101.5 &/or Pain Score:1-3 Atorvastatin Calcium 80 mg 12/15/23 19:45 12/27/23 21:19 Atorvastatin 40 Mg Tablet PO 80 mg QHS KORI Administration Donepezil HCl 10 mg 12/15/23 22:00 12/27/23 21:20 Donepezil 5 Mg Tablet PO 10 mg QHS KORI Administration Enoxaparin Sodium 40 mg 12/20/23 17:30 12/27/23 17:20 Enoxaparin 40 Mg/0.4 Ml Syringe SUB-Q 40 mg Q24H KORI Administration Escitalopram Oxalate 10 mg 12/16/23 09:00 12/28/23 08:09 Escitalopram 10 Mg Tablet PO 10 mg DAILY KORI Administration Folic Acid 1 mg 12/16/23 09:00 12/28/23 08:32 Folic Acid 1 Mg Tablet PO Not Given DAILY KORI Gabapentin 600 mg 12/15/23 22:00 12/27/23 21:20 Gabapentin 300 Mg Capsule PO 600 mg QHS KORI Administration Gabapentin 1,200 mg 12/16/23 09:00 12/28/23 08:08 Gabapentin 400 Mg Capsule PO 1,200 mg QAM KORI Administration Glucagon 1 mg 12/15/23 13:33 Glucagon 1 Mg/Ml Vial (Kit) IM PRN PRN Hypoglycemia Protocol Protocol Glucose 15 gm 12/15/23 13:33 Dextrose Gel 40 % 15 Gm Dextrose/37.5 Gm Tube PO PRN PRN Hypoglycemia Protocol Protocol Dextrose 125 mls @ 1,500 mls/hr 12/15/23 13:33 Dextrose 10 % In Water IV PRN PRN for Hypoglycemia Protocol Protocol Dextrose 250 mls @ 3,000 mls/hr 12/15/23 13:33 Dextrose 10 % In Water IV ONCE PRN Hypoglycemia Protocol Protocol Insulin Human Lispro 0 unit 12/15/23 16:30 12/28/23 07:50 Insulin Lispro 300 Unit/3 Ml Vial SUB-Q Not Given ACHS KORI Protocol Lisinopril 20 mg 12/28/23 09:00 12/28/23 08:09 Lisinopril 20 Mg Tablet PO 20 mg DAILY KORI Administration Protocol Magnesium Hydroxide 30 ml 12/15/23 13:33 Magnesium Hydroxide 30 Ml Udc PO DAILY PRN Constipation Step 2 Magnesium Oxide 400 mg 12/22/23 21:00 12/28/23 08:31 Magnesium Oxide 400 Mg Tablet PO Not Given BID KORI Melatonin 5 mg 12/15/23 13:33 12/27/23 21:17 Melatonin 5 Mg Tablet PO 5 mg HS PRN Administration Insomnia Mirtazapine 7.5 mg 12/21/23 20:00 12/27/23 21:18 Mirtazapine 7.5 Mg Tablet PO 7.5 mg 20 KORI Administration Olanzapine 2.5 mg 12/24/23 09:25 12/28/23 04:31 Olanzapine 10 Mg Vial IM 2.5 mg Q8H PRN Administration Agitation Olanzapine 2.5 mg 12/27/23 16:00 12/27/23 17:17 Olanzapine Odt 5 Mg Tab.Rapdis SL 2.5 mg 12,16 KORI Administration Olanzapine 5 mg 12/27/23 20:00 12/27/23 21:18 Olanzapine Odt 5 Mg Tab.Rapdis SL 5 mg 20 KORI Administration Olanzapine 2.5 mg 12/27/23 12:24 12/28/23 01:21 Olanzapine Odt 5 Mg Tab.Rapdis SL 2.5 mg Q6HR PRN Administration mild agitation Omeprazole 40 mg 12/16/23 09:00 12/28/23 08:[address] 20 Mg Capsule PO Not Given DAILY KORI Polyethylene Glycol 17 gm 12/15/23 13:33 12/20/23 18:24 Polyethylene Glycol 3350 17 Gm Packet PO 17 gm DAILY PRN Administration Constipation Step 1 Senna 8.6 mg 12/20/23 21:00 12/28/23 08:31 Sennosides 8.6 Mg Tablet PO Not Given BID KORI Thiamine Mononitrate 100 mg 12/16/23 09:00 12/28/23 08:33 Thiamine 100 Mg Tablet PO Not Given DAILY KORI Documented By: Sandip Cerrato MD 12/28/23 1025 Signed By: <Electronically signed by Sandip Cerrato MD> 12/28/23 1121 Copies to: Progress Note Author Carrol Castelan [facility] December 28, 2023 2:49pm Note Date/Time December 28, 2023 2:[address] [id number] Hospitalist Progress Note Patient: Maryana Rivera Attending MD: Carrol Castelan MD : 1945 Dictating Provider: Carrol Castelan MD Age/Sex: 78 / M Admit Date: 12/15/23 [facility]charge [facility]: [facility] #: [id number] Location: [facility] [id number] cc: * Subjective Subjective Date: 12/28/23 Interval Events: No acute events overnight. Exam Physical Exam Vital signs: Vital Signs - Last Response Temperature Pulse Rate Respiratory Rate Blood Pressure Blood Pressure Source O2 Sat by Pulse Oximetry 98.2 F 75 18 125/53 L Automatic Cuff 100 12/28/23 08:05 12/28/23 08:09 12/28/23 08:05 12/28/23 08:09 12/28/23 08:05 12/28/23 08:05 Physical Exam Narrative: GEN: NAD, resting in bed comfortably HEENT: No scleral icterus or conjunctival injection Cardio: S1/2 audible, normal rate Pulmonary: CTAB, No visible respiratory distress Abdomen: Soft, NT, Not distended Neuro: Alert, disoriented, intermittently follows commands, moves all exts Medications Active Medications Acetaminophen (Acetaminophen 325 Mg Tablet) 650 mg PO Q6H PRN PRN Reason: Temp>101.5 &/or Pain Score:1-3 Last Admin: 12/27/23 21:17 Dose: 650 mg Atorvastatin Calcium (Atorvastatin 40 Mg Tablet) 80 mg PO QHS [facility] Last Admin: 12/27/23 21:19 Dose: 80 mg Donepezil HCl (Donepezil 5 Mg Tablet) 10 mg PO QHS [facility] Last Admin: 12/27/23 21:20 Dose: 10 mg Enoxaparin Sodium (Enoxaparin 40 Mg/0.4 Ml Syringe) 40 mg SUB-Q Q24H [facility] Last Admin: 12/27/23 17:20 Dose: 40 mg Escitalopram Oxalate (Escitalopram 10 Mg Tablet) 10 mg PO DAILY [facility] Last Admin: 12/28/23 08:09 Dose: 10 mg Folic Acid (Folic Acid 1 Mg Tablet) 1 mg PO DAILY [facility] Last Admin: 12/28/23 08:32 Dose: Not Given Gabapentin (Gabapentin 300 Mg Capsule) 600 mg PO QHS [facility] Last Admin: 12/27/23 21:20 Dose: 600 mg Gabapentin (Gabapentin 400 Mg Capsule) 1,200 mg PO QAM [facility] Last Admin: 12/28/23 08:08 Dose: 1,200 mg Glucagon (Glucagon 1 Mg/Ml Vial (Kit)) 1 mg IM PRN PRN; Protocol PRN Reason: Hypoglycemia Protocol Glucose (Dextrose Gel 40 % 15 Gm Dextrose/37.5 Gm Tube) 15 gm PO PRN PRN; Protocol PRN Reason: Hypoglycemia Protocol Dextrose (Dextrose 10 % In Water) 125 mls @ 1,500 mls/hr IV PRN PRN; Protocol PRN Reason: for Hypoglycemia Protocol Dextrose (Dextrose 10 % In Water) 250 mls @ 3,000 mls/hr IV ONCE PRN; Protocol PRN Reason: Hypoglycemia Protocol Insulin Human Lispro (Insulin Lispro 300 Unit/3 Ml Vial) 0 unit SUB-Q ACHS KORI;Protocol Last Admin: 12/28/23 12:40 Dose: Not Given Lisinopril (Lisinopril 20 Mg Tablet) 20 mg PO DAILY [facility]; Protocol Last Admin: 12/28/23 08:09 Dose: 20 mg Magnesium Hydroxide (Magnesium Hydroxide 30 Ml Udc) 30 ml PO DAILY PRN PRN Reason: Constipation Step 2 Magnesium Oxide (Magnesium Oxide 400 Mg Tablet) 400 mg PO BID [facility] Last Admin: 12/28/23 08:31 Dose: Not Given Melatonin (Melatonin 5 Mg Tablet) 5 mg PO HS PRN PRN Reason: Insomnia Last Admin: 12/27/23 21:17 Dose: 5 mg Olanzapine (Olanzapine 10 Mg Vial) 2.5 mg IM Q8H PRN PRN Reason: Agitation Last Admin: 12/28/23 04:31 Dose: 2.5 mg Olanzapine (Olanzapine Odt 5 Mg Tab.Rapdis) 2.5 mg SL 12,16 KORI Last Admin: 12/28/23 13:50 Dose: Not Given Olanzapine (Olanzapine Odt 5 Mg Tab.Rapdis) 2.5 mg SL Q6HR PRN PRN Reason: mild agitation Last Admin: 12/28/23 01:21 Dose: 2.5 mg Olanzapine (Olanzapine Odt 5 Mg Tab.Rapdis) 7.5 mg SL 20 [facility] Omeprazole (Omeprazole Dr 20 Mg Capsule) 40 mg PO DAILY [facility] Last Admin: 12/28/23 08:32 Dose: Not Given Polyethylene Glycol (Polyethylene Glycol 3350 17 Gm Packet) 17 gm PO DAILY PRN PRN Reason: Constipation Step 1 Last Admin: 12/20/23 18:24 Dose: 17 gm Senna (Sennosides 8.6 Mg Tablet) 8.6 mg PO BID [facility] Last Admin: 12/28/23 08:31 Dose: Not Given Thiamine Mononitrate (Thiamine 100 Mg Tablet) 100 mg PO DAILY [facility] Last Admin: 12/28/23 08:33 Dose: Not Given Trazodone HCl (Trazodone 50 Mg Tablet) 50 mg PO 20 KORI Results Data Reviewed Patient Data Reviewed: Image(s) Reviewed by Me Laboratory Laboratory Results: 12/22/23 07:52 12/27/23 06:32 Laboratory Results - Last 12 hours 12/28/23 11:46: POC Glucose 240 Progress Note - A&P Assessment and Plan Assessment and Plan: Angel Rivera is a 78 year old man with PMHx of dementia, alcohol use disorder whowas brought in to the ED via ambulance after he was found wandering outside. #Dementia with behavioral disturbances Per review of [facility] chart including his numerous visits with Psychiatry, Neurology and Congitive Neurology spanning >decade, he has had chronic functional and cognitive decline over the past ~20yrs. Per Cognitive Neurology note from 12/14/23, On initial interview 04/16/22, MOCA had decreased to 14/30 with prominent deficits in executive function (only completing a paimiut for clock draw), disorientation, naming with circumlocution and decreased fluency (F words> animals), and difficulty with serial 7s but intact vigilance testing. With otherwise normal basic blood work, save for hypomagnesemia, and unremarkable CT head, urinalysis, CXR and unremarkable neuro exam except for hiscognition/attention, suspect this is progression of his underlying known neurocognitive dementia (with history of depression as well). SW/CM consulted -- appreciate recs continue home regimen of donepezil, AMA hold/ HCP invoked Neuropsychiatry consulted appreciate their help d/w Psychiatrist re poor oral intake Recommend tapering trazodone to 25 mg and starting mirtazapine 7.5 mg to help with appetite , 12/26 Stopped quetiapine due to partial effect. Started olanzapine 2.5mg at 12p, 4p and 7.5mg qhs. Olanzapine 2.5-5mg SL/IM q6h PRN agitations. Stopped trazodone. As per case management, patient's would like to pursue long-term care placement as unable to care for patient at home #KELLEE: resolved Cr 1.3 12/25. Refusing IV access. Recommended PO hydration if patient continues to refuse IV access. Repeat BMP in AM. Obtain Renal U/S: negative #Hypomagnesemia: Magnesium still low Started him on standing dose of magnesium Refusing IV access. #Chronic anemia: stable. #Mild hyponatremia: Encourage p.o. intake Sodium improved #DM2 with hyperglycemia: Hold home regimen of januvia, metformin, since patient has poor oral intake glucose achs, humalog ss #HTN: Continue home regimen of Lisinopril. #GERD: c/w home regimen of omeprazole #Alcohol use d/o: unclear if he is in remission. no signs or sx of acute withdrawal. EtOH level onpresentation less than 10 c/w thiamine and folate #Diabetic neuropathy: c/w home regimen of gabapentin #Mood d/o: c/ w home regimen of escitalopram #HL: c/w home regimen of statin #FEN: diabetic diet #DVT PPX: Ambulating/Lovenox #CODE: FULL, as per admitting hospitalist Dispo: Pending safe discharge plan Anticipated Discharge Anticipated Discharge Date: 12/29/23 Priority for D/C: Additional Options: Placement/Insurance Anticipated D/C to: Home with services Specify Other:: trial off 1:1, then respite Quality Measures Was the pt treated for stroke/TIA? (Y/N): No Documented By: Carrol Castelan MD 12/28/23 1446 Signed By: <Electronically signed by Carrol Castelan MD> 12/28/23 1449 Copies to: Progress Note Author Tanvi Trevino [facility] December 28, 2023 3:59pm Note Date/Time December 28, 2023 3:[address] [phone] CM Progress Note Patient: Maryana Rivera Attending MD: Carrol Castelan MD : 1945 Dictating Provider: Tanvi Trevino Age/Sex: 78 / M Admit Date: 12/15/23 Discharge Date: [facility] #: [id number] Location: [facility] [id number] cc: * Case Management Progress Note - Progress Note Is this a re-evaluation?: Yes CM Progress Note: CM spoke with Mrs Isaias Rivera today to discuss DC plan. CM shared with Mrs. Rivera that CM unable to secure respite bed at [facility] due to ongoing sitterneed. Thus plan for Pt to be DC home with services. Pt accepted with [facility]. [facility] unable to take Pt home today due to own medical and PT appointment but will be able to take Pt home on 12/29/23. Psych following for medication adjustment. CM will follow for DC planning. Estimated Discharge Assessment - Anticipated Discharge Referrals/Community Services: Kenia Sheehan MD [Primary Care Provider] - Documented By: Tanvi Trevino 12/28/23 1550 Signed By: <Electronically signed by Tanvi Trevino> 12/28/23 1557 Copies to: Progress Note Author Sandip Cerrato [facility] December 29, 2023 9:56am Note Date/Time December 29, 2023 9:3 6am [place] [id number] Progress Note Patient: Maryana Rivera Attending MD: Carrol Castelan MD : 1945 Dictating Provider: Sandip Cerrato MD Age/Sex: 78 / M Admit Date: 12/15/23 [facility] #: [id number] Location: [facility] [id number] cc: * ADDENDUM Patient is currently stable from the psychiatric standpoint, able to tolerate current medication, slept and did not require PRN. At this time, no psych contraindication from discharge. Discussed with the primary team. Addendum Documented By: Sandip Cerrato MD 12/29/2356 Addendum Signed By: <Electronically signed by Sandip Cerrato MD> 12/29/2356 cc: Copy To: __ Assessment/Plan Assessment/Plan: 78-year-old male retired with a history of diabetes, hypertension, depression, vascular dementia, on donepezil and quetiapine, alcohol use disorder, seen by psych and October 2022 for agitation (MOCA, scored 6/25 after excluding executive function. was started on quetiapine and trazodone) who was admitted with wandering episodes. Quetiapine was increased and psych was consulted for evaluation. Patient was calm, forgetful, oriented x 1, limited insight, head CTwith generalized volume loss and microvascular changes. Impression vascular dementia with behavioral dysregulation's history of alcohol use, and increased trazodone, trial of quetiapine that was changed to olanzapine 12/26 for better control of agitation . No suicidal. Today, calm, able to tolerate increased dose of olanzapine, will continue previous recs. CSSRS- low risk of suicide. Highly complex, multisystem disease DSM 5 DIAGNOSES: Primary Psychiatric Diagnosis: vascular dementia with behavioral dysregulation'shistory of alcohol use. Secondary Psychiatric Diagnosis: none Other Medical Conditions: as above Psychosocial and Contextual Factors: medical and mental Plan: --Continue previous recs. --At discharge, *continue trazodone 50 mg *olanzapine 2.5 mg at 12 PM, 4 PM and 7.5 mg nightly. *stop prn olanzapine. *Follow-up with PCP/neurologist for QTc monitoring and antipsychotics. --please page/call if any questions. Thank you for consulting the Psychosomatic Medicine Service Sandip Cerrato MD Psychosomatic Medicine Total time 35 minutes Greater than 50% of consultation visit spends in counseling, obtaining collateral, treatment plan, coordination of care with primary team and patient Note was dictated using an electronic dictation system, which can unfortunately lead to occasional typographical errors. Please do not hesitate to contact for clarification or questions. Acutely suicidal or violent?: No If yes, need 1:1 sitter?: No - Visit Visit: Traditional [id number] Subjective Date: 12/29/23 Time: 09:32 Reason for Consult: Altered mental status and dementia Subjective: Patient was seen, was awake, calm, forgetful, confused, able to tolerate increased dose of olanzapine, no as needed given. Chart was reviewed. Review of Systems All systems: As per HPI, 10 point ROS completed & negative except where noted below Exam Vital signs: Vital Signs - Last Response Temperature Pulse Rate Respiratory Rate Blood Pressure Blood Pressure Source O2 Sat by Pulse Oximetry 98.2 F 71 18 135/88 Automatic Cuff 98 12/29/23 08:15 12/29/23 08:15 12/29/23 07:01 12/29/23 08:15 12/29/23 07:01 12/29/23 08:15 Mental Status Assessment - Daily Functioning Patient Appearance: Appropriate Comprehension Ability: Severe Impairment Oral Expression Ability: Severe Impairment - Mental Status Exam Sensorium: Drowsy Attention: Fluctuating Orientation: Oriented x3 Patient Behavior: Appropriate Eye Contact: Maintained Thought Process: Easily Derailed Thought Content: Appropriate Suicidal Ideation Description: None Delusions: Not Present Hallucinations: None Impulse Control Description: Fair Speech Pattern: Delayed Language: Word Finding Difficulties Memory Description: Recent Intact Mood Description: Relaxed Response to Stimuli: None Motor: None, Resting Tremor Affect Description: Constricted Energy Level: No complaints Signs of Anxiety: None Insight/Judgment: Poor Results - Laboratory CBC & Chem 7: 12/22/23 07:52 12/27/23 06:32 Laboratory Results: All Laboratory Results - Last 24 hours 12/28/23 12/28/23 12/28/23 11:46 16:19 21:16 POC Glucose 240 197 194 12/29/23 07:42 POC Glucose 251 - RN Note RN Note: 12/29/23 04:59 Nurse Note by Yuliana Browning Assumed care of patient at 1900. Patient AO to person, calm, cooperative. 1:1 with security & AMA hold in place.Patient denies pain or any discomfort. restingcomfortably, ambulating to restroom, voiding without difficulty. Initialized on 12/29/23 04:59 - END OF NOTE 12/28/23 12:51 Nurse Note by Monisha Matute Assumed care at 0700. Alert to self, calm with care today, refusing medications - MD aware. Psych following. Continent to br. SBA oob, steady gait. Ambulated halls. Remains on AMA hold, 1:1sit remains. Poor appetite, but slightly improved. Meds whole. Fingersticks ACHS - refused AMcheck VSS on RA. Continue w current plan of care. Initialized on 12/28/23 12:51 - END OF NOTE - Medications Medications: Active Medications Generic Name Dose Route Start Last Admin Trade Name Freq PRN Reason Stop Dose Admin Acetaminophen 650 mg 12/15/23 13:33 12/27/23 21:17 Acetaminophen 325 Mg Tablet PO 650 mg Q6H PRN Administration Temp>101.5 &/or Pain Score:1-3 Atorvastatin Calcium 80 mg 12/15/23 19:45 12/28/23 22:34 Atorvastatin 40 Mg Tablet PO 80 mg QHS KORI Administration Donepezil HCl 10 mg 12/15/23 22:00 12/28/23 22:34 Donepezil 5 Mg Tablet PO 10 mg QHS KORI Administration Enoxaparin Sodium 40 mg 12/20/23 17:30 12/28/23 17:01 Enoxaparin 40 Mg/0.4 Ml Syringe SUB-Q 40 mg Q24H KORI Administration Escitalopram Oxalate 10 mg 12/16/23 09:00 12/29/23 09:13 Escitalopram 10 Mg Tablet PO Not Given DAILY KORI Folic Acid 1 mg 12/16/23 09:00 12/29/23 09:13 Folic Acid 1 Mg Tablet PO Not Given DAILY KORI Gabapentin 600 mg 12/15/23 22:00 12/28/23 22:34 Gabapentin 300 Mg Capsule PO 600 mg QHS KORI Administration Gabapentin 1,200 mg 12/16/23 09:00 12/29/23 09:13 Gabapentin 400 Mg Capsule PO Not Given QAM KORI Glucagon 1 mg 12/15/23 13:33 Glucagon 1 Mg/Ml Vial (Kit) IM PRN PRN Hypoglycemia Protocol Protocol Glucose 15 gm 12/15/23 13:33 Dextrose Gel 40 % 15 Gm Dextrose/37.5 Gm Tube PO PRN PRN Hypoglycemia Protocol Protocol Dextrose 125 mls @ 1,500 mls/hr 12/15/23 13:33 Dextrose 10 % In Water IV PRN PRN for Hypoglycemia Protocol Protocol Dextrose 250 mls @ 3,000 mls/hr 12/15/23 13:33 Dextrose 10 % In Water IV ONCE PRN Hypoglycemia Protocol Protocol Insulin Human Lispro 0 unit 12/15/23 16:30 12/29/23 09:12 Insulin Lispro 300 Unit/3 Ml Vial SUB-Q Not Given ACHS KORI Protocol Lisinopril 20 mg 12/28/23 09:00 12/29/23 09:13 Lisinopril 20 Mg Tablet PO Not Given DAILY KORI Protocol Magnesium Hydroxide 30 ml 12/15/23 13:33 Magnesium Hydroxide 30 Ml Udc PO DAILY PRN Constipation Step 2 Magnesium Oxide 400 mg 12/22/23 21:00 12/29/23 09:13 Magnesium Oxide 400 Mg Tablet PO Not Given BID KORI Melatonin 5 mg 12/15/23 13:33 12/27/23 21:17 Melatonin 5 Mg Tablet PO 5 mg HS PRN Administration Insomnia Olanzapine 2.5 mg 12/24/23 09:25 12/28/23 04:31 Olanzapine 10 Mg Vial IM 2.5 mg Q8H PRN Administration Agitation Olanzapine 2.5 mg 12/27/23 16:00 12/28/23 17:01 Olanzapine Odt 5 Mg Tab.Rapdis SL 2.5 mg 12,16 KORI Administration Olanzapine 2.5 mg 12/27/23 12:24 12/28/23 01:21 Olanzapine Odt 5 Mg Tab.Rapdis SL 2.5 mg Q6HR PRN Administration mild agitation Olanzapine 7.5 mg 12/28/23 20:00 12/28/23 22:35 Olanzapine Odt 5 Mg Tab.Rapdis SL 7.5 mg 20 KORI Administration Omeprazole 40 mg 12/16/23 09:00 12/29/23 09:[address] 20 Mg Capsule PO Not Given DAILY KORI Polyethylene Glycol 17 gm 12/15/23 13:33 12/20/23 18:24 Polyethylene Glycol 3350 17 Gm Packet PO 17 gm DAILY PRN Administration Constipation Step 1 Senna 8.6 mg 12/20/23 21:00 12/29/23 09:14 Sennosides 8.6 Mg Tablet PO Not Given BID KORI Thiamine Mononitrate 100 mg 12/16/23 09:00 12/29/23 09:14 Thiamine 100 Mg Tablet PO Not Given DAILY KORI Trazodone HCl 50 mg 12/28/23 20:00 12/28/23 22:34 Trazodone 50 Mg Tablet PO 50 mg 20 KORI Administration Documented By: Sandip Cerrato MD 12/29/23931 Signed By: <Electronically signed by Sandip Cerrato MD> 12/29/23 0936 Copies to: Progress Note Author Tanvi Trevino [facility] December 29, 2023 4:35pm Note Date/Time December 29, 2023 9:[address] [address] Progress Note Patient: NicoleMal Attending MD: Carrol Castelan MD : 1945 Dictating Provider: Tanvi Trevino Age/Sex: 78 / M Admit Date: 12/15/23 Discharge [facility]: [facility] #: [id number] Location: [facility] [id number] cc: * Case Management Progress Note - Progress Note Is this a re-evaluation?: Yes CM Progress Note: Pt medical care reviewed with attending MD, DR. Castelan on 12/28/23 and which time pt was medical ready for DC. CM (as previously noted) spoke with Pt /HCP (invoked) who shared that she was unable to take Pt home on 12/28/23 due to own medical and therapy appointments but shared she would be able to on12/29/23. ANDRZEJ spoke with Mrs. Rivera at approx 08:55am to formulate a DC time. Mrs. Rivera shared that she is unable to take him(Pt) home as her HR, BP are elevated and she needs to talk to her junior technical writer she proceeded to shared that, Medications given to Pt in the past does not work for Pt when home and that she needs to talk to Pt psychiatrist . CM had shared with Mrs. Rivera on 12/28/23 that we had home VNA services for SN/DISH PERSON/[facility] in place on DC. CM asked Mrs. Rivera if there was family to assist her when home, to which she replies noas they (children) have families of their own . CM explained that Pt was medical ready and reviewed Important Message from Medicare re medicare right to be informed of the DC plan and that of her right to appeal as the HCP is invoked. CM provide Mrs. Rivera with [employer] # to call and initiate appeal. Mrs. Rivera called at 16:28 PM to obtain [employer] appeal reference number with no order picker/assembler. Case discussed with leadership, Attending MD and [facility]OSP[facility]. Estimated Discharge Assessment - Anticipated Discharge Disposition: Home Health Service Referrals/Community Services: Kenia Sheehan MD [Primary Care Provider] - Documented By: Tanvi Trevino 12/29/23 0945 Signed By: <Electronically signed by Tanvi Trevino> 12/29/23 5090 Copies to: Progress Note Author Celine Aldana [facility] December 29, 2023 11:42am Note Date/Time December 29, 2023 11: 42am [address] [address] Progress Note Patient: Maryana Rivrea Attending MD: Carrol Castelan MD : 1945 Dictating Provider: Celine Aldana LCSW Age/Sex: 78 / M Admit Date: 12/15/23 Discharge Date: [facility] #: [id number] Location: [place] [id number] cc: * Social Work Progress Note Date: 12/29/23 Service Type: collateral contact, consultation Patient identified at-risk for alcohol use: No Summary: SW consulted and following regarding home safety and to help with safe DC planning. Psychiatry also consulted and following this admission to help with pt's plan ofcare. At this time, pt is both medically and psychiatrically cleared for discharge. SWattempted to contact pt's family caseworker from [facility] Jeannette ([phone]); No answer; VM left with his SW's contact information requesting a call back to inform agency of pt's anticipated hospital discharge. Documented By: Celine Aldana LCSW 12/29/23 1141 Signed By: <Electronically signed by Celine Aldana LCSW> 12/29/23 1142 Copies to: Progress Note Author Celine Aldana [facility] December 30, 2023 8:45am Note Date/Time December 30, 2023 8:[address] [address] Progress Note Patient: Maryana Rivera Attending MD: Carrol Castelan MD : 1945 Dictating Provider: Celine Aldana LCSW Age/Sex: 78 / M Admit Date: 12/15/23 Discharge [facility]: [facility] #: [id number] Location: [facility] [id number] cc: * Social Work Progress Note Date: 12/30/23 Service Type: collateral contact, consultation Patient identified at-risk for alcohol use: No Summary: SW consulted and following regarding home safety and to help with safe DC planning. Psychiatry also consulted and following this admission to help with pt's plan ofcare. Pt remains medically cleared for discharge however, pt remains agitated. Per discussions with treatment team, decision made to call the pt into [facility] Crisis Team ([phone]) for manjula psych evaluation and potential inpatient psych placement. At this time, plan pending recommendations from [facility] Crisis team. SW to follow. Documented By: Celine Aldana LCSW 12/30/23 0843 Signed By: <Electronically signed by Celine Aldana LCSW> 12/30/23 0845 Copies to: Progress Note Author Sandip Cerrato [facility] December 30, 2023 10:06am Note Date/Time December 30, 2023 10: 05am [facility] [address] [place] [address] Progress Note Patient: Maryana Rivera Attending MD: Carrol Castelan MD : 1945 Dictating Provider: Sandip Cerrato MD Age/Sex: 78 / M Admit Date: 12/15/23 Discharge Date: [facility] #: [id number] Location: [facility] [id number] cc: * Assessment/Plan Assessment/Plan: 78-year-old male retired with a history of diabetes, hypertension, depression, vascular dementia, on donepezil and quetiapine, alcohol use disorder, seen by psych and October 2022 for agitation (MOCA, scored 6/25 after excluding executive function. was started on quetiapine and trazodone) who was admitted with wandering episodes. Quetiapine was increased and psych was consulted for evaluation. Patient was calm, forgetful, oriented x 1, limited insight, head CTwith generalized volume loss and microvascular changes. Impression vascular dementia with behavioral dysregulation's history of alcohol use, and increased trazodone, trial of quetiapine that was changed to olanzapine 12/26 for better control of agitation . No suicidal. Today, calm with intermittent irritability, given IM, declined nightly medications, will encourage to use IM declined p.o. schedule and monitor QTc. CSSRS- low risk of suicide. Highly complex, multisystem disease DSM 5 DIAGNOSES: Primary Psychiatric Diagnosis: vascular dementia with behavioral dysregulation'shistory of alcohol use. Secondary Psychiatric Diagnosis: none Other Medical Conditions: as above Psychosocial and Contextual Factors: medical and mental Plan: --EKG for QTc. Ordered --Increase olanzapine IM as needed to 5 mg every 6 hours for agitation --Per nursing/staff please utilize IM as needed if refused p.o. schedule olanzapine. --Please call crisis for bed Manjula psych evaluation as the patient continued to be irritable/agitated but medically stable. --Collateral :/healthcare proxy was contacted and updated at admission time. --Anisha Sotelo, bilingual school psychologist will be covering over the weekend --please page/call if any questions. Thank you for consulting the Psychosomatic Medicine Service Sandip Cerrato MD Psychosomatic Medicine Total time 35 minutes Greater than 50% of consultation visit spends in counseling, obtaining collateral, treatment plan, coordination of care with primary team and patient Note was dictated using an electronic dictation system, which can unfortunately lead to occasional typographical errors. Please do not hesitate to contact for clarification or questions. Acutely suicidal or violent?: Yes If yes, need 1:1 sitter?: Yes - Visit Visit: Traditional [id number] Subjective Date: 12/30/23 Time: 10:00 Reason for Consult: Altered mental status and dementia Subjective: Patient was seen this morning with security, calm with intermittent irritability, trying to leave the room but able to redirect, walked at breakfast. Per chart declined nightly olanzapine and then given IM for irritability around midnight. No SI Review of Systems All systems: As per HPI, 10 point ROS completed & negative except where noted below Exam Vital signs: Vital Signs - Last Response Temperature Pulse Rate Respiratory Rate Blood Pressure Blood Pressure Source O2 Sat by Pulse Oximetry 98.2 F 57 L 20 121/104 H Automatic Cuff 100 12/29/23 08:15 12/29/23 20:34 12/29/23 20:34 12/29/23 20:34 12/29/23 20:34 12/29/23 20:34 Mental Status Assessment - Daily Functioning Patient Appearance: Appropriate Comprehension Ability: Severe Impairment Oral Expression Ability: Severe Impairment - Mental Status Exam Sensorium: Awake Attention: Fluctuating Orientation: Person Patient Behavior: Suspicious, Irritable Eye Contact: Maintained Thought Process: Disorganized, Easily Derailed Suicidal Ideation Description: None Delusions: Being Controlled, Paranoid Ideation Hallucinations: None Impulse Control Description: Poor Speech Pattern: Delayed Language: Word Finding Difficulties Memory Description: Recent Impaired Mood Description: Irritable Response to Stimuli: None Motor: None Energy Level: No complaints Signs of Anxiety: None Insight/Judgment: Poor Results - Laboratory CBC & Chem 7: 12/22/23 07:52 12/27/23 06:32 Laboratory Results: All Laboratory Results - Last 24 hours 12/29/23 12:26 POC Glucose 299 - RN Note RN Note: 12/30/23 06:28 Nurse Note by Sade Ramirez Pt ia a/o x2 confused. Patient is on constant observation. Patient has been awake all shift, pacing in his room . Patient was found with roommates watch andcell phone, 50 bucks if you want them back . Patient started to get aggravated with staff and swinging at them, gave IM Zyprexa with minimal effect. safety maintained with security care ongoing Initialized on 12/30/23 06:28 - END OF NOTE 12/29/23 21:50 Nurse Note by Uri Rosenthal Pt alert to self, refused night meds. Continues to be in 1:1. Amb in hallway with supervision. Initialized on 12/29/23 21:50 - END OF NOTE 12/29/23 10:53 Nurse Note by Sharifa Valadez 7-11A PT SLEEPING AROUSABLE BY VOICE DENIES PAIN,REFUSES TO WAKE FOR BREAKFAST NO A.M. MEDS GIVEN REFUSING.1:1 FOR SAFETY,AMA HOLD.BS 251 NO INSULIN GIVEN WITHNO FOOD INTAKE.PLAN FOR HOME W SERVICES Initialized on 12/29/23 10:53 - END OF NOTE - Medications Medications: Active Medications Generic Name Dose Route Start Last Admin Trade Name Freq PRN Reason Stop Dose Admin Acetaminophen 650 mg 12/15/23 13:33 12/27/23 21:17 Acetaminophen 325 Mg Tablet PO 650 mg Q6H PRN Administration Temp>101.5 &/or Pain Score:1-3 Atorvastatin Calcium 80 mg 12/15/23 19:45 12/29/23 21:53 Atorvastatin 40 Mg Tablet PO Not Given QHS KORI Donepezil HCl 10 mg 12/15/23 22:00 12/29/23 21:53 Donepezil 5 Mg Tablet PO Not Given QHS KORI Enoxaparin Sodium 40 mg 12/20/23 17:30 12/29/23 17:57 Enoxaparin 40 Mg/0.4 Ml Syringe SUB-Q Not Given Q24H KORI Escitalopram Oxalate 10 mg 12/16/23 09:00 12/30/23 08:33 Escitalopram 10 Mg Tablet PO 10 mg DAILY KORI Administration Folic Acid 1 mg 12/16/23 09:00 12/30/23 08:32 Folic Acid 1 Mg Tablet PO 1 mg DAILY KORI Administration Gabapentin 600 mg 12/15/23 22:00 12/29/23 21:53 Gabapentin 300 Mg Capsule PO Not Given QHS KORI Gabapentin 1,200 mg 12/16/23 09:00 12/30/23 08:32 Gabapentin 400 Mg Capsule PO 1,200 mg QAM KORI Administration Glucagon 1 mg 12/15/23 13:33 Glucagon 1 Mg/Ml Vial (Kit) IM PRN PRN Hypoglycemia Protocol Protocol Glucose 15 gm 12/15/23 13:33 Dextrose Gel 40 % 15 Gm Dextrose/37.5 Gm Tube PO PRN PRN Hypoglycemia Protocol Protocol Dextrose 125 mls @ 1,500 mls/hr 12/15/23 13:33 Dextrose 10 % In Water IV PRN PRN for Hypoglycemia Protocol Protocol Dextrose 250 mls @ 3,000 mls/hr 12/15/23 13:33 Dextrose 10 % In Water IV ONCE PRN Hypoglycemia Protocol Protocol Insulin Human Lispro 0 unit 12/15/23 16:30 12/30/23 08:33 Insulin Lispro 300 Unit/3 Ml Vial SUB-Q Not Given ACHS [facility] Protocol Lisinopril 20 mg 12/28/23 09:00 12/30/23 08:32 Lisinopril 20 Mg Tablet PO 20 mg DAILY KORI Administration Protocol Magnesium Hydroxide 30 ml 12/15/23 13:33 Magnesium Hydroxide 30 Ml Udc PO DAILY PRN Constipation Step 2 Magnesium Oxide 400 mg 12/22/23 21:00 12/30/23 08:32 Magnesium Oxide 400 Mg Tablet PO 400 mg BID KORI Administration Melatonin 5 mg 12/15/23 13:33 12/27/23 21:17 Melatonin 5 Mg Tablet PO 5 mg HS PRN Administration Insomnia Olanzapine 2.5 mg 12/27/23 16:00 12/29/23 17:46 Olanzapine Odt 5 Mg Tab.Rapdis SL 2.5 mg 16 KORI Administration Olanzapine 2.5 mg 12/27/23 12:24 12/28/23 01:21 Olanzapine Odt 5 Mg Tab.Rapdis SL 2.5 mg Q6HR PRN Administration mild agitation Olanzapine 7.5 mg 12/28/23 20:00 12/29/23 21:52 Olanzapine Odt 5 Mg Tab.Rapdis SL Not Given 20 KORI Olanzapine 5 mg 12/30/23 09:24 Olanzapine 10 Mg Vial IM Q8H PRN Agitation Omeprazole 40 mg 12/16/23 09:00 12/30/23 08:[address] 20 Mg Capsule PO 40 mg DAILY KORI Administration Polyethylene Glycol 17 gm 12/15/23 13:33 12/20/23 18:24 Polyethylene Glycol 3350 17 Gm Packet PO 17 gm DAILY PRN Administration Constipation Step 1 Senna 8.6 mg 12/20/23 21:00 12/30/23 08:32 Sennosides 8.6 Mg Tablet PO 8.6 mg BID KORI Administration Thiamine Mononitrate 100 mg 12/16/23 09:00 12/30/23 08:32 Thiamine 100 Mg Tablet PO 100 mg DAILY KORI Administration Trazodone HCl 50 mg 12/28/23 20:00 12/29/23 21:52 Trazodone 50 Mg Tablet PO Not Given 20 KORI Documented By: Sandip Cerrato MD 12/30/23 1000 Signed By: <Electronically signed by Sandip Cerrato MD> 12/30/23 1006 Copies to: Progress Note Author Carrol Castelan [facility] December 30, 2023 2:00pm Note Date/Time December 30, 2023 2:[address] [address] Hospitalist Progress Note Patient: Maryana Rivera Attending MD: Carrol Castelan MD : 1945 Dictating Provider: Carrol Castelan MD Age/Sex: 78 / M Admit Date: 12/15/23 Discharge Date: [facility] #: [id number] Location: [facility] [id number] cc: * Subjective Subjective Date: 12/30/23 Interval Events: Confused at baseline. Denied complaints. Was awake all night and aggravated, swinging at staff members. Given IM zyprexa with minimal effect per RN note, though he was very calm and cooperative this morning. Updated Dr. Cerrato for medoptimization. Exam Physical Exam Vital signs: Vital Signs - Last Response Temperature Pulse Rate Respiratory Rate Blood Pressure Blood Pressure Source O2 Sat by Pulse Oximetry 98.2 F 57 L 20 121/104 H Automatic Cuff 100 12/29/23 08:15 12/29/23 20:34 12/29/23 20:34 12/29/23 20:34 12/29/23 20:34 12/29/23 20:34 Physical Exam Narrative: GEN: NAD, resting in bed comfortably HEENT: No scleral icterus or conjunctival injection Cardio: S1/2 audible, normal rate Pulmonary: CTAB, No visible respiratory distress Abdomen: Soft, NT, Not distended Neuro: Alert, oriented to self and that he is in hospital, intermittently follows commands, moves all exts Medications Active Medications Acetaminophen (Acetaminophen 325 Mg Tablet) 650 mg PO Q6H PRN PRN Reason: Temp>101.5 &/or Pain Score:1-3 Last Admin: 12/27/23 21:17 Dose: 650 mg Atorvastatin Calcium (Atorvastatin 40 Mg Tablet) 80 mg PO QHS [facility] Last Admin: 12/29/23 21:53 Dose: Not Given Donepezil HCl (Donepezil 5 Mg Tablet) 10 mg PO QHS [facility] Last Admin: 12/29/23 21:53 Dose: Not Given Enoxaparin Sodium (Enoxaparin 40 Mg/0.4 Ml Syringe) 40 mg SUB-Q Q24H [facility] Last Admin: 12/29/23 17:57 Dose: Not Given Escitalopram Oxalate (Escitalopram 10 Mg Tablet) 10 mg PO DAILY [facility] Last Admin: 12/30/23 08:33 Dose: 10 mg Folic Acid (Folic Acid 1 Mg Tablet) 1 mg PO DAILY [facility] Last Admin: 12/30/23 08:32 Dose: 1 mg Gabapentin (Gabapentin 300 Mg Capsule) 600 mg PO QHS [facility] Last Admin: 12/29/23 21:53 Dose: Not Given Gabapentin (Gabapentin 400 Mg Capsule) 1,200 mg PO QAM [facility] Last Admin: 12/30/23 08:32 Dose: 1,200 mg Glucagon (Glucagon 1 Mg/Ml Vial (Kit)) 1 mg IM PRN PRN; Protocol PRN Reason: Hypoglycemia Protocol Glucose (Dextrose Gel 40 % 15 Gm Dextrose/37.5 Gm Tube) 15 gm PO PRN PRN; Protocol PRN Reason: Hypoglycemia Protocol Dextrose (Dextrose 10 % In Water) 125 mls @ 1,500 mls/hr IV PRN PRN; Protocol PRN Reason: for Hypoglycemia Protocol Dextrose (Dextrose 10 % In Water) 250 mls @ 3,000 mls/hr IV ONCE PRN; Protocol PRN Reason: Hypoglycemia Protocol Insulin Human Lispro (Insulin Lispro 300 Unit/3 Ml Vial) 0 unit SUB-Q ACHS [facility];Protocol Last Admin: 12/30/23 12:30 Dose: Not Given Lisinopril (Lisinopril 20 Mg Tablet) 20 mg PO DAILY [facility]; Protocol Last Admin: 12/30/23 08:32 Dose: 20 mg Magnesium Hydroxide (Magnesium Hydroxide 30 Ml Udc) 30 ml PO DAILY PRN PRN Reason: Constipation Step 2 Magnesium Oxide (Magnesium Oxide 400 Mg Tablet) 400 mg PO BID [facility] Last Admin: 12/30/23 08:32 Dose: 400 mg Melatonin (Melatonin 5 Mg Tablet) 5 mg PO HS PRN PRN Reason: Insomnia Last Admin: 12/27/23 21:17 Dose: 5 mg Olanzapine (Olanzapine Odt 5 Mg Tab.Rapdis) 2.5 mg SL 12,16 [facility] Last Admin: 12/30/23 12:29 Dose: 2.5 mg Olanzapine (Olanzapine Odt 5 Mg Tab.Rapdis) 2.5 mg SL Q6HR PRN PRN Reason: mild agitation Last Admin: 12/28/23 01:21 Dose: 2.5 mg Olanzapine (Olanzapine Odt 5 Mg Tab.Rapdis) 7.5 mg SL 20 [facility] Last Admin: 12/29/23 21:52 Dose: Not Given Olanzapine (Olanzapine 10 Mg Vial) 5 mg IM Q8H PRN PRN Reason: mod to severe agitation Omeprazole (Omeprazole Dr 20 Mg Capsule) 40 mg PO DAILY [facility] Last Admin: 12/30/23 08:33 Dose: 40 mg Polyethylene Glycol (Polyethylene Glycol 3350 17 Gm Packet) 17 gm PO DAILY PRN PRN Reason: Constipation Step 1 Last Admin: 12/20/23 18:24 Dose: 17 gm Senna (Sennosides 8.6 Mg Tablet) 8.6 mg PO BID [facility] Last Admin: 12/30/23 08:32 Dose: 8.6 mg Thiamine Mononitrate (Thiamine 100 Mg Tablet) 100 mg PO DAILY [facility] Last Admin: 12/30/23 08:32 Dose: 100 mg Trazodone HCl (Trazodone 50 Mg Tablet) 50 mg PO 20 [facility] Last Admin: 12/29/23 21:52 Dose: Not Given Results Data Reviewed Patient Data Reviewed: Image(s) Reviewed by Me Findings: I have reviewed the relevant labs, radiology studies, tracings, medical records,and they are notable for Laboratory Laboratory Results: 12/22/23 07:52 12/27/23 06:32 Progress Note - A&P Assessment and Plan Assessment and Plan: This is a 78 year old man with PMHx of dementia, alcohol use disorder who was brought in to the ED via ambulance after he was found wandering outside. His current admission is for dementia with behavioral disturbances for which neuropsych was consulted. Initially, attempts were being made to optimize the patient's medications, so that he could be discharged to respite for 2 weeks, however in spite of daily attempts at finding a suitable medication regimen to help keep Angel sustainably calm and cooperative, he would repeatedly get agitated requiring multiple CODE greys to be called (he even struck a 1:1 watcher). As a result, [facility] crisis team has been called to look for manjula psych bed. The patient's does not feel she can take him home at this time. #Dementia with behavioral disturbances Per review of [facility] chart, including his numerous visits with Psychiatry, Neurology and [facility] spanning over a decade, he has had chronic functional and cognitive decline over the past roughly 20yrs. Per Cognitive Neurology note from 12/14/23, On initial interview 04/16/22, MOCA had decreased to 14/30 with prominent deficits in executive function (only completing a paimiut for clock draw), disorientation, naming with circumlocution and decreased fluency (F words> animals), and difficulty with serial 7s but intact vigilance testing. With otherwise normal basic blood work, save for hypomagnesemia, and unremarkable CT head, urinalysis, CXR and unremarkable neuro exam except for hiscognition/attention, suspect this is progression of his underlying known neurocognitive dementia (with history of depression as well). SW/CM consulted -- appreciate recs Continue home regimen of donepezil, HCP invoked Neuropsychiatry consulted appreciate their help 12/26 Stopped quetiapine due to partial effect. Started olanzapine 2.5mg at 12p, 4p and 7.5mg qhs. Olanzapine 5mg SL/IM q6h PRN agitations. Continue Trazodone 50mg qhs. As per case management, patient's would like to pursue long-term care placement as unable to care for patient at home #KELLEE: resolved Cr 1.3 12/25. Refusing IV access. Recommended PO hydration if patient continues to refuse IV access. Repeat BMP in AM. Obtain Renal U/S: negative #Hypomagnesemia: Magnesium intermittently low Started him on standing dose of magnesium Refusing IV access. Repleting. #Chronic anemia: stable. #Mild hyponatremia: Encourage p.o. intake Sodium improved #DM2 with hyperglycemia: Resume home regimen of januvia, metformin on discharge where he will be able to eat food he actually enjoys glucose achs, humalog ss #HTN: Continue home regimen of Lisinopril. #GERD: c/w home regimen of omeprazole #Alcohol use d/o: unclear if he is in remission. no signs or sx of acute withdrawal. EtOH level onpresentation less than 10 c/w thiamine and folate #Diabetic neuropathy: c/w home regimen of gabapentin #Mood d/o: c/ w home regimen of escitalopram #HL: c/w home regimen of statin #FEN: diabetic diet #DVT PPX: Ambulating/Lovenox #CODE: FULL, as per admitting hospitalist Dispo: Pending safe discharge plan Anticipated Discharge Anticipated Discharge Date: 01/02/24 Priority for D/C: Additional Options: Placement/Insurance Anticipated D/C to: Other Specify Other:: [place] [facility] Placement Quality Measures Was the pt treated for stroke/TIA? (Y/N): No Documented By: Carrol Castelan MD 12/30/23 1354 Signed By: <Electronically signed by Carrol Castelan MD> 12/30/23 1400 Copies to: Progress Note Author Tanvi Trevino [facility] December 30, 2023 5:24pm Note Date/Time December 30, 2023 5:[address] [address] CM Progress Note Patient: Maryana Rivera Attending MD: Carrol Castelan MD : 1945 Dictating Provider: Tanvi Trevino Age/Sex: 78 / M Admit Date: 12/15/23 Discharge Date: MedRec #: [id number] Location: [place] [id number] cc: * ADDENDUM Medicare appeal deferred due to Pt need for [facility] Psych bed placement. Addendum Documented By: Tanvi Trevino 12/30/23 172 Addendum Signed By: <Electronically signed by Tanvi Trevino> 12/30/23 172 cc: Copy To: __ Case Management Progress Note - Progress Note Is this a re-evaluation?: Yes CM Progress Note: Pt care reviewed with medical team. Pt agitated over night, swinging at staff thus pt referred for [facility] Psych bed placement by [facility]. Estimated Discharge Assessment - Anticipated Discharge Disposition: Home Health Service Referrals/Community Services: Kenia Sheehan MD [Primary Care Provider] - Documented By: Tanvi Trevino 12/30/23 1721 Signed By: <Electronically signed by Tanvi Trevino> 12/30/23 1723 Copies to: Progress Note Author Evie Sandra [facility] December 31, 2023 2:04pm Note Date/Time December 31, 2023 8:[address] [address] Hospitalist Progress Note Patient: Maryana Rivera Attending MD: Evie Sandra MD : 1945 Dictating Provider: Evie rosenberg MD Age/Sex: 78 / M Admit Date: 12/15/23 Discharge Date: MedRec #: [id number] Location: [facility] [id number] cc: * Subjective Subjective Date: 12/31/23 Interval Events: patient sleepy this morning, does not appear in distress siting in bed got zyprexa 5 mg overnight still on 1:1 supervision, was agitated last night per artistic director of Systems Review of Systems ROS unobtainable: due to mental status Exam Physical Exam Vital signs: Vital Signs - Last Response Temperature Pulse Rate Respiratory Rate Blood Pressure Blood Pressure Source O2 Sat by Pulse Oximetry 98.2 F 51 L 16 134/61 Automatic Cuff 100 12/29/23 08:15 12/30/23 20:12 12/30/23 20:12 12/30/23 20:12 12/30/23 20:12 12/30/23 20:12 General: No Apparent Distress Eyes: Anicteric ENT: Ears & Nose without visible erythema, masses, or trauma CV: Heart Regular RESP: Lungs clear to auscultation with good air movement bilaterally and Non- Labored Breathing GI: Not Tender to Palpation and Bowel Sounds Present Extremities: Normal Range of Motion and No Pedal Edema Skin: No Rashes or ulcerations noted Neuro: Moves all limbs Psych: Other (sleepy) Medications Active Medications Acetaminophen (Acetaminophen 325 Mg Tablet) 650 mg PO Q6H PRN PRN Reason: Temp>101.5 &/or Pain Score:1-3 Last Admin: 12/30/23 16:43 Dose: 650 mg Atorvastatin Calcium (Atorvastatin 40 Mg Tablet) 80 mg PO QHS [facility] Last Admin: 12/30/23 21:33 Dose: 80 mg Donepezil HCl (Donepezil 5 Mg Tablet) 10 mg PO QHS [facility] Last Admin: 12/30/23 21:34 Dose: 10 mg Enoxaparin Sodium (Enoxaparin 40 Mg/0.4 Ml Syringe) 40 mg SUB-Q Q24H [facility] Last Admin: 12/30/23 16:51 Dose: 40 mg Escitalopram Oxalate (Escitalopram 10 Mg Tablet) 10 mg PO DAILY [facility] Last Admin: 12/30/23 08:33 Dose: 10 mg Folic Acid (Folic Acid 1 Mg Tablet) 1 mg PO DAILY [facility] Last Admin: 12/30/23 08:32 Dose: 1 mg Gabapentin (Gabapentin 300 Mg Capsule) 600 mg PO QHS [facility] Last Admin: 12/30/23 21:33 Dose: 600 mg Gabapentin (Gabapentin 400 Mg Capsule) 1,200 mg PO QAM [facility] Last Admin: 12/30/23 08:32 Dose: 1,200 mg Glucagon (Glucagon 1 Mg/Ml Vial (Kit)) 1 mg IM PRN PRN; Protocol PRN Reason: Hypoglycemia Protocol Glucose (Dextrose Gel 40 % 15 Gm Dextrose/37.5 Gm Tube) 15 gm PO PRN PRN; Protocol PRN Reason: Hypoglycemia Protocol Dextrose (Dextrose 10 % In Water) 125 mls @ 1,500 mls/hr IV PRN PRN; Protocol PRN Reason: for Hypoglycemia Protocol Dextrose (Dextrose 10 % In Water) 250 mls @ 3,000 mls/hr IV ONCE PRN; Protocol PRN Reason: Hypoglycemia Protocol Insulin Human Lispro (Insulin Lispro 300 Unit/3 Ml Vial) 0 unit SUB-Q ACHS [facility];Protocol Last Admin: 12/30/23 21:34 Dose: 8 units Lisinopril (Lisinopril 20 Mg Tablet) 20 mg PO DAILY [facility]; Protocol Last Admin: 12/30/23 08:32 Dose: 20 mg Magnesium Hydroxide (Magnesium Hydroxide 30 Ml Udc) 30 ml PO DAILY PRN PRN Reason: Constipation Step 2 Magnesium Oxide (Magnesium Oxide 400 Mg Tablet) 400 mg PO BID [facility] Last Admin: 12/30/23 20:10 Dose: 400 mg Melatonin (Melatonin 5 Mg Tablet) 5 mg PO HS PRN PRN Reason: Insomnia Last Admin: 12/27/23 21:17 Dose: 5 mg Olanzapine (Olanzapine Odt 5 Mg Tab.Rapdis) 2.5 mg SL 12,16 [facility] Last Admin: 12/30/23 16:41 Dose: 2.5 mg Olanzapine (Olanzapine Odt 5 Mg Tab.Rapdis) 2.5 mg SL Q6HR PRN PRN Reason: mild agitation Last Admin: 12/28/23 01:21 Dose: 2.5 mg Olanzapine (Olanzapine Odt 5 Mg Tab.Rapdis) 7.5 mg SL 20 [facility] Last Admin: 12/30/23 20:09 Dose: 7.5 mg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 Protocol Protocol Insulin Human Lispro 0 unit 12/15/23 16:30 01/02/24 08:38 Insulin Lispro 300 Unit/3 Ml Vial SUB-Q 6 units ACHS KORI Administration Protocol Lisinopril 20 mg 12/28/23 09:00 01/02/24 08:54 Lisinopril 20 Mg Tablet PO Not Given DAILY KORI Protocol Magnesium Hydroxide 30 ml 12/15/23 13:33 Magnesium Hydroxide 30 Ml Udc PO DAILY PRN Constipation Step 2 Magnesium Oxide 400 mg 12/22/23 21:00 01/02/24 08:54 Magnesium Oxide 400 Mg Tablet PO Not Given BID KORI Melatonin 5 mg 12/15/23 13:33 12/27/23 21:17 Melatonin 5 Mg Tablet PO 5 mg HS PRN Administration Insomnia Olanzapine 10 mg 01/01/24 20:00 01/02/24 00:00 Olanzapine Odt 5 Mg Tab.Rapdis SL Not Given 20 KORI Olanzapine 2.5 mg 12/27/23 16:00 01/01/24 18:06 Olanzapine Odt 5 Mg Tab.Rapdis SL Not Given 12,16 KORI Olanzapine 2.5 mg 12/27/23 12:24 12/28/23 01:21 Olanzapine Odt 5 Mg Tab.Rapdis SL 2.5 mg Q6HR PRN Administration mild agitation Olanzapine 5 mg 12/30/23 09:24 01/01/24 22:25 Olanzapine 10 Mg Vial IM 5 mg Q8H PRN Administration mod to severe agitation Omeprazole 40 mg 12/16/23 09:00 01/02/24 08:[address] 20 Mg Capsule PO Not Given DAILY KORI Polyethylene Glycol 17 gm 12/15/23 13:33 12/20/23 18:24 Polyethylene Glycol 3350 17 Gm Packet PO 17 gm DAILY PRN Administration Constipation Step 1 Senna 8.6 mg 12/20/23 21:00 01/02/24 08:54 Sennosides 8.6 Mg Tablet PO Not Given BID KORI Thiamine Mononitrate 100 mg 12/16/23 09:00 01/02/24 08:54 Thiamine 100 Mg Tablet PO Not Given DAILY KORI Trazodone HCl 100 mg 01/01/24 20:00 01/02/24 00:00 Trazodone 50 Mg Tablet PO Not Given 20 KORI Documented By: Sandip Cerrato MD 01/02/24 1210 Signed By: <Electronically signed by Sandip Cerrato MD> 01/02/24 1217 Copies to: Progress Note Author Mami Jiménez [facility] January 02, 2024 3:16pm Note Date/Time January 02, 2024 3:[address] [id number] Crisis Consult - Follow Up Patient: Maryana Rivera Attending MD: Lisa San MD : 1945 Dictating Provider: Gabrielle Robles Age/Sex: 78 / M Admit Date: 12/15/23 Discharge Date: MedRec #: [id number] Location: [facility] [id number] cc: * Crisis Consult - Follow Up Patient Information: Patient: Maryana Rivera : 1945??? Service Date: 12/15/23 Date of Consult: 01/02/24 Time of Consult: 14:45 Attending Provider: Lisa San Chief Complaint: agitation, vascular dementia - Subjective Subjective: Chart reviewed, case discussed with team and staff. Patient was asleep and was unable to be aroused for re-assessment. 1:1 sitter notes that patient was agitated and argumentative before sleeping this afternoon. Nurse notes that patient has been improving slowly over the last few weeks, and staff are noticing that his behaviors are more exacerbated during the night hours while heslowly improves during rand/bottle caser. Nurse notes that patient has delusions/hallucinations more during carrot tier, and has racing thoughts throughout the day. Patient has been refusing vitals, medications, and IV. Updates: psych medications (5 mg IM haloperidol scheduled nightly), restraints (chemical/physical), time and date of last restraint (12am 01/01 IM Haldol) Medical/Psychiatric/Substance/Social/Family History: Histories from previous consult note of [ ] remain unchanged, except as noted inHPI.??? - Meds & Allergies Current Medications: Current Medications Acetaminophen (Acetaminophen 325 Mg Tablet) 650 mg PO Q6H PRN PRN Reason: Temp>101.5 &/or Pain Score:1-3 Last Admin: 12/30/23 16:43 Dose: 650 mg Atorvastatin Calcium (Atorvastatin 40 Mg Tablet) 80 mg PO QHS [facility] Last Admin: 01/02/24 00:00 Dose: Not Given Donepezil HCl (Donepezil 5 Mg Tablet) 10 mg PO QHS [facility] Last Admin: 01/02/24 00:00 Dose: Not Given Enoxaparin Sodium (Enoxaparin 40 Mg/0.4 Ml Syringe) 40 mg SUB-Q Q24H [facility] Last Admin: 01/01/24 18:18 Dose: 40 mg Escitalopram Oxalate (Escitalopram 10 Mg Tablet) 10 mg PO DAILY [facility] Last Admin: 01/02/24 08:53 Dose: Not Given Folic Acid (Folic Acid 1 Mg Tablet) 1 mg PO DAILY [facility] Last Admin: 01/02/24 08:54 Dose: Not Given Gabapentin (Gabapentin 300 Mg Capsule) 600 mg PO QHS [facility] Last Admin: 01/02/24 00:00 Dose: Not Given Gabapentin (Gabapentin 400 Mg Capsule) 1,200 mg PO QAM [facility] Last Admin: 01/02/24 08:54 Dose: Not Given Glucagon (Glucagon 1 Mg/Ml Vial (Kit)) 1 mg IM PRN PRN; Protocol PRN Reason: Hypoglycemia Protocol Glucose (Dextrose Gel 40 % 15 Gm Dextrose/37.5 Gm Tube) 15 gm PO PRN PRN; Protocol PRN Reason: Hypoglycemia Protocol Haloperidol (Haloperidol 5 Mg/Ml Vial) 5 mg IM Q24H PRN PRN Reason: If patient refuses Olanzapine 10 mg Dextrose (Dextrose 10 % In Water) 125 mls @ 1,500 mls/hr IV PRN PRN; Protocol PRN Reason: for Hypoglycemia Protocol Dextrose (Dextrose 10 % In Water) 250 mls @ 3,000 mls/hr IV ONCE PRN; Protocol PRN Reason: Hypoglycemia Protocol Insulin Human Lispro (Insulin Lispro 300 Unit/3 Ml Vial) 0 unit SUB-Q ACHS [facility];Protocol Last Admin: 01/02/24 12:21 Dose: 4 units Lisinopril (Lisinopril 20 Mg Tablet) 20 mg PO DAILY [facility]; Protocol Last Admin: 01/02/24 08:54 Dose: Not Given Magnesium Hydroxide (Magnesium Hydroxide 30 Ml Udc) 30 ml PO DAILY PRN PRN Reason: Constipation Step 2 Magnesium Oxide (Magnesium Oxide 400 Mg Tablet) 400 mg PO BID [facility] Last Admin: 01/02/24 08:54 Dose: Not Given Melatonin (Melatonin 5 Mg Tablet) 5 mg PO HS PRN PRN Reason: Insomnia Last Admin: 12/27/23 21:17 Dose: 5 mg Olanzapine (Olanzapine Odt 5 Mg Tab.Rapdis) 10 mg SL 20 [facility] Last Admin: 01/02/24 00:00 Dose: Not Given Olanzapine (Olanzapine Odt 5 Mg Tab.Rapdis) 2.5 mg SL 12,16 [facility] Last Admin: 01/02/24 12:24 Dose: 2.5 mg Olanzapine (Olanzapine Odt 5 Mg Tab.Rapdis) 2.5 mg SL Q6HR PRN PRN Reason: mild agitation Last Admin: 12/28/23 01:21 Dose: 2.5 mg Olanzapine (Olanzapine 10 Mg Vial) 5 mg IM Q8H PRN PRN Reason: mod to severe agitation Last Admin: 01/01/24 22:25 Dose: 5 mg Omeprazole (Omeprazole Dr 20 Mg Capsule) 40 mg PO DAILY [facility] Last Admin: 01/02/24 08:54 Dose: Not Given Polyethylene Glycol (Polyethylene Glycol 3350 17 Gm Packet) 17 gm PO DAILY PRN PRN Reason: Constipation Step 1 Last Admin: 12/20/23 18:24 Dose: 17 gm Senna (Sennosides 8.6 Mg Tablet) 8.6 mg PO BID [facility] Last Admin: 01/02/24 08:54 Dose: Not Given Thiamine Mononitrate (Thiamine 100 Mg Tablet) 100 mg PO DAILY [facility] Last Admin: 01/02/24 08:54 Dose: Not Given Trazodone HCl (Trazodone 50 Mg Tablet) 100 mg PO 20 [facility] Last Admin: 01/02/24 00:00 Dose: Not Given - Vital Signs Vital Signs: Temp Pulse Resp BP Pulse Ox O2 Del Method 98.3 F 88 18 125/86 100 Room Air 01/02/24 09:00 01/02/24 09:00 01/02/24 09:00 01/02/24 09:00 01/02/24 09:00 01/02/24 09:00 - Mental Status Exam Appearance: Appropriate Behavior: Asleep Speech: Clear Language: Other (Patient was asleep) Mood: Calm Affect: Calm Thought Process: Other (Patient was asleep) Thought Content: Delusions, No SI/HI/SIB Hallucination Type: Auditory Attention: Distractible Memory/Concentration: Distractible/Inattentive Fund of Knowledge: Low Insight/Judgment: Poor Collateral Contact since last update (if no explain): No - Assessment Assessment: Patient is a 78 year old Male with past medical and psychiatric history as abovenow with ongoing evidence of agitation, vascular dementia. Patient was asleep and was unable to be aroused for re-assessment. 1:1 sitter notes that patient was agitated and argumentative before sleeping this afternoon. Nurse notes that patient has been improving slowly over the last few weeks, and staff are noticing that his behaviors are more exacerbated during the night hours while heslowly improves during rand/bottle caser. Nurse notes that patient has delusions/hallucinations more during carrot tier, and has racing thoughts throughout the day. Patient has been refusing vitals, medications, and IV. Patient reportedly ate 60-75% of breakfast, not drinking as many fluids, and hasbeen getting some sleep for a few hours at a time. Patient received IM Zyprexa 12am on 12/31, and IM Haldol 12am on 01/01 with better effect. Patient is typically restless, wanders, although nursing staff and 1:1 have been going on walkswith him in the halls and he dances during day shift. Diagnosis: vascular dementia with behavioral dysregulation hx of alcohol use - Recommendations Recommendations: Due to patient's inability to safety plan, patient will remain [facility]. Requested LOC: [facility] Barriers to placement / specialty placement required: Yes (dementia) - Duration of Visit Time spent (mins): 30 Discussed with medical team?: Yes (nurse Liliana) Discussed with supervisor lead burning?: No - Behavioral Health Visit Visit:: In person visit - Meds & Allergies Allergies: Allergies No Known Allergies Allergy (Verified 11/01/22 12:43) C-SSRS Screener - C-SSRS Screener C-SSRS Screener: Daily ask: Since you were last asked - Ask Questions 1, 2, 6 Have you wished you were or wished you could go to slee: No Have you had any thoughts of killing yourself: No Have you ever done anything, started to do anything, or prep: No - Result [place] Risk Level: Low Documented By: Gabrielle Robles 01/02/24 1508 Signed By: <Electronically signed by Gabrielle Jiménez> 01/02/24 1516 Copies to: Progress Note Author Tanvi Trevino [facility] January 02, 2024 3:28pm Note Date/Time January 02, 2024 3:[address] [phone] CM Progress Note Patient: Maryana Rivera Attending MD: Lisa San MD : 1945 Dictating Provider: Tanvi Trevino Age/Sex: 78 / M Admit Date: 12/15/23 Discharge Date: MedRec #: [id number] Location: [facility] [id number] cc: * Case Management Progress Note - Progress Note Is this a re-evaluation?: Yes CM Progress Note: Pt care reviewed during IDR's. Pt remains on 1:1 sitter for restlessness and agitation, requiring IM Zyprexa overnight. Behavioral health following and awaiting [facility] bed placement. Estimated Discharge Assessment - Anticipated Discharge Disposition: Home Health Service Referrals/Community Services: Kenia Sheehan MD [Primary Care Provider] - Documented By: Tanvi Trevino 01/02/24 1523 Signed By: <Electronically signed by Tanvi Trevino> 01/02/24 1528 Copies to: Progress Note Author Lisa San [facility] January 02, 2024 5:54pm Note Date/Time January 02, 2024 5:5 4pm [place] [id number] Hospitalist Progress Note Patient: Maryana Rivera Attending MD: Lisa San MD : 1945 Dictating Provider: Georgette Smith Age/Sex: 78 / M Admit Date: 12/15/23 Discharge Date: MedRec #: [id number] Location: [facility] [id number] cc: * Subjective Subjective Date: 01/02/24 Interval Events: Patient was asleep this morning. Per staff, he was agitated and combative last night, requiring multiple IM medications. He continues to refuse to take po medications. Review of Systems Review of Systems ROS unobtainable: due to mental status Exam Physical Exam Vital signs: Vital Signs - Last Response Temperature Pulse Rate Respiratory Rate Blood Pressure Blood Pressure Source O2 Sat by Pulse Oximetry 98.3 F 88 18 125/86 Automatic Cuff 100 01/02/24 09:00 01/02/24 09:00 01/02/24 09:00 01/02/24 09:00 01/02/24 09:00 01/02/24 09:00 Physical Exam Narrative: No apparent distress, sleeping lungs clear S1S2, RRR abdomen nondistended no pedal edema Medications Active Medications Acetaminophen (Acetaminophen 325 Mg Tablet) 650 mg PO Q6H PRN PRN Reason: Temp>101.5 &/or Pain Score:1-3 Last Admin: 12/30/23 16:43 Dose: 650 mg Atorvastatin Calcium (Atorvastatin 40 Mg Tablet) 80 mg PO QHS [facility] Last Admin: 01/02/24 00:00 Dose: Not Given Donepezil HCl (Donepezil 5 Mg Tablet) 10 mg PO QHS [facility] Last Admin: 01/02/24 00:00 Dose: Not Given Enoxaparin Sodium (Enoxaparin 40 Mg/0.4 Ml Syringe) 40 mg SUB-Q Q24H [facility] Last Admin: 01/01/24 18:18 Dose: 40 mg Escitalopram Oxalate (Escitalopram 10 Mg Tablet) 10 mg PO DAILY [facility] Last Admin: 01/02/24 08:53 Dose: Not Given Folic Acid (Folic Acid 1 Mg Tablet) 1 mg PO DAILY [facility] Last Admin: 01/02/24 08:54 Dose: Not Given Gabapentin (Gabapentin 300 Mg Capsule) 600 mg PO QHS [facility] Last Admin: 01/02/24 00:00 Dose: Not Given Gabapentin (Gabapentin 400 Mg Capsule) 1,[facility] Last Admin: 01/02/24 08:54 Dose: Not Given Glucagon (Glucagon 1 Mg/Ml Vial (Kit)) 1 mg IM PRN PRN; Protocol PRN Reason: Hypoglycemia Protocol Glucose (Dextrose Gel 40 % 15 Gm Dextrose/37.5 Gm Tube) 15 gm PO PRN PRN; Protocol PRN Reason: Hypoglycemia Protocol Haloperidol (Haloperidol 5 Mg/Ml Vial) 5 mg IM Q24H PRN PRN Reason: If patient refuses Olanzapine 10 mg Dextrose (Dextrose 10 % In Water) 125 mls @ 1,500 mls/hr IV PRN PRN; Protocol PRN Reason: for Hypoglycemia Protocol Dextrose (Dextrose 10 % In Water) 250 mls @ 3,000 mls/hr IV ONCE PRN; Protocol PRN Reason: Hypoglycemia Protocol Insulin Human Lispro (Insulin Lispro 300 Unit/3 Ml Vial) 0 unit SUB-Q [facility];Protocol Last Admin: 01/02/24 17:39 Dose: Not Given Lisinopril (Lisinopril 20 Mg Tablet) 20 mg PO DAILY [facility]; Protocol Last Admin: 01/02/24 08:54 Dose: Not Given Magnesium Hydroxide (Magnesium Hydroxide 30 Ml Udc) 30 ml PO DAILY PRN PRN Reason: Constipation Step 2 Magnesium Oxide (Magnesium Oxide 400 Mg Tablet) 400 mg PO BID [facility] Last Admin: 01/02/24 08:54 Dose: Not Given Melatonin (Melatonin 5 Mg Tablet) 5 mg PO HS PRN PRN Reason: Insomnia Last Admin: 12/27/23 21:17 Dose: 5 mg Olanzapine (Olanzapine Odt 5 Mg Tab.Rapdis) 10 mg SL 20 [facility] Last Admin: 01/02/24 00:00 Dose: Not Given Olanzapine (Olanzapine Odt 5 Mg Tab.Rapdis) 2.5 mg SL 12,16 [facility] Last Admin: 01/02/24 17:39 Dose: Not Given Olanzapine (Olanzapine Odt 5 Mg Tab.Rapdis) 2.5 mg SL Q6HR PRN PRN Reason: mild agitation Last Admin: 12/28/23 01:21 Dose: 2.5 mg Olanzapine (Olanzapine 10 Mg Vial) 5 mg IM Q8H PRN PRN Reason: mod to severe agitation Last Admin: 01/01/24 22:25 Dose: 5 mg Omeprazole (Omeprazole Dr 20 Mg Capsule) 40 mg PO DAILY [facility] Last Admin: 01/02/24 08:54 Dose: Not Given Polyethylene Glycol (Polyethylene Glycol 3350 17 Gm Packet) 17 gm PO DAILY PRN PRN Reason: Constipation Step 1 Last Admin: 12/20/23 18:24 Dose: 17 gm Senna (Sennosides 8.6 Mg Tablet) 8.6 mg PO BID [facility] Last Admin: 01/02/24 08:54 Dose: Not Given Thiamine Mononitrate (Thiamine 100 Mg Tablet) 100 mg PO DAILY [facility] Last Admin: 01/02/24 08:54 Dose: Not Given Trazodone HCl (Trazodone 50 Mg Tablet) 100 mg PO 20 [facility] Last Admin: 01/02/24 00:00 Dose: Not Given Results Laboratory Laboratory Results: 01/02/24 09:49 01/02/24 09:49 Laboratory Results - Last 12 hours 01/02/24 08:12: POC Glucose 203 01/02/24 09:49: RBC 4.6, MCV 79.7 L, MCH 25.5 L, MCHC 32.0, RDW Std Deviation 36.3, RDW Coeff of Myriam 12.7, MPV 8.9, Anion Gap 12, GFR Calculation 68.29, Calcium 9.8 D, Total Bilirubin 0.5 D, AST 39, ALT 57 H D, Alkaline Phosphatase 103, Total Protein 7.5, Albumin 4.2 01/02/24 12:10: POC Glucose 176 01/02/24 17:34: POC Glucose 84 Progress Note - A&P Assessment and Plan Assessment and Plan: Dementia with behavioral disturbances - patient continues to refuse oral medications. Discussed with psychiatry, who recommended scheduled night time IM zyprexa since his behavior escalates at night. This was discussed with his who agreed. - awaiting [facility] bed Time Spent Also discussed with: Family/guardian Anticipated Discharge Anticipated Discharge Date: 01/02/24 Priority for D/C: Additional Options: Placement/Insurance Anticipated D/C to: Other Specify Other:: OK [facility] Placement Quality Measures Was the pt treated for stroke/TIA? (Y/N): No Documented By: Lisa San MD 01/02/24 175 Signed By: <Electronically signed by Lisa San MD> 01/02/24 1754 Copies to: Progress Note Author Sandip Cerrato [facility] January 03, 2024 11:18am Note Date/Time January 03, 2024 11: 18am [address] [phone] Progress Note Patient: Maryana Rivera Attending MD: Lisa San MD : 1945 Dictating Provider: Sandip Cerrato MD Age/Sex: 78 / M Admit Date: 12/15/23 Discharge Date: MedRec #: [id number] Location: [facility] [id number] cc: * Assessment/Plan Assessment/Plan: 78-year-old male retired with a history of diabetes, hypertension, depression, vascular dementia, on donepezil and quetiapine, alcohol use disorder, seen by psych and October 2022 for agitation (MOCA, scored 6/25 after excluding executive function. was started on quetiapine and trazodone) who was admitted with wandering episodes. Quetiapine was increased and psych was consulted for evaluation. Patient was calm, forgetful, oriented x 1, limited insight, head CTwith generalized volume loss and microvascular changes. Impression vascular dementia with behavioral dysregulation's history of alcohol use, and increased trazodone, trial of quetiapine that was changed to olanzapine 12/26 for better control of agitation . No suicidal. Today, confused, forgetful, took nightly olanzapine, will continue previous recs CSSRS- low risk of suicide. Highly complex, multisystem disease DSM 5 DIAGNOSES: Primary Psychiatric Diagnosis: vascular dementia with behavioral dysregulation'shistory of alcohol use. Secondary Psychiatric Diagnosis: none Other Medical Conditions: as above Psychosocial and Contextual Factors: medical and mental Plan: --Continue previous recs --please page/call if any questions. Thank you for consulting the Psychosomatic Medicine Service Sandip Cerrato MD Psychosomatic Medicine Total time 35 minutes Greater than 50% of consultation visit spends in counseling, obtaining collateral, treatment plan, coordination of care with primary team and patient Note was dictated using an electronic dictation system, which can unfortunately lead to occasional typographical errors. Please do not hesitate to contact for clarification or questions. Acutely suicidal or violent?: No If yes, need 1:1 sitter?: No - Visit Visit: Traditional [id number] Subjective Date: 01/03/24 Time: 11:15 Reason for Consult: Altered mental status and dementia Subjective: Patient was seen, was sleepy, calm, no agitation, able to tolerate p.o. IM and no as needed given last night. Review of Systems All systems: As per HPI, 10 point ROS completed & negative except where noted below Exam Vital signs: Vital Signs - Last Response Temperature Pulse Rate Respiratory Rate Blood Pressure Blood Pressure Source O2 Sat by Pulse Oximetry 97.5 F 55 L 18 142/63 Automatic Cuff 100 01/02/24 21:00 01/02/24 21:00 01/02/24 21:00 01/02/24 21:00 01/02/24 21:00 01/02/24 21:00 Mental Status Assessment - Daily Functioning Patient Appearance: Appropriate Comprehension Ability: Severe Impairment Oral Expression Ability: Severe Impairment - Mental Status Exam Sensorium: Awake Attention: Fluctuating Orientation: Person Patient Behavior: Appropriate Eye Contact: Maintained Thought Process: Easily Derailed Thought Content: Appropriate Delusions: Not Present Hallucinations: None Impulse Control Description: Fair Speech Pattern: Delayed Language: Word Finding Difficulties Memory Description: Recent Impaired Mood Description: Calm Response to Stimuli: None Motor: None Affect Description: Constricted Signs of Anxiety: None Insight/Judgment: Poor Results - Laboratory CBC & Chem 7: 01/02/24 09:49 01/02/24 09:49 Laboratory Results: All Laboratory Results - Last 24 hours 01/02/24 01/02/24 01/02/24 09:49 12:10 17:34 Sodium 141 Potassium 3.8 Chloride 103 Carbon Dioxide 26 Anion Gap 12 BUN 17 Creatinine 1.1 GFR Calculation 68.29 Glucose 212 H POC Glucose 176 84 Calcium 9.8 D Total Bilirubin 0.5 D AST 39 ALT 57 H D Alkaline Phosphatase 103 Total Protein 7.5 Albumin 4.2 01/02/24 01/03/24 21:36 07:02 Sodium Potassium Chloride Carbon Dioxide Anion Gap BUN Creatinine GFR Calculation Glucose POC Glucose 146 272 Calcium Total Bilirubin AST ALT Alkaline Phosphatase Total Protein Albumin - RN Note RN Note: 01/03/24 02:08 Nurse Note by Yuliana Browning Assumed care of pt at 1900. Pt alert & oriented to self, confused, calm and cooperative with care. AMA hold. remains on 1:1. Took pills whole with water. FSBS 149 held insulins/s coverage for poor po intake.Purposeful rounding made for safety and comfort. Bed locked in lowest position. Call light in reach . Safety maintained. care ongoing. Initialized on 01/03/24 02:08 - END OF NOTE - Medications Medications: Active Medications Generic Name Dose Route Start Last Admin Trade Name Freq PRN Reason Stop Dose Admin Acetaminophen 650 mg 12/15/23 13:33 12/30/23 16:43 Acetaminophen 325 Mg Tablet PO 650 mg Q6H PRN Administration Temp>101.5 &/or Pain Score:1-3 Atorvastatin Calcium 80 mg 12/15/23 19:45 01/02/24 21:20 Atorvastatin 40 Mg Tablet PO 80 mg QHS KORI Administration Donepezil HCl 10 mg 12/15/23 22:00 01/02/24 21:19 Donepezil 5 Mg Tablet PO 10 mg QHS KORI Administration Enoxaparin Sodium 40 mg 12/20/23 17:30 01/02/24 18:40 Enoxaparin 40 Mg/0.4 Ml Syringe SUB-Q 40 mg Q24H KORI Administration Escitalopram Oxalate 10 mg 12/16/23 09:00 01/02/24 08:53 Escitalopram 10 Mg Tablet PO Not Given DAILY KORI Folic Acid 1 mg 12/16/23 09:00 01/02/24 08:54 Folic Acid 1 Mg Tablet PO Not Given DAILY KORI Gabapentin 600 mg 12/15/23 22:00 01/02/24 21:51 Gabapentin 300 Mg Capsule PO 600 mg QHS KORI Administration Gabapentin 1,200 mg 12/16/23 09:00 01/02/24 08:54 Gabapentin 400 Mg Capsule PO Not Given QAM [facility] Glucagon 1 mg 12/15/23 13:33 Glucagon 1 Mg/Ml Vial (Kit) IM PRN PRN Hypoglycemia Protocol Protocol Glucose 15 gm 12/15/23 13:33 Dextrose Gel 40 % 15 Gm Dextrose/37.5 Gm Tube PO PRN PRN Hypoglycemia Protocol Protocol Haloperidol 5 mg 01/02/24 20:00 Haloperidol 5 Mg/Ml Vial IM Q24H PRN If patient refuses Olanzapine 10 mg Dextrose 125 mls @ 1,500 mls/hr 12/15/23 13:33 Dextrose 10 % In Water IV PRN PRN for Hypoglycemia Protocol Protocol Dextrose 250 mls @ 3,000 mls/hr 12/15/23 13:33 Dextrose 10 % In Water IV ONCE PRN Hypoglycemia Protocol Protocol Insulin Human Lispro 0 unit 12/15/23 16:30 01/02/24 21:49 Insulin Lispro 300 Unit/3 Ml Vial SUB-Q Not Given ACHS KORI Protocol Lisinopril 20 mg 12/28/23 09:00 01/02/24 08:54 Lisinopril 20 Mg Tablet PO Not Given DAILY KORI Protocol Magnesium Hydroxide 30 ml 12/15/23 13:33 Magnesium Hydroxide 30 Ml Udc PO DAILY PRN Constipation Step 2 Magnesium Oxide 400 mg 12/22/23 21:00 01/02/24 21:21 Magnesium Oxide 400 Mg Tablet PO 400 mg BID KORI Administration Melatonin 5 mg 12/15/23 13:33 12/27/23 21:17 Melatonin 5 Mg Tablet PO 5 mg HS PRN Administration Insomnia Olanzapine 10 mg 01/01/24 20:00 01/02/24 21:21 Olanzapine Odt 5 Mg Tab.Rapdis SL 10 mg 20 KORI Administration Olanzapine 2.5 mg 12/27/23 16:00 01/02/24 17:39 Olanzapine Odt 5 Mg Tab.Rapdis SL Not Given 12,16 KORI Olanzapine 2.5 mg 12/27/23 12:24 12/28/23 01:21 Olanzapine Odt 5 Mg Tab.Rapdis SL 2.5 mg Q6HR PRN Administration mild agitation Olanzapine 5 mg 12/30/23 09:24 01/01/24 22:25 Olanzapine 10 Mg Vial IM 5 mg Q8H PRN Administration mod to severe agitation Omeprazole 40 mg 12/16/23 09:00 01/02/24 08:[address] 20 Mg Capsule PO Not Given DAILY KORI Polyethylene Glycol 17 gm 12/15/23 13:33 12/20/23 18:24 Polyethylene Glycol 3350 17 Gm Packet PO 17 gm DAILY PRN Administration Constipation Step 1 Senna 8.6 mg 12/20/23 21:00 01/02/24 21:20 Sennosides 8.6 Mg Tablet PO 8.6 mg BID KORI Administration Thiamine Mononitrate 100 mg 12/16/23 09:00 01/02/24 08:54 Thiamine 100 Mg Tablet PO Not Given DAILY KORI Trazodone HCl 100 mg 01/01/24 20:00 01/02/24 21:20 Trazodone 50 Mg Tablet PO 100 mg 20 KORI Administration Documented By: Sandip Cerrato MD 01/03/24 1115 Signed By: <Electronically signed by Sandip Cerrato MD> 01/03/24 1118 Copies to: Progress Note Author Lisa San [facility] January 03, 2024 2:00pm Note Date/Time January 03, 2024 1:5 5pm [facility] [address] [place] [address] Hospitalist Progress Note Patient: Maryana Rivera Attending MD: Lisa San MD : 1945 Dictating Provider: Georgette Smith Age/Sex: 78 / M Admit Date: 12/15/23 Discharge Date: MedRec #: [id number] Location: [facility] [id number] cc: * Subjective Subjective Date: 01/03/24 Interval Events: Patient is asleep this morning, per staff as well as patient's , he is up all night, then sleeps during the day. He did take his evening pills yesterday. Review of Systems Review of Systems ROS unobtainable: due to mental status Exam Physical Exam Vital signs: Vital Signs - Last Response Temperature Pulse Rate Respiratory Rate Blood Pressure Blood Pressure Source O2 Sat by Pulse Oximetry 97.5 F 55 L 18 142/63 Automatic Cuff 100 01/02/24 21:00 01/02/24 21:00 01/02/24 21:00 01/02/24 21:00 01/02/24 21:00 01/02/24 21:00 Physical Exam Narrative: asleep, easily arousable lungs clear S1S2, no murmurs abd nondistended no pedal edema Medications Active Medications Acetaminophen (Acetaminophen 325 Mg Tablet) 650 mg PO Q6H PRN PRN Reason: Temp>101.5 &/or Pain Score:1-3 Last Admin: 12/30/23 16:43 Dose: 650 mg Atorvastatin Calcium (Atorvastatin 40 Mg Tablet) 80 mg PO QHS [facility] Last Admin: 01/02/24 21:20 Dose: 80 mg Donepezil HCl (Donepezil 5 Mg Tablet) 10 mg PO QHS [facility] Last Admin: 01/02/24 21:19 Dose: 10 mg Enoxaparin Sodium (Enoxaparin 40 Mg/0.4 Ml Syringe) 40 mg SUB-Q Q24H [facility] Last Admin: 01/02/24 18:40 Dose: 40 mg Escitalopram Oxalate (Escitalopram 10 Mg Tablet) 10 mg PO DAILY [facility] Last Admin: 01/02/24 08:53 Dose: Not Given Folic Acid (Folic Acid 1 Mg Tablet) 1 mg PO DAILY [facility] Last Admin: 01/02/24 08:54 Dose: Not Given Gabapentin (Gabapentin 300 Mg Capsule) 600 mg PO QHS [facility] Last Admin: 01/02/24 21:51 Dose: 600 mg Gabapentin (Gabapentin 400 Mg Capsule) 1,200 mg PO QAM [facility] Last Admin: 01/02/24 08:54 Dose: Not Given Glucagon (Glucagon 1 Mg/Ml Vial (Kit)) 1 mg IM PRN PRN; Protocol PRN Reason: Hypoglycemia Protocol Glucose (Dextrose Gel 40 % 15 Gm Dextrose/37.5 Gm Tube) 15 gm PO PRN PRN; Protocol PRN Reason: Hypoglycemia Protocol Haloperidol (Haloperidol 5 Mg/Ml Vial) 5 mg IM Q24H PRN PRN Reason: If patient refuses Olanzapine 10 mg Dextrose (Dextrose 10 % In Water) 125 mls @ 1,500 mls/hr IV PRN PRN; Protocol PRN Reason: for Hypoglycemia Protocol Dextrose (Dextrose 10 % In Water) 250 mls @ 3,000 mls/hr IV ONCE PRN; Protocol PRN Reason: Hypoglycemia Protocol Insulin Human Lispro (Insulin Lispro 300 Unit/3 Ml Vial) 0 unit SUB-Q ACHS [facility];Protocol Last Admin: 01/02/24 21:49 Dose: Not Given Lisinopril (Lisinopril 20 Mg Tablet) 20 mg PO DAILY [facility]; Protocol Last Admin: 01/02/24 08:54 Dose: Not Given Magnesium Hydroxide (Magnesium Hydroxide 30 Ml Udc) 30 ml PO DAILY PRN PRN Reason: Constipation Step 2 Magnesium Oxide (Magnesium Oxide 400 Mg Tablet) 400 mg PO BID [facility] Last Admin: 01/02/24 21:21 Dose: 400 mg Melatonin (Melatonin 5 Mg Tablet) 5 mg PO HS PRN PRN Reason: Insomnia Last Admin: 12/27/23 21:17 Dose: 5 mg Olanzapine (Olanzapine Odt 5 Mg Tab.Rapdis) 10 mg SL 20 [facility] Last Admin: 01/02/24 21:21 Dose: 10 mg Olanzapine (Olanzapine Odt 5 Mg Tab.Rapdis) 2.5 mg SL 12,16 [facility] Last Admin: 01/02/24 17:39 Dose: Not Given Olanzapine (Olanzapine Odt 5 Mg Tab.Rapdis) 2.5 mg SL Q6HR PRN PRN Reason: mild agitation Last Admin: 12/28/23 01:21 Dose: 2.5 mg Olanzapine (Olanzapine 10 Mg Vial) 5 mg IM Q8H PRN PRN Reason: mod to severe agitation Last Admin: 01/01/24 22:25 Dose: 5 mg Omeprazole (Omeprazole Dr 20 Mg Capsule) 40 mg PO DAILY [facility] Last Admin: 01/02/24 08:54 Dose: Not Given Polyethylene Glycol (Polyethylene Glycol 3350 17 Gm Packet) 17 gm PO DAILY PRN PRN Reason: Constipation Step 1 Last Admin: 12/20/23 18:24 Dose: 17 gm Senna (Sennosides 8.6 Mg Tablet) 8.6 mg PO BID [facility] Last Admin: 01/02/24 21:20 Dose: 8.6 mg Thiamine Mononitrate (Thiamine 100 Mg Tablet) 100 mg PO DAILY [facility] Last Admin: 01/02/24 08:54 Dose: Not Given Trazodone HCl (Trazodone 50 Mg Tablet) 100 mg PO 20 [facility] Last Admin: 01/02/24 21:20 Dose: 100 mg Results Laboratory Laboratory Results: 01/02/24 09:49 01/02/24 09:49 Laboratory Results - Last 12 hours 01/02/24 21:36: POC Glucose 146 01/03/24 07:02: POC Glucose 272 Progress Note - A&P Assessment and Plan Assessment and Plan: Dementia with behavioral disturbances - altered sleep-wake cycle; continue meds as ordered; he took his meds last night - Discussed with psychiatry, who recommended scheduled night time IM zyprexa since his behavior escalates at night. This was discussed with his who agreed. - awaiting manjula-psych bed Anticipated Discharge Anticipated Discharge Date: 01/02/24 Priority for D/C: Additional Options: Placement/Insurance Anticipated D/C to: Other Specify Other:: [place] [facility] Placement Quality Measures Was the pt treated for stroke/TIA? (Y/N): No Documented By: Lisa San MD 01/03/24 1048 Signed By: <Electronically signed by Lisa San MD> 01/03/24 1400 Copies to: Progress Note Author Mami Jiménez [facility] January 03, 2024 3:53pm Note Date/Time January 03, 2024 3:5 3pm [facility] [address] [place] [address] Crisis Consult - Follow Up Patient: Maryana Rivera Attending MD: Lisa San MD : 1945 Dictating Provider: Gabrielle Robles Age/Sex: 78 / M Admit Date: 12/15/23 Discharge Date: MedRec #: [id number] Location: [facility] [id number] cc: * Crisis Consult - Follow Up Patient Information: Patient: Maryana Rivera : 1945??? Service Date: 12/15/23 Date of Consult: 01/03/24 Time of Consult: 15:00 Attending Provider: Lisa San Chief Complaint: dementia, agitation - Subjective Subjective: Chart reviewed, case discussed with team and staff. Patient slept all day, was arousable by voice, but unable to participate in assessment due to being drowsy and being awoken from deep sleep. Nurse reports that psychiatry is waiting for to approve anti-psych meds for trial, no IM's overnight, and in good behavioral control. Patient is experiencing sundowning, behaviors worsen overnight, but there is potential for step-down if patient continues to remain behaviorally in control not requiring and restraints and aggression is managed. Medical/Psychiatric/Substance/Social/Family History: Histories from previous consult note of [ ] remain unchanged, except as noted inHPI.??? - Meds & Allergies Current Medications: Current Medications Acetaminophen (Acetaminophen 325 Mg Tablet) 650 mg PO Q6H PRN PRN Reason: Temp>101.5 &/or Pain Score:1-3 Last Admin: 12/30/23 16:43 Dose: 650 mg Atorvastatin Calcium (Atorvastatin 40 Mg Tablet) 80 mg PO QHS KORI Last Admin: 01/02/24 21:20 Dose: 80 mg Donepezil HCl (Donepezil 5 Mg Tablet) 10 mg PO QHS [facility] Last Admin: 01/02/24 21:19 Dose: 10 mg Enoxaparin Sodium (Enoxaparin 40 Mg/0.4 Ml Syringe) 40 mg SUB-Q Q24H [facility] Last Admin: 01/02/24 18:40 Dose: 40 mg Escitalopram Oxalate (Escitalopram 10 Mg Tablet) 10 mg PO DAILY [facility] Last Admin: 01/03/24 12:47 Dose: Not Given Folic Acid (Folic Acid 1 Mg Tablet) 1 mg PO DAILY [facility] Last Admin: 01/03/24 12:47 Dose: Not Given Gabapentin (Gabapentin 300 Mg Capsule) 600 mg PO QHS [facility] Last Admin: 01/02/24 21:51 Dose: 600 mg Gabapentin (Gabapentin 400 Mg Capsule) 1,[facility] Last Admin: 01/03/24 12:47 Dose: Not Given Glucagon (Glucagon 1 Mg/Ml Vial (Kit)) 1 mg IM PRN PRN; Protocol PRN Reason: Hypoglycemia Protocol Glucose (Dextrose Gel 40 % 15 Gm Dextrose/37.5 Gm Tube) 15 gm PO PRN PRN; Protocol PRN Reason: Hypoglycemia Protocol Haloperidol (Haloperidol 5 Mg/Ml Vial) 5 mg IM Q24H PRN PRN Reason: If patient refuses Olanzapine 10 mg Dextrose (Dextrose 10 % In Water) 125 mls @ 1,500 mls/hr IV PRN PRN; Protocol PRN Reason: for Hypoglycemia Protocol Dextrose (Dextrose 10 % In Water) 250 mls @ 3,000 mls/hr IV ONCE PRN; Protocol PRN Reason: Hypoglycemia Protocol Insulin Human Regular (Insulin Regular, Human 300 Unit/3 Ml Vial) 0 unit SUB-Q ACHS [facility]; Protocol Lisinopril (Lisinopril 20 Mg Tablet) 20 mg PO DAILY [facility]; Protocol Last Admin: 01/03/24 12:47 Dose: Not Given Magnesium Hydroxide (Magnesium Hydroxide 30 Ml Udc) 30 ml PO DAILY PRN PRN Reason: Constipation Step 2 Magnesium Oxide (Magnesium Oxide 400 Mg Tablet) 400 mg PO BID [facility] Last Admin: 01/03/24 12:48 Dose: Not Given Melatonin (Melatonin 5 Mg Tablet) 5 mg PO HS PRN PRN Reason: Insomnia Last Admin: 12/27/23 21:17 Dose: 5 mg Olanzapine (Olanzapine Odt 5 Mg Tab.Rapdis) 10 mg SL 20 [facility] Last Admin: 01/02/24 21:21 Dose: 10 mg Olanzapine (Olanzapine Odt 5 Mg Tab.Rapdis) 2.5 mg SL 12,16 [facility] Last Admin: 01/03/24 12:48 Dose: Not Given Olanzapine (Olanzapine Odt 5 Mg Tab.Rapdis) 2.5 mg SL Q6HR PRN PRN Reason: mild agitation Last Admin: 12/28/23 01:21 Dose: 2.5 mg Olanzapine (Olanzapine 10 Mg Vial) 5 mg IM Q8H PRN PRN Reason: mod to severe agitation Last Admin: 01/01/24 22:25 Dose: 5 mg Omeprazole (Omeprazole Dr 20 Mg Capsule) 40 mg PO DAILY [facility] Last Admin: 01/03/24 12:48 Dose: Not Given Polyethylene Glycol (Polyethylene Glycol 3350 17 Gm Packet) 17 gm PO DAILY PRN PRN Reason: Constipation Step 1 Last Admin: 12/20/23 18:24 Dose: 17 gm Senna (Sennosides 8.6 Mg Tablet) 8.6 mg PO BID [facility] Last Admin: 01/03/24 12:48 Dose: Not Given Thiamine Mononitrate (Thiamine 100 Mg Tablet) 100 mg PO DAILY [facility] Last Admin: 01/03/24 12:48 Dose: Not Given Trazodone HCl (Trazodone 50 Mg Tablet) 100 mg PO 20 [facility] Last Admin: 01/02/24 21:20 Dose: 100 mg - Vital Signs Vital Signs: Temp Pulse Resp BP Pulse Ox O2 Del Method 97 F L 59 L 14 122/87 98 Room Air 01/03/24 09:00 01/03/24 09:00 01/03/24 09:00 01/03/24 09:00 01/03/24 09:00 01/03/24 09:00 - Mental Status Exam Appearance: Appropriate Behavior: Asleep Speech: Clear Language: Other Mood: Calm Affect: Calm Thought Process: Other Thought Content: No SI/HI/SIB Hallucination Type: None Attention: Distractible Memory/Concentration: Distractible/Inattentive Fund of Knowledge: Low Insight/Judgment: Poor Collateral Contact since last update (if no explain): No - Assessment Assessment: Patient is a 78 year old Male with past medical and psychiatric history as abovenow with ongoing evidence of dementia, agitation. Patient slept all day, was arousable by voice, but unable to participate in assessment due to being drowsy and being awoken from deep sleep. Nurse reports that psychiatry is waiting for to approve anti-psych meds for trial, no IM's overnight, and in good behavioral control. Patient is experiencing sundowning, behaviors worsen overnight, but there is potential for step-down if patient continues to remain behaviorally in control not requiring and restraints and aggression is managed. Patient has not eaten today due to sleeping all day, unable to plan for safety. Diagnosis: vascular dementia with behavioral dysregulation hx of alcohol use - Recommendations Recommendations: Patient is unable to safety plan today, team is working to manage aggression bx before considering lower level services and possible d/c back home. Requested LOC: [facility] Barriers to placement / specialty placement required: Yes (dementia, aggression) - Duration of Visit Time spent (mins): 30 Discussed with medical team?: Yes (Nurse Davis) Discussed with supervisor lead burning?: No - Behavioral Health Visit Visit:: In person visit - Meds & Allergies Allergies: Allergies No Known Allergies Allergy (Verified 11/01/22 12:43) C-SSRS Screener - C-SSRS Screener C-SSRS Screener: Daily ask: Since you were last asked - Ask Questions 1, 2, 6 Have you wished you were or wished you could go to slee: No Have you had any thoughts of killing yourself: No Have you ever done anything, started to do anything, or prep: No - Result [place] Risk Level: Low Documented By: Gabrielle Robles 01/03/24 1547 Signed By: <Electronically signed by Gabrielle Jiménez> 01/03/24 2317 Copies to: Progress Note Author Celine Aldana [facility] January 04, 2024 3:23pm Note Date/Time January 04, 2024 11: 02am [address] [address] Progress Note Patient: Maryana Rivera Attending MD: Lisa San MD : 1945 Dictating Provider: Celine Aldana LCSW Age/Sex: 78 / M Admit Date: 12/15/23 Discharge Date: MedRec #: [id number] Location: [place] [address] cc: * Social Work Progress Note Patient identified at-risk for alcohol use: No Summary: SW consulted and following the pt regarding safe discharge planning. FABIANO spoke with pt's PCP office who states the pt's HCP is on file at [facility] and toreach out to medical records. FABIANO sent a stat request to [facility] medical requests attempting to obtain a copy of the pt's HCP. Documented By: Celine Aldana LCSW 01/04/24 1100 Signed By: <Electronically signed by Celine Aldana LCSW> 01/04/24 1523 Copies to: Progress Note Author Sandip Cerrato [facility] January 04, 2024 12:37pm Note Date/Time January 04, 2024 12: 34pm [address] [address] Progress Note Patient: Maryana Rivera Attending MD: Lisa San MD : 1945 Dictating Provider: Sandip Cerrato MD Age/Sex: 78 / M Admit Date: 12/15/23 Discharge Date: MedRec #: [id number] Location: [place] [address] cc: * Assessment/Plan Assessment/Plan: 78-year-old male retired with a history of diabetes, hypertension, depression, vascular dementia, on donepezil and quetiapine, alcohol use disorder, seen by psych CL and October 2022 for agitation (MOCA, scored 6/25 after excluding executive function. was started on quetiapine and trazodone) who was admitted with wandering episodes. Quetiapine was increased and psych was consulted for evaluation. Patient was calm, forgetful, oriented x 1, limited insight, head CTwith generalized volume loss and microvascular changes. Impression vascular dementia with behavioral dysregulation's history of alcohol use, and increased trazodone, trial of quetiapine that was changed to olanzapine 12/26 for better control of agitation . No suicidal. Today, confused, forgetful, will continue previous recs CSSRS- low risk of suicide. Highly complex, multisystem disease DSM 5 DIAGNOSES: Primary Psychiatric Diagnosis: vascular dementia with behavioral dysregulation'shistory of alcohol use. Secondary Psychiatric Diagnosis: none Other Medical Conditions: as above Psychosocial and Contextual Factors: medical and mental Plan: --Continue previous recs. -- Outpatient psychiatrist, Dr Agee, was contacted, left vmail. --please page/call if any questions. Thank you for consulting the Psychosomatic Medicine Service Sandip Cerrato MD Psychosomatic Medicine Total time 35 minutes Greater than 50% of consultation visit spends in counseling, obtaining collateral, treatment plan, coordination of care with primary team and patient Note was dictated using an electronic dictation system, which can unfortunately lead to occasional typographical errors. Please do not hesitate to contact for clarification or questions. Acutely suicidal or violent?: No If yes, need 1:1 sitter?: Yes - Visit Visit: Traditional [id number] Subjective Date: 01/04/24 Time: 12:26 Reason for Consult: Altered mental status and dementia Subjective: Patient was seen, calm, forgetful with limited insight. Noncompliance with p.o.meds but no agitation. chart was reviewed. Review of Systems All systems: As per HPI, 10 point ROS completed & negative except where noted below Exam Vital signs: Vital Signs - Last Response Temperature Pulse Rate Respiratory Rate Blood Pressure Blood Pressure Source O2 Sat by Pulse Oximetry 98.3 F 64 16 108/58 L Automatic Cuff 97 01/04/24 09:00 01/04/24 09:00 01/04/24 09:00 01/04/24 09:00 01/04/24 09:00 01/04/24 09:00 Mental Status Assessment - Daily Functioning Patient Appearance: Appropriate Comprehension Ability: Severe Impairment Oral Expression Ability: Severe Impairment - Mental Status Exam Sensorium: Awake Attention: Fluctuating Orientation: Person Patient Behavior: Uncooperative Eye Contact: Maintained Thought Process: Easily Derailed Thought Content: Appropriate Suicidal Ideation Description: None Delusions: Not Present Hallucinations: None Impulse Control Description: Poor Speech Pattern: Delayed Language: Word Finding Difficulties Memory Description: Recent Impaired Mood Description: Calm Response to Stimuli: None Motor: None Affect Description: Constricted Energy Level: No complaints Signs of Anxiety: None Insight/Judgment: Poor Results - Laboratory CBC & Chem 7: 01/04/24 10:28 01/04/24 10:28 Laboratory Results: All Laboratory Results - Last 24 hours 01/03/24 01/03/24 01/03/24 13:23 16:12 21:38 WBC RBC Hgb Hct MCV MCH MCHC RDW Std Deviation RDW Coeff of Myriam Plt Count MPV Sodium Potassium Chloride Carbon Dioxide Anion Gap BUN Creatinine GFR Calculation Glucose POC Glucose 249 205 240 Calcium 01/04/24 01/04/24 07:59 10:28 WBC 3.6 L D RBC 4.4 Hgb 11.4 L Hct 35.8 L MCV 80.8 L MCH 25.7 MCHC 31.8 L RDW Std Deviation 38.7 RDW Coeff of Myriam 13.2 Plt Count 224 MPV 8.9 Sodium 140 Potassium 3.9 Chloride 104 Carbon Dioxide 25 Anion Gap 11 BUN 17 Creatinine 1.0 GFR Calculation 76.56 Glucose 188 H POC Glucose 221 Calcium 9.3 - RN Note RN Note: 01/04/24 11:36 Nurse Note by Sky Robles assumed care of pt @ 0700. Pt AAOx0, lethargic, sleeping. Pt independent in room. VSS on room air. Pt spit out PO meds this AM, documented in EMAR. FS 221 this AM-pt given 3 units of insulin per EMAR. Pt incontinent at times. Behavioral health following. One to one observation. safety maintained. All needs met ATT, call panda within reach, bed locked in lowest position, plan of care ongoing. Initialized on 01/04/24 11:36 - END OF NOTE 01/04/24 00:06 Nurse Note by Allen Hall Addendum entered by Allen Hall RN 01/04/24 04:47: slept through night. T&R, skin intact. Original Note: lethargic. arousable. took medication crush with pudding. He took all dinner, void and back to fall asleep. FS 240 insulin 3E was given. one to one observation. safety maintained. Initialized on 01/04/24 00:06 - END OF NOTE 01/03/24 12:49 Nurse Note by Susan Bass Addendum entered by Susan Bass RN 01/03/24 19:07: Patient remained supine with positional changes to promote skin integrity, dinner saved, cbg at 530 (205), unable to give coverage d/t no oral intake, cov provider aware, crisis team here x2, unable to perform mini-mental d/t patient remaining alert, and arousable but refusing assessment with eyes shut. ctm Addendum entered by Susan Bass RN 01/03/24 13:29: Patients cap blood check for am/pm 277/279, not covered d/t refusal to eat both times, covering MD notified. Original Note: Patient under my care from 3551-3565, Patient supine, sleeping, arousable and returns back to sleep, incont x1 of urine, skin care provided. refused all morning medication and treatments, repositioned , remain sleeping, crisis team here, unable to conduct assessment, covering aware, Initialized on 01/03/24 12:49 - END OF NOTE - Medications Medications: Active Medications Generic Name Dose Route Start Last Admin Trade Name Freq PRN Reason Stop Dose Admin Acetaminophen 650 mg 12/15/23 13:33 12/30/23 16:43 Acetaminophen 325 Mg Tablet PO 650 mg Q6H PRN Administration Temp>101.5 &/or Pain Score:1-3 Atorvastatin Calcium 80 mg 12/15/23 19:45 01/03/24 21:01 Atorvastatin 40 Mg Tablet PO 80 mg QHS KORI Administration Donepezil HCl 10 mg 12/15/23 22:00 01/03/24 21:06 Donepezil 5 Mg Tablet PO Not Given QHS K[facility]I Enoxaparin Sodium 40 mg 12/20/23 17:30 01/03/24 17:12 Enoxaparin 40 Mg/0.4 Ml Syringe SUB-Q 40 mg Q24H KORI Administration Escitalopram Oxalate 10 mg 12/16/23 09:00 01/04/24 09:22 Escitalopram 10 Mg Tablet PO Not Given DAILY [facility]I Folic Acid 1 mg 12/16/23 09:00 01/04/24 09:23 Folic Acid 1 Mg Tablet PO Not Given DAILY KORI Gabapentin 600 mg 12/15/23 22:00 01/03/24 21:04 Gabapentin 300 Mg Capsule PO 600 mg QHS KORI Administration Gabapentin 1,200 mg 12/16/23 09:00 01/04/24 09:07 Gabapentin 400 Mg Capsule PO 1,200 mg QAM KORI Administration Glucagon 1 mg 01/03/24 11:45 Glucagon 1 Mg/Ml Vial (Kit) IM PRN PRN Hypoglycemia Protocol Protocol Glucose 15 gm 01/03/24 11:45 Dextrose Gel 40 % 15 Gm Dextrose/37.5 Gm Tube PO PRN PRN Hypoglycemia Protocol Protocol Haloperidol 5 mg 01/02/24 20:00 Haloperidol 5 Mg/Ml Vial IM Q24H PRN If patient refuses Olanzapine 10 mg Dextrose 125 mls @ 1,500 mls/hr 01/03/24 11:45 Dextrose 10 % In Water IV PRN PRN for Hypoglycemia Protocol Protocol Dextrose 250 mls @ 3,000 mls/hr 01/03/24 11:45 Dextrose 10 % In Water IV ONCE PRN Hypoglycemia Protocol Protocol Insulin Human Regular 0 unit 01/03/24 16:30 01/04/24 09:04 Insulin Regular, Human 300 Unit/3 Ml Vial SUB-Q 3 unit ACHS KORI Administration Protocol Lisinopril 20 mg 12/28/23 09:00 01/04/24 09:24 Lisinopril 20 Mg Tablet PO Not Given DAILY KORI Protocol Magnesium Hydroxide 30 ml 12/15/23 13:33 Magnesium Hydroxide 30 Ml Udc PO DAILY PRN Constipation Step 2 Magnesium Oxide 400 mg 12/22/23 21:00 01/04/24 09:22 Magnesium Oxide 400 Mg Tablet PO Not Given BID KORI Melatonin 5 mg 12/15/23 13:33 12/27/23 21:17 Melatonin 5 Mg Tablet PO 5 mg HS PRN Administration Insomnia Olanzapine 10 mg 01/01/24 20:00 01/03/24 19:58 Olanzapine Odt 5 Mg Tab.Rapdis SL 10 mg 20 KORI Administration Olanzapine 2.5 mg 12/27/23 16:00 01/04/24 12:23 Olanzapine Odt 5 Mg Tab.Rapdis SL Not Given 12,16 KORI Olanzapine 2.5 mg 12/27/23 12:24 12/28/23 01:21 Olanzapine Odt 5 Mg Tab.Rapdis SL 2.5 mg Q6HR PRN Administration mild agitation Olanzapine 5 mg 12/30/23 09:24 01/01/24 22:25 Olanzapine 10 Mg Vial IM 5 mg Q8H PRN Administration mod to severe agitation Omeprazole 40 mg 12/16/23 09:00 01/04/24 09:[address] 20 Mg Capsule PO Not Given DAILY KORI Polyethylene Glycol 17 gm 12/15/23 13:33 12/20/23 18:24 Polyethylene Glycol 3350 17 Gm Packet PO 17 gm DAILY PRN Administration Constipation Step 1 Senna 8.6 mg 12/20/23 21:00 01/04/24 09:22 Sennosides 8.6 Mg Tablet PO Not Given BID KORI Thiamine Mononitrate 100 mg 12/16/23 09:00 01/04/24 09:24 Thiamine 100 Mg Tablet PO Not Given DAILY KORI Trazodone HCl 100 mg 01/01/24 20:00 01/03/24 19:58 Trazodone 50 Mg Tablet PO 100 mg 20 KORI Administration Documented By: Sandip Cerrato MD 01/04/24 1226 Signed By: <Electronically signed by Sandip Cerrato MD> 01/04/24 1237 Copies to: Progress Note Author Yogesh Hopkins [facility] January 04, 2024 1:30pm Note Date/Time January 04, 2024 1:[address] [address] Nutrition Reassessment Patient: Maryana Rivera Attending MD: Lisa San MD : 1945 Dictating Provider: Yogesh Hopkins RD, KALEY Age/Sex: 78 / M Admit Date: 12/15/23 Discharge Date: MedRec #: [id number] Location: [facility] [id number] cc: Yogesh Hopkins RD, LD * Nutrition Assessment - Assessment Date: 01/04/24 Visit Type: Follow Up Pertinent Food & Nutrition History: Per hospitalist H&P: Past Medical History: HTN DM2 Depression Dementia Alcohol use d/o Cerebellar CVA Chronic anemia. Diet Order: 12/16/23 16:16 Safe Tray Diet [DIET] Therapeutic Diets: Diabetic/Consistent Carb Does Pt Require Thickened Liquids?: No Supplements to Add: Glucerna Supplement Frequency: BID(B/L) Comments: Pt requesting a banana with his meals No Known Allergies Allergy (Verified 11/01/22 12:43) Assessment: 78 yo M admit for hypomagnesemia and confusion. Pt w/ dementia w/ behavior disturbances, DM w/ hyper glycemia, mild hypernatremia. Poor PO per hospitalist progress note. Pt is on regular diet w/ safe tray. Variable PO intake documented, w/ estimated average intake since admit 38% meals. Pt likely not meeting EEN w/ meals alone, recommend ensure plus HP to supplement intake. Pt not present in room on attempts for nutrition assessment, chart reviewed. Minimal appetite per RN notes. No N/V/D/abd pain reported. No LBM documented. No overt s/s aspiration reported on dysphagia sip/swallow screen. Pt w/ confusion likely unable to provide accurate diet/wt hx. Recommend NFPE on f/u if appropriate. Nutrition following per standards of care. Labs and meds reviewed. 12/27/23 f/u: Seen for nutrition follow up. Pt w/ variable meal intake response, refuses some meals, other times will take 50-100% of meals. Ordered for ensure plus HP daily. Blood sugars have been variable from 80s-400s. Diet changed from regular to consistent carb since last assessment. Safe tray ordered. Would rec to change MFS to glucerna BID to provide 440kcal, 20g pro daily with less overall CHO intake. Will continue to encourage adequate intakes, limited by cognitive status and resistance to care at times. Meds, labs reviewed. NFPE not appropriate at this time, will attempt at f/u. No reported chewing/swallow difficulty. May have overall increased needs d/t frequent wandering. Would likely benefit from ongoing psych monitoring, assistance with meals/cueing as needed. Nutrition continues to follow and adjust plan of care accordingly. 12/31/23 f/u Seen for nutrition f/u. Continues with variable meal intakes with occasional refusals. Continues with supplements ordered, see above. BS remain variable. Fluctuations in mood and aggression with staff, followed by crisis team, not appropriate for edu/interview at this time. No reported s/s aspiration, chewing/swallow difficulty. Continues to be encouraged to eat/drink. Meds, labs reviewed. No updated labs since last assessment to review at this time. Continues w/ Mg supp. ? LBM, may require intervention with bowel regimen. Refuses meds at times, does occasionally accept with ice cream which may promote some elevated BS. Will request updated weight. May need to consider goals of care meeting if unable to consistently meet estimated nutrition needs. Likely would not be a good candidate given his confusion and refusal of care. 01/04/24 f/u: Seen for nutrition f/u. Pt continues with variable intakes, seen today holding bottle of glucerna, pacing around his room. PO intakes variable, noted taking minimal amounts of meals d/t sleeping most of the day, ranging from refusal to 75% recently. Attempted NFPE however pt not interested/unable to participate (walked away). Does appear thin with some visible mild/moderate amish, deltoid, calf muscle wasting, mild/moderate orbital, buccal, tricep wasting. No updated weight since admit, will request update as suspect he has lost weight. Has been on 1:1 supervision for safety. Followed by psych/crisis team, pending placement for geripsych. Further interview not appropriate d/t mental status. No reported skin breakdown or GI upset at this time. Meds, labs reviewed, BS noted higher d/t holding insulin from meal refusal or only being able to deliver meds with ice cream or pudding. Would benefit from goals of care discussion as suspect unable to meet overall kcal/pro with oral intakes alone. Do not feel he would be appropriate for enteral nutrition d/t cognitive status. Can consider increasing MFS to TID as pt appears to accept these fairly well. Nutrition team remains available as needed for inpatient needs. Pt likely meets ASPEN criteria for acute moderate malnutrition as evidenced by PO intakes <75% x7days, mild/moderate fat and muscle loss to amish, orbital, buccal, deltoid, tricep, calf regions. Unclear weight history however suspect pt has lost weight. - Patient Data Height: 5 ft 9.6 in Weight: 66.7 kg - Weight Calculations Body Mass Index: 21.3 Body Mass Index (BMI) Classification: Normal [place] Body Weight: 74 Adjusted Body Weight: 71 % [place] Body Weight (%IBW): 90 - Dave Score Total Score: 19 - Estimated Calorie Needs Estimated Calorie Needs and Recommendations: 1574-9689 kcal (25-30 kcal/kg actual wt) - Estimated Protein Needs Grams of Protein Needed and Recommendations: 67-80 g (1.0-1.2 g/kg actual wt) - Daily Protein/Calorie Needs Daily Protein Needs: Actual Weight Daily KCAL Needs: Actual Weight - Estimated Fluid Needs Estimated Fluid Needs and Recommendations: 1 mL/kcal - Patient Evaluation Active Medications: Medications Insulin Human Regular (Insulin Regular, Human 300 Unit/3 Ml Vial) 0 unit SUB-Q ACHS [facility]; Protocol Last Admin: 01/04/24 12:36 Dose: 4 unit Acetaminophen (Acetaminophen 325 Mg Tablet) 650 mg PO Q6H PRN PRN Reason: Temp>101.5 &/or Pain Score:1-3 Last Admin: 12/30/23 16:43 Dose: 650 mg Atorvastatin Calcium (Atorvastatin 40 Mg Tablet) 80 mg PO QHS [facility] Last Admin: 01/03/24 21:01 Dose: 80 mg Enoxaparin Sodium (Enoxaparin 40 Mg/0.4 Ml Syringe) 40 mg SUB-Q Q24H [facility] Last Admin: 01/03/24 17:12 Dose: 40 mg Folic Acid (Folic Acid 1 Mg Tablet) 1 mg PO DAILY [facility] Last Admin: 01/04/24 09:23 Dose: Not Given Dextrose (Dextrose 10 % In Water) 125 mls @ 1,500 mls/hr IV PRN PRN; Protocol PRN Reason: for Hypoglycemia Protocol Dextrose (Dextrose 10 % In Water) 250 mls @ 3,000 mls/hr IV ONCE PRN; Protocol PRN Reason: Hypoglycemia Protocol Donepezil HCl (Donepezil 5 Mg Tablet) 10 mg PO QHS [facility] Last Admin: 01/03/24 21:06 Dose: Not Given Escitalopram Oxalate (Escitalopram 10 Mg Tablet) 10 mg PO DAILY [facility] Last Admin: 01/04/24 09:22 Dose: Not Given Gabapentin (Gabapentin 300 Mg Capsule) 600 mg PO QHS [facility] Last Admin: 01/03/24 21:04 Dose: 600 mg Gabapentin (Gabapentin 400 Mg Capsule) 1,200 mg PO QAM [facility] Last Admin: 01/04/24 09:07 Dose: 1,200 mg Glucagon (Glucagon 1 Mg/Ml Vial (Kit)) 1 mg IM PRN PRN; Protocol PRN Reason: Hypoglycemia Protocol Glucose (Dextrose Gel 40 % 15 Gm Dextrose/37.5 Gm Tube) 15 gm PO PRN PRN; Protocol PRN Reason: Hypoglycemia Protocol Haloperidol (Haloperidol 5 Mg/Ml Vial) 5 mg IM Q24H PRN PRN Reason: If patient refuses Olanzapine 10 mg Lisinopril (Lisinopril 20 Mg Tablet) 20 mg PO DAILY [facility]; Protocol Last Admin: 01/04/24 09:24 Dose: Not Given Magnesium Hydroxide (Magnesium Hydroxide 30 Ml Udc) 30 ml PO DAILY PRN PRN Reason: Constipation Step 2 Magnesium Oxide (Magnesium Oxide 400 Mg Tablet) 400 mg PO BID [facility] Last Admin: 01/04/24 09:22 Dose: Not Given Melatonin (Melatonin 5 Mg Tablet) 5 mg PO HS PRN PRN Reason: Insomnia Last Admin: 12/27/23 21:17 Dose: 5 mg Olanzapine (Olanzapine Odt 5 Mg Tab.Rapdis) 2.5 mg SL Q6HR PRN PRN Reason: mild agitation Last Admin: 12/28/23 01:21 Dose: 2.5 mg Olanzapine (Olanzapine Odt 5 Mg Tab.Rapdis) 2.5 mg SL 12,16 [facility] Last Admin: 01/04/24 12:23 Dose: Not Given Olanzapine (Olanzapine 10 Mg Vial) 5 mg IM Q8H PRN PRN Reason: mod to severe agitation Last Admin: 01/01/24 22:25 Dose: 5 mg Olanzapine (Olanzapine Odt 5 Mg Tab.Rapdis) 10 mg SL 20 [facility] Last Admin: 01/03/24 19:58 Dose: 10 mg Omeprazole (Omeprazole Dr 20 Mg Capsule) 40 mg PO DAILY [facility] Last Admin: 01/04/24 09:22 Dose: Not Given Polyethylene Glycol (Polyethylene Glycol 3350 17 Gm Packet) 17 gm PO DAILY PRN PRN Reason: Constipation Step 1 Last Admin: 12/20/23 18:24 Dose: 17 gm Senna (Sennosides 8.6 Mg Tablet) 8.6 mg PO BID [facility] Last Admin: 01/04/24 09:22 Dose: Not Given Thiamine Mononitrate (Thiamine 100 Mg Tablet) 100 mg PO DAILY [facility] Last Admin: 01/04/24 09:24 Dose: Not Given Trazodone HCl (Trazodone 50 Mg Tablet) 100 mg PO 20 [facility] Last Admin: 01/03/24 19:58 Dose: 100 mg Labs: Laboratory Tests 01/02/24 01/02/24 01/02/24 09:49 09:49 12:10 WBC RBC Hgb Hct MCV Sodium 141 Potassium 3.8 Chloride 103 Carbon Dioxide 26 Anion Gap 12 BUN 17 Creatinine 1.1 GFR Calculation 68.29 Glucose 212 H POC Glucose 176 Calcium 9.8 D Total Bilirubin 0.5 D AST 39 ALT 57 H D Alkaline Phosphatase 103 Total Protein 7.5 Albumin 4.2 01/02/24 01/02/24 01/03/24 17:34 21:36 07:02 WBC RBC Hgb Hct MCV Sodium Potassium Chloride Carbon Dioxide Anion Gap BUN Creatinine GFR Calculation Glucose POC Glucose 84 146 272 Calcium Total Bilirubin AST ALT Alkaline Phosphatase Total Protein Albumin 01/03/24 01/03/24 01/03/24 13:23 16:12 21:38 WBC RBC Hgb Hct MCV Sodium Potassium Chloride Carbon Dioxide Anion Gap BUN Creatinine GFR Calculation Glucose POC Glucose 249 205 240 Calcium Total Bilirubin AST ALT Alkaline Phosphatase Total Protein Albumin 01/04/24 01/04/24 01/04/24 07:59 10:28 10:28 WBC 3.6 L D RBC 4.4 Hgb 11.4 L Hct 35.8 L MCV 80.8 L Sodium 140 Potassium 3.9 Chloride 104 Carbon Dioxide 25 Anion Gap 11 BUN 17 Creatinine 1.0 GFR Calculation 76.56 Glucose 188 H POC Glucose 221 Calcium 9.3 Total Bilirubin AST ALT Alkaline Phosphatase Total Protein Albumin 01/04/24 11:40 WBC RBC Hgb Hct MCV Sodium Potassium Chloride Carbon Dioxide Anion Gap BUN Creatinine GFR Calculation Glucose POC Glucose 275 Calcium Total Bilirubin AST ALT Alkaline Phosphatase Total Protein Albumin - Nutritional Diagnosis Inadequate Energy Intake NI-1.4 Related To: poor appetite As Evidenced By: Poor appetite per RN notes, po intake since admit documented below. Selected Entries 12/15/23 17:00 12/16/23 09:00 12/16/23 12:10 Percent Meal Consumed Refused 100% 75% 12/17/23 09:00 12/17/23 13:00 12/17/23 17:00 Percent Meal Consumed Refused Refused Refused 12/18/23 09:00 12/18/23 13:00 12/18/23 17:00 Percent Meal Consumed 50% Refused Refused 12/19/23 09:00 12/19/23 17:00 12/20/23 09:00 Percent Meal Consumed 10% 50% Refused 12/20/23 13:00 12/20/23 17:00 12/21/23 09:00 Percent Meal Consumed 25% 75% 100% 12/21/23 12:40 12/21/23 17:00 12/22/23 09:00 Percent Meal Consumed 75% 25% 100% Altered Nutition-Related Laboratory Values NC-2.2 Related To: T2DM As Evidenced By: POC glu 80s-400s during admit - Nutritional Interventions Nutrition Intervention: Coordinate Other Care, Feeding Assistance, Medical Food Supplement, Meals & Snacks, Nutrition Related Med Mgt, Vitamin Mineral Supplemen Nutrition Intervention Comments: 1. Continue consistent CHO diet to assist BG control and continue safe tray as appropriate. 2. Glucerna TID (220 kcal, 10 g pro each). 3. Continue folic acid and thiamine supplementation. 4. Consider checking pt iron studies and vit D. 5. Consider MVI w/ mineral supplementation for pt w/ poor PO intake. 6. Monitor lytes, replete prn. 7. Encourage meal completion and documented in EMR. 8. Weekly scaled wt. 9. GI/bowel regimen, document BMs Nutrition Monitoring/Evaluation: Bowel Regimen, Monitor Labs, Monitor at Meal Rounds, Monitor Skin Integrity, Monitor Weight, Supplement Tolerated/Acceptance - Nutrition Risk Nutrition Risk: High - Nutritional Goals Goal 1: Consumes 75% all meals and supplements Goal Met: No Goal Date: 01/08/24 Goal 2: BG 80-180 Goal Met: No Goal Date: 01/08/24 Goal 3: lytes WNL Goal Met: Yes (no updated labs since last assessment) Goal Date: 01/08/24 Goal 4: stable wt +/- 1 kg Goal Met: No (no updated wt ) Goal Date: 01/08/24 Documented By: Yogesh Hopkins RD, LD 01/04/24 1312 Signed By: <Electronically signed by SUHAIL Hopkins> 01/04/24 1330 Copies to: Progress Note Author Yogesh Hopkins [facility] January 04, 2024 1:32pm Note Date/Time January 04, 2024 1:[address] [address] Nutrition Leveling Patient: Maryana Rivera Attending MD: Lisa San MD : 1945 Dictating Provider: Yogesh Hopkins RD, LD Age/Sex: 78 / M Admit Date: 12/15/23 Discharge Date: MedRec #: [id number] Location: M.3N [id number] cc: * Leveling Assessment - Leveling Level: 1 Inital Date: 12/22/23 Follow Up Date: 01/08/24 Comments: inadequate PO intake, needs NFPE Documented By: Yogesh Hopkins RD, LD 01/04/24 1332 Signed By: <Electronically signed by SUHAIL Hopkins> 01/04/24 1332 Copies to: Progress Note Author Lisa San [facility] January 04, 2024 6:16pm Note Date/Time January 04, 2024 1:[address] [address] Malnutrition Assessment Patient: Maryana Rivera Attending MD: Lisa San MD : 1945 Dictating Provider: Yogesh Hopkins RD, LD Age/Sex: 78 / M Admit Date: 12/15/23 Discharge Date: MedRec #: [id number] Location: M.3N [id number] cc: Lisa San MD; Yogesh Hopkins RD, LD * Malnutrition Insufficient Energy Intake: Less than 75% estimated energy needs Acute Illness: Greater than 7 days - Loss of Subcutaneous Fat Orbital Loss of Subcutaneous Fat: Mild Triceps Loss of Subcutaneous Fat: Mild - Loss of Muscle Mass Clavicles Loss of Muscle Mass: Mild Shoulders Loss of Muscle Mass: Mild Temples Loss of Muscle Mass: Mild Calf Loss of Muscle Mass: Moderate - Problem List Diagnosis for Malnutrition Patient meets ASPEN Criteria for Malnutrition: Moderate Documented By: Yogesh Hopkins RD, LD 01/04/24 1332 Signed By: <Electronically signed by SUHAIL Hopkins> 01/04/24 1333 <Electronically signed by Lisa San MD> 01/04/24 1816 Copies to: Progress Note Author Mami Jiménez [facility] January 04, 2024 2:30pm Note Date/Time January 04, 2024 2:2 5pm [place] [address] Crisis Consult - Follow Up Patient: Maryana Rivera Attending MD: Lisa San MD : 1945 Dictating Provider: Gabrielle Robles Age/Sex: 78 / M Admit Date: 12/15/23 Discharge Date: MedRec #: [id number] Location: [facility] [id number] cc: * Crisis Consult - Follow Up Patient Information: Patient: Maryana Rivera : 1945??? Service Date: 12/15/23 Date of Consult: 01/04/24 Time of Consult: 14:30 Attending Provider: Lisa San Chief Complaint: dementia, agitation - Subjective Subjective: Chart reviewed, case discussed with team and staff. Patient has been lethargic and sleeping majority of the day, therefore, this clinician has been unable to assess the patient while awake. When shaken awake, patient is drowsy and minimally responsive. Although, nurse reports that patient has not needed IM restraints in several days, last night the patient slept through the night with no major events, patient refused medications this morning and spit them out but otherwise was cooperative. Medical/Psychiatric/Substance/Social/Family History: Histories from previous consult note of [ ] remain unchanged, except as noted inHPI.??? - Meds & Allergies Current Medications: Current Medications Acetaminophen (Acetaminophen 325 Mg Tablet) 650 mg PO Q6H PRN PRN Reason: Temp>101.5 &/or Pain Score:1-3 Last Admin: 12/30/23 16:43 Dose: 650 mg Atorvastatin Calcium (Atorvastatin 40 Mg Tablet) 80 mg PO QHS [facility] Last Admin: 01/03/24 21:01 Dose: 80 mg Donepezil HCl (Donepezil 5 Mg Tablet) 10 mg PO QHS [facility] Last Admin: 01/03/24 21:06 Dose: Not Given Enoxaparin Sodium (Enoxaparin 40 Mg/0.4 Ml Syringe) 40 mg SUB-Q Q24H [facility] Last Admin: 01/03/24 17:12 Dose: 40 mg Escitalopram Oxalate (Escitalopram 10 Mg Tablet) 10 mg PO DAILY [facility] Last Admin: 01/04/24 09:22 Dose: Not Given Folic Acid (Folic Acid 1 Mg Tablet) 1 mg PO DAILY [facility] Last Admin: 01/04/24 09:23 Dose: Not Given Gabapentin (Gabapentin 300 Mg Capsule) 600 mg PO QHS [facility] Last Admin: 01/03/24 21:04 Dose: 600 mg Gabapentin (Gabapentin 400 Mg Capsule) [facility] Admin: 01/04/24 09:07 Dose: 1,200 mg Glucagon (Glucagon 1 Mg/Ml Vial (Kit)) 1 mg IM PRN PRN; Protocol PRN Reason: Hypoglycemia Protocol Glucose (Dextrose Gel 40 % 15 Gm Dextrose/37.5 Gm Tube) 15 gm PO PRN PRN; Protocol PRN Reason: Hypoglycemia Protocol Haloperidol (Haloperidol 5 Mg/Ml Vial) 5 mg IM Q24H PRN PRN Reason: If patient refuses Olanzapine 10 mg Dextrose (Dextrose 10 % In Water) 125 mls @ 1,500 mls/hr IV PRN PRN; Protocol PRN Reason: for Hypoglycemia Protocol Dextrose (Dextrose 10 % In Water) 250 mls @ 3,000 mls/hr IV ONCE PRN; Protocol PRN Reason: Hypoglycemia Protocol Insulin Human Regular (Insulin Regular, Human 300 Unit/3 Ml Vial) 0 unit SUB-Q ACHS [facility]; Protocol Last Admin: 01/04/24 12:36 Dose: 4 unit Lisinopril (Lisinopril 20 Mg Tablet) 20 mg PO DAILY [facility]; Protocol Last Admin: 01/04/24 09:24 Dose: Not Given Magnesium Hydroxide (Magnesium Hydroxide 30 Ml Udc) 30 ml PO DAILY PRN PRN Reason: Constipation Step 2 Magnesium Oxide (Magnesium Oxide 400 Mg Tablet) 400 mg PO BID [facility] Last Admin: 01/04/24 09:22 Dose: Not Given Melatonin (Melatonin 5 Mg Tablet) 5 mg PO HS PRN PRN Reason: Insomnia Last Admin: 12/27/23 21:17 Dose: 5 mg Olanzapine (Olanzapine Odt 5 Mg Tab.Rapdis) 10 mg SL 20 [facility] Last Admin: 01/03/24 19:58 Dose: 10 mg Olanzapine (Olanzapine Odt 5 Mg Tab.Rapdis) 2.5 mg SL 12,16 [facility] Last Admin: 01/04/24 12:23 Dose: Not Given Olanzapine (Olanzapine Odt 5 Mg Tab.Rapdis) 2.5 mg SL Q6HR PRN PRN Reason: mild agitation Last Admin: 12/28/23 01:21 Dose: 2.5 mg Olanzapine (Olanzapine 10 Mg Vial) 5 mg IM Q8H PRN PRN Reason: mod to severe agitation Last Admin: 01/01/24 22:25 Dose: 5 mg Omeprazole (Omeprazole Dr 20 Mg Capsule) 40 mg PO DAILY [facility] Last Admin: 01/04/24 09:22 Dose: Not Given Polyethylene Glycol (Polyethylene Glycol 3350 17 Gm Packet) 17 gm PO DAILY PRN PRN Reason: Constipation Step 1 Last Admin: 12/20/23 18:24 Dose: 17 gm Senna (Sennosides 8.6 Mg Tablet) 8.6 mg PO BID [facility] Last Admin: 01/04/24 09:22 Dose: Not Given Thiamine Mononitrate (Thiamine 100 Mg Tablet) 100 mg PO DAILY [facility] Last Admin: 01/04/24 09:24 Dose: Not Given Trazodone HCl (Trazodone 50 Mg Tablet) 100 mg PO 20 [facility] Last Admin: 01/03/24 19:58 Dose: 100 mg - Vital Signs Vital Signs: Temp Pulse Resp BP Pulse Ox O2 Del Method 98.3 F 64 16 108/58 L 97 Room Air 01/04/24 09:00 01/04/24 09:00 01/04/24 09:00 01/04/24 09:00 01/04/24 09:00 01/04/24 09:00 - Mental Status Exam Appearance: Appropriate Behavior: Asleep Speech: Clear Language: Other Mood: Calm Affect: Calm Thought Process: Other Thought Content: No SI/HI/SIB Hallucination Type: None Attention: Distractible Memory/Concentration: Distractible/Inattentive Fund of Knowledge: Low Insight/Judgment: Poor Collateral Contact since last update (if no explain): No (unable to obtain, leftVM for ) - Assessment Assessment: Patient is a 78 year old Male with past medical and psychiatric history as abovenow with ongoing evidence of dementia, agitation. Patient has been lethargic andsleeping majority of the day, therefore, this clinician has been unable to assess the patient while awake. When shaken awake, patient is drowsy and minimally responsive. Although, nurse reports that patient has not needed IM restraints in several days, last night the patient slept through the night with no major events, patient refused medications this morning and spit them out but otherwise was cooperative. When awake, patient is oriented only to self, has been eating very minimally, no reported events of patient talking to self or delusions/hallucinations. Diagnosis: vascular dementia with behavioral dysregulation hx of alcohol use - Recommendations Recommendations: Patient has not been able to plan for safety, and no safe discharge plan, will remain [facility]. Requested LOC: [facility] Barriers to placement / specialty placement required: Yes (need HCP form at hospital) - Duration of Visit Time spent (mins): 30 Discussed with medical team?: No Discussed with supervisor lead burning?: Yes ([facility] Larry Madden) - Behavioral Health Visit Visit:: In person visit - Meds & Allergies Allergies: Allergies No Known Allergies Allergy (Verified 11/01/22 12:43) C-SSRS Screener - C-SSRS Screener C-SSRS Screener: Daily ask: Since you were last asked - Ask Questions 1, 2, 6 Have you wished you were or wished you could go to slee: No Have you had any thoughts of killing yourself: No Have you ever done anything, started to do anything, or prep: No - Result [place] Risk Level: Low Documented By: Gabrielle Robles 01/04/24 1424 Signed By: <Electronically signed by Gabrielle Jiménez> 01/04/24 1430 Copies to: Progress Note Author Tanvi Trevino [facility] January 04, 2024 3:39pm Note Date/Time January 04, 2024 3:[address] [address] CM Progress Note Patient: NicoleMal Attending MD: Lisa San MD : 1945 Dictating Provider: Tanvi Trevino Age/Sex: 78 / M Admit Date: 12/15/23 Discharge Date: MedRec #: [id number] Location: [facility] [id number] cc: * Case Management Progress Note - Progress Note Is this a re-evaluation?: Yes (CM left x 2 voice messages for Mrs. Rivera to bring in a HCP copy if she had one available at home.) Estimated Discharge Assessment - Anticipated Discharge Disposition: Home Health Service Referrals/Community Services: Kenia Sheehan MD [Primary Care Provider] - Documented By: Tanvi Trevino 01/04/24 1537 Signed By: <Electronically signed by Tanvi Trevino> 01/04/24 1539 Copies to: Progress Note Author Lisa San [facility] January 04, 2024 3:53pm Note Date/Time January 04, 2024 3:[address] [address] Hospitalist Progress Note Patient: Maryana Rivera Attending MD: Lisa San MD : 1945 Dictating Provider: Georgette Smith Age/Sex: 78 / M Admit Date: 12/15/23 Discharge Date: MedRec #: [id number] Location: [facility] [id number] cc: * ADDENDUM DM - on ISS Addendum Documented By: Lisa San MD 01/04/24 155 Addendum Signed By: <Electronically signed by Lisa San MD> 01/04/24 647 cc: Copy To: __ Subjective Subjective Date: 01/04/24 Interval Events: Patient was asleep during the day, took gabapentin but not his other morning meds. He has taken his night time meds for the last 2 nights. He woke up this afternoon. Review of Systems Review of Systems ROS unobtainable: due to mental status Exam Physical Exam Vital signs: Vital Signs - Last Response Temperature Pulse Rate Respiratory Rate Blood Pressure Blood Pressure Source O2 Sat by Pulse Oximetry 98.3 F 64 16 108/58 L Automatic Cuff 97 01/04/24 09:00 01/04/24 09:00 01/04/24 09:00 01/04/24 09:00 01/04/24 09:00 01/04/24 09:00 Physical Exam Narrative: asleep, easily arousable lungs clear S1S2, no murmurs abd nondistended no pedal edema Medications Active Medications Acetaminophen (Acetaminophen 325 Mg Tablet) 650 mg PO Q6H PRN PRN Reason: Temp>101.5 &/or Pain Score:1-3 Last Admin: 12/30/23 16:43 Dose: 650 mg Atorvastatin Calcium (Atorvastatin 40 Mg Tablet) 80 mg PO QHS [facility] Last Admin: 01/03/24 21:01 Dose: 80 mg Donepezil HCl (Donepezil 5 Mg Tablet) 10 mg PO QHS [facility] Last Admin: 01/03/24 21:06 Dose: Not Given Enoxaparin Sodium (Enoxaparin 40 Mg/0.4 Ml Syringe) 40 mg SUB-Q Q24H [facility] Last Admin: 01/03/24 17:12 Dose: 40 mg Escitalopram Oxalate (Escitalopram 10 Mg Tablet) 10 mg PO DAILY [facility] Last Admin: 01/04/24 09:22 Dose: Not Given Folic Acid (Folic Acid 1 Mg Tablet) 1 mg PO DAILY [facility] Last Admin: 01/04/24 09:23 Dose: Not Given Gabapentin (Gabapentin 300 Mg Capsule) 600 mg PO QHS [facility] Last Admin: 01/03/24 21:04 Dose: 600 mg Gabapentin (Gabapentin 400 Mg Capsule) [facility] Admin: 01/04/24 09:07 Dose: 1,200 mg Glucagon (Glucagon 1 Mg/Ml Vial (Kit)) 1 mg IM PRN PRN; Protocol PRN Reason: Hypoglycemia Protocol Glucose (Dextrose Gel 40 % 15 Gm Dextrose/37.5 Gm Tube) 15 gm PO PRN PRN; Protocol PRN Reason: Hypoglycemia Protocol Haloperidol (Haloperidol 5 Mg/Ml Vial) 5 mg IM Q24H PRN PRN Reason: If patient refuses Olanzapine 10 mg Dextrose (Dextrose 10 % In Water) 125 mls @ 1,500 mls/hr IV PRN PRN; Protocol PRN Reason: for Hypoglycemia Protocol Dextrose (Dextrose 10 % In Water) 250 mls @ 3,000 mls/hr IV ONCE PRN; Protocol PRN Reason: Hypoglycemia Protocol Insulin Human Regular (Insulin Regular, Human 300 Unit/3 Ml Vial) 0 unit SUB-Q [facility]; Protocol Last Admin: 01/04/24 12:36 Dose: 4 unit Lisinopril (Lisinopril 20 Mg Tablet) 20 mg PO DAILY [facility]; Protocol Last Admin: 01/04/24 09:24 Dose: Not Given Magnesium Hydroxide (Magnesium Hydroxide 30 Ml Udc) 30 ml PO DAILY PRN PRN Reason: Constipation Step 2 Magnesium Oxide (Magnesium Oxide 400 Mg Tablet) 400 mg PO BID [facility] Last Admin: 01/04/24 09:22 Dose: Not Given Melatonin (Melatonin 5 Mg Tablet) 5 mg PO HS PRN PRN Reason: Insomnia Last Admin: 12/27/23 21:17 Dose: 5 mg Olanzapine (Olanzapine Odt 5 Mg Tab.Rapdis) 10 mg SL 20 [facility] Last Admin: 01/03/24 19:58 Dose: 10 mg Olanzapine (Olanzapine Odt 5 Mg Tab.Rapdis) 2.5 mg SL 12,16 [facility] Last Admin: 01/04/24 12:23 Dose: Not Given Olanzapine (Olanzapine Odt 5 Mg Tab.Rapdis) 2.5 mg SL Q6HR PRN PRN Reason: mild agitation Last Admin: 12/28/23 01:21 Dose: 2.5 mg Olanzapine (Olanzapine 10 Mg Vial) 5 mg IM Q8H PRN PRN Reason: mod to severe agitation Last Admin: 01/01/24 22:25 Dose: 5 mg Omeprazole (Omeprazole Dr 20 Mg Capsule) 40 mg PO DAILY [facility] Last Admin: 01/04/24 09:22 Dose: Not Given Polyethylene Glycol (Polyethylene Glycol 3350 17 Gm Packet) 17 gm PO DAILY PRN PRN Reason: Constipation Step 1 Last Admin: 12/20/23 18:24 Dose: 17 gm Senna (Sennosides 8.6 Mg Tablet) 8.6 mg PO BID [facility] Last Admin: 01/04/24 09:22 Dose: Not Given Thiamine Mononitrate (Thiamine 100 Mg Tablet) 100 mg PO DAILY [facility] Last Admin: 01/04/24 09:24 Dose: Not Given Trazodone HCl (Trazodone 50 Mg Tablet) 100 mg PO 20 [facility] Last Admin: 01/03/24 19:58 Dose: 100 mg Results Laboratory Laboratory Results: 01/04/24 10:28 01/04/24 10:28 Laboratory Results - Last 12 hours 01/04/24 07:59: POC Glucose 221 01/04/24 10:28: RBC 4.4, MCV 80.8 L, MCH 25.7, MCHC 31.8 L, RDW Std Deviation 38.7, RDW Coeff of Myriam 13.2, MPV 8.9, Anion Gap 11, GFR Calculation 76.56, Calcium 9.3 01/04/24 11:40: POC Glucose 275 Progress Note - A&P Assessment and Plan Assessment and Plan: Dementia with behavioral disturbances - altered sleep-wake cycle; continue meds as ordered; he took his meds last 2 nights - Discussed with psychiatry, who recommended scheduled night time IM zyprexa since his behavior escalates at night. This was discussed with his who agreed. - awaiting [facility] bed - patient's outpatient psychiatrist updated Anticipated Discharge Anticipated Discharge Date: 01/02/24 Priority for D/C: Additional Options: Placement/Insurance Anticipated D/C to: Other Specify Other:: [place] [facility] Placement Quality Measures Was the pt treated for stroke/TIA? (Y/N): No Documented By: Lisa San MD 01/04/24 1550 Signed By: <Electronically signed by Lisa San MD> 01/04/24 1551 Copies to: Progress Note Author Mami Jiménez [facility] January 05, 2024 10:45am Note Date/Time January 05, 2024 8:[address] [address] Crisis Consult - Follow Up Patient: Maryana Rivera Attending MD: Lisa San MD : 1945 Dictating Provider: Gabrielle Robles Age/Sex: 78 / M Admit Date: 12/15/23 Discharge Date: MedRec #: [id number] Location: [facility] [id number] cc: * Crisis Consult - Follow Up Patient Information: Patient: Maryana Rivera : 1945??? Service Date: 12/15/23 Date of Consult: 01/05/24 Time of Consult: 07:45 Attending Provider: Lisa San Chief Complaint: dementia, agitation - Subjective Subjective: Chart reviewed, case discussed with team and staff. Patient was awake for this evaluation, although he participated minimally due to mental status. Patient reportedly did not sleep during the night, although no significant behavioral events reported. Patient does appear to be slightly paranoid about the 1:1 sitter, says you are a witness to a crime , but is redirectable. Patient paces the room, likes to walk the halls with sitter or nurse, and is restless when awake. Clinician attempted to contact Radha, and HCP, both yesterday and today regarding HCP paperwork which is a barrier for placement. Patient did have a pending bed at [facility] in [place] yesterday, pending the HCP paperworkbeing sent to them and consent from , and due to not contacting hospital/this clinician, patient is still here. Radha did call back this clinician and explained that she is no position to take care of Maryana Ortiz at home right now, clinician explained criteria that needs to be met for S12 and inpatient bed search that patient is no longer meeting. Clinician also informed Radha that she needs to bring HCP paperwork in because we could not find it and don't have it on file. Radha has also not signed consent for antipsychoticmedication trial, and no medication changes have been made from psychiatry since01/02/2024 because she is not agreeable to antipsychotic medications at this time. Patient is no longer meeting S12 criteria, symptoms/behaviors can be explained by dementia diagnosis. Plan will be that patient is deferred to SW/case management, they will talk to about discharge planning and get Elder Services involved. Collateral Info: family (Attempted to reach , HCP, got VM and no calls back) Medical/Psychiatric/Substance/Social/Family History: Histories from previous consult note of [ ] remain unchanged, except as noted inHPI.??? - Meds & Allergies Current Medications: Current Medications Acetaminophen (Acetaminophen 325 Mg Tablet) 650 mg PO Q6H PRN PRN Reason: Temp>101.5 &/or Pain Score:1-3 Last Admin: 12/30/23 16:43 Dose: 650 mg Atorvastatin Calcium (Atorvastatin 40 Mg Tablet) 80 mg PO QHS [facility] Last Admin: 01/05/24 02:07 Dose: Not Given Donepezil HCl (Donepezil 5 Mg Tablet) 10 mg PO QHS [facility] Last Admin: 01/05/24 02:07 Dose: Not Given Enoxaparin Sodium (Enoxaparin 40 Mg/0.4 Ml Syringe) 40 mg SUB-Q Q24H [facility] Last Admin: 01/04/24 17:09 Dose: 40 mg Escitalopram Oxalate (Escitalopram 10 Mg Tablet) 10 mg PO DAILY [facility] Last Admin: 01/04/24 09:22 Dose: Not Given Folic Acid (Folic Acid 1 Mg Tablet) 1 mg PO DAILY [facility] Last Admin: 01/04/24 09:23 Dose: Not Given Gabapentin (Gabapentin 300 Mg Capsule) 600 mg PO QHS [facility] Last Admin: 01/05/24 02:07 Dose: Not Given Gabapentin (Gabapentin 400 Mg Capsule) 1,200 mg PO QAM [facility] Last Admin: 01/04/24 09:07 Dose: 1,200 mg Glucagon (Glucagon 1 Mg/Ml Vial (Kit)) 1 mg IM PRN PRN; Protocol PRN Reason: Hypoglycemia Protocol Glucose (Dextrose Gel 40 % 15 Gm Dextrose/37.5 Gm Tube) 15 gm PO PRN PRN; Protocol PRN Reason: Hypoglycemia Protocol Haloperidol (Haloperidol 5 Mg/Ml Vial) 5 mg IM Q24H PRN PRN Reason: If patient refuses Olanzapine 10 mg Dextrose (Dextrose 10 % In Water) 125 mls @ 1,500 mls/hr IV PRN PRN; Protocol PRN Reason: for Hypoglycemia Protocol Dextrose (Dextrose 10 % In Water) 250 mls @ 3,000 mls/hr IV ONCE PRN; Protocol PRN Reason: Hypoglycemia Protocol Insulin Human Regular (Insulin Regular, Human 300 Unit/3 Ml Vial) 0 unit SUB-Q ACHS [facility]; Protocol Last Admin: 01/05/24 02:49 Dose: Not Given Lisinopril (Lisinopril 20 Mg Tablet) 20 mg PO DAILY [facility]; Protocol Last Admin: 01/04/24 09:24 Dose: Not Given Magnesium Hydroxide (Magnesium Hydroxide 30 Ml Udc) 30 ml PO DAILY PRN PRN Reason: Constipation Step 2 Magnesium Oxide (Magnesium Oxide 400 Mg Tablet) 400 mg PO BID [facility] Last Admin: 01/05/24 02:07 Dose: Not Given Melatonin (Melatonin 5 Mg Tablet) 5 mg PO HS PRN PRN Reason: Insomnia Last Admin: 01/04/24 19:51 Dose: 5 mg Olanzapine (Olanzapine Odt 5 Mg Tab.Rapdis) 10 mg SL 20 [facility] Last Admin: 01/04/24 19:50 Dose: 10 mg Olanzapine (Olanzapine Odt 5 Mg Tab.Rapdis) 2.5 mg SL 12,16 [facility] Last Admin: 01/04/24 15:57 Dose: Not Given Olanzapine (Olanzapine Odt 5 Mg Tab.Rapdis) 2.5 mg SL Q6HR PRN PRN Reason: mild agitation Last Admin: 12/28/23 01:21 Dose: 2.5 mg Olanzapine (Olanzapine 10 Mg Vial) 5 mg IM Q8H PRN PRN Reason: mod to severe agitation Last Admin: 01/01/24 22:25 Dose: 5 mg Omeprazole (Omeprazole Dr 20 Mg Capsule) 40 mg PO DAILY [facility] Last Admin: 01/04/24 09:22 Dose: Not Given Polyethylene Glycol (Polyethylene Glycol 3350 17 Gm Packet) 17 gm PO DAILY PRN PRN Reason: Constipation Step 1 Last Admin: 12/20/23 18:24 Dose: 17 gm Senna (Sennosides 8.6 Mg Tablet) 8.6 mg PO BID [facility] Last Admin: 01/05/24 02:07 Dose: Not Given Thiamine Mononitrate (Thiamine 100 Mg Tablet) 100 mg PO DAILY [facility] Last Admin: 01/04/24 09:24 Dose: Not Given Trazodone HCl (Trazodone 50 Mg Tablet) 100 mg PO 20 [facility] Last Admin: 01/04/24 19:50 Dose: 100 mg - Vital Signs Vital Signs: Temp Pulse Resp BP Pulse Ox O2 Del Method 98.2 F 62 18 114/72 98 Room Air 01/04/24 21:00 01/04/24 21:00 01/04/24 21:00 01/04/24 21:00 01/04/24 21:00 01/04/24 21:00 - Mental Status Exam Appearance: Appropriate Behavior: Appropriate, Restless Speech: Slurred Language: Other (Patient's speech was difficult to understand, he mumbles) Mood: Calm, Anxious Affect: Calm, Anxious Thought Process: Disorganized Thought Content: Paranoia, No SI/HI/SIB Hallucination Type: None Attention: Distractible Memory/Concentration: Distractible/Inattentive Fund of Knowledge: Low Insight/Judgment: Poor Collateral Contact since last update (if no explain): No (Attempted to contact and HCP, got VM, no call back) - Assessment Assessment: Patient is a 78 year old Male with past medical and psychiatric history as abovenow with ongoing evidence of dementia, agitation. Patient was awake for this evaluation, although he participated minimally due to mental status. Patient reportedly did not sleep during the night, although no significant behavioral events reported. Patient does appear to be slightly paranoid about the 1:1 sitter, says you are a witness to a crime , but is redirectable. Patient paces the room, likes to walk the halls with sitter or nurse, and is restless when awake. Patient has been averaging about 1 meal/day, AOx0, unable to safety plan with this clinician although attempts are being made to contact for discharge planning for patient to return home. Diagnosis: vascular dementia with behavioral dysregulation hx of alcohol use - Recommendations Recommendations: Patient appears to be at a stable baseline behaviorally, and no longer is meeting criteria for inpatient bed search. Patient will be discharged from [facility], and follow up will need to be done by social work/case management. Requested LOC: Discharge home with services set up by case management Barriers to placement / specialty placement required: Yes (no HCP paperwork on file) - Duration of Visit Time spent (mins): 30 Discussed with medical team?: Yes (Lisa San MD, and Dr Cerrato) Discussed with supervisor lead burning?: Yes ([facility] Larry Madden) - Behavioral Health Visit Visit:: In person visit - Meds & Allergies Allergies: Allergies No Known Allergies Allergy (Verified 11/01/22 12:43) C-SSRS Screener - C-SSRS Screener C-SSRS Screener: Daily ask: Since you were last asked - Ask Questions 1, 2, 6 Have you wished you were or wished you could go to slee: No Have you had any thoughts of killing yourself: No Have you ever done anything, started to do anything, or prep: No - Result [place] Risk Level: Low Documented By: Gabrielle Robles 01/05/24 0817 Signed By: <Electronically signed by Gabrielle Jiménez> 01/05/24 1045 Copies to: Progress Note Author Sandip Cerrato [facility] January 05, 2024 10:42am Note Date/Time January 05, 2024 10: 42am [facility] [address] [place] [address] Progress Note Patient: Maryana Rivera Attending MD: Lisa San MD : 1945 Dictating Provider: Sandip Cerrato MD Age/Sex: 78 / M Admit Date: 12/15/23 Discharge Date: MedRec #: [id number] Location: [facility] [id number] cc: * Assessment/Plan Assessment/Plan: 78-year-old male retired with a history of diabetes, hypertension, depression, vascular dementia, on donepezil and quetiapine, alcohol use disorder, seen by psych and October 2022 for agitation (MOCA, scored 6/25 after excluding executive function. was started on quetiapine and trazodone) who was admitted with wandering episodes. Quetiapine was increased and psych was consulted for evaluation. Patient was calm, forgetful, oriented x 1, limited insight, head CTwith generalized volume loss and microvascular changes. Impression vascular dementia with behavioral dysregulation's history of alcohol use, and increased trazodone, trial of quetiapine that was changed to olanzapine 12/26 for better control of agitation . No suicidal. Today, confused, forgetful, took nightly, will increase olanzapine and monitor CSSRS- low risk of suicide. Highly complex, multisystem disease DSM 5 DIAGNOSES: Primary Psychiatric Diagnosis: vascular dementia with behavioral dysregulation'shistory of alcohol use. Secondary Psychiatric Diagnosis: none Other Medical Conditions: as above Psychosocial and Contextual Factors: medical and mental Plan: -- Increase olanzapine to 15 mg at night for agitation. --Stop daytime and olanzapine as patient med compliance --Continue as needed olanzapine with EKG for QTc. --Patient was seen by crisis and cleared. Family would like skilled nursing. -- Outpatient psychiatrist, Dr Agee, was contacted 01/03, left vmail. --Collateral , updated during the hospital course, deferred long-term haloperidol Depo. --please page/call if any questions. Thank you for consulting the Psychosomatic Medicine Service Sandip Cerrato MD Psychosomatic Medicine Total time 35 minutes Greater than 50% of consultation visit spends in counseling, obtaining collateral, treatment plan, coordination of care with primary team and patient Note was dictated using an electronic dictation system, which can unfortunately lead to occasional typographical errors. Please do not hesitate to contact for clarification or questions. Acutely suicidal or violent?: No If yes, need 1:1 sitter?: Yes - Visit Visit: Traditional [id number] Subjective Date: 01/05/24 Time: 10:38 Reason for Consult: Altered mental status and dementia Subjective: Patient was seen, was awake, wandering, limited insight, no agitation, refusing olanzapine during the daytime but took last night, slept fine. Chart was reviewed Review of Systems All systems: As per HPI, 10 point ROS completed & negative except where noted below Exam Vital signs: Vital Signs - Last Response Temperature Pulse Rate Respiratory Rate Blood Pressure Blood Pressure Source O2 Sat by Pulse Oximetry 98.2 F 62 18 114/72 Automatic Cuff 98 01/04/24 21:00 01/04/24 21:00 01/04/24 21:00 01/04/24 21:00 01/04/24 21:00 01/04/24 21:00 Mental Status Assessment - Daily Functioning Patient Appearance: Appropriate Comprehension Ability: Severe Impairment Oral Expression Ability: Severe Impairment - Mental Status Exam Sensorium: Awake Attention: Fluctuating Orientation: Person Patient Behavior: Irritable Eye Contact: Maintained Thought Process: Easily Derailed Thought Content: Appropriate Suicidal Ideation Description: None Delusions: Not Present Hallucinations: None Impulse Control Description: Poor Speech Pattern: Delayed Language: Word Finding Difficulties Memory Description: Recent Impaired Mood Description: Calm Response to Stimuli: None Motor: None Signs of Anxiety: None Insight/Judgment: Poor Results - Laboratory CBC & Chem 7: 01/04/24 10:28 01/04/24 10:28 Laboratory Results: All Laboratory Results - Last 24 hours 01/04/24 01/04/24 01/04/24 10:28 11:40 15:53 WBC 3.6 L D RBC 4.4 Hgb 11.4 L Hct 35.8 L MCV 80.8 L MCH 25.7 MCHC 31.8 L RDW Std Deviation 38.7 RDW Coeff of Myriam 13.2 Plt Count 224 MPV 8.9 Sodium 140 Potassium 3.9 Chloride 104 Carbon Dioxide 25 Anion Gap 11 BUN 17 Creatinine 1.0 GFR Calculation 76.56 Glucose 188 H POC Glucose 275 199 Calcium 9.3 01/04/24 01/05/24 16:35 07:35 WBC RBC Hgb Hct MCV MCH MCHC RDW Std Deviation RDW Coeff of Myriam Plt Count MPV Sodium Potassium Chloride Carbon Dioxide Anion Gap BUN Creatinine GFR Calculation Glucose POC Glucose 176 250 Calcium - RN Note RN Note: 01/05/24 06:17 Nurse Note by Armando Barboza I assumed care of Mr. Rivera from 1900 to 729. he is AOx0, on room air and independent with ambulation. He has a sitter from security because of his behavior. He has advanced dementia and is unable to control his erratic and sometime dangerous behavior. He is unable to control himself or to keep himself in the area that is reserved for him. He walks into peoples rooms and is consistently attempting to elope. Apparently a room and bed has been found for him to go into [facility] since he will most likely be unable to return hometo his . Sitter and alarms in place. [place] [facility] Initialized on 01/05/24 06:17 - END OF NOTE 01/04/24 11:36 Nurse Note by Sky Robles assumed care of pt @ 0700. Pt AAOx0, lethargic, sleeping. Pt independent in room. VSS on room air. Pt spit out PO meds this AM, documented in EMAR. FS 221 this AM-pt given 3 units of insulin per EMAR. Pt incontinent at times. Behavioral health following. One to one observation. safety maintained. All needs met ATT, call panda within reach, bed locked in lowest position, plan of care ongoing. Initialized on 01/04/24 11:36 - END OF NOTE - Medications Medications: Active Medications Generic Name Dose Route Start Last Admin Trade Name Claudia PRN Reason Stop Dose Admin Acetaminophen 650 mg 12/15/23 13:33 12/30/23 16:43 Acetaminophen 325 Mg Tablet PO 650 mg Q6H PRN Administration Temp>101.5 &/or Pain Score:1-3 Atorvastatin Calcium 80 mg 12/15/23 19:45 01/05/24 02:07 Atorvastatin 40 Mg Tablet PO Not Given QHS [facility] Donepezil HCl 10 mg 12/15/23 22:00 01/05/24 02:07 Donepezil 5 Mg Tablet PO Not Given QHS [facility] Enoxaparin Sodium 40 mg 12/20/23 17:30 01/04/24 17:09 Enoxaparin 40 Mg/0.4 Ml Syringe SUB-Q 40 mg Q24H [facility] Administration Escitalopram Oxalate 10 mg 12/16/23 09:00 01/05/24 08:15 Escitalopram 10 Mg Tablet PO 10 mg DAILY [facility] Administration Folic Acid 1 mg 12/16/23 09:00 01/05/24 08:16 Folic Acid 1 Mg Tablet PO 1 mg DAILY [facility] Administration Gabapentin 600 mg 12/15/23 22:00 01/05/24 02:07 Gabapentin 300 Mg Capsule PO Not Given QHS [facility] Gabapentin 1,200 mg 12/16/23 09:00 01/05/24 08:16 Gabapentin 400 Mg Capsule PO 400 mg QAM [facility] Administration Glucagon 1 mg 01/03/24 11:45 Glucagon 1 Mg/Ml Vial (Kit) IM PRN PRN Hypoglycemia Protocol Protocol Glucose 15 gm 01/03/24 11:45 Dextrose Gel 40 % 15 Gm Dextrose/37.5 Gm Tube PO PRN PRN Hypoglycemia Protocol Protocol Haloperidol 5 mg 01/02/24 20:00 Haloperidol 5 Mg/Ml Vial IM Q24H PRN If patient refuses Olanzapine 10 mg Dextrose 125 mls @ 1,500 mls/hr 01/03/24 11:45 Dextrose 10 % In Water IV PRN PRN for Hypoglycemia Protocol Protocol Dextrose 250 mls @ 3,000 mls/hr 01/03/24 11:45 Dextrose 10 % In Water IV ONCE PRN Hypoglycemia Protocol Protocol Insulin Human Regular 0 unit 01/03/24 16:30 01/05/24 08:21 Insulin Regular, Human 300 Unit/3 Ml Vial SUB-Q 3 unit ACHS [facility] Administration Protocol Lisinopril 20 mg 12/28/23 09:00 01/05/24 08:17 Lisinopril 20 Mg Tablet PO 20 mg DAILY [facility] Administration Protocol Magnesium Hydroxide 30 ml 12/15/23 13:33 Magnesium Hydroxide 30 Ml Udc PO DAILY PRN Constipation Step 2 Magnesium Oxide 400 mg 12/22/23 21:00 01/05/24 08:49 Magnesium Oxide 400 Mg Tablet PO Not Given BID [facility] Melatonin 5 mg 12/15/23 13:33 01/04/24 19:51 Melatonin 5 Mg Tablet PO 5 mg HS PRN Administration Insomnia Olanzapine 15 mg 01/05/24 20:00 Olanzapine Odt 5 Mg Tab.Rapdis SL 20 [facility] Olanzapine 2.5 mg 12/27/23 12:24 01/05/24 08:16 Olanzapine Odt 5 Mg Tab.Rapdis SL 2.5 mg Q6HR PRN Administration mild agitation Olanzapine 5 mg 12/30/23 09:24 01/01/24 22:25 Olanzapine 10 Mg Vial IM 5 mg Q8H PRN Administration mod to severe agitation Omeprazole 40 mg 12/16/23 09:00 01/05/24 08:[address] 20 Mg Capsule PO 40 mg DAILY [facility] Administration Polyethylene Glycol 17 gm 12/15/23 13:33 12/20/23 18:24 Polyethylene Glycol 3350 17 Gm Packet PO 17 gm DAILY PRN Administration Constipation Step 1 Senna 8.6 mg 12/20/23 21:00 01/05/24 08:16 Sennosides 8.6 Mg Tablet PO 8.6 mg BID [facility] Administration Thiamine Mononitrate 100 mg 12/16/23 09:00 01/05/24 08:16 Thiamine 100 Mg Tablet PO 100 mg DAILY [facility] Administration Trazodone HCl 100 mg 01/01/24 20:00 01/04/24 19:50 Trazodone 50 Mg Tablet PO 100 mg 20 [facility] Administration Documented By: Sandip Cerrato MD 01/05/24 1038 Signed By: <Electronically signed by Sandip Cerrato MD> 01/05/24 1042 Copies to: Progress Note Author Celine Aldana [facility] January 05, 2024 11:26am Note Date/Time January 05, 2024 11: 15am [facility] [address] [place] [address] FABIANO Progress Note Patient: Maryana Rivera Attending MD: Lisa San MD : 1945 Dictating Provider: Celine Aldana LCSW Age/Sex: 78 / M Admit Date: 12/15/23 Discharge Date: MedRec #: [id number] Location: [facility] [id number] cc: * Social Work Progress Note Date: 01/05/24 Service Type: brief intervention, collateral contact, consultation Patient identified at-risk for alcohol use: No Summary: SW consulted and following regarding home safety and to help with safe DC planning. Psychiatry also consulted and following this admission to help with pt's plan ofcare. FABIANO informed by [facility] that pt is no longer meeting in-patient level of psych care and bed search will be discontinued. Pt w/ no recent behavioral issues- Has been calm, cooperative, and no recent med changes made by psych to support the need for further inpatient psych placement. At this time, pt is both medically and psychiatrically cleared for discharge. FABIANOattempted to contact pt's spouse via phone call; No answer, VM left requesting acall back to discuss pt's plan of care and discharge plan. FABIANO contacted pt's protective service family caseworker Jeannette at [facility] ([phone]) via phone call- FABIANO attempting to discuss pt's hospitalization and anticipated next steps in discharge plan, given that pt is now cleared by Crisis. Protective service family caseworker reports she will need to call this SW back, states the treatment team is trying to discharge the pt after one moment of him being calm . FABIANO updated treatment team. Treatment team confirmed pt both medically and psychiatrically stable for discharge. Plan for HELGA DONNELLY to reach out to pt's to discuss home discharge. FABIANO will continue to follow. Documented By: Celine Aldana LCSW 01/05/24 1107 Signed By: <Electronically signed by Celine Aldana LCSW> 01/05/24 1126 Copies to: Progress Note Author Lisa San [facility] January 05, 2024 4:34pm Note Date/Time January 05, 2024 4:[address] [address] Hospitalist Progress Note Patient: Maryana Rivera Attending MD: Lisa San MD : 1945 Dictating Provider: Georgette Smith Age/Sex: 78 / M Admit Date: 12/15/23 Discharge Date: MedRec #: [id number] Location: [facility] [id number] cc: * Subjective Subjective Date: 01/05/24 Interval Events: Patient was wandering around this morning, cooperative, took his pills. Later in the morning, he had a near syncopal episode. Blood pressure was 64/50. Thisimproved to 125/59 after being placed in reverse Trendelenburg position. Mentalstatus returned to prior status. Review of Systems Review of Systems ROS unobtainable: due to mental status Exam Physical Exam Vital signs: Vital Signs - Last Response Temperature Pulse Rate Respiratory Rate Blood Pressure Blood Pressure Source O2 Sat by Pulse Oximetry 97.3 F L 56 L 18 125/59 L Automatic Cuff 100 01/05/24 16:13 01/05/24 16:13 01/05/24 16:13 01/05/24 16:13 01/05/24 16:13 01/05/24 16:13 Physical Exam Narrative: awake, answers simple questions, mostly tangential speech lungs clear S1S2, no murmurs abd nondistended no pedal edema Medications Active Medications Acetaminophen (Acetaminophen 325 Mg Tablet) 650 mg PO Q6H PRN PRN Reason: Temp>101.5 &/or Pain Score:1-3 Last Admin: 12/30/23 16:43 Dose: 650 mg Atorvastatin Calcium (Atorvastatin 40 Mg Tablet) 80 mg PO QHS [facility] Last Admin: 01/05/24 02:07 Dose: Not Given Donepezil HCl (Donepezil 5 Mg Tablet) 10 mg PO QHS [facility] Last Admin: 01/05/24 02:07 Dose: Not Given Enoxaparin Sodium (Enoxaparin 40 Mg/0.4 Ml Syringe) 40 mg SUB-Q Q24H [facility] Last Admin: 01/04/24 17:09 Dose: 40 mg Escitalopram Oxalate (Escitalopram 10 Mg Tablet) 10 mg PO DAILY [facility] Last Admin: 01/05/24 08:15 Dose: 10 mg Folic Acid (Folic Acid 1 Mg Tablet) 1 mg PO DAILY [facility] Last Admin: 01/05/24 08:16 Dose: 1 mg Gabapentin (Gabapentin 300 Mg Capsule) 600 mg PO QHS [facility] Last Admin: 01/05/24 02:07 Dose: Not Given Gabapentin (Gabapentin 400 Mg Capsule) 1,200 mg PO QAM [facility] Last Admin: 01/05/24 08:16 Dose: 400 mg Glucagon (Glucagon 1 Mg/Ml Vial (Kit)) 1 mg IM PRN PRN; Protocol PRN Reason: Hypoglycemia Protocol Glucose (Dextrose Gel 40 % 15 Gm Dextrose/37.5 Gm Tube) 15 gm PO PRN PRN; Protocol PRN Reason: Hypoglycemia Protocol Haloperidol (Haloperidol 5 Mg/Ml Vial) 5 mg IM Q24H PRN PRN Reason: If patient refuses Olanzapine 10 mg Dextrose (Dextrose 10 % In Water) 125 mls @ 1,500 mls/hr IV PRN PRN; Protocol PRN Reason: for Hypoglycemia Protocol Dextrose (Dextrose 10 % In Water) 250 mls @ 3,000 mls/hr IV ONCE PRN; Protocol PRN Reason: Hypoglycemia Protocol Insulin Human Regular (Insulin Regular, Human 300 Unit/3 Ml Vial) 0 unit SUB-Q ACHS [facility]; Protocol Last Admin: 01/05/24 12:44 Dose: Not Given Magnesium Hydroxide (Magnesium Hydroxide 30 Ml Udc) 30 ml PO DAILY PRN PRN Reason: Constipation Step 2 Magnesium Oxide (Magnesium Oxide 400 Mg Tablet) 400 mg PO BID [facility] Last Admin: 01/05/24 08:49 Dose: Not Given Melatonin (Melatonin 5 Mg Tablet) 5 mg PO HS PRN PRN Reason: Insomnia Last Admin: 01/04/24 19:51 Dose: 5 mg Olanzapine (Olanzapine Odt 5 Mg Tab.Rapdis) 15 mg SL 20 [facility] Olanzapine (Olanzapine Odt 5 Mg Tab.Rapdis) 2.5 mg SL Q6HR PRN PRN Reason: mild agitation Last Admin: 01/05/24 08:16 Dose: 2.5 mg Olanzapine (Olanzapine 10 Mg Vial) 5 mg IM Q8H PRN PRN Reason: mod to severe agitation Last Admin: 01/01/24 22:25 Dose: 5 mg Omeprazole (Omeprazole Dr 20 Mg Capsule) 40 mg PO DAILY [facility] Last Admin: 01/05/24 08:15 Dose: 40 mg Polyethylene Glycol (Polyethylene Glycol 3350 17 Gm Packet) 17 gm PO DAILY PRN PRN Reason: Constipation Step 1 Last Admin: 12/20/23 18:24 Dose: 17 gm Senna (Sennosides 8.6 Mg Tablet) 8.6 mg PO BID [facility] Last Admin: 01/05/24 08:16 Dose: 8.6 mg Thiamine Mononitrate (Thiamine 100 Mg Tablet) 100 mg PO DAILY [facility] Last Admin: 01/05/24 08:16 Dose: 100 mg Trazodone HCl (Trazodone 50 Mg Tablet) 100 mg PO 20 [facility] Last Admin: 01/04/24 19:50 Dose: 100 mg Results Laboratory Laboratory Results: 01/04/24 10:28 01/04/24 10:28 Laboratory Results - Last 12 hours 01/05/24 07:35: POC Glucose 250 01/05/24 12:23: POC Glucose 303 01/05/24 12:59: POC Glucose 285 Progress Note - A&P Assessment and Plan Assessment and Plan: Dementia with behavioral disturbances - altered sleep-wake cycle; continue meds as ordered; he took his meds last 2 nights - Discussed with psychiatry, who recommended scheduled night time IM zyprexa since his behavior escalates at night. This was discussed with his who agreed. - awaiting [facility] bed - patient's outpatient psychiatrist updated 01/03 - 01/04: reevaluated by - no longer meeting criteria for inpatient geripsych admission. Discharge planning in progress, home vs long-term care Near-syncope - likely due to orthostatic hypotension. Patient has been refusinglisinopril the last 3 days, with low normal BP. He took lisinopril this morning, and blood pressure was low during near syncopal episode. Will hold lisinopril, as he may no longer need this for blood pressure. DM - continue ISS Discharge within 24 hours: No Anticipated Discharge Anticipated Discharge Date: 01/06/24 Priority for D/C: Additional Options: Placement/Insurance Anticipated D/C to: Other Specify Other:: Placement Quality Measures Was the pt treated for stroke/TIA? (Y/N): No Documented By: Lisa San MD 01/05/24 1627 Signed By: <Electronically signed by Lisa San MD> 01/05/24 1634 Copies to: Progress Note Author Tanvi Trevino [facility] January 05, 2024 4:58pm Note Date/Time January 05, 2024 4:4 9pm [place] [id number] CM Progress Note Patient: Maryana Rivera Attending MD: Lisa San MD : 1945 Dictating Provider: Tanvi Trevino Age/Sex: 78 / M Admit Date: 12/15/23 Discharge Date: MedRec #: [id number] Location: [facility] [id number] cc: * Case Management Progress Note - Progress Note Is this a re-evaluation?: Yes CM Progress Note: Pt care reviewed with Pt medical team and [facility] who is collaborating with [facility] Crisis re [facility] bed placement. Per FABIANO pt no longer qualifies for [facility] search as Pt noted to be calm and cooperative. Per pt is medically ready for DC. CM and [facility] have previously collaborated on a DC plan for LTC. Pt has no LTC Payor source and per [facility] previous documentationPt does not qualify for [facility] due over income. Thus plan for Pt to be DC home with services for which he is [facility] and [facility]. Voice message left with Pt for return call. Estimated Discharge Assessment - Anticipated Discharge Disposition: Home Health Service Referrals/Community Services: Kenia Sheehan MD [Primary Care Provider] - Documented By: Tanvi Trevino 01/05/24 1648 Signed By: <Electronically signed by Tanvi Trevino> 01/05/24 1657 Copies to: Progress Note Author Sandip Cerrato [facility] January 06, 2024 12:41pm Note Date/Time January 06, 2024 12: 39pm [address] [address] Progress Note Patient: Maryana Rivera Attending MD: Lisa San MD : 1945 Dictating Provider: Sandip Cerrato MD Age/Sex: 78 / M Admit Date: 12/15/23 Discharge Date: MedRec #: [id number] Location: [facility] [id number] cc: * Assessment/Plan Assessment/Plan: 78-year-old male retired with a history of diabetes, hypertension, depression, vascular dementia, on donepezil and quetiapine, alcohol use disorder, seen by psych and October 2022 for agitation (MOCA, scored 6/25 after excluding executive function. was started on quetiapine and trazodone) who was admitted with wandering episodes. Quetiapine was increased and psych was consulted for evaluation. Patient was calm, forgetful, oriented x 1, limited insight, head CTwith generalized volume loss and microvascular changes. Impression vascular dementia with behavioral dysregulation's history of alcohol use, had trial of quetiapine that was changed to olanzapine 12/26 for better control of agitation. Today, continued to be agitated, refusing p.o. will change to haloperidol in preparation for Haloperidol monthly injectable next week. CSSRS- low risk of suicide. Highly complex, multisystem disease DSM 5 DIAGNOSES: Primary Psychiatric Diagnosis: vascular dementia with behavioral dysregulation'shistory of alcohol use. Secondary Psychiatric Diagnosis: none Other Medical Conditions: as above Psychosocial and Contextual Factors: medical and mental Plan: --Stop olanzapine --Start haloperidol p.o. in preparation of haloperidol monthly injectable next Tuesday per conversation with and outpatient psychiatrist: -Haloperidol 5 mg nightly with 2 mg at noontime -Haloperidol 5 mg p.o./IM every 6 hours as needed for agitation --EKG for QTc if received antipsychotics --Continue nightly trazodone for insomnia and sleep. -- was contacted this morning, agreed to be given next week after involving outpatient psychiatrist --Outpatient psychiatrist, Dr Agee, , able to communicate with primary team, will work with the family and follow-up after discharge. Ask to connect with psych VNA. --Luz Elena Glez, bilingual school psychologist will be covering over the weekend, can increase schedule haloperidol if continue to be agitated. --please page/call if any questions. Thank you for consulting the Psychosomatic Medicine Service Sandip Cerrato MD Psychosomatic Medicine Total time 35 minutes Greater than 50% of consultation visit spends in counseling, obtaining collateral, treatment plan, coordination of care with primary team and patient Note was dictated using an electronic dictation system, which can unfortunately lead to occasional typographical errors. Please do not hesitate to contact for clarification or questions. Acutely suicidal or violent?: Yes If yes, need 1:1 sitter?: Yes - Visit Visit: Traditional [id number] Subjective Date: 01/06/24 Time: 12:30 Reason for Consult: Altered mental status and dementia Subjective: Patient was seen, was awake, wandering around, able to redirect, given IM PRN last night for agitation. Refused p.o. was contacted, updated, initially declined IM depo injectable but then agreed to involve patient outpatient psychiatrist for plan. Was able to talk to outpatient psychiatrist with primaryteam, outpatient psychiatrist agreed with the plan but would like patient to be connected with visiting nurse to administer injectable in the future. Willing to communicate with and follow-up. Review of Systems All systems: As per HPI, 10 point ROS completed & negative except where noted below Exam Vital signs: Vital Signs - Last Response Temperature Pulse Rate Respiratory Rate Blood Pressure Blood Pressure Source O2 Sat by Pulse Oximetry 98.0 F 74 18 116/61 Automatic Cuff 99 01/06/24 09:00 01/06/24 09:00 01/06/24 09:00 01/06/24 09:00 01/06/24 09:00 01/06/24 09:00 Mental Status Assessment - Daily Functioning Patient Appearance: Appropriate Comprehension Ability: Severe Impairment Oral Expression Ability: Severe Impairment - Mental Status Exam Sensorium: Awake Orientation: Person Patient Behavior: Uncooperative Eye Contact: Maintained Thought Process: Easily Derailed Thought Content: Vague Suicidal Ideation Description: None Delusions: Not Present Hallucinations: None Impulse Control Description: Fair, Poor Speech Pattern: Delayed Language: Word Finding Difficulties Memory Description: Recent Impaired Mood Description: Irritable Response to Stimuli: None Motor: None Affect Description: Constricted Energy Level: No complaints Signs of Anxiety: None Insight/Judgment: Poor Results - Laboratory CBC & Chem 7: 01/04/24 10:28 01/04/24 10:28 Laboratory Results: All Laboratory Results - Last 24 hours 01/05/24 01/05/24 01/05/24 12:59 16:26 21:26 POC Glucose 285 378 134 01/06/24 07:33 POC Glucose 202 - RN Note RN Note: 01/06/24 00:03 Nurse Note by Winnie Benz 7p-7a Shift Note Alert to self only, pt unable to state his last name but occasionally will answer to his name. Refused all PM medications by throwing them across room. Refused all attempts to visualize pt's skin. No s/s of SOB. No s/s of pain. Continues to walk around room. Walked briefly in hallway by guard, but pt does try to go into other rooms. 1:1 sitter in doorway of room. Call panda within reach. Plan of care ongoing. Initialized on 01/06/24 00:03 - END OF NOTE 01/05/24 18:24 Nurse Note by Ngozi Beavers Assumed care of pt @0700h. Pt alert and orientated to self only, occasionally confused and forgetful. VSS except low BP, see BUSINESS SYSTEM MANAGER note. Pt on RA, no tele. Mostmeds given as ordered, see MAR for pt's refused meds. Assessment WNL, skin intact, pt still on 1:1 for safety. Pt frequently ambulates around room, slept on and off throughout the day, and walked a couple times outside of room with security and JOHN Hays. Pt currently resting in bed, locked and alarmed in lowest position, personal items and call panda within reach, safety maintained. Initialized on 01/05/24 18:24 - END OF NOTE 01/05/24 13:53 Nurse Note by Ngozi Beavers BUSINESS SYSTEM MANAGER called @1235. MD San, RNs Ngozi, Lobo, and Halie, and JOHN Hays with patient. Pt standing with JOHN Hays in daniel when pt stopped responding to conversation and looked unsteady on his feet. Sat patient down in chair and got a set of vitals, manual BP 64/50, HR 55, and O2 96% in RA. Blood sugar 285. Returned pt to bed, placed in Trendelenburg, BP improved to 129/58, pt currentlyresting in bed, locked and alarmed in lowest position, call panda and personal items within reach, safety maintained. Initialized on 01/05/24 13:53 - END OF NOTE - Medications Medications: Active Medications Generic Name Dose Route Start Last Admin Trade Name Freq PRN Reason Stop Dose Admin Acetaminophen 650 mg 12/15/23 13:33 12/30/23 16:43 Acetaminophen 325 Mg Tablet PO 650 mg Q6H PRN Administration Temp>101.5 &/or Pain Score:1-3 Atorvastatin Calcium 80 mg 12/15/23 19:45 01/05/24 23:54 Atorvastatin 40 Mg Tablet PO Not Given QHS [facility] Donepezil HCl 10 mg 12/15/23 22:00 01/05/24 23:55 Donepezil 5 Mg Tablet PO Not Given QHS [facility] Enoxaparin Sodium 40 mg 12/20/23 17:30 01/05/24 16:57 Enoxaparin 40 Mg/0.4 Ml Syringe SUB-Q 40 mg Q24H [facility] Administration Escitalopram Oxalate 10 mg 12/16/23 09:00 01/06/24 08:05 Escitalopram 10 Mg Tablet PO 10 mg DAILY [facility] Administration Folic Acid 1 mg 12/16/23 09:00 01/06/24 08:05 Folic Acid 1 Mg Tablet PO 1 mg DAILY [facility] Administration Gabapentin 600 mg 12/15/23 22:00 01/05/24 23:55 Gabapentin 300 Mg Capsule PO Not Given QHS [facility] Gabapentin 1,200 mg 12/16/23 09:00 01/06/24 08:03 Gabapentin 400 Mg Capsule PO 1,200 mg QAM [facility] Administration Glucagon 1 mg 01/03/24 11:45 Glucagon 1 Mg/Ml Vial (Kit) IM PRN PRN Hypoglycemia Protocol Protocol Glucose 15 gm 01/03/24 11:45 Dextrose Gel 40 % 15 Gm Dextrose/37.5 Gm Tube PO PRN PRN Hypoglycemia Protocol Protocol Haloperidol 5 mg 01/06/24 12:29 Haloperidol 5 Mg/Ml Vial IM Q6HR PRN severe agitation Haloperidol 5 mg 01/06/24 12:26 Haloperidol 5 Mg Tablet PO Q6HR PRN mild agitation Haloperidol 5 mg 01/06/24 22:00 Haloperidol 5 Mg Tablet PO QHS [facility] Haloperidol 2 mg 01/07/24 12:00 Haloperidol 1 Mg Tablet PO 12 [facility] Dextrose 125 mls @ 1,500 mls/hr 01/03/24 11:45 Dextrose 10 % In Water IV PRN PRN for Hypoglycemia Protocol Protocol Dextrose 250 mls @ 3,000 mls/hr 01/03/24 11:45 Dextrose 10 % In Water IV ONCE PRN Hypoglycemia Protocol Protocol Insulin Human Regular 0 unit 01/03/24 16:30 01/06/24 08:09 Insulin Regular, Human 300 Unit/3 Ml Vial SUB-Q Not Given ACHS [facility] Protocol Magnesium Hydroxide 30 ml 12/15/23 13:33 Magnesium Hydroxide 30 Ml Udc PO DAILY PRN Constipation Step 2 Magnesium Oxide 400 mg 12/22/23 21:00 01/06/24 08:05 Magnesium Oxide 400 Mg Tablet PO 400 mg BID [facility] Administration Melatonin 5 mg 12/15/23 13:33 01/05/24 20:35 Melatonin 5 Mg Tablet PO 5 mg HS PRN Administration Insomnia Metformin HCl 1,000 mg 01/06/24 12:00 Metformin 500 Mg Tablet PO QAM [facility] Metformin HCl 500 mg 01/06/24 21:00 Metformin 500 Mg Tablet PO QPM [facility] Omeprazole 40 mg 12/16/23 09:00 01/06/24 08:[address] 20 Mg Capsule PO 40 mg DAILY [facility] Administration Polyethylene Glycol 17 gm 12/15/23 13:33 12/20/23 18:24 Polyethylene Glycol 3350 17 Gm Packet PO 17 gm DAILY PRN Administration Constipation Step 1 Senna 8.6 mg 12/20/23 21:00 01/06/24 08:05 Sennosides 8.6 Mg Tablet PO 8.6 mg BID [facility] Administration Thiamine Mononitrate 100 mg 12/16/23 09:00 01/06/24 08:05 Thiamine 100 Mg Tablet PO 100 mg DAILY [facility] Administration Trazodone HCl 100 mg 01/01/24 20:00 01/05/24 21:36 Trazodone 50 Mg Tablet PO Not Given 20 [facility] Documented By: Sandip Cerrato MD 01/06/24 1229 Signed By: <Electronically signed by Sandip Cerrato MD> 01/06/24 1241 Copies to: Progress Note Author Roxanne Sandoval [facility] January 06, 2024 1:28pm Note Date/Time January 06, 2024 1:2 8pm [place] [id number] CM Progress Note Patient: Maryana Rivear Attending MD: Lisa San MD : 1945 Dictating Provider: Roxanne Sandoval Age/Sex: 78 / M Admit Date: 12/15/23 Discharge Date: MedRec #: [id number] Location: [place] [id number] cc: * Case Management Progress Note - Progress Note Is this a re-evaluation?: No CM Progress Note: REMAINS 1:1 SITTER AWAITING [facility]AC[facility] Estimated Discharge Assessment - Anticipated Discharge Disposition: Home Health Service Referrals/Community Services: Kenia Sheehan MD [Primary Care Provider] - Documented By: Roxanne Sandoval 01/06/24 1327 Signed By: <Electronically signed by Roxanne Sandoval> 01/06/24 1328 Copies to: Progress Note Author Lisa San [facility] January 06, 2024 2:29pm Note Date/Time January 06, 2024 2:2 2pm [facility] [address] [place] [address] Hospitalist Progress Note Patient: Maryana Rivera Attending MD: Lisa San MD : 1945 Dictating Provider: Georgette Smith Age/Sex: 78 / M Admit Date: 12/15/23 Discharge Date: MedRec #: [id number] Location: [facility] [id number] cc: * Subjective Subjective Date: 01/06/24 Interval Events: The patient was agitated overnight and this morning, kept wandering the halls. He was briefly combative last night. He is inconsistent with taking oral medications. Patient was not answering questions appropriately this morning. Review of Systems Review of Systems ROS unobtainable: due to mental status Exam Physical Exam Vital signs: Vital Signs - Last Response Temperature Pulse Rate Respiratory Rate Blood Pressure Blood Pressure Source O2 Sat by Pulse Oximetry 98.0 F 74 18 116/61 Automatic Cuff 99 01/06/24 09:00 01/06/24 09:00 01/06/24 09:00 01/06/24 09:00 01/06/24 09:00 01/06/24 09:00 Physical Exam Narrative: Tensionawake, ambulating independently, tangiential speech lungs clear S1S2, no murmurs abd nondistended no pedal edema Medications Active Medications Acetaminophen (Acetaminophen 325 Mg Tablet) 650 mg PO Q6H PRN PRN Reason: Temp>101.5 &/or Pain Score:1-3 Last Admin: 12/30/23 16:43 Dose: 650 mg Atorvastatin Calcium (Atorvastatin 40 Mg Tablet) 80 mg PO QHS [facility] Last Admin: 01/05/24 23:54 Dose: Not Given Donepezil HCl (Donepezil 5 Mg Tablet) 10 mg PO QHS [facility] Last Admin: 01/05/24 23:55 Dose: Not Given Enoxaparin Sodium (Enoxaparin 40 Mg/0.4 Ml Syringe) 40 mg SUB-Q Q24H [facility] Last Admin: 01/05/24 16:57 Dose: 40 mg Escitalopram Oxalate (Escitalopram 10 Mg Tablet) 10 mg PO DAILY [facility] Last Admin: 01/06/24 08:05 Dose: 10 mg Folic Acid (Folic Acid 1 Mg Tablet) 1 mg PO DAILY [facility] Last Admin: 01/06/24 08:05 Dose: 1 mg Gabapentin (Gabapentin 300 Mg Capsule) 600 mg PO QHS [facility] Last Admin: 01/05/24 23:55 Dose: Not Given Gabapentin (Gabapentin 400 Mg Capsule) 1,200 mg PO QAM [facility] Last Admin: 01/06/24 08:03 Dose: 1,200 mg Glucagon (Glucagon 1 Mg/Ml Vial (Kit)) 1 mg IM PRN PRN; Protocol PRN Reason: Hypoglycemia Protocol Glucose (Dextrose Gel 40 % 15 Gm Dextrose/37.5 Gm Tube) 15 gm PO PRN PRN; Protocol PRN Reason: Hypoglycemia Protocol Haloperidol (Haloperidol 5 Mg/Ml Vial) 5 mg IM Q6HR PRN PRN Reason: severe agitation Haloperidol (Haloperidol 5 Mg Tablet) 5 mg PO Q6HR PRN PRN Reason: mild agitation Last Admin: 01/06/24 12:54 Dose: 5 mg Haloperidol (Haloperidol 5 Mg Tablet) 5 mg PO QHS [facility] Haloperidol (Haloperidol 1 Mg Tablet) 2 mg PO DAILY@1200 [facility] Dextrose (Dextrose 10 % In Water) 125 mls @ 1,500 mls/hr IV PRN PRN; Protocol PRN Reason: for Hypoglycemia Protocol Dextrose (Dextrose 10 % In Water) 250 mls @ 3,000 mls/hr IV ONCE PRN; Protocol PRN Reason: Hypoglycemia Protocol Insulin Human Regular (Insulin Regular, Human 300 Unit/3 Ml Vial) 0 unit SUB-Q ACHS [facility]; Protocol Last Admin: 01/06/24 12:55 Dose: Not Given Magnesium Hydroxide (Magnesium Hydroxide 30 Ml Udc) 30 ml PO DAILY PRN PRN Reason: Constipation Step 2 Magnesium Oxide (Magnesium Oxide 400 Mg Tablet) 400 mg PO BID [facility] Last Admin: 01/06/24 08:05 Dose: 400 mg Melatonin (Melatonin 5 Mg Tablet) 5 mg PO HS PRN PRN Reason: Insomnia Last Admin: 01/05/24 20:35 Dose: 5 mg Metformin HCl (Metformin 500 Mg Tablet) 1,000 mg PO QAM [facility] Last Admin: 01/06/24 12:54 Dose: 1,000 mg Metformin HCl (Metformin 500 Mg Tablet) 500 mg PO QPM [facility] Omeprazole (Omeprazole Dr 20 Mg Capsule) 40 mg PO DAILY [facility] Last Admin: 01/06/24 08:03 Dose: 40 mg Polyethylene Glycol (Polyethylene Glycol 3350 17 Gm Packet) 17 gm PO DAILY PRN PRN Reason: Constipation Step 1 Last Admin: 12/20/23 18:24 Dose: 17 gm Senna (Sennosides 8.6 Mg Tablet) 8.6 mg PO BID [facility] Last Admin: 01/06/24 08:05 Dose: 8.6 mg Thiamine Mononitrate (Thiamine 100 Mg Tablet) 100 mg PO DAILY [facility] Last Admin: 01/06/24 08:05 Dose: 100 mg Trazodone HCl (Trazodone 50 Mg Tablet) 100 mg PO 20 [facility] Last Admin: 01/05/24 21:36 Dose: Not Given Results Laboratory Laboratory Results: 01/04/24 10:28 01/04/24 10:28 Laboratory Results - Last 12 hours 01/06/24 07:33: POC Glucose 202 Progress Note - A&P Assessment and Plan Assessment and Plan: Dementia with behavioral disturbances - altered sleep-wake cycle; continue meds as ordered; he was combative and agitated last night, refused p.o. meds - Discussed with psychiatry, who recommended scheduled night time IM zyprexa since his behavior escalates at night. This was discussed with his who agreed. - patient's outpatient psychiatrist updated 01/03 - 01/04: reevaluated by - no longer meeting criteria for inpatient geripsych admission. Discharge planning in progress, home vs long-term care - 01/05: psych follow up appreciated, meds changed per recs Near-syncope on 01/04 - likely due to orthostatic hypotension. Patient has been refusing lisinopril the last 3 days, with low normal BP. He took lisinopril, and blood pressure was low during near syncopal episode. Will hold lisinopril, as he may no longer need this for blood pressure. DM - continue ISS updated 01/05 Discharge within 24 hours: No Anticipated Discharge Anticipated Discharge Date: 01/23/24 Priority for D/C: Additional Options: Placement/Insurance Anticipated D/C to: Other Specify Other:: Placement Quality Measures Was the pt treated for stroke/TIA? (Y/N): No Documented By: Lisa San MD 01/06/24 1418 Signed By: <Electronically signed by Lisa Sna MD> 01/06/24 1429 Copies to: Progress Note Author Carrol Castelan [facility] January 07, 2024 2:35pm Note Date/Time January 07, 2024 2:[address] [address] Hospitalist Progress Note Patient: Maryana Rivera Attending MD: Carrol Castelan MD : 1945 Dictating Provider: Carrol Castelan MD Age/Sex: 78 / M Admit Date: 12/15/23 Discharge Date: MedRec #: [id number] Location: [facility] [id number] cc: * Subjective Subjective Date: 01/07/24 Interval Events: No acute events overnight. Answers questions, but is intermittently disoriented precluding him from being able to provide a reliable history. Exam Physical Exam Vital signs: Vital Signs - Last Response Temperature Pulse Rate Respiratory Rate Blood Pressure Blood Pressure Source O2 Sat by Pulse Oximetry 98 F 71 18 122/56 L Automatic Cuff 97 01/07/24 08:38 01/07/24 08:38 01/07/24 08:38 01/07/24 08:38 01/06/24 21:00 01/07/24 08:38 Physical Exam Narrative: GEN: NAD, resting in bed comfortably HEENT: No scleral icterus or conjunctival injection Cardio: S1/2 audible, normal rate Pulmonary: CTAB, No visible respiratory distress Abdomen: Soft, NT, Not distended Neuro: Alert, oriented to self and that he is in hospital, intermittently follows commands, moves all exts Medications Active Medications Acetaminophen (Acetaminophen 325 Mg Tablet) 650 mg PO Q6H PRN PRN Reason: Temp>101.5 &/or Pain Score:1-3 Last Admin: 12/30/23 16:43 Dose: 650 mg Atorvastatin Calcium (Atorvastatin 40 Mg Tablet) 80 mg PO QHS [facility] Last Admin: 01/06/24 22:16 Dose: 80 mg Donepezil HCl (Donepezil 5 Mg Tablet) 10 mg PO QHS [facility] Last Admin: 01/06/24 22:16 Dose: 10 mg Escitalopram Oxalate (Escitalopram 10 Mg Tablet) 10 mg PO DAILY [facility] Last Admin: 01/07/24 10:07 Dose: 10 mg Folic Acid (Folic Acid 1 Mg Tablet) 1 mg PO DAILY [facility] Last Admin: 01/07/24 10:07 Dose: 1 mg Gabapentin (Gabapentin 300 Mg Capsule) 600 mg PO QHS [facility] Last Admin: 01/06/24 22:16 Dose: 600 mg Gabapentin (Gabapentin 400 Mg Capsule) 1,[facility] Admin: 01/07/24 10:06 Dose: 1,200 mg Glucagon (Glucagon 1 Mg/Ml Vial (Kit)) 1 mg IM PRN PRN; Protocol PRN Reason: Hypoglycemia Protocol Glucose (Dextrose Gel 40 % 15 Gm Dextrose/37.5 Gm Tube) 15 gm PO PRN PRN; Protocol PRN Reason: Hypoglycemia Protocol Haloperidol (Haloperidol 5 Mg/Ml Vial) 5 mg IM Q6HR PRN PRN Reason: severe agitation Haloperidol (Haloperidol 5 Mg Tablet) 5 mg PO Q6HR PRN PRN Reason: mild agitation Last Admin: 01/06/24 12:54 Dose: 5 mg Haloperidol (Haloperidol 5 Mg Tablet) 5 mg PO QHS [facility] Last Admin: 01/06/24 22:17 Dose: 5 mg Haloperidol (Haloperidol 1 Mg Tablet) 2 mg PO DAILY@1200 [facility] Last Admin: 01/07/24 12:54 Dose: Not Given Dextrose (Dextrose 10 % In Water) 125 mls @ 1,500 mls/hr IV PRN PRN; Protocol PRN Reason: for Hypoglycemia Protocol Dextrose (Dextrose 10 % In Water) 250 mls @ 3,000 mls/hr IV ONCE PRN; Protocol PRN Reason: Hypoglycemia Protocol Insulin Human Regular (Insulin Regular, Human 300 Unit/3 Ml Vial) 0 unit SUB-Q [facility]; Protocol Last Admin: 03/30/24 12:06 Dose: Not Given Magnesium Hydroxide (Magnesium Hydroxide 30 Ml Udc) 30 ml PO DAILY PRN PRN Reason: Constipation Step 2 Magnesium Oxide (Magnesium Oxide 400 Mg Tablet) 400 mg PO BID [facility] Last Admin: 01/07/24 10:07 Dose: 400 mg Melatonin (Melatonin 5 Mg Tablet) 5 mg PO HS PRN PRN Reason: Insomnia Last Admin: 01/06/24 22:16 Dose: 5 mg Metformin HCl (Metformin 500 Mg Tablet) 1,000 mg PO QAM [facility] Last Admin: 01/07/24 10:06 Dose: 1,000 mg Metformin HCl (Metformin 500 Mg Tablet) 500 mg PO QPM [facility] Last Admin: 01/06/24 22:15 Dose: 500 mg Omeprazole (Omeprazole Dr 20 Mg Capsule) 40 mg PO DAILY [facility] Last Admin: 01/07/24 10:06 Dose: 40 mg Polyethylene Glycol (Polyethylene Glycol 3350 17 Gm Packet) 17 gm PO DAILY PRN PRN Reason: Constipation Step 1 Last Admin: 12/20/23 18:24 Dose: 17 gm Senna (Sennosides 8.6 Mg Tablet) 8.6 mg PO BID [facility] Last Admin: 01/07/24 10:07 Dose: 8.6 mg Thiamine Mononitrate (Thiamine 100 Mg Tablet) 100 mg PO DAILY [facility] Last Admin: 01/07/24 10:06 Dose: 100 mg Trazodone HCl (Trazodone 50 Mg Tablet) 100 mg PO 20 [facility] Last Admin: 01/06/24 22:19 Dose: 100 mg Results Data Reviewed Patient Data Reviewed: Image(s) Reviewed by Me Laboratory Laboratory Results: 01/04/24 10:28 01/04/24 10:28 Laboratory Results - Last 12 hours 01/07/24 11:20: POC Glucose 274 Progress Note - A&P Assessment and Plan Assessment and Plan: This is a 78 year old man with PMHx of dementia, alcohol use disorder who was brought in to the ED via ambulance after he was found wandering outside. His current admission is for dementia with behavioral disturbances for which neuropsych was consulted. Initially, attempts were being made to optimize the patient's medications, so that he could be discharged to respite for 2 weeks, however in spite of daily attempts at finding a suitable medication regimen to help keep Angel sustainably calm and cooperative, he would repeatedly get agitated requiring multiple CODE greys to be called (he even struck a 1:1 watcher). As a result, [facility] crisis team has been called to look for manjula psych bed however he has since been cleared from a manjula psych perspective. #Dementia with behavioral disturbances Per review of [facility] chart, including his numerous visits with Psychiatry, Neurology and [facility] spanning over a decade, he has had chronic functional and cognitive decline over the past roughly 20yrs. Per Cognitive Neurology note from 12/14/23, On initial interview 04/16/22, MOCA had decreased to 14 with prominent deficits in executive function (only completing a paimiut for clock draw), disorientation, naming with circumlocution and decreased fluency (F words> animals), and difficulty with serial 7s but intact vigilance testing. With otherwise normal basic blood work, save for hypomagnesemia, and unremarkable CT head, urinalysis, CXR and unremarkable neuro exam except for hiscognition/attention, suspect this is progression of his underlying known neurocognitive dementia (with history of depression as well). SW/CM consulted -- appreciate recs - altered sleep-wake cycle; continue meds as ordered; he was combative and agitated last night, refused p.o. meds - Discussed with psychiatry, who recommended scheduled night time IM zyprexa since his behavior escalates at night. This was discussed with his who agreed. - patient's outpatient psychiatrist updated 01/03 - 01/04: reevaluated by - no longer meeting criteria for inpatient geripsych admission. Discharge planning in progress, home vs long-term care - 01/05: psych follow up appreciated, meds changed per recs #Near-syncope on 01/04 Likely due to orthostatic hypotension. Patient had been refusing lisinopril thie week of 12/30, with low normal BP. He took lisinopril, and blood pressure was low during near syncopal episode. Will hold lisinopril, as he may no longerneed this for blood pressure. #DM2 with hyperglycemia: Resume home regimen of januvia, metformin on discharge where he will be able to eat food he actually enjoys glucose achs, humalog ss #KELLEE: resolved Cr 1.3 12/25. Refusing IV access. Recommended PO hydration if patient continues to refuse IV access. Repeat BMP in AM. Obtain Renal U/S: negative #Hypomagnesemia: Magnesium intermittently low Started him on standing dose of magnesium Refusing IV access. Repleting. #Chronic anemia: stable. #Mild hyponatremia: Encourage p.o. intake Sodium improved #HTN: Hold home regimen of Lisinopril. #GERD: c/w home regimen of omeprazole #Alcohol use d/o: unclear if he is in remission. no signs or sx of acute withdrawal. EtOH level onpresentation less than 10 c/w thiamine and folate #Diabetic neuropathy: c/w home regimen of gabapentin #Mood d/o: c/ w home regimen of escitalopram #HL: c/w home regimen of statin #FEN: diabetic diet #DVT PPX: Ambulating #CODE: FULL, as per admitting hospitalist Dispo: Pending safe discharge plan updated 01/05 Anticipated Discharge Anticipated Discharge Date: 01/23/24 Priority for D/C: Additional Options: Placement/Insurance Anticipated D/C to: Other Specify Other:: Placement Quality Measures Was the pt treated for stroke/TIA? (Y/N): No Documented By: Carrol Castelan MD 01/07/24 1430 Signed By: <Electronically signed by Carrol Castelan MD> 01/07/24 1435 Copies to: Progress Note Author Charlene Mccabe [facility] January 07, 2024 3:50pm Note Date/Time January 07, 2024 3:[address] [address] Nutrition Reassessment Patient: Maryana Rivera Attending MD: Carrol Castelan MD : 1945 Dictating Provider: Charlene Mccabe MS , RD, LDN Age/Sex: 78 / M Admit Date: 12/15/23 Discharge Date: MedRec #: [id number] Location: [facility] [id number] cc: Charlene Mccabe, MS, RD, LDN * Nutrition Assessment - Assessment Date: 01/07/24 Visit Type: Follow Up Pertinent Food & Nutrition History: Per hospitalist H&P: Past Medical History: HTN DM2 Depression Dementia Alcohol use d/o Cerebellar CVA Chronic anemia. Diet Order: 12/16/23 16:16 Safe Tray Diet [DIET] Therapeutic Diets: Diabetic/Consistent Carb Does Pt Require Thickened Liquids?: No Supplements to Add: Glucerna Supplement Frequency: BID(B/L) Comments: Pt requesting a banana with his meals No Known Allergies Allergy (Verified 11/01/22 12:43) Assessment: 78 yo M admit for hypomagnesemia and confusion. Pt w/ dementia w/ behavior disturbances, DM w/ hyper glycemia, mild hypernatremia. Poor PO per hospitalist progress note. Pt is on regular diet w/ safe tray. Variable PO intake documented, w/ estimated average intake since admit 38% meals. Pt likely not meeting EEN w/ meals alone, recommend ensure plus HP to supplement intake. Pt not present in room on attempts for nutrition assessment, chart reviewed. Minimal appetite per RN notes. No N/V/D/abd pain reported. No LBM documented. No overt s/s aspiration reported on dysphagia sip/swallow screen. Pt w/ confusion likely unable to provide accurate diet/wt hx. Recommend NFPE on f/u if appropriate. Nutrition following per standards of care. Labs and meds reviewed. 12/27/23 f/u: Seen for nutrition follow up. Pt w/ variable meal intake response, refuses some meals, other times will take 50-100% of meals. Ordered for ensure plus HP daily. Blood sugars have been variable from 80s-400s. Diet changed from regular to consistent carb since last assessment. Safe tray ordered. Would rec to change MFS to glucerna BID to provide 440kcal, 20g pro daily with less overall CHO intake. Will continue to encourage adequate intakes, limited by cognitive status and resistance to care at times. Meds, labs reviewed. NFPE not appropriate at this time, will attempt at f/u. No reported chewing/swallow difficulty. May have overall increased needs d/t frequent wandering. Would likely benefit from ongoing psych monitoring, assistance with meals/cueing as needed. Nutrition continues to follow and adjust plan of care accordingly. 12/31/23 f/u Seen for nutrition f/u. Continues with variable meal intakes with occasional refusals. Continues with supplements ordered, see above. BS remain variable. Fluctuations in mood and aggression with staff, followed by crisis team, not appropriate for edu/interview at this time. No reported s/s aspiration, chewing/swallow difficulty. Continues to be encouraged to eat/drink. Meds, labs reviewed. No updated labs since last assessment to review at this time. Continues w/ Mg supp. ? LBM, may require intervention with bowel regimen. Refuses meds at times, does occasionally accept with ice cream which may promote some elevated BS. Will request updated weight. May need to consider goals of care meeting if unable to consistently meet estimated nutrition needs. Likely would not be a good candidate given his confusion and refusal of care. 01/04/24 f/u: Seen for nutrition f/u. Pt continues with variable intakes, seen today holding bottle of glucerna, pacing around his room. PO intakes variable, noted taking minimal amounts of meals d/t sleeping most of the day, ranging from refusal to 75% recently. Attempted NFPE however pt not interested/unable to participate (walked away). Does appear thin with some visible mild/moderate amish, deltoid, calf muscle wasting, mild/moderate orbital, buccal, tricep wasting. No updated weight since admit, will request update as suspect he has lost weight. Has been on 1:1 supervision for safety. Followed [facility] psych[facility]crisis team, [facility] Further interview not appropriate d/t mental status. No reported skin breakdown or GI upset at this time. Meds, labs reviewed, BS noted higher d/t holding insulin from meal refusal or only being able to deliver meds with ice cream or pudding. Would benefit from goals of care discussion as suspect unable to meet overall kcal/pro with oral intakes alone. Do not feel he would be appropriate for enteral nutrition d/t cognitive status. Can consider increasing MFS to TID as pt appears to accept these fairly well. Nutrition team remains available as needed for inpatient needs. Pt likely meets ASPEN criteria for acute moderate malnutrition as evidenced by PO intakes <75% x7days, mild/moderate fat and muscle loss to amish, orbital, buccal, deltoid, tricep, calf regions. Unclear weight history however suspect pt has lost weight. 01/07/24 f/u: Visited pt this afternoon. Spoke to practical nursing faculty as patient was sleeping and stated I'm just relaxing . assistant plant manager reports pt ate half a burger, a bag of chips for lunch, about 60%. No n/v/abd pain reported. PO intake from past few days charted below, known to refuse meals. Pt is not appropriate for RD to perform a physical exam as he can be combative. Meds and labs reviewed. Selected Entries 01/06/24 09:00 01/06/24 13:00 01/06/24 14:00 Percent Meal Consumed 50% 25% 50% 01/06/24 17:00 01/07/24 09:00 01/07/24 13:00 Percent Meal Consumed Refused 75% 75% - Patient Data Height: 5 ft 9.6 in Weight: 65.5 kg - Weight Calculations Body Mass Index: 20.9 Body Mass Index (BMI) Classification: Normal [place] Body Weight: 74 Adjusted Body Weight: 71 % [place] Body Weight (%IBW): 89 - Dave Score Total Score: 20 - Estimated Calorie Needs Estimated Calorie Needs and Recommendations: 4384-3807 kcal (25-30 kcal/kg actual wt) - Estimated Protein Needs Grams of Protein Needed and Recommendations: 67-80 g (1.0-1.2 g/kg actual wt) - Daily Protein/Calorie Needs Daily Protein Needs: Actual Weight Daily KCAL Needs: Actual Weight - Estimated Fluid Needs Estimated Fluid Needs and Recommendations: 1 mL/kcal - Patient Evaluation Nutritionally Significant Medications and Tests: Medications Folic Acid (Folic Acid 1 Mg Tablet) 1 mg PO DAILY [facility] Last Admin: 01/07/24 10:07 Dose: 1 mg Dextrose (Dextrose 10 % In Water) 250 mls @ 3,000 mls/hr IV ONCE PRN; Protocol PRN Reason: Hypoglycemia Protocol Dextrose (Dextrose 10 % In Water) 125 mls @ 1,500 mls/hr IV PRN PRN; Protocol PRN Reason: for Hypoglycemia Protocol Thiamine Mononitrate (Thiamine 100 Mg Tablet) 100 mg PO DAILY [facility] Last Admin: 01/07/24 10:06 Dose: 100 mg Senna (Sennosides 8.6 Mg Tablet) 8.6 mg PO BID [facility] Last Admin: 03/30/24 10:07 Dose: 8.6 mg Polyethylene Glycol (Polyethylene Glycol 3350 17 Gm Packet) 17 gm PO DAILY PRN PRN Reason: Constipation Step 1 Last Admin: 12/20/23 18:24 Dose: 17 gm Omeprazole (Omeprazole Dr 20 Mg Capsule) 40 mg PO DAILY [facility] Last Admin: 01/07/24 10:06 Dose: 40 mg Metformin HCl (Metformin 500 Mg Tablet) 500 mg PO QPM [facility] Last Admin: 01/06/24 22:15 Dose: 500 mg Metformin HCl (Metformin 500 Mg Tablet) 1,000 mg PO QAM [facility] Last Admin: 01/07/24 10:06 Dose: 1,000 mg Magnesium Oxide (Magnesium Oxide 400 Mg Tablet) 400 mg PO BID [facility] Last Admin: 01/07/24 10:07 Dose: 400 mg Insulin Human Regular (Insulin Regular, Human 300 Unit/3 Ml Vial) 0 unit SUB-Q ACHS [facility]; Protocol Last Admin: 01/07/24 12:06 Dose: Not Given Haloperidol (Haloperidol 5 Mg/Ml Vial) 5 mg IM Q6HR PRN PRN Reason: severe agitation Haloperidol (Haloperidol 5 Mg Tablet) 5 mg PO QHS [facility] Last Admin: 01/06/24 22:17 Dose: 5 mg Haloperidol (Haloperidol 5 Mg Tablet) 5 mg PO Q6HR PRN PRN Reason: mild agitation Last Admin: 01/06/24 12:54 Dose: 5 mg Glucose (Dextrose Gel 40 % 15 Gm Dextrose/37.5 Gm Tube) 15 gm PO PRN PRN; Protocol PRN Reason: Hypoglycemia Protocol Glucagon (Glucagon 1 Mg/Ml Vial (Kit)) 1 mg IM PRN PRN; Protocol PRN Reason: Hypoglycemia Protocol Escitalopram Oxalate (Escitalopram 10 Mg Tablet) 10 mg PO DAILY [facility] Last Admin: 01/07/24 10:07 Dose: 10 mg Labs: Laboratory Tests 01/05/24 01/05/24 01/06/24 16:26 21:26 07:33 POC Glucose 378 134 202 01/06/24 01/06/24 01/07/24 16:17 22:23 11:20 POC Glucose 273 206 274 - Nutritional Diagnosis Inadequate Energy Intake NI-1.4 Related To: poor appetite As Evidenced By: Poor appetite per RN notes, po intake since admit documented below. Selected Entries 12/15/23 17:00 12/16/23 09:00 12/16/23 12:10 Percent Meal Consumed Refused 100% 75% 12/17/23 09:00 12/17/23 13:00 12/17/23 17:00 Percent Meal Consumed Refused Refused Refused 12/18/23 09:00 12/18/23 13:00 12/18/23 17:00 Percent Meal Consumed 50% Refused Refused 12/19/23 09:00 12/19/23 17:00 12/20/23 09:00 Percent Meal Consumed 10% 50% Refused 12/20/23 13:00 12/20/23 17:00 12/21/23 09:00 Percent Meal Consumed 25% 75% 100% 12/21/23 12:40 12/21/23 17:00 12/22/23 09:00 Percent Meal Consumed 75% 25% 100% Altered Nutition-Related Laboratory Values NC-2.2 Related To: T2DM As Evidenced By: POC glu 80s-400s during admit - Nutritional Interventions Nutrition Intervention: Coordinate Other Care, Feeding Assistance, Medical Food Supplement, Meals & Snacks, Nutrition Related Med Mgt, Vitamin Mineral Supplemen Nutrition Intervention Comments: 1. Continue consistent CHO diet to assist BG control and continue safe tray as appropriate. 2. Glucerna TID (220 kcal, 10 g pro each). 3. Continue folic acid and thiamine supplementation. 4. Consider checking pt iron studies and vit D. 5. Consider MVI w/ mineral supplementation for pt w/ poor PO intake. 6. Encourage meal completion and documented in EMR. 7. Weekly scaled wt. 8. GI/bowel regimen, document BMs Nutrition Monitoring/Evaluation: Bowel Regimen, Monitor Labs, Monitor Skin Integrity, Monitor Weight, Supplement Tolerated/Acceptance - Nutrition Risk Nutrition Risk: Moderate - Nutritional Goals Goal 1: Consumes 75% all meals and supplements Goal Met: No Goal Date: 01/14/24 Goal 2: BG 80-180 Goal Met: No Goal Date: 01/14/24 Goal 3: lytes WNL Goal Met: Yes (no updated labs since last assessment) Goal Date: 01/14/24 Goal 4: stable wt +/- 1 kg Goal Met: Yes Goal Date: 01/14/24 Malnutrition Insufficient Energy Intake: Less than 75% estimated energy needs Acute Illness: Greater than 7 days - Loss of Subcutaneous Fat Orbital Loss of Subcutaneous Fat: Mild Triceps Loss of Subcutaneous Fat: Mild - Loss of Muscle Mass Clavicles Loss of Muscle Mass: Mild Shoulders Loss of Muscle Mass: Mild Temples Loss of Muscle Mass: Mild Calf Loss of Muscle Mass: Moderate - Problem List Diagnosis for Malnutrition Patient meets ASPEN Criteria for Malnutrition: Moderate Documented By: Charlene Mccabe, MS, SUHAIL, ELIS 01/07/24 1537 Signed By: <Electronically signed by MS SUHAIL Mccabe> 01/07/24 3650 Copies to: Progress Note Author Carrol Castelan [facility] January 08, 2024 11:21am Note Date/Time January 08, 2024 11: 21am [address] [address] Hospitalist Progress Note Patient: Maryana Rivera Attending MD: Carrol Castelan MD : 1945 Dictating Provider: Carrol Castelan MD Age/Sex: 78 / M Admit Date: 12/15/23 Discharge Date: MedRec #: [id number] Location: [facility] [id number] cc: * Subjective Subjective Date: 01/08/24 Interval Events: Unable to provide reliable history. Exam Physical Exam Vital signs: Vital Signs - Last Response Temperature Pulse Rate Respiratory Rate Blood Pressure Blood Pressure Source O2 Sat by Pulse Oximetry 97.2 F L 52 L 18 139/67 Automatic Cuff 95 01/07/24 19:40 01/07/24 19:40 01/07/24 19:40 01/07/24 19:40 01/07/24 19:40 01/07/24 19:40 Physical Exam Narrative: GEN: NAD, sitting in bed comfortably HEENT: No scleral icterus or conjunctival injection Cardio: S1/2 audible, normal rate Pulmonary: CTAB, No visible respiratory distress Abdomen: Soft, NT, Not distended Neuro: Alert, oriented to self and that he is in hospital, intermittently follows commands, moves all exts Medications Active Medications Acetaminophen (Acetaminophen 325 Mg Tablet) 650 mg PO Q6H PRN PRN Reason: Temp>101.5 &/or Pain Score:1-3 Last Admin: 12/30/23 16:43 Dose: 650 mg Atorvastatin Calcium (Atorvastatin 40 Mg Tablet) 80 mg PO QHS [facility] Last Admin: 01/07/24 22:37 Dose: Not Given Donepezil HCl (Donepezil 5 Mg Tablet) 10 mg PO QHS [facility] Last Admin: 01/07/24 22:11 Dose: 10 mg Escitalopram Oxalate (Escitalopram 10 Mg Tablet) 10 mg PO DAILY [facility] Last Admin: 01/08/24 10:05 Dose: Not Given Folic Acid (Folic Acid 1 Mg Tablet) 1 mg PO DAILY [facility] Last Admin: 01/08/24 10:10 Dose: Not Given Gabapentin (Gabapentin 300 Mg Capsule) 600 mg PO QHS [facility] Last Admin: 01/07/24 22:13 Dose: 600 mg Gabapentin (Gabapentin 400 Mg Capsule) 1,[facility] Last Admin: 01/08/24 10:10 Dose: Not Given Glucagon (Glucagon 1 Mg/Ml Vial (Kit)) 1 mg IM PRN PRN; Protocol PRN Reason: Hypoglycemia Protocol Glucose (Dextrose Gel 40 % 15 Gm Dextrose/37.5 Gm Tube) 15 gm PO PRN PRN; Protocol PRN Reason: Hypoglycemia Protocol Haloperidol (Haloperidol 5 Mg/Ml Vial) 5 mg IM Q6HR PRN PRN Reason: severe agitation Haloperidol (Haloperidol 5 Mg Tablet) 5 mg PO Q6HR PRN PRN Reason: mild agitation Last Admin: 01/06/24 12:54 Dose: 5 mg Haloperidol (Haloperidol 5 Mg Tablet) 5 mg PO QHS [facility] Last Admin: 01/07/24 22:11 Dose: 5 mg Haloperidol (Haloperidol 1 Mg Tablet) 2 mg PO DAILY@1200 [facility] Last Admin: 01/07/24 12:54 Dose: Not Given Dextrose (Dextrose 10 % In Water) 125 mls @ 1,500 mls/hr IV PRN PRN; Protocol PRN Reason: for Hypoglycemia Protocol Dextrose (Dextrose 10 % In Water) 250 mls @ 3,000 mls/hr IV ONCE PRN; Protocol PRN Reason: Hypoglycemia Protocol Insulin Human Regular (Insulin Regular, Human 300 Unit/3 Ml Vial) 0 unit SUB-Q [facility] [facility]; Protocol Last Admin: 01/08/24 08:10 Dose: Not Given Magnesium Hydroxide (Magnesium Hydroxide 30 Ml Udc) 30 ml PO DAILY PRN PRN Reason: Constipation Step 2 Magnesium Oxide (Magnesium Oxide 400 Mg Tablet) 400 mg PO BID [facility] Last Admin: 01/08/24 10:10 Dose: Not Given Melatonin (Melatonin 5 Mg Tablet) 5 mg PO HS PRN PRN Reason: Insomnia Last Admin: 01/06/24 22:16 Dose: 5 mg Metformin HCl (Metformin 500 Mg Tablet) 1,000 mg PO QAM [facility] Last Admin: 01/08/24 10:10 Dose: Not Given Metformin HCl (Metformin 500 Mg Tablet) 500 mg PO QPM [facility] Last Admin: 01/07/24 22:13 Dose: 500 mg Omeprazole (Omeprazole Dr 20 Mg Capsule) 40 mg PO DAILY [facility] Last Admin: 01/08/24 10:10 Dose: Not Given Polyethylene Glycol (Polyethylene Glycol 3350 17 Gm Packet) 17 gm PO DAILY PRN PRN Reason: Constipation Step 1 Last Admin: 12/20/23 18:24 Dose: 17 gm Senna (Sennosides 8.6 Mg Tablet) 8.6 mg PO BID [facility] Last Admin: 01/08/24 10:11 Dose: Not Given Thiamine Mononitrate (Thiamine 100 Mg Tablet) 100 mg PO DAILY [facility] Last Admin: 01/08/24 10:11 Dose: Not Given Trazodone HCl (Trazodone 50 Mg Tablet) 100 mg PO 20 [facility] Last Admin: 01/07/24 23:40 Dose: Not Given Results Data Reviewed Patient Data Reviewed: Image(s) Reviewed by Me Laboratory Laboratory Results: 01/04/24 10:28 01/04/24 10:28 Progress Note - A&P Assessment and Plan Assessment and Plan: This is a 78 year old man with PMHx of dementia, alcohol use disorder who was brought in to the ED via ambulance after he was found wandering outside. His current admission is for dementia with behavioral disturbances for which neuropsych was consulted. Initially, attempts were being made to optimize the patient's medications, so that he could be discharged to respite for 2 weeks, however in spite of daily attempts at finding a suitable medication regimen to help keep Angel sustainably calm and cooperative, he would repeatedly get agitated requiring multiple CODE greys to be called (he even struck a 1:1 watcher). As a result, [facility] crisis team has been called to look for manjula psych bed however he has since been cleared from a manjula psych perspective. #Dementia with behavioral disturbances Per review of [facility] chart, including his numerous visits with Psychiatry, Neurology and Congitive Neurology spanning over a decade, he has had chronic functional and cognitive decline over the past roughly 20yrs. Per Cognitive Neurology note from 12/14/23, On initial interview 04/16/22, MOCA had decreased to 14 with prominent deficits in executive function (only completing a paimiut for clock draw), disorientation, naming with circumlocution and decreased fluency (F words> animals), and difficulty with serial 7s but intact vigilance testing. With otherwise normal basic blood work, save for hypomagnesemia, and unremarkable CT head, urinalysis, CXR and unremarkable neuro exam except for hiscognition/attention, suspect this is progression of his underlying known neurocognitive dementia (with history of depression as well). SW/CM consulted -- appreciate recs - altered sleep-wake cycle; continue meds as ordered; he was combative and agitated last night, refused p.o. meds - Discussed with psychiatry, who recommended scheduled night time IM zyprexa since his behavior escalates at night. This was discussed with his who agreed. - patient's outpatient psychiatrist updated 01/03 - 01/04: reevaluated by - no longer meeting criteria for inpatient geripsych admission. Discharge planning in progress, home vs long-term care - 01/05: psych follow up appreciated, meds changed per recs #Near-syncope on 01/04 Likely due to orthostatic hypotension. Patient had been refusing lisinopril thie week of 12/30, with low normal BP. He took lisinopril, and blood pressure was low during near syncopal episode. Will hold lisinopril, as he may no longerneed this for blood pressure. #DM2 with hyperglycemia: Resume home regimen of januvia, metformin on discharge where he will be able to eat food he actually enjoys glucose achs, humalog ss #KELLEE: resolved Cr 1.3 12/25. Refusing IV access. Recommended PO hydration if patient continues to refuse IV access. Repeat BMP in AM. Obtain Renal U/S: negative #Hypomagnesemia: Magnesium intermittently low Started him on standing dose of magnesium Refusing IV access. Repleting. #Chronic anemia: stable. #Mild hyponatremia: Encourage p.o. intake Sodium improved #HTN: Hold home regimen of Lisinopril. #GERD: c/w home regimen of omeprazole #Alcohol use d/o: unclear if he is in remission. no signs or sx of acute withdrawal. EtOH level onpresentation less than 10 c/w thiamine and folate #Diabetic neuropathy: c/w home regimen of gabapentin #Mood d/o: c/ w home regimen of escitalopram #HL: c/w home regimen of statin #FEN: diabetic diet #DVT PPX: Ambulating #CODE: FULL, as per admitting hospitalist Dispo: Pending safe discharge plan updated 01/05 Anticipated Discharge Anticipated Discharge Date: 01/23/24 Priority for D/C: Additional Options: Placement/Insurance Anticipated D/C to: Other Specify Other:: Placement Quality Measures Was the pt treated for stroke/TIA? (Y/N): No Documented By: Carrol Castelan MD 01/08/24 1120 Signed By: <Electronically signed by Carrol Castelan MD> 01/08/24 1121 Copies to: Progress Note Author Yogesh Hopkins [facility] January 09, 2024 8:50am Note Date/Time January 09, 2024 8:[address] [address] Nutrition Leveling Patient: Maryana Rivera Attending MD: Carrol Castelan MD : 1945 Dictating Provider: Yogesh Hopkins RD, LD Age/Sex: 78 / M Admit Date: 12/15/23 Discharge Date: MedRec #: [id number] Location: [place] [id number] cc: * Leveling Assessment - Leveling Level: 2 Inital Date: 12/22/23 Follow Up Date: 01/14/24 Comments: inadequate PO intake, needs NFPE Documented By: Yogesh Hopkins RD, LD 01/09/24 0850 Signed By: <Electronically signed by SUHAIL Hopkins> 01/09/24 0850 Copies to: Progress Note Author Sandip Cerrato [facility] January 09, 2024 11:52am Note Date/Time January 09, 2024 10:[address] [address] Progress Note Patient: Maryana Rivera Attending MD: Carrol Castelan MD : 1945 Dictating Provider: Sandip Cerrato MD Age/Sex: 78 / M Admit Date: 12/15/23 [facility] #: [id number] Location: [facility] [id number] cc: * ADDENDUM Discussed with the primary team and outpatient psychiatrist, will do a trial of 250 mg Depakote sprinkle twice daily and outpatient psychiatrist will work with the about obtaining healthcare proxy form. Addendum Documented By: Sandip Cerrato MD 01/09/241151 Addendum Signed By: <Electronically signed by Sandip Cerrato MD> 01/09/24 115 cc: Copy To: __ Assessment/Plan Assessment/Plan: 78-year-old male retired with a history of diabetes, hypertension, depression, vascular dementia, on donepezil and quetiapine, alcohol use disorder, seen by psych and October 2022 for agitation (MOCA, scored 6/25 after excluding executive function. was started on quetiapine and trazodone) who was admitted with wandering episodes. Quetiapine was increased and psych was consulted for evaluation. Patient was calm, forgetful, oriented x 1, limited insight, head CTwith generalized volume loss and microvascular changes. Impression vascular dementia with behavioral dysregulation's history of alcohol use, had trial of quetiapine, olanzapine that was changed to haloperidol 01/05, Today, continued to be agitated, able to tolerate haloperidol, refusing p.o. will increase IM as needed haloperidol, restart Man[facility] psych bed search [facility]- low risk of suicide. Highly complex, multisystem disease DSM 5 DIAGNOSES: Primary Psychiatric Diagnosis: vascular dementia with behavioral dysregulation, history of alcohol use. Secondary Psychiatric Diagnosis: none Other Medical Conditions: as above Psychosocial and Contextual Factors: medical and mental Plan: --Increase haloperidol schedule to 5 mg at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
[2024-02-03 15:16] VITALS: BP 152/84; PULSE 81; RESP 18; TEMP 37.1; O2SAT 95
--- NOTE | 2024-02-03 15:31 | MHC.CLN ---
NUTRITION THIS DIRECTOR INPATIENT HEADACHE PROGRAM HAS FOLLOWED PATIENT SINCE 01/19/24 [facility] ADMIT. DISCHARGED TODAY FROM [facility] AND NOW IN ROOM 367. PER MD NOTES, PATIENT IS COMFORT MEASURES ONLY. DIET CHANGED TO FEED FROM FLOOR STOCK. STAFF MAY PROVIDE FOOD/BEVERAGE ITEMS FROM UNIT KITCHEN. ADMITTED TO MED-SURG DUE TO INCREASED NEEDS TO PROVIDE END-OF-LIFE CARE. POOR PO INTAKE DURING [facility] ADMISSION. UNABLE TO TAKE ADEQUATE NUTRITION/HYDRATION PO. SKIN WITH STAGE II TO COCCYX. RD AVAILABLE IF CHANGE TO PLAN OF CARE.
--- NOTE | 2024-02-03 16:16 | PHA.MEDREC ---
Pharmacy Consult ? Medication Reconciliation Per Dr. Baxter, pt has been transitioned to end of life care and pharmacy was told there is no need for a med rec to be completed.
--- NOTE | 2024-02-03 17:36 | HO.SKINPHOTO ---
Location: Coccyx Site cleansed, dried, foam dressing applied.
--- NOTE | 2024-02-03 17:38 | PC.NURSE ---
Pt arrived from [facility] floor at approximately 1500. At this time pt alert but confused, pt is unable to answer questions appropriately. Pt has mumbled speech and says one word answers at times. Pt is unable to follow commands and is trying to get out of bed with out assistance. Stage II pressure ulcer noted on coccyx picture in chart, area cleansed with NaCl pat dried, and foam applied, foams applied to bilateral heels for protection, wound care consult and air loss mattress ordered. Pt LS dim on room air. Abd soft non-tender inc of stool and urine, incontinence care provided upon admission and PRN. Peripherally long inserted IV placed this shift by ICU educator. All safety measures in place including camera.
[2024-02-03 19:55] VITALS: BP 139/63; PULSE 68; RESP 16; TEMP 36.3; O2SAT 90
[2024-02-03] MEDS: 0.9 % Sodium Chloride Flush 3 ML SYRINGE IVFLUSH (19:56)
[2024-02-03 23:35] VITALS: BP 135/81; PULSE 89; RESP 18; TEMP 36.7; O2SAT 93
[2024-02-04] MEDS: Haloperidol Lactate 5 MG/ML VIAL IM (00:13)
[2024-02-04 03:00] VITALS: BP 143/73; PULSE 76; RESP 16; TEMP 36.3; O2SAT 97
[2024-02-04 06:56] VITALS: BP 152/82; PULSE 66; RESP 18; TEMP 35.9; O2SAT 100
--- NOTE | 2024-02-04 10:01 | HO.PM.IMPN ---
Subjective Subjective Date of Service: 02/04/24 Interval History: required haldol overnight for agitation, otherwise fairly calm, no pain Physical Exam Vital Signs: Vital Signs: Last Vital Signs Temp 96.7 F L 02/04/24 06:56 Pulse 66 02/04/24 06:56 Resp 18 02/04/24 06:56 BP 152/82 H 02/04/24 06:56 Pulse Ox 100 02/04/24 06:56 O2 Del Method Room Air 02/04/24 06:56 BMI result Body Mass Index 20.0 calm, comfortable, not interactive Objective Data Active Medications Acetaminophen (Acetaminophen 325 Mg Tablet) 650 mg PO Q6H PRN PRN Reason: Pain, Mild (Pain Scale 1-3) Al Hydroxide/Mg Hydroxide (Magnesium Hydrox/Alum Hydrox 30 Ml Oral.Susp) 30 ml PO Q6H PRN PRN Reason: Heartburn/Nausea Docusate Sodium (Docusate Sodium 100 Mg Capsule) 100 mg PO BEDTIME [facility] Last Admin: 02/03/24 19:58 Dose: Not Given Documented By: KAREN Non-Admin Reason: Patient Refused Haloperidol (Haloperidol 1 Mg Tablet) 1 mg PO Q4H PRN PRN Reason: Delirium Haloperidol Lactate (Haloperidol Lactate Oral Conc 10 Mg/5 Ml Oral.Conc) 1 mg PO TID PRN PRN Reason: Psychosis Lorazepam (Lorazepam 1 Mg Tablet) 1 mg PO Q4H PRN PRN Reason: Myoclonic twitching/anxiety Magnesium Hydroxide (Milk Of Magnesia 30 Ml Oral.Susp) 30 ml PO DAILY PRN PRN Reason: Constipation Olanzapine (Olanzapine 10 Mg Vial) 5 mg IM DAILY PRN PRN Reason: agitation Omeprazole (Omeprazole 40 Mg Capsule.Dr) 40 mg PO DAILY@0630 [facility] Last Admin: 02/04/24 05:34 Dose: Not Given Documented By: KAREN Non-Admin Reason: Patient Refused Oxycodone HCl (Oxycodone Hcl Immed Release 5 Mg Tablet) 5 mg PO Q4H PRN PRN Reason: Pain, Moderate(Pain Scale 4-6) Sodium Chloride (0.9 % Sodium Chloride Flush 3 Ml Syringe) 3 ml IVFLUSH QSHIFT [facility] Last Admin: 02/03/24 19:56 Dose: 3 ml Documented By: KAREN Thiamine HCl (Thiamine Hcl 100 Mg Tablet) 100 mg PO DAILY [facility] Trazodone HCl (Trazodone Hcl 50 Mg Tablet) 50 mg PO BEDTIME MRX1 PRN PRN Reason: Insomnia Assessment and Plan (1) Dementia, unspecified, with behavioral disturbance: Status: Acute Plan 78M PMH alcoholic dementia presented from [facility] for increased needs to provide end of life care advanced alcoholic dementia with agitation continue haldol, ativan po as able to take iv/IM prn hospice eval DNR/DNI reason for continued hospitalization: end of life care, safe dispo Quality Stroke Does the patient have a stroke diagnosis?: No VTE Prior VTE?: No VTE Risk Level:: Medical - moderate - high VTE Device Contraindication: Treatment Not Indicated VTE Drug Contraindication: Treatment Not Indicated
--- NOTE | 2024-02-04 10:18 | MHC.CM.PN ---
IMM 02/04/24 DELIVERED TO PT'S URVASHI LOCKWOOD [phone] AT 10:05AM, U[facility]ASHI REPORTS FAMILY WOULD LIKE PT PLACED IN FACILITY FOR HOSPICE THEY WONT BE ABLE TO MANAGE HIM AT HOME, URVASHI REQUESTING FACILITY CLOSER TO HOME, [facility] AND HOSPICE REFERRAL WILL ALSO BE PLACED FOR INFORMATIONAL. URVASHI ALSO REPORTS SHE PROVIDED [facility] W/HCP/POA AND HAS COMPLETED A MOLST, CM WILL FOLLOW-UP W/GERIPSYCH IF DOCUMENTS ARE NOT IN CHART.
[2024-02-04 15:18] VITALS: BP 146/70; PULSE 75; RESP 18; TEMP 36.4; O2SAT 99
[2024-02-04] MEDS: 0.9 % Sodium Chloride Flush 3 ML SYRINGE IVFLUSH ×2 (16:14→19:46)
[2024-02-04 19:27] VITALS: BP 164/84; PULSE 93; RESP 20; TEMP 36.5; O2SAT 94
[2024-02-04] MEDS: OLANZapine 10 MG VIAL 5 MG IM (19:45)
--- NOTE | 2024-02-04 21:35 | PC.NURSE ---
Pt restless trying to climb oob no sitter available medicated with zyprexa 5mg IM at 1945 with good effect resting in bed camera in room.
[2024-02-04 23:22] VITALS: BP 151/84; PULSE 79; RESP 18; TEMP 36.5; O2SAT 100
[2024-02-05 04:00] VITALS: BP 152/72; PULSE 78; RESP 16; TEMP 36.2; O2SAT 100
[2024-02-05 06:57] VITALS: BP 113/63; PULSE 67; RESP 16; TEMP 36.1; O2SAT 96
[2024-02-05] MEDS: 0.9 % Sodium Chloride Flush 3 ML SYRINGE IVFLUSH ×3 (07:45→23:40)
--- NOTE | 2024-02-05 09:13 | HO.PM.IMPN ---
Subjective Subjective Date of Service: 02/05/24 Review of Systems Review of Systems: Yes Unobtainable due to mental condition Physical Exam Vital Signs: Vital Signs: Last Vital Signs Temp 97 F 02/05/24 06:57 Pulse 67 02/05/24 06:57 Resp 16 02/05/24 06:57 BP 113/63 02/05/24 06:57 Pulse Ox 96 02/05/24 06:57 O2 Del Method Room Air 02/05/24 06:57 BMI result Body Mass Index 20.0 calm, comfortable, not interactive Objective Data Active Medications Acetaminophen (Acetaminophen 325 Mg Tablet) 650 mg PO Q6H PRN PRN Reason: Pain, Mild (Pain Scale 1-3) Al Hydroxide/Mg Hydroxide (Magnesium Hydrox/Alum Hydrox 30 Ml Oral.Susp) 30 ml PO Q6H PRN PRN Reason: Heartburn/Nausea Docusate Sodium (Docusate Sodium 100 Mg Capsule) 100 mg PO BEDTIME [facility] Last Admin: 02/04/24 19:47 Dose: Not Given Documented By: KAREN Non-Admin Reason: Patient Refused Haloperidol (Haloperidol 1 Mg Tablet) 1 mg PO Q4H PRN PRN Reason: Delirium Haloperidol Lactate (Haloperidol Lactate Oral Conc 10 Mg/5 Ml Oral.Conc) 1 mg PO TID PRN PRN Reason: Psychosis Lorazepam (Lorazepam 1 Mg Tablet) 1 mg PO Q4H PRN PRN Reason: Myoclonic twitching/anxiety Magnesium Hydroxide (Milk Of Magnesia 30 Ml Oral.Susp) 30 ml PO DAILY PRN PRN Reason: Constipation Olanzapine (Olanzapine 10 Mg Vial) 5 mg IM DAILY PRN PRN Reason: agitation Last Admin: 02/04/24 19:45 Dose: 5 mg Documented By: KAREN Omeprazole (Omeprazole 40 Mg Capsule.Dr) 40 mg PO DAILY@0630 [facility] Last Admin: 02/05/24 05:57 Dose: Not Given Documented By: KAREN Non-Admin Reason: Patient Refused Oxycodone HCl (Oxycodone Hcl Immed Release 5 Mg Tablet) 5 mg PO Q4H PRN PRN Reason: Pain, Moderate(Pain Scale 4-6) Sodium Chloride (0.9 % Sodium Chloride Flush 3 Ml Syringe) 3 ml IVFLUSH QSHIFT [facility] Last Admin: 02/04/24 19:46 Dose: 3 ml Documented By: KAREN Thiamine HCl (Thiamine Hcl 100 Mg Tablet) 100 mg PO DAILY [facility] Last Admin: 02/04/24 10:20 Dose: Not Given Documented By: REYNA Non-Admin Reason: Patient Refused Trazodone HCl (Trazodone Hcl 50 Mg Tablet) 50 mg PO BEDTIME MRX1 PRN PRN Reason: Insomnia Assessment and Plan (1) Dementia, unspecified, with behavioral disturbance: Status: Acute Plan 78M PMH alcoholic dementia presented from [facility] for increased needs to provide end of life care advanced alcoholic dementia with agitation continue haldol, ativan po as able to take zyprexa IM prn plan to find outpatient hospice placement DNR/DNI reason for continued hospitalization: end of life care, safe dispo Quality Stroke Does the patient have a stroke diagnosis?: No VTE Prior VTE?: No VTE Risk Level:: Medical - moderate - high VTE Device Contraindication: Treatment Not Indicated VTE Drug Contraindication: Treatment Not Indicated
[2024-02-05 15:19] VITALS: BP 134/66; PULSE 64; RESP 18; TEMP 36.3; O2SAT 100
[2024-02-05 15:47] VITALS: BP 151/96; PULSE 94; RESP 18; TEMP 36.6; O2SAT 93
[2024-02-05 19:34] VITALS: BP 133/69; PULSE 71; RESP 16; TEMP 36.4; O2SAT 92
[2024-02-05] MEDS: OLANZapine 10 MG VIAL 5 MG IM (22:24)
--- NOTE | 2024-02-05 22:34 | PC.NURSE ---
Patient began attempting to jump out of bed. VMT room alarming multiple times for safety. Staff rushed to bedside and attempted redirection. Patient pushing staff away and continued his attempts to exit the bed. Patient kicking feet and swinging hands toward staff. Dr. Juan Pablo roth. PRN zyprexa administered per orders- see MAR for details. Patient cooperative during injection- tolerated well. Patient assisted back to bed and repositioned for comfort.
[2024-02-06 00:06] VITALS: BP 128/82; PULSE 78; RESP 16; TEMP 36.7; O2SAT 100
[2024-02-06 03:01] VITALS: BP 157/85; PULSE 73; RESP 16; TEMP 36.6; O2SAT 97
[2024-02-06] MEDS: 0.9 % Sodium Chloride Flush 3 ML SYRINGE IVFLUSH ×2 (07:04→16:01)
[2024-02-06 07:20] VITALS: BP 159/77; PULSE 72; RESP 16; TEMP 36.2; O2SAT 96
--- NOTE | 2024-02-06 09:17 | MHC.CM.PN ---
Addendum entered by Ngozi Messer RN 02/06/24 14:52: CM HAS RECEIVED NO RESPONSE OR CALL BACK FROM [facility], [facility] NOT ACCEPTING AFTER FINAL REVIEW, SNF REFERRAL EXPANDED TO [facility] FROM PT'S ZIP CODE, CM CONTACTED PT'S TO UPDATE HER, CM WILL CONT TO FOLLOW. Original Note: EMR REVIEWED, PT IN NEED OF SNF PLACEMENT FOR HOSPICE, PT HAS NO BED OFFERS AT THIS TIME, [facility] REPORTED NO BEDS OVER W/E, CM ATTEMPTED TO CONTACT ADMISSIONS [facility]IA[facility] TO ENQUIRE IF THEY WOULD ACCEPT PT PENDING BED, NO ANSWER AND DETAILED MESSAGE LEFT, [facility] REPORTS THEY MAY HAVE A LTC BED HOWEVER DO NOT DO HOSPICE, THEY HAVE A PALLIATIVE CARE TEAM IN FACILITY AND REPORT FAMILY WOULD NEED TO FILL OUT A LTC GEREMIAS AND SEND BANK STATEMENTS, CM WILL FOLLOW UP W/PT'S URVASHI AND CONT TO FOLLOW.
--- NOTE | 2024-02-06 09:40 | HO.PM.IMPN ---
Subjective Subjective Date of Service: 02/06/24 Interval History: no compolaints Physical Exam Vital Signs: Vital Signs: Last Vital Signs Temp 97.2 F 02/06/24 07:20 Pulse 72 02/06/24 07:20 Resp 16 02/06/24 07:20 BP 159/77 H 02/06/24 07:20 Pulse Ox 96 02/06/24 07:20 O2 Del Method Room Air 02/06/24 07:20 BMI result Body Mass Index 20.0 calm, comfortable, not interactive Objective Data Active Medications Acetaminophen (Acetaminophen 325 Mg Tablet) 650 mg PO Q6H PRN PRN Reason: Pain, Mild (Pain Scale 1-3) Al Hydroxide/Mg Hydroxide (Magnesium Hydrox/Alum Hydrox 30 Ml Oral.Susp) 30 ml PO Q6H PRN PRN Reason: Heartburn/Nausea Docusate Sodium (Docusate Sodium 100 Mg Capsule) 100 mg PO BEDTIME [facility] Last Admin: 02/05/24 20:23 Dose: Not Given Documented By: REYNA Non-Admin Reason: Patient Refused Haloperidol (Haloperidol 1 Mg Tablet) 1 mg PO Q4H PRN PRN Reason: Delirium Haloperidol Lactate (Haloperidol Lactate Oral Conc 10 Mg/5 Ml Oral.Conc) 1 mg PO TID PRN PRN Reason: Psychosis Lorazepam (Lorazepam 1 Mg Tablet) 1 mg PO Q4H PRN PRN Reason: Myoclonic twitching/anxiety Magnesium Hydroxide (Milk Of Magnesia 30 Ml Oral.Susp) 30 ml PO DAILY PRN PRN Reason: Constipation Olanzapine (Olanzapine 10 Mg Vial) 5 mg IM DAILY PRN PRN Reason: agitation Last Admin: 02/05/24 22:24 Dose: 5 mg Documented By: REYNA Omeprazole (Omeprazole 40 Mg Capsule.Dr) 40 mg PO DAILY@0630 [facility] Last Admin: 02/06/24 06:44 Dose: Not Given Documented By: LANG Non-Admin Reason: not following directions Oxycodone HCl (Oxycodone Hcl Immed Release 5 Mg Tablet) 5 mg PO Q4H PRN PRN Reason: Pain, Moderate(Pain Scale 4-6) Sodium Chloride (0.9 % Sodium Chloride Flush 3 Ml Syringe) 3 ml IVFLUSH QSHIFT [facility] Last Admin: 02/06/24 07:04 Dose: 3 ml Documented By: HAROON Thiamine HCl (Thiamine Hcl 100 Mg Tablet) 100 mg PO DAILY [facility] Last Admin: 02/06/24 07:04 Dose: Not Given Documented By: HAROON Non-Admin Reason: Patient Refused Trazodone HCl (Trazodone Hcl 50 Mg Tablet) 50 mg PO BEDTIME MRX1 PRN PRN Reason: Insomnia Assessment and Plan (1) Dementia, unspecified, with behavioral disturbance: Status: Acute Plan 78M PMH alcoholic dementia presented from [facility] for increased needs to provide end of life care advanced alcoholic dementia with agitation continue haldol, ativan po as able to take zyprexa IM prn plan to find outpatient hospice placement DNR/DNI reason for continued hospitalization: end of life care, safe dispo Quality Stroke Does the patient have a stroke diagnosis?: No VTE Prior VTE?: No VTE Risk Level:: Medical - moderate - high VTE Device Contraindication: Treatment Not Indicated VTE Drug Contraindication: Treatment Not Indicated
[2024-02-06 15:37] VITALS: BP 132/67; PULSE 62; RESP 18; TEMP 36.2; O2SAT 95
[2024-02-06 15:44] VITALS: BP 110/61; PULSE 68; RESP 20; TEMP 36.7; O2SAT 96
--- NOTE | 2024-02-06 18:55 | PC.NURSE ---
Pt has not voided since 629 this am. Bladder scanned for 200ml. Reported to oncoming RN Kitty, will monitor
[2024-02-06 20:00] VITALS: BP 155/85; PULSE 77; RESP 16; TEMP 36.1; O2SAT 98
[2024-02-06] MEDS: OLANZapine 10 MG VIAL 5 MG IM (20:40)
[2024-02-07 04:00] VITALS: BP 141/93; PULSE 68; RESP 16; TEMP 36.2; O2SAT 97
[2024-02-07 07:45] VITALS: BP 171/82; PULSE 64; RESP 18; TEMP 36.6; O2SAT 98
[2024-02-07 08:23] VITALS: BP 133/73; RESP 18; TEMP 36.6; O2SAT 94
[2024-02-07] MEDS: Thiamine HCL 100 MG TABLET PO (09:10)
[2024-02-07] MEDS: 0.9 % Sodium Chloride Flush 3 ML SYRINGE IVFLUSH ×3 (09:10→20:21)
--- NOTE | 2024-02-07 09:28 | P.PNIM_ITS ---
Subjective Subjective Date of Service: 02/07/24 Interval History: no compolaints Physical Exam Vital Signs: Vital Signs: Last Vital Signs Temp 98 F 02/07/24 08:23 Pulse 64 02/07/24 07:45 Resp 18 02/07/24 08:23 BP 133/73 02/07/24 08:23 Pulse Ox 94 02/07/24 08:23 O2 Del Method Room Air 02/07/24 08:23 O2 Flow Rate 2 02/06/24 15:44 BMI result Body Mass Index 20.0 calm, comfortable, not interactive Objective Data Active Medications Acetaminophen (Acetaminophen 325 Mg Tablet) 650 mg PO Q6H PRN PRN Reason: Pain, Mild (Pain Scale 1-3) Al Hydroxide/Mg Hydroxide (Magnesium Hydrox/Alum Hydrox 30 Ml Oral.Susp) 30 ml PO Q6H PRN PRN Reason: Heartburn/Nausea Docusate Sodium (Docusate Sodium 100 Mg Capsule) 100 mg PO BEDTIME [facility] Last Admin: 02/06/24 20:00 Dose: Not Given Documented By: DALE Non-Admin Reason: Patient Refused Haloperidol (Haloperidol 1 Mg Tablet) 1 mg PO Q4H PRN PRN Reason: Delirium Haloperidol Lactate (Haloperidol Lactate Oral Conc 10 Mg/5 Ml Oral.Conc) 1 mg PO TID PRN PRN Reason: Psychosis Lorazepam (Lorazepam 1 Mg Tablet) 1 mg PO Q4H PRN PRN Reason: Myoclonic twitching/anxiety Magnesium Hydroxide (Milk Of Magnesia 30 Ml Oral.Susp) 30 ml PO DAILY PRN PRN Reason: Constipation Olanzapine (Olanzapine 10 Mg Vial) 5 mg IM DAILY PRN PRN Reason: agitation Last Admin: 02/06/24 20:40 Dose: 5 mg Documented By: DALE Omeprazole (Omeprazole 40 Mg Capsule.Dr) 40 mg PO DAILY@0630 [facility] Last Admin: 02/07/24 05:33 Dose: Not Given Documented By: ADLE Non-Admin Reason: Patient Refused Oxycodone HCl (Oxycodone Hcl Immed Release 5 Mg Tablet) 5 mg PO Q4H PRN PRN Reason: Pain, Moderate(Pain Scale 4-6) Sodium Chloride (0.9 % Sodium Chloride Flush 3 Ml Syringe) 3 ml IVFLUSH QSHIFT [facility] Last Admin: 02/07/24 09:10 Dose: 3 ml Documented By: RIKA Thiamine HCl (Thiamine Hcl 100 Mg Tablet) 100 mg PO DAILY [facility] Last Admin: 02/07/24 09:10 Dose: 100 mg Documented By: RIKA Trazodone HCl (Trazodone Hcl 50 Mg Tablet) 50 mg PO BEDTIME MRX1 PRN PRN Reason: Insomnia Assessment and Plan (1) Dementia, unspecified, with behavioral disturbance: Status: Acute Plan 78M PMH alcoholic dementia presented from [facility] for increased needs to provide end of life care advanced alcoholic dementia with agitation continue haldol, ativan po as able to take zyprexa IM prn plan to find outpatient hospice placement DNR/DNI reason for continued hospitalization: end of life care, safe dispo Quality Stroke Does the patient have a stroke diagnosis?: No VTE Prior VTE?: No VTE Risk Level:: Medical - moderate - high VTE Device Contraindication: Treatment Not Indicated VTE Drug Contraindication: Treatment Not Indicated
--- NOTE | 2024-02-07 10:55 | P.CDIM_ITS ---
PROVIDER RESPONSE TEXT: To clarify, the appropriate diagnosis supported by the clinical indicators: Pressure (decubitus) ulcer QUERY TEXT: PHYSICIAN'S DOCUMENTATION REQUEST Date of Query: 02/07/2024 10:46 AM EDT Patient Name: Maryana Rivera Admit Date: 02/03/2024 Dear Ernst Baxter, A review of the medical record indicates additional documentation may be needed. Please review below and update the documentation accordingly. Clinical Indicators: Per Nursing Pressure Injury Assessment stage chronic wound sacrum Foam dressing Based on the above, could you please provide further information regarding the type of ulcer/wound: Pressure (decubitus) ulcer Traumatic wound Please specify the location and laterality of the ulcer/wound Other (explain) Clinically unable to determine (explain) Thank you, Nikia Blanco RN Use of terms such as suspected, likely, concern for, or probable (associated with a specific diagnosi s that is being evaluated, monitored, or treated as if it exists) are acceptable and can be coded in the inpatient se tting, when documented at the time of discharge. Please use your independent medical judgment in providing your response. THIS QUERY IS PART OF THE PERMANENT MEDICAL RECORD
--- NOTE | 2024-02-07 12:30 | MHC.CM.PN ---
Addendum entered by Lisa Harris 02/07/24 13:40: [facility] WILLING TO FOLLOW UNTIL THEY CAN REVIEW A MH GEREMIAS. Original Note: CM SENT REQUEST TO [facility] [employer]SEL[employer] TO BEGIN PROCESS FOR MH GEREMIAS FOR LTC PLACEMENT FOR HOSPICE CARE. CM WILL CONTINUE TO FOLLOW
--- NOTE | 2024-02-07 13:19 | HO.WOUND ---
Wound Consult: Follow up 78yr old?Male admitted [place] [facility] [place]/24 to the inpatient behavioral health unit recently transfered to inpatient Medical unit - See progress notes and H&P for detailed history.? Wound consult placed for coccyx wound.? Patient was nonresponsiveto his environment while at bedside - staff report this is his baseline at this time. Overall appears malnourished and cachectic. ? Sacrum / Coccyx Etiology: ?Coccyx - Stage 2 pressure Injury Wound Bed: pink partial thickness tissue loss Drainage / Odor:No drainage noted when dressing removed Edges: ? macerated Edie wound: Macerated - intact - darker pigmentation noted - ? No Induration, Fluctuance or Warmth noted Pain: Pt did not respond during my assessment Goals of Treatment: ? Triad to aid in moist wound healing and foam dressing to protect from moisture and friction and aid in off loading pressure. Recommendations: 1. Turn and Reposition every 2 hours and as needed for patient comfort.? Use pillows or wedges to support off loading positions. 2. Off Load all bony prominences with use of pillows and heel boots if needed.? Apply Preventative foams where needed. ? 3. Monitor for incontinence and moisture control, use barrier creams when needed for prevention and treatment. 4. Provide adequate and supplemental nutrition.? 5. Order or Continue low air loss mattress. 6. When applicable maintain blood glucose levels per Providers order. 7. Coccyx - Off Load Pressure - Discontinue Brief Use - this traps moisture and heat putting patient at increased risk of injury development. Cleanse with PH balance spray or wipes, pat dry. ?Apply thin layer of Triad (Storeroom # [id number]) to wound bed. Do not remove all of paste between applications as this may cause further skin damage.? Cover with foam dressing to aid in off loading and protection from friction. Use waffle cushion if up to recliner chair. Re-consult wound care Nurse for wound deterioration or wound changes.
--- NOTE | 2024-02-07 13:21 | HO.WOUND ---
This note was unfortunatly deleated and this is the original note from 01/31/24 @1918. Wound Consult: Initial 78yr old?Male admitted to [facility] on 01/19/24 to the inpatient behavioral health unit - See progress notes and H&P for detailed history.? Wound consult placed for coccyx wound.? Patient was nonresponsiveto his environment while at bedside - staff report this is his baseline at this time. Overall appears malnourished and cachectic. ? Sacrum / Coccyx Etiology: ?Coccyx - Stage 2 pressure Injury Wound Bed: pink partial thickness tissue loss Drainage / Odor: [place] drainage noted on dressing when removed Edges: ? macerated Edie wound: Macerated - intact - darker pigmentation noted - ? No Induration, Fluctuance or Warmth noted Pain: Pt did not respond during my assessment Goals of Treatment: ? Triad to aid in moist wound healing and foam dressing to protect from moisture and friction and aid in off loading pressure. Recommendations: 1. Turn and Reposition every 2 hours and as needed for patient comfort.? Use pillows or wedges to support off loading positions. 2. Off Load all bony prominences with use of pillows and heel boots if needed.? Apply Preventative foams where needed. ? 3. Monitor for incontinence and moisture control, use barrier creams when needed for prevention and treatment. 4. Provide adequate and supplemental nutrition.? 5. Order or Continue low air loss mattress. 6. When applicable maintain blood glucose levels per Providers order. 7. Coccyx - Off Load Pressure - Discontinue Brief Use - this traps moisture and heat putting patient at increased risk of injury development. Cleanse with PH balance spray or wipes, pat dry. ?Apply thin layer of Triad (Storeroom # [id number]) to wound bed. Do not remove all of paste between applications as this may cause further skin damage.? Cover with foam dressing to aid in off loading and protection from friction. Use waffle cushion if up to recliner chair. Re-consult wound care Nurse for wound deterioration or wound changes.
--- NOTE | 2024-02-07 13:23 | HO.WOUND ---
Wound Consult: Follow up 78yr old?Male admitted to [place] on 01/19/24 to the inpatient behavioral health unit recently transferred to an inpatient Medical unit - See progress notes and H&P for detailed history.? Wound consult placed for coccyx wound.? Patient was non-responsive to his environment while at bedside - staff report this is his baseline at this time. Overall appears malnourished and cachectic. Of note patient was in a brief - discontinued and discussed with direct care team. ? Sacrum / Coccyx Etiology: ?Coccyx - Stage 2 pressure Injury Wound Bed: pink partial thickness tissue loss Drainage / Odor:No drainage noted when dressing removed Edges: ? macerated Edie wound: Macerated - intact - darker pigmentation noted - ? No Induration, Fluctuance or Warmth noted Pain: Pt did not respond during my assessment Goals of Treatment: ? Triad to aid in moist wound healing and foam dressing to protect from moisture and friction and aid in off loading pressure. No new topical recommendations needed at this time. Recommendations: 1. Turn and Reposition every 2 hours and as needed for patient comfort.? Use pillows or wedges to support off loading positions. 2. Off Load all bony prominences with use of pillows and heel boots if needed.? Apply Preventative foams where needed. ? 3. Monitor for incontinence and moisture control, use barrier creams when needed for prevention and treatment. 4. Provide adequate and supplemental nutrition.? 5. Order or Continue low air loss mattress. 6. When applicable maintain blood glucose levels per Providers order. 7. Coccyx - Off Load Pressure - Discontinue Brief Use - this traps moisture and heat putting patient at increased risk of injury development. Cleanse with PH balance spray or wipes, pat dry. ?Apply thin layer of Triad (Storeroom # [id number]) to wound bed. Do not remove all of paste between applications as this may cause further skin damage.? Cover with foam dressing to aid in off loading and protection from friction. Use waffle cushion if up to recliner chair. Re-consult wound care Nurse for wound deterioration or wound changes.
[2024-02-07 14:53] VITALS: BP 160/90; PULSE 83; RESP 18; TEMP 36.1; O2SAT 94
[2024-02-07 19:04] VITALS: BP 139/68; PULSE 70; RESP 18; TEMP 36.3; O2SAT 94
[2024-02-08 03:29] VITALS: BP 136/72; PULSE 74; RESP 18; TEMP 36.4; O2SAT 92
[2024-02-08 07:18] VITALS: BP 145/79; PULSE 75; RESP 12; TEMP 34.8; O2SAT 99
[2024-02-08] MEDS: 0.9 % Sodium Chloride Flush 3 ML SYRINGE IVFLUSH ×3 (08:24→23:49)
--- NOTE | 2024-02-08 10:18 | PM.PSYCN ---
History of Present Illness Date of Service: t Chief Complaint: Agitation Reason for Consult: Management of agitation Requesting physician: Trey Anne Discussed with referring provider: Yes Sources of Information: patient interviewed, chart reviewed and crisis/core team assessment reviewed HPI Narrative: The patient is a 78-year-old male with a past history of dementia initially admitted to Psychiatry for altered mental status and transfer to [facility] for management of end of life care. The patient is on comfort care measures only and the family has already signed the proper documentation. The patient at this moment has terminal dementia and he is waiting for hospice. The primary team called for consultation for management of agitation. The patient had been refusing p.o. medications and at night he gets more agitated. We discussed with the primary team treatment options and he they agreed to change from haloperidol to olanzapine to make him feel more comfortable. On assessment the patient is severely demented unable to engage in conversation. Past Psychiatric History: dementia with confusion, MDD, and ETOH heavy use per record. Medical Evaluation Reviewed: Yes Review of Systems Review of Systems Yes Unobtainable due to mental status PMFSH Medical History Alcohol use disorder Diabetic neuropathy Hyponatremia Hypomagnesemia Diabetes HTN (hypertension) Family History: lives with Becky Rivera [phone] Social History: No prior psychiatric history, he had been having dementia symptoms for the last couple of years but it worsened in the last. The patient has good social support provided by his family. Substance History: Remote history of alcohol abuse Trauma History: unknown Diagnostics Vital Signs (24Hr): Vital Signs - 24 hr 02/07/24 14:53 02/07/24 19:04 02/08/24 03:29 Temperature 97 F 97.3 F 97.5 F Pulse Rate 83 70 74 Respiratory Rate 18 18 18 Blood Pressure 160/90 H 139/68 136/72 Pulse Oximetry 94 94 92 Oxygen Delivery Method Room Air Room Air Room Air 02/08/24 07:18 Temperature 94.7 F L Pulse Rate 75 Respiratory Rate 12 Blood Pressure 145/79 H Pulse Oximetry 99 Oxygen Delivery Method Room Air BMI result Body Mass Index 20.0 Mental Status Exam Mental Status Exam Patient Appearance: Appropriate (On hospital gowns) Patient Orientation: Person Level of Consciousness: Awake Patient Behavior: Guarded and Passive Mood Description: Withdrawn Affect Description: Blunted Patient Cognition Impaired: Yes Ability to Follow Directions: Poor Speech Pattern: No Speech Hallucinations: None Delusions: Not Present Thought Process: Distracted and Slowed Thinking Thought Content: positive for Poverty of Content and positive for Thought Blocking Judgement: Poor Medications Medications Current Medications Acetaminophen (Acetaminophen 325 Mg Tablet) 650 mg PO Q6H PRN PRN Reason: Pain, Mild (Pain Scale 1-3) Al Hydroxide/Mg Hydroxide (Magnesium Hydrox/Alum Hydrox 30 Ml Oral.Susp) 30 ml PO Q6H PRN PRN Reason: Heartburn/Nausea Docusate Sodium (Docusate Sodium 100 Mg Capsule) 100 mg PO BEDTIME [facility] Last Admin: 02/07/24 20:23 Dose: Not Given Haloperidol (Haloperidol 1 Mg Tablet) 1 mg PO Q4H PRN PRN Reason: Delirium Lorazepam (Lorazepam 1 Mg Tablet) 1 mg PO Q4H PRN PRN Reason: Myoclonic twitching/anxiety Olanzapine (Olanzapine 10 Mg Vial) 5 mg IM Q8H PRN PRN Reason: anxiety/restlessness Oxycodone HCl (Oxycodone Hcl Immed Release 5 Mg Tablet) 5 mg PO Q4H PRN PRN Reason: Pain, Moderate(Pain Scale 4-6) Sodium Chloride (0.9 % Sodium Chloride Flush 3 Ml Syringe) 3 ml IVFLUSH QSHIFT [facility] Last Admin: 02/08/24 08:24 Dose: 3 ml Trazodone HCl (Trazodone Hcl 50 Mg Tablet) 50 mg PO BEDTIME MRX1 PRN PRN Reason: Insomnia Allergies Allergies Allergy/AdvReac Type Severity Reaction Status Date / Time No Known Allergies Allergy Verified 01/19/24 21:18 Assessment & Plan Assessment & Plan (1) Dementia, unspecified, with behavioral disturbance: Status: Acute Code(s): F03.918 - Unspecified dementia, unspecified severity, with other behavioral disturbance Plan The patient is a 78-year-old male with terminal dementia and other medical comorbidities transferred from Psychiatry to the medical unit for management of end of life care. The present consult was ask for options regarding medication management for sporadic agitation. The mental status exam shown no changes in the prior assessment that we did before he was transferred. Plan 1. The patient is on comfort care measures, we will review the list of antipsychotics and we will change it to Zyprexa Zydis 5 mg p.o. Q 4 hours p.r.n. agitation. 2. Continue with discharge planning to hospice. 3. Reassessment as demand Total time managing care of this patient today __30__ minutes. Informed Consent: does not understand
--- NOTE | 2024-02-08 12:10 | MHC.CM.PN ---
[facility] are following for [facility]. Patient will receive Hospice in the facility. Financial consult referred. MARIANA Galindo via BLS once [facility] in place.
--- NOTE | 2024-02-08 12:11 | HO.PM.IMPN ---
Subjective Subjective Date of Service: 02/08/24 Interval History: Seen and evaluated this morning refusing meds had some rough night as he did not fell sleep Physical Exam Vital Signs: Vital Signs: Last Vital Signs Temp 94.7 F L 02/08/24 07:18 Pulse 75 02/08/24 07:18 Resp 12 02/08/24 07:18 BP 145/79 H 02/08/24 07:18 Pulse Ox 99 02/08/24 07:18 O2 Del Method Room Air 02/08/24 07:18 O2 Flow Rate 2 02/06/24 15:44 BMI result Body Mass Index 20.0 Const: Other: Constitutional : interactive, not in distress Cardiovascular : no JVP, no lower extremity edema Respiratory : bilateral chest movement, not in resp distress Gastrointestinal: soft, lax, Non tender Skin : Warm, Dry Neurological : Alert & disoriented , No focal deficit Objective Data Active Medications Acetaminophen (Acetaminophen 325 Mg Tablet) 650 mg PO Q6H PRN PRN Reason: Pain, Mild (Pain Scale 1-3) Al Hydroxide/Mg Hydroxide (Magnesium Hydrox/Alum Hydrox 30 Ml Oral.Susp) 30 ml PO Q6H PRN PRN Reason: Heartburn/Nausea Docusate Sodium (Docusate Sodium 100 Mg Capsule) 100 mg PO BEDTIME [facility] Last Admin: 02/07/24 20:23 Dose: Not Given Documented By: PARK Non-Admin Reason: unable to crush Lorazepam (Lorazepam 1 Mg Tablet) 1 mg PO Q4H PRN PRN Reason: Myoclonic twitching/anxiety Olanzapine (Olanzapine 10 Mg Vial) 5 mg IM Q8H PRN PRN Reason: anxiety/restlessness Olanzapine (Olanzapine Odt 10 Mg Tab.Rapdis) 5 mg TRANSLINGU Q4H PRN PRN Reason: Psychosis Oxycodone HCl (Oxycodone Hcl Immed Release 5 Mg Tablet) 5 mg PO Q4H PRN PRN Reason: Pain, Moderate(Pain Scale 4-6) Sodium Chloride (0.9 % Sodium Chloride Flush 3 Ml Syringe) 3 ml IVFLUSH QSHIFT [facility] Last Admin: 02/08/24 08:24 Dose: 3 ml Documented By: RAINE Trazodone HCl (Trazodone Hcl 50 Mg Tablet) 50 mg PO BEDTIME MRX1 PRN PRN Reason: Insomnia Assessment and Plan (1) Dementia, unspecified, with behavioral disturbance: Status: Acute Plan 78M PMH alcoholic dementia presented from [facility] for increased needs to provide end of life care advanced alcoholic dementia with agitation DC haldol Keep ativan po as able to take zyprexa IM and PO prn PEnding outpatient hospice placement Psychiatry evaluation DNR/DNI reason for continued hospitalization: end of life care, safe dispo Quality Stroke Does the patient have a stroke diagnosis?: No VTE Prior VTE?: No VTE Risk Level:: Medical - moderate - high VTE Device Contraindication: Treatment Not Indicated VTE Drug Contraindication: Treatment Not Indicated
[2024-02-08 15:49] VITALS: BP 139/85; PULSE 72; RESP 18; TEMP 37.1; O2SAT 100
[2024-02-08 19:17] VITALS: BP 145/81; PULSE 74; RESP 18; TEMP 36.4; O2SAT 100
[2024-02-09 04:00] VITALS: BP 145/79; PULSE 79; RESP 18; TEMP 36.3; O2SAT 92
[2024-02-09 07:42] VITALS: BP 135/65; PULSE 81; RESP 16; TEMP 36.2; O2SAT 93
[2024-02-09] MEDS: 0.9 % Sodium Chloride Flush 3 ML SYRINGE IVFLUSH ×2 (08:04→15:58)
--- NOTE | 2024-02-09 12:02 | HO.PM.IMPN ---
Subjective Subjective Date of Service: 02/09/24 Interval History: Seen and evaluated this morning not in distress, sleeping soundly not requiring agitation medications at night Review of Systems Review of Systems: Yes Unobtainable due to mental status Physical Exam Vital Signs: Vital Signs: Last Vital Signs Temp 97.1 F 02/09/24 07:42 Pulse 81 02/09/24 07:42 Resp 16 02/09/24 07:42 BP 135/65 02/09/24 07:42 Pulse Ox 93 02/09/24 07:42 O2 Del Method Room Air 02/09/24 07:42 O2 Flow Rate 2 02/06/24 15:44 BMI result Body Mass Index 20.0 Const: Other: Constitutional : sleeping, not in distress Cardiovascular : no JVP, no lower extremity edema Respiratory : bilateral chest movement, not in resp distress Gastrointestinal: soft, lax, Non tender Skin : Warm, Dry Neurological : No focal deficit Objective Data Active Medications Acetaminophen (Acetaminophen 325 Mg Tablet) 650 mg PO Q6H PRN PRN Reason: Pain, Mild (Pain Scale 1-3) Al Hydroxide/Mg Hydroxide (Magnesium Hydrox/Alum Hydrox 30 Ml Oral.Susp) 30 ml PO Q6H PRN PRN Reason: Heartburn/Nausea Docusate Sodium (Docusate Sodium 100 Mg Capsule) 100 mg PO BEDTIME [facility] Last Admin: 02/08/24 21:15 Dose: Not Given Documented By: SHEN Non-Admin Reason: Patient Refused Lorazepam (Lorazepam 1 Mg Tablet) 1 mg PO Q4H PRN PRN Reason: Myoclonic twitching/anxiety Olanzapine (Olanzapine 10 Mg Vial) 5 mg IM Q8H PRN PRN Reason: anxiety/restlessness Olanzapine (Olanzapine Odt 10 Mg Tab.Rapdis) 5 mg TRANSLINGU Q4H PRN PRN Reason: Psychosis Oxycodone HCl (Oxycodone Hcl Immed Release 5 Mg Tablet) 5 mg PO Q4H PRN PRN Reason: Pain, Moderate(Pain Scale 4-6) Sodium Chloride (0.9 % Sodium Chloride Flush 3 Ml Syringe) 3 ml IVFLUSH QSHIFT [facility] Last Admin: 02/09/24 08:04 Dose: 3 ml Documented By: CECILIA Trazodone HCl (Trazodone Hcl 50 Mg Tablet) 50 mg PO BEDTIME MRX1 PRN PRN Reason: Insomnia Assessment and Plan (1) Dementia, unspecified, with behavioral disturbance: Status: Acute Plan 78M PMH alcoholic dementia presented from [facility] for increased needs to provide end of life care advanced alcoholic dementia with agitation DC haldol ativan po PRN zyprexa IM and PO prn PEnding outpatient hospice placement Psychiatry evaluation DNR/DNI reason for continued hospitalization: end of life care, safe dispo Quality Stroke Does the patient have a stroke diagnosis?: No VTE Prior VTE?: No VTE Risk Level:: Medical - moderate - high VTE Device Contraindication: Treatment Not Indicated VTE Drug Contraindication: Treatment Not Indicated
--- NOTE | 2024-02-09 14:33 | MHC.CM.PN ---
Follow up with Financial dark room attendant. Referral had not been received 02/06. Referral and 's contact info provided to [place].
[2024-02-09 15:29] VITALS: BP 141/74; PULSE 82; RESP 16; TEMP 36.4; O2SAT 100
[2024-02-09 19:20] VITALS: BP 131/76; PULSE 81; RESP 16; TEMP 36.4; O2SAT 100
[2024-02-10] MEDS: 0.9 % Sodium Chloride Flush 3 ML SYRINGE IVFLUSH ×4 (00:26→19:27)
[2024-02-10 02:56] VITALS: BP 122/67; PULSE 78; RESP 16; TEMP 36.3; O2SAT 98
[2024-02-10 07:24] VITALS: BP 134/65; PULSE 71; RESP 16; TEMP 36.8; O2SAT 94
--- NOTE | 2024-02-10 10:21 | P.PNIM_ITS ---
Subjective Subjective Date of Service: 02/10/24 Interval History: Seen and evaluated this morning not in distress, sleeping soundly not requiring agitation medications at night Physical Exam Vital Signs: Vital Signs: Last Vital Signs Temp 98.2 F 02/10/24 07:24 Pulse 71 02/10/24 07:24 Resp 16 02/10/24 07:24 BP 134/65 02/10/24 07:24 Pulse Ox 94 02/10/24 07:24 O2 Del Method Room Air 02/10/24 07:24 O2 Flow Rate 2 02/06/24 15:44 BMI result Body Mass Index 20.0 Const: Other: Constitutional : sleeping, not in distress Cardiovascular : no JVP, no lower extremity edema Respiratory : bilateral chest movement, not in resp distress Gastrointestinal: soft, lax, Non tender Skin : Warm, Dry Neurological : No focal deficit Objective Data Active Medications Acetaminophen (Acetaminophen 325 Mg Tablet) 650 mg PO Q6H PRN PRN Reason: Pain, Mild (Pain Scale 1-3) Al Hydroxide/Mg Hydroxide (Magnesium Hydrox/Alum Hydrox 30 Ml Oral.Susp) 30 ml PO Q6H PRN PRN Reason: Heartburn/Nausea Docusate Sodium (Docusate Sodium 100 Mg Capsule) 100 mg PO BEDTIME [facility] Last Admin: 02/09/24 20:44 Dose: Not Given Documented By: SHEN Non-Admin Reason: Patient Refused Lorazepam (Lorazepam 1 Mg Tablet) 1 mg PO Q4H PRN PRN Reason: Myoclonic twitching/anxiety Olanzapine (Olanzapine 10 Mg Vial) 5 mg IM Q8H PRN PRN Reason: anxiety/restlessness Olanzapine (Olanzapine Odt 10 Mg Tab.Rapdis) 5 mg TRANSLINGU Q4H PRN PRN Reason: Psychosis Oxycodone HCl (Oxycodone Hcl Immed Release 5 Mg Tablet) 5 mg PO Q4H PRN PRN Reason: Pain, Moderate(Pain Scale 4-6) Sodium Chloride (0.9 % Sodium Chloride Flush 3 Ml Syringe) 3 ml IVFLUSH QSHIFT [facility] Last Admin: 02/10/24 07:25 Dose: 3 ml Documented By: CECILIA Trazodone HCl (Trazodone Hcl 50 Mg Tablet) 50 mg PO BEDTIME MRX1 PRN PRN Reason: Insomnia Assessment and Plan (1) Dementia, unspecified, with behavioral disturbance: Status: Acute Plan 78M PMH alcoholic dementia presented from [facility] for increased needs to provide end of life care advanced alcoholic dementia with agitation DC haldol ativan po PRN zyprexa IM and PO prn PEnding outpatient hospice placement Psychiatry evaluation DNR/DNI Contacted Mrs Rivera to confirm code status as we confirmed reason for continued hospitalization: end of life care, safe dispo Quality Stroke Does the patient have a stroke diagnosis?: No VTE Prior VTE?: No VTE Risk Level:: Medical - moderate - high VTE Device Contraindication: Treatment Not Indicated VTE Drug Contraindication: Treatment Not Indicated
[2024-02-10 16:00] VITALS: RESP 16
[2024-02-10 19:23] VITALS: RESP 12
[2024-02-10] MEDS: Docusate Sodium 100 MG CAPSULE PO (19:27)
[2024-02-10 19:38] VITALS: RESP 16
[2024-02-10] MEDS: LORazepam 1 MG TABLET PO (23:54)
--- NOTE | 2024-02-11 | PC.NURSE ---
Pt had increased anxiety and agitation later of the night, unredirectible ,attempting to get out of bed, prn Lorazepam po given.
[2024-02-11 03:21] VITALS: RESP 14
[2024-02-11 07:09] VITALS: RESP 16
[2024-02-11] MEDS: 0.9 % Sodium Chloride Flush 3 ML SYRINGE IVFLUSH ×3 (07:27→20:29)
--- NOTE | 2024-02-11 10:29 | HO.PM.IMPN ---
Subjective Subjective Date of Service: 02/11/24 Interval History: Seen and evaluated this morning not in distress, sleeping soundly not requiring agitation medications at night Physical Exam Vital Signs: Vital Signs: Last Vital Signs Temp 98.2 F 02/10/24 07:24 Pulse 71 02/10/24 07:24 Resp 16 02/11/24 07:09 BP 134/65 02/10/24 07:24 Pulse Ox 94 02/10/24 07:24 O2 Del Method Room Air 02/10/24 07:24 O2 Flow Rate 2 02/06/24 15:44 BMI result Body Mass Index 20.0 Const: Other: Constitutional : sleeping, not in distress Cardiovascular : no JVP, no lower extremity edema Respiratory : bilateral chest movement, not in resp distress Gastrointestinal: soft, lax, Non tender Skin : Warm, Dry Neurological : No focal deficit Objective Data Active Medications Acetaminophen (Acetaminophen 325 Mg Tablet) 650 mg PO Q6H PRN PRN Reason: Pain, Mild (Pain Scale 1-3) Al Hydroxide/Mg Hydroxide (Magnesium Hydrox/Alum Hydrox 30 Ml Oral.Susp) 30 ml PO Q6H PRN PRN Reason: Heartburn/Nausea Docusate Sodium (Docusate Sodium 100 Mg Capsule) 100 mg PO BEDTIME [facility] Last Admin: 02/10/24 19:27 Dose: 100 mg Documented By: LYNDON Lorazepam (Lorazepam 1 Mg Tablet) 1 mg PO Q4H PRN PRN Reason: Myoclonic twitching/anxiety Last Admin: 02/10/24 23:54 Dose: 1 mg Documented By: LYNDON Comments: increased anxiety and agitation Olanzapine (Olanzapine 10 Mg Vial) 5 mg IM Q8H PRN PRN Reason: anxiety/restlessness Olanzapine (Olanzapine Odt 10 Mg Tab.Rapdis) 5 mg TRANSLINGU Q4H PRN PRN Reason: Psychosis Oxycodone HCl (Oxycodone Hcl Immed Release 5 Mg Tablet) 5 mg PO Q4H PRN PRN Reason: Pain, Moderate(Pain Scale 4-6) Sodium Chloride (0.9 % Sodium Chloride Flush 3 Ml Syringe) 3 ml IVFLUSH QSHIFT [facility] Last Admin: 02/11/24 07:27 Dose: 3 ml Documented By: CLARIBEL Trazodone HCl (Trazodone Hcl 50 Mg Tablet) 50 mg PO BEDTIME MRX1 PRN PRN Reason: Insomnia Assessment and Plan (1) Dementia, unspecified, with behavioral disturbance: Status: Acute Plan 78M PMH alcoholic dementia presented from [facility] for increased needs to provide end of life care advanced alcoholic dementia with agitation DC haldol ativan po PRN zyprexa IM and PO prn PEnding outpatient hospice placement Psychiatry evaluation DNR/DNI Contacted Mrs Rivera to confirm code status as we confirmed reason for continued hospitalization: end of life care, safe dispo Quality Stroke Does the patient have a stroke diagnosis?: No VTE Prior VTE?: No VTE Risk Level:: Medical - moderate - high VTE Device Contraindication: Treatment Not Indicated VTE Drug Contraindication: Treatment Not Indicated
[2024-02-11] MEDS: OLANZapine ODT 10 MG TAB.RAPDIS 5 MG TRANSLINGU (15:03)
[2024-02-11 15:29] VITALS: RESP 18
--- NOTE | 2024-02-11 15:30 | PC.NURSE ---
Pt having increased anxiety, attempting to get out of bed, not easily redirectable at this time, PRN zyprexa tab given per DEC.
[2024-02-11 19:33] VITALS: RESP 16
[2024-02-11] MEDS: traZODone HCL 50 MG TABLET PO (20:29)
[2024-02-11] MEDS: Docusate Sodium 100 MG CAPSULE PO (20:29)
[2024-02-11] MEDS: LORazepam 1 MG TABLET PO (23:14)
[2024-02-12 04:00] VITALS: BP 134/62; PULSE 77; RESP 16; TEMP 36.2; O2SAT 96
--- NOTE | 2024-02-12 07:40 | PC.NURSE ---
Pt sleeping comfortably .
[2024-02-12] MEDS: 0.9 % Sodium Chloride Flush 3 ML SYRINGE IVFLUSH ×3 (07:43→21:35)
--- NOTE | 2024-02-12 13:06 | P.PNIM_ITS ---
Subjective Subjective Date of Service: 02/12/24 Interval History: Seen and evaluated this morning not in distress, sleeping soundly not requiring agitation medications at night Physical Exam Vital Signs: Vital Signs: Last Vital Signs Temp 97.1 F 02/12/24 04:00 Pulse 77 02/12/24 04:00 Resp 16 02/12/24 04:00 BP 134/62 02/12/24 04:00 Pulse Ox 96 02/12/24 04:00 O2 Del Method Room Air 02/12/24 04:00 O2 Flow Rate 2 02/06/24 15:44 BMI result Body Mass Index 20.0 Const: Other: Constitutional : sleeping, not in distress Cardiovascular : no JVP, no lower extremity edema Respiratory : bilateral chest movement, not in resp distress Gastrointestinal: soft, lax, Non tender Skin : Warm, Dry Neurological : No focal deficit Objective Data Active Medications Acetaminophen (Acetaminophen 325 Mg Tablet) 650 mg PO Q6H PRN PRN Reason: Pain, Mild (Pain Scale 1-3) Al Hydroxide/Mg Hydroxide (Magnesium Hydrox/Alum Hydrox 30 Ml Oral.Susp) 30 ml PO Q6H PRN PRN Reason: Heartburn/Nausea Docusate Sodium (Docusate Sodium 100 Mg Capsule) 100 mg PO BEDTIME [facility] Last Admin: 02/11/24 20:29 Dose: 100 mg Documented By: LYNDON Lorazepam (Lorazepam 1 Mg Tablet) 1 mg PO Q4H PRN PRN Reason: Myoclonic twitching/anxiety Last Admin: 02/11/24 23:14 Dose: 1 mg Documented By: LYNDON Comments: increased anxiety and agitation Olanzapine (Olanzapine 10 Mg Vial) 5 mg IM Q8H PRN PRN Reason: anxiety/restlessness Olanzapine (Olanzapine Odt 10 Mg Tab.Rapdis) 5 mg TRANSLINGU Q4H PRN PRN Reason: Psychosis Last Admin: 02/11/24 15:03 Dose: 5 mg Documented By: CLARIBEL Oxycodone HCl (Oxycodone Hcl Immed Release 5 Mg Tablet) 5 mg PO Q4H PRN PRN Reason: Pain, Moderate(Pain Scale 4-6) Sodium Chloride (0.9 % Sodium Chloride Flush 3 Ml Syringe) [facility] Last Admin: 02/12/24 07:43 Dose: 3 ml Documented By: RAINE Trazodone HCl (Trazodone Hcl 50 Mg Tablet) 50 mg PO BEDTIME MRX1 PRN PRN Reason: Insomnia Last Admin: 02/11/24 20:29 Dose: 50 mg Documented By: LYNDON Assessment and Plan (1) Dementia, unspecified, with behavioral disturbance: Status: Acute Plan 78M PMH alcoholic dementia presented from [facility] for increased needs to provide end of life care advanced alcoholic dementia with agitation DC haldol ativan po PRN zyprexa IM and PO prn PEnding outpatient hospice placement Psychiatry evaluation DNR/DNI Contacted Mrs Rivera to confirm code status as we confirmed reason for continued hospitalization: end of life care, safe dispo Quality Stroke Does the patient have a stroke diagnosis?: No VTE Prior VTE?: No VTE Risk Level:: Medical - moderate - high VTE Device Contraindication: Treatment Not Indicated VTE Drug Contraindication: Treatment Not Indicated
[2024-02-12] MEDS: OLANZapine ODT 10 MG TAB.RAPDIS 5 MG TRANSLINGU (17:20)
[2024-02-12] MEDS: LORazepam 2 MG/ML VIAL 1 MG IVPUSH (19:53)
[2024-02-12 20:00] VITALS: BP 136/62; PULSE 77; RESP 16; TEMP 36.3; O2SAT 92
[2024-02-12] MEDS: Docusate Sodium 100 MG CAPSULE PO (21:31)
[2024-02-12] MEDS: traZODone HCL 50 MG TABLET PO (21:31)
[2024-02-13 03:48] VITALS: BP 139/79; PULSE 85; RESP 16; TEMP 36.3; O2SAT 92
--- NOTE | 2024-02-13 06:35 | PC.NURSE ---
02/12/241949 pt restless trying to climb oob medicated with ativan 1mg IV with good effect.Bed alarm on camera in room.
[2024-02-13 06:44] VITALS: BP 132/74; PULSE 78; RESP 17; TEMP 36.6; O2SAT 93
[2024-02-13] MEDS: 0.9 % Sodium Chloride Flush 3 ML SYRINGE IVFLUSH ×3 (08:54→21:57)
--- NOTE | 2024-02-13 11:53 | HO.PM.IMPN ---
Subjective Subjective Date of Service: 02/13/24 Interval History: Seen and evaluated this morning not in distress, sleeping soundly PRN restlessness medications was used yesterday Review of Systems Review of Systems: Yes all other systems are reviewed and are negative Physical Exam Vital Signs: Vital Signs: Last Vital Signs Temp 98 F 02/13/24 06:44 Pulse 78 02/13/24 06:44 Resp 17 02/13/24 06:44 BP 132/74 02/13/24 06:44 Pulse Ox 93 02/13/24 06:44 O2 Del Method Room Air 02/13/24 06:44 O2 Flow Rate 2 02/06/24 15:44 BMI result Body Mass Index 20.0 Const: Other: Constitutional : sleeping, not in distress Cardiovascular : no JVP, no lower extremity edema Respiratory : bilateral chest movement, not in resp distress Gastrointestinal: soft, lax, Non tender Skin : Warm, Dry Neurological : No focal deficit Objective Data Active Medications Acetaminophen (Acetaminophen 325 Mg Tablet) 650 mg PO Q6H PRN PRN Reason: Pain, Mild (Pain Scale 1-3) Al Hydroxide/Mg Hydroxide (Magnesium Hydrox/Alum Hydrox 30 Ml Oral.Susp) 30 ml PO Q6H PRN PRN Reason: Heartburn/Nausea Docusate Sodium (Docusate Sodium 100 Mg Capsule) 100 mg PO BEDTIME [facility] Last Admin: 02/12/24 21:31 Dose: 100 mg Documented By: KAREN Lorazepam (Lorazepam 2 Mg/Ml Vial) 1 mg IVPUSH Q12H PRN PRN Reason: anxiety/restlessness Last Admin: 02/12/24 19:53 Dose: 1 mg Documented By: KAREN Olanzapine (Olanzapine 10 Mg Vial) 5 mg IM Q8H PRN PRN Reason: anxiety/restlessness Olanzapine (Olanzapine Odt 10 Mg Tab.Rapdis) 5 mg TRANSLINGU Q4H PRN PRN Reason: Psychosis Last Admin: 02/12/24 17:20 Dose: 5 mg Documented By: RAINE Sodium Chloride (0.9 % Sodium Chloride Flush 3 Ml Syringe) 3 ml IVFLUSH QSHIFT [facility] Last Admin: 02/13/24 08:54 Dose: 3 ml Documented By: REYNA Trazodone HCl (Trazodone Hcl 50 Mg Tablet) 50 mg PO BEDTIME MRX1 PRN PRN Reason: Insomnia Last Admin: 02/12/24 21:31 Dose: 50 mg Documented By: KAREN Assessment and Plan (1) Dementia, unspecified, with behavioral disturbance: Status: Acute Plan 78M PMH alcoholic dementia presented from [facility] for increased needs to provide end of life care advanced alcoholic dementia with agitation DC haldol ativan PRN zyprexa IM and PO prn PEnding outpatient hospice placement Psychiatry evaluation DNR/DNI Contacted Mrs Rivera to confirm code status as we confirmed reason for continued hospitalization: end of life care, safe dispo Quality Stroke Does the patient have a stroke diagnosis?: No VTE Prior VTE?: No VTE Risk Level:: Medical - moderate - high VTE Device Contraindication: Treatment Not Indicated VTE Drug Contraindication: Treatment Not Indicated
--- NOTE | 2024-02-13 13:23 | MHC.CM.PN ---
pt remains ready for dc with no payor source
[2024-02-13 15:29] VITALS: RESP 16
[2024-02-13] MEDS: traZODone HCL 50 MG TABLET PO (21:55)
[2024-02-13] MEDS: Docusate Sodium 100 MG CAPSULE PO (21:55)
[2024-02-13] MEDS: LORazepam 2 MG/ML VIAL 1 MG IVPUSH (22:04)
[2024-02-14 06:52] VITALS: BP 139/84; PULSE 97; RESP 15; TEMP 36.6; O2SAT 96
[2024-02-14] MEDS: 0.9 % Sodium Chloride Flush 3 ML SYRINGE IVFLUSH ×3 (08:43→23:49)
--- NOTE | 2024-02-14 11:45 | HO.PM.IMPN ---
Subjective Subjective Date of Service: 02/14/24 Interval History: Seen and evaluated this morning not in distress, sleeping soundly PRN restlessness medications was used yesterday Physical Exam Vital Signs: Vital Signs: Last Vital Signs Temp 97.9 F 02/14/24 06:52 Pulse 97 02/14/24 06:52 Resp 15 02/14/24 06:52 BP 139/84 02/14/24 06:52 Pulse Ox 96 02/14/24 06:52 O2 Del Method Room Air 02/14/24 06:52 O2 Flow Rate 2 02/06/24 15:44 BMI result Body Mass Index 20.0 Const: Other: Constitutional : sleeping, not in distress Cardiovascular : no JVP, no lower extremity edema Respiratory : bilateral chest movement, not in resp distress Skin : Warm, Dry Neurological : No focal deficit Objective Data Active Medications Acetaminophen (Acetaminophen 325 Mg Tablet) 650 mg PO Q6H PRN PRN Reason: Pain, Mild (Pain Scale 1-3) Al Hydroxide/Mg Hydroxide (Magnesium Hydrox/Alum Hydrox 30 Ml Oral.Susp) 30 ml PO Q6H PRN PRN Reason: Heartburn/Nausea Docusate Sodium (Docusate Sodium 100 Mg Capsule) 100 mg PO BEDTIME [facility] Last Admin: 02/13/24 21:55 Dose: 100 mg Documented By: KAREN Lorazepam (Lorazepam 2 Mg/Ml Vial) 1 mg IVPUSH Q12H PRN PRN Reason: anxiety/restlessness Last Admin: 02/13/24 22:04 Dose: 1 mg Documented By: KAREN Olanzapine (Olanzapine 10 Mg Vial) 5 mg IM Q8H PRN PRN Reason: anxiety/restlessness Olanzapine (Olanzapine Odt 10 Mg Tab.Rapdis) 5 mg TRANSLINGU Q4H PRN PRN Reason: Psychosis Last Admin: 02/12/24 17:20 Dose: 5 mg Documented By: RAINE Sodium Chloride (0.9 % Sodium Chloride Flush 3 Ml Syringe) 3 ml IVFLUSH QSHIFT [facility] Last Admin: 02/14/24 08:43 Dose: 3 ml Documented By: AMBER Trazodone HCl (Trazodone Hcl 50 Mg Tablet) 50 mg PO BEDTIME MRX1 PRN PRN Reason: Insomnia Last Admin: 02/13/24 21:55 Dose: 50 mg Documented By: KAREN Assessment and Plan (1) Dementia, unspecified, with behavioral disturbance: Status: Acute Plan 78M PMH alcoholic dementia presented from [facility] for increased needs to provide end of life care advanced alcoholic dementia with agitation DC haldol ativan PRN zyprexa IM and PO prn PEnding outpatient hospice placement Psychiatry evaluation DNR/DNI Contacted Mrs Rivera to confirm code status as we confirmed reason for continued hospitalization: end of life care, safe dispo Quality Stroke Does the patient have a stroke diagnosis?: No VTE Prior VTE?: No VTE Risk Level:: Medical - moderate - high VTE Device Contraindication: Treatment Not Indicated VTE Drug Contraindication: Treatment Not Indicated
--- NOTE | 2024-02-14 12:33 | MHC.CM.PN ---
This entry writer placed call to patient's regarding not returning VM from financial counselors in order to complete [employer] application. denies receiving VM. Provided her w/ contact information. HINN-12 was also provided to w/ Medicare # if she chooses to appeal. Discussed with that patient not longer meet acute hospital level of care and in-order for patient to transition to the next site of care, family would need to privately pay for LTC or complete the [employer] application. She verbalized understanding. Call placed to financial counselors to provide update.
[2024-02-14 19:13] VITALS: RESP 22
[2024-02-15 03:53] VITALS: RESP 14
--- NOTE | 2024-02-15 05:16 | PC.NURSE ---
0515- PATIENT SLEPT WITH NO S/SX RESP DISTRESS SINCE 2300, NON VERBAL DURING THIS TIME, RR 16, LUNG POWERS DIM THROUGH OUT, AIR LOSS MATTRESS IN USE, REPOSITIONED AND MONITORED CLOSELY.
[2024-02-15 06:44] VITALS: BP 126/73; PULSE 89; RESP 15; TEMP 36.6; O2SAT 96
[2024-02-15] MEDS: 0.9 % Sodium Chloride Flush 3 ML SYRINGE IVFLUSH ×2 (10:14→16:02)
--- NOTE | 2024-02-15 11:07 | P.PNIM_ITS ---
Subjective Subjective Date of Service: 02/15/24 Interval History: Not participatory Physical Exam Vital Signs: Vital Signs: Last Vital Signs Temp 98 F 02/15/24 06:44 Pulse 89 02/15/24 06:44 Resp 15 02/15/24 06:44 BP 126/73 02/15/24 06:44 Pulse Ox 96 02/15/24 06:44 O2 Del Method Room Air 02/15/24 06:44 O2 Flow Rate 2 02/06/24 15:44 BMI result Body Mass Index 20.0 Const: Other: Constitutional : sleeping, not in distress Cardiovascular : no JVP, no lower extremity edema Respiratory : bilateral chest movement, not in resp distress Skin : Warm, Dry Neurological : No focal deficit Objective Data Active Medications Acetaminophen (Acetaminophen 325 Mg Tablet) 650 mg PO Q6H PRN PRN Reason: Pain, Mild (Pain Scale 1-3) Al Hydroxide/Mg Hydroxide (Magnesium Hydrox/Alum Hydrox 30 Ml Oral.Susp) 30 ml PO Q6H PRN PRN Reason: Heartburn/Nausea Docusate Sodium (Docusate Sodium 100 Mg Capsule) 100 mg PO BEDTIME [facility] Last Admin: 02/14/24 20:22 Dose: Not Given Documented By: CYNTHIA Non-Admin Reason: lethargic Lorazepam (Lorazepam 2 Mg/Ml Vial) 1 mg IVPUSH Q12H PRN PRN Reason: anxiety/restlessness Last Admin: 02/13/24 22:04 Dose: 1 mg Documented By: KAREN Olanzapine (Olanzapine 10 Mg Vial) 5 mg IM Q8H PRN PRN Reason: anxiety/restlessness Olanzapine (Olanzapine Odt 10 Mg Tab.Rapdis) 5 mg TRANSLINGU Q4H PRN PRN Reason: Psychosis Last Admin: 02/12/24 17:20 Dose: 5 mg Documented By: RAINE Sodium Chloride (0.9 % Sodium Chloride Flush 3 Ml Syringe) 3 ml IVFLUSH QSHIFT [facility] Last Admin: 02/15/24 10:14 Dose: 3 ml Documented By: AMBER Trazodone HCl (Trazodone Hcl 50 Mg Tablet) 50 mg PO BEDTIME MRX1 PRN PRN Reason: Insomnia Last Admin: 02/13/24 21:55 Dose: 50 mg Documented By: KAREN Assessment and Plan (1) Dementia, unspecified, with behavioral disturbance: Status: Acute Plan 78M PMH alcoholic dementia presented from [facility] for increased needs to provide end of life care advanced alcoholic dementia with agitation ativan PRN zyprexa IM and PO prn Pending outpatient hospice placement Psychiatry appreciated DNR/DNI reason for continued hospitalization: end of life care, safe dispo Quality Stroke Does the patient have a stroke diagnosis?: No VTE Prior VTE?: No VTE Risk Level:: Medical - moderate - high VTE Device Contraindication: Treatment Not Indicated VTE Drug Contraindication: Treatment Not Indicated
--- NOTE | 2024-02-15 12:40 | MHC.CM.PN ---
EMR REVIEWED. CM REACHED OUT TO [facility] [place] FOR UPDATE IF FAMILY HAS PROVIDED ANY FURTHER DOCUMENTS TO COMPLETE MH GEREMIAS. CM WILL CONTINUE TO FOLLOW FOR ANY CHANGE TO DC PLAN.
--- NOTE | 2024-02-15 15:42 | PC.NURSE ---
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 Ok to leave in per Dr. Baxter.
[2024-02-16] MEDS: 0.9 % Sodium Chloride Flush 3 ML SYRINGE IVFLUSH ×4 (00:25→23:31)
[2024-02-16 02:53] VITALS: RESP 16
[2024-02-16 04:25] VITALS: RESP 14
--- NOTE | 2024-02-16 09:46 | P.PNIM_ITS ---
Subjective Subjective Date of Service: 02/16/24 Interval History: Not participatory Physical Exam Vital Signs: Vital Signs: Last Vital Signs Temp 98 F 02/15/24 06:44 Pulse 89 02/15/24 06:44 Resp 14 02/16/24 04:25 BP 126/73 02/15/24 06:44 Pulse Ox 96 02/15/24 06:44 O2 Del Method Room Air 02/15/24 06:44 O2 Flow Rate 2 02/06/24 15:44 BMI result Body Mass Index 20.0 Const: Other: Constitutional : sleeping, not in distress Cardiovascular : no JVP, no lower extremity edema Respiratory : bilateral chest movement, not in resp distress Skin : Warm, Dry Neurological : No focal deficit Objective Data Active Medications Acetaminophen (Acetaminophen 325 Mg Tablet) 650 mg PO Q6H PRN PRN Reason: Pain, Mild (Pain Scale 1-3) Al Hydroxide/Mg Hydroxide (Magnesium Hydrox/Alum Hydrox 30 Ml Oral.Susp) 30 ml PO Q6H PRN PRN Reason: Heartburn/Nausea Docusate Sodium (Docusate Sodium 100 Mg Capsule) 100 mg PO BEDTIME [facility] Last Admin: 02/15/24 19:59 Dose: Not Given Documented By: CYNTHIA Non-Admin Reason: Patient Asleep Lorazepam (Lorazepam 2 Mg/Ml Vial) 1 mg IVPUSH Q12H PRN PRN Reason: anxiety/restlessness Last Admin: 02/13/24 22:04 Dose: 1 mg Documented By: KAREN Olanzapine (Olanzapine 10 Mg Vial) 5 mg IM Q8H PRN PRN Reason: anxiety/restlessness Olanzapine (Olanzapine Odt 10 Mg Tab.Rapdis) 5 mg TRANSLINGU Q4H PRN PRN Reason: Psychosis Last Admin: 02/12/24 17:20 Dose: 5 mg Documented By: VARUNINEMELY Sodium Chloride (0.9 % Sodium Chloride Flush 3 Ml Syringe) 3 ml IVFLUSH QSHIFT [facility] Last Admin: 02/16/24 08:58 Dose: 3 ml Documented By: CLARIBEL Trazodone HCl (Trazodone Hcl 50 Mg Tablet) 50 mg PO BEDTIME MRX1 PRN PRN Reason: Insomnia Last Admin: 02/13/24 21:55 Dose: 50 mg Documented By: KAREN Assessment and Plan (1) Dementia, unspecified, with behavioral disturbance: Status: Acute Plan 78M PMH alcoholic dementia presented from [facility] for increased needs to provide end of life care advanced alcoholic dementia with agitation ativan PRN zyprexa IM and PO prn Pending outpatient hospice placement Psychiatry appreciated DNR/DNI reason for continued hospitalization: end of life care, safe dispo Quality Stroke Does the patient have a stroke diagnosis?: No VTE Prior VTE?: No VTE Risk Level:: Medical - moderate - high VTE Device Contraindication: Treatment Not Indicated VTE Drug Contraindication: Treatment Not Indicated
[2024-02-16 15:27] VITALS: RESP 16
[2024-02-17] MEDS: LORazepam 2 MG/ML VIAL 1 MG IVPUSH (01:44)
[2024-02-17 02:45] VITALS: RESP 18
[2024-02-17 05:30] VITALS: RESP 16
[2024-02-17] MEDS: 0.9 % Sodium Chloride Flush 3 ML SYRINGE IVFLUSH ×2 (07:15→15:36)
--- NOTE | 2024-02-17 10:23 | MHC.CM.PN ---
Patient [employer] requires LTC. A [employer] application is required. Patients has not provided financial info required. 02/14/24 HINN-12 was delivered. DP LTC facility via S pending payor source.
--- NOTE | 2024-02-17 10:36 | HO.PM.IMPN ---
Subjective Subjective Date of Service: 02/17/24 Interval History: Not participatory Physical Exam Vital Signs: Vital Signs: Last Vital Signs Temp 98 F 02/15/24 06:44 Pulse 89 02/15/24 06:44 Resp 16 02/17/24 05:30 BP 126/73 02/15/24 06:44 Pulse Ox 96 02/15/24 06:44 O2 Del Method Room Air 02/15/24 06:44 O2 Flow Rate 2 02/06/24 15:44 BMI result Body Mass Index 20.0 Const: Other: Constitutional : sleeping, not in distress Cardiovascular : no JVP, no lower extremity edema Respiratory : bilateral chest movement, not in resp distress Skin : Warm, Dry Neurological : No focal deficit Objective Data Active Medications Acetaminophen (Acetaminophen 325 Mg Tablet) 650 mg PO Q6H PRN PRN Reason: Pain, Mild (Pain Scale 1-3) Al Hydroxide/Mg Hydroxide (Magnesium Hydrox/Alum Hydrox 30 Ml Oral.Susp) 30 ml PO Q6H PRN PRN Reason: Heartburn/Nausea Docusate Sodium (Docusate Sodium 100 Mg Capsule) 100 mg PO BEDTIME [facility] Last Admin: 02/16/24 19:08 Dose: Not Given Documented By: HAROON Non-Admin Reason: Patient Refused Lorazepam (Lorazepam 2 Mg/Ml Vial) 1 mg IVPUSH Q12H PRN PRN Reason: anxiety/restlessness Last Admin: 02/17/24 01:44 Dose: 1 mg Documented By: MARIA ELENA Olanzapine (Olanzapine 10 Mg Vial) 5 mg IM Q8H PRN PRN Reason: anxiety/restlessness Olanzapine (Olanzapine Odt 10 Mg Tab.Rapdis) 5 mg TRANSLINGU Q4H PRN PRN Reason: Psychosis Last Admin: 02/12/24 17:20 Dose: 5 mg Documented By: VARUNINEMELY Sodium Chloride (0.9 % Sodium Chloride Flush 3 Ml Syringe) 3 ml IVFLUSH QSHIFT [facility] Last Admin: 02/17/24 07:15 Dose: 3 ml Documented By: CLARIBEL Trazodone HCl (Trazodone Hcl 50 Mg Tablet) 50 mg PO BEDTIME MRX1 PRN PRN Reason: Insomnia Last Admin: 02/13/24 21:55 Dose: 50 mg Documented By: KAREN Assessment and Plan (1) Dementia, unspecified, with behavioral disturbance: Status: Acute Plan 78M PMH alcoholic dementia presented from [facility] for increased needs to provide end of life care advanced alcoholic dementia with agitation ativan PRN zyprexa IM and PO prn Pending outpatient hospice placement Psychiatry appreciated DNR/DNI reason for continued hospitalization: end of life care, safe dispo Quality Stroke Does the patient have a stroke diagnosis?: No VTE Prior VTE?: No VTE Risk Level:: Medical - moderate - high VTE Device Contraindication: Treatment Not Indicated VTE Drug Contraindication: Treatment Not Indicated
[2024-02-17 15:08] VITALS: RESP 16
[2024-02-18] MEDS: 0.9 % Sodium Chloride Flush 3 ML SYRINGE IVFLUSH ×4 (01:00→22:48)
[2024-02-18 03:46] VITALS: RESP 16
[2024-02-18 08:00] VITALS: RESP 15
--- NOTE | 2024-02-18 08:59 | HO.PM.IMPN ---
Subjective Subjective Date of Service: 02/18/24 Interval History: Not participatory Physical Exam Vital Signs: Vital Signs: Last Vital Signs Temp 98 F 02/15/24 06:44 Pulse 89 02/15/24 06:44 Resp 15 02/18/24 08:00 BP 126/73 02/15/24 06:44 Pulse Ox 96 02/15/24 06:44 O2 Del Method Room Air 02/15/24 06:44 O2 Flow Rate 2 02/06/24 15:44 BMI result Body Mass Index 20.0 Const: Other: Constitutional : sleeping, not in distress Cardiovascular : no JVP, no lower extremity edema Respiratory : bilateral chest movement, not in resp distress Skin : Warm, Dry Neurological : No focal deficit Objective Data Active Medications Acetaminophen (Acetaminophen 325 Mg Tablet) 650 mg PO Q6H PRN PRN Reason: Pain, Mild (Pain Scale 1-3) Al Hydroxide/Mg Hydroxide (Magnesium Hydrox/Alum Hydrox 30 Ml Oral.Susp) 30 ml PO Q6H PRN PRN Reason: Heartburn/Nausea Docusate Sodium (Docusate Sodium 100 Mg Capsule) 100 mg PO BEDTIME [facility] Last Admin: 02/17/24 21:18 Dose: Not Given Documented By: SHEN Non-Admin Reason: pt very sleepy Olanzapine (Olanzapine 10 Mg Vial) 5 mg IM Q8H PRN PRN Reason: anxiety/restlessness Olanzapine (Olanzapine Odt 10 Mg Tab.Rapdis) 5 mg TRANSLINGU Q4H PRN PRN Reason: Psychosis Last Admin: 02/12/24 17:20 Dose: 5 mg Documented By: MCGINNM Sodium Chloride (0.9 % Sodium Chloride Flush 3 Ml Syringe) 3 ml IVFLUSH QSHIFT [facility] Last Admin: 02/18/24 07:58 Dose: 3 ml Documented By: FOGARTB Trazodone HCl (Trazodone Hcl 50 Mg Tablet) 50 mg PO BEDTIME MRX1 PRN PRN Reason: Insomnia Last Admin: 02/13/24 21:55 Dose: 50 mg Documented By: KAREN Assessment and Plan (1) Dementia, unspecified, with behavioral disturbance: Status: Acute Plan 78M PMH alcoholic dementia presented from [facility] for increased needs to provide end of life care advanced alcoholic dementia with agitation ativan PRN zyprexa IM and PO prn Pending outpatient hospice placement Psychiatry appreciated DNR/DNI reason for continued hospitalization: end of life care, safe dispo Quality Stroke Does the patient have a stroke diagnosis?: No VTE Prior VTE?: No VTE Risk Level:: Medical - moderate - high VTE Device Contraindication: Treatment Not Indicated VTE Drug Contraindication: Treatment Not Indicated
[2024-02-19] MEDS: 0.9 % Sodium Chloride Flush 3 ML SYRINGE IVFLUSH ×3 (07:41→21:23)
--- NOTE | 2024-02-19 08:13 | P.PNIM_ITS ---
Subjective Subjective Date of Service: 02/19/24 Interval History: Not participatory Physical Exam Vital Signs: Vital Signs: Last Vital Signs Temp 98 F 02/15/24 06:44 Pulse 89 02/15/24 06:44 Resp 15 02/18/24 08:00 BP 126/73 02/15/24 06:44 Pulse Ox 96 02/15/24 06:44 O2 Del Method Room Air 02/15/24 06:44 O2 Flow Rate 2 02/06/24 15:44 BMI result Body Mass Index 20.0 Const: Other: Constitutional : sleeping, not in distress Cardiovascular : no JVP, no lower extremity edema Respiratory : bilateral chest movement, not in resp distress Skin : Warm, Dry Neurological : No focal deficit Objective Data Active Medications Acetaminophen (Acetaminophen 325 Mg Tablet) 650 mg PO Q6H PRN PRN Reason: Pain, Mild (Pain Scale 1-3) Al Hydroxide/Mg Hydroxide (Magnesium Hydrox/Alum Hydrox 30 Ml Oral.Susp) 30 ml PO Q6H PRN PRN Reason: Heartburn/Nausea Docusate Sodium (Docusate Sodium 100 Mg Capsule) 100 mg PO BEDTIME [facility] Last Admin: 02/18/24 20:44 Dose: Not Given Documented By: SATHISH Non-Admin Reason: Patient Condition Contraindication Olanzapine (Olanzapine 10 Mg Vial) 5 mg IM Q8H PRN PRN Reason: anxiety/restlessness Olanzapine (Olanzapine Odt 10 Mg Tab.Rapdis) 5 mg TRANSLINGU Q4H PRN PRN Reason: Psychosis Last Admin: 02/12/24 17:20 Dose: 5 mg Documented By: MCGINNM Sodium Chloride (0.9 % Sodium Chloride Flush 3 Ml Syringe) 3 ml IVFLUSH QSHIFT [facility] Last Admin: 02/19/24 07:41 Dose: 3 ml Documented By: OSKARARTAmy Trazodone HCl (Trazodone Hcl 50 Mg Tablet) 50 mg PO BEDTIME MRX1 PRN PRN Reason: Insomnia Last Admin: 02/13/24 21:55 Dose: 50 mg Documented By: KAREN Assessment and Plan (1) Dementia, unspecified, with behavioral disturbance: Status: Acute Plan 78M PMH alcoholic dementia presented from [facility] for increased needs to provide end of life care advanced alcoholic dementia with agitation ativan PRN zyprexa IM and PO prn Pending outpatient hospice placement Psychiatry appreciated DNR/DNI reason for continued hospitalization: end of life care, safe dispo Quality Stroke Does the patient have a stroke diagnosis?: No VTE Prior VTE?: No VTE Risk Level:: Medical - moderate - high VTE Device Contraindication: Treatment Not Indicated VTE Drug Contraindication: Treatment Not Indicated
[2024-02-20 03:15] VITALS: RESP 14
[2024-02-20] MEDS: 0.9 % Sodium Chloride Flush 3 ML SYRINGE IVFLUSH ×2 (07:26→15:51)
--- NOTE | 2024-02-20 08:06 | HO.PM.IMPN ---
Subjective Subjective Date of Service: 02/20/24 Interval History: Not participatory Physical Exam Vital Signs: Vital Signs: Last Vital Signs Temp 98 F 02/15/24 06:44 Pulse 89 02/15/24 06:44 Resp 14 02/20/24 03:15 BP 126/73 02/15/24 06:44 Pulse Ox 96 02/15/24 06:44 O2 Del Method Room Air 02/15/24 06:44 O2 Flow Rate 2 02/06/24 15:44 BMI result Body Mass Index 20.0 Const: Other: Constitutional : sleeping, not in distress Cardiovascular : no JVP, no lower extremity edema Respiratory : bilateral chest movement, not in resp distress Skin : Warm, Dry Neurological : No focal deficit Objective Data Active Medications Acetaminophen (Acetaminophen 325 Mg Tablet) 650 mg PO Q6H PRN PRN Reason: Pain, Mild (Pain Scale 1-3) Al Hydroxide/Mg Hydroxide (Magnesium Hydrox/Alum Hydrox 30 Ml Oral.Susp) 30 ml PO Q6H PRN PRN Reason: Heartburn/Nausea Docusate Sodium (Docusate Sodium 100 Mg Capsule) 100 mg PO BEDTIME [facility] Last Admin: 02/19/24 21:15 Dose: Not Given Documented By: RICHIE Non-Admin Reason: NPO Olanzapine (Olanzapine 10 Mg Vial) 5 mg IM Q8H PRN PRN Reason: anxiety/restlessness Olanzapine (Olanzapine Odt 10 Mg Tab.Rapdis) 5 mg TRANSLINGU Q4H PRN PRN Reason: Psychosis Last Admin: 02/12/24 17:20 Dose: 5 mg Documented By: RAINE Sodium Chloride (0.9 % Sodium Chloride Flush 3 Ml Syringe) 3 ml IVFLUSH QSHIFT [facility] Last Admin: 02/20/24 07:26 Dose: 3 ml Documented By: CLARIBEL Trazodone HCl (Trazodone Hcl 50 Mg Tablet) 50 mg PO BEDTIME MRX1 PRN PRN Reason: Insomnia Last Admin: 02/13/24 21:55 Dose: 50 mg Documented By: KAREN Assessment and Plan (1) Dementia, unspecified, with behavioral disturbance: Status: Acute Plan 78M PMH alcoholic dementia presented from [facility] for increased needs to provide end of life care advanced alcoholic dementia with agitation ativan PRN zyprexa IM and PO prn Pending outpatient hospice placement Psychiatry appreciated DNR/DNI reason for continued hospitalization: end of life care, safe dispo Quality Stroke Does the patient have a stroke diagnosis?: No VTE Prior VTE?: No VTE Risk Level:: Medical - moderate - high VTE Device Contraindication: Treatment Not Indicated VTE Drug Contraindication: Treatment Not Indicated
[2024-02-20 15:16] VITALS: RESP 16
[2024-02-20 19:50] VITALS: RESP 16
[2024-02-21] MEDS: 0.9 % Sodium Chloride Flush 3 ML SYRINGE IVFLUSH (00:41)
--- NOTE | 2024-02-21 08:18 | P.DN_ITS ---
Discharge Sum: Prov Provider Primary care physician: Unknown Physician Consults: 02/03/24 14:21 Consult to Wound Care Routine Reason for consultation: wound in the sacrum 02/08/24 09:52 Consult to Psychiatry Routine Consulting Provider: Psych Covering Reason for consultation: Medication advice. 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 however, patient has been unable to tolerate po meds, spitting them up. he is at times restless and danger to self harm and pain. therefore, will be admitted to medical service for iv interventions as needed, and to avoid self infilcted trauma due to agitation. hospital course: Patient was admitted for advanced alcoholic dementia with agitation. Goals of care were for maximal comfort. This was achieved with Ativan and Zyprexa as needed. Initially plan was for outpatient hospice placement, however was unable to find placement, patient 02/21/2024 at 08:15. Additional Data Attending physician: Ernst Baxter MD
--- NOTE | 2024-02-21 08:21 | PM.EVENT ---
Event Note Date of Service: 02/21/24 Event Note: called to see patient, found to be apeneic, no heart sounds, no pupil reflex, no pulse time of 815am attempted to contact spouse, no answer on phone. Time Spent With Patient Time: Total time managing care of this patient today ____ minutes.
--- NOTE | 2024-02-21 08:43 | PC.NURSE ---
Pt at [address] Baxter notified, attempted to reach next of kin with no answer, case management will attempt to reach out also.
--- NOTE | 2024-02-21 08:43 | MHC.CM.PN ---
Notified by charge nurse patient this morning. The MD has called the patients . He had to leave a VM. He will attempt to contact her again. This designer/writer left a detailed VM with contact info. A request for a return call to [facility]; because the MD has very important message regarding the patient's medical condition. It was made clear that this is not related to financial or insurance issue.
--- NOTE | 2024-02-21 09:44 | PC.NURSE ---
Called placed to pts Magaly Rivera at [phone] unable to reach her , voice message left that its imperative she call us back at [phone]
== END 2024-02-21 08:46 | disposition expired | DRG 897 ==
PROVIDERS: Admitting Provider Internal Medicine; Visit Provider Internal Medicine
DX: F10.97 Alcohol use, unspecified with alcohol-induced persisting dementia (principal); Z51.5 Encounter for palliative care; E11.40 Type 2 diabetes mellitus with diabetic neuropathy, unspecified; Z66 Do not resuscitate; R45.1 Restlessness and agitation
CPT/HCPCS: J1630; J2060; J2359

== ENCOUNTER → 2024-02-03 15:00 | Outpatient (BNV) | payer MEDICARE, OTHER, SELFPAY | PROVIDERS: Admitting Provider Internal Medicine; Visit Provider Psychiatry & Neurology Psychiatry | DX: F03.911 Unspecified dementia, unspecified severity, with agitation (principal) | CPT/HCPCS: 99232 ==

== ENCOUNTER → 2024-02-03 | Outpatient (BNV) | payer MEDICARE, MEDICAID, OTHER, SELFPAY | PROVIDERS: Admitting Provider Internal Medicine; Visit Provider Internal Medicine | DX: F03.918 Unspecified dementia, unspecified severity, with other behavioral disturbance (principal) | CPT/HCPCS: 99222; 99231; 99238; 99499 ==